=== PATIENT | male | born 1965 | race Caucasian/White ===

== ENCOUNTER → 2018-05-05 10:02 | Outpatient (CLI) | payer BC, SELFPAY ==
--- NOTE | 2018-05-05 10:05 | VDLE_ITS ---
Reason For Study: venous insuff, pain RIGHT LEFT CFV is compressible, spontaneous, phasic, CFV is compressible, spontaneous, phasic, competent and demonstrates normal competent, and demonstrates normal augmentation. augmentation. FV is compressible, spontaneous, phasic, FV is compressible, spontaneous, phasic, competent and demonstrates normal competent and demonstrates normal augmentation. augmentation. POP V is compressible, spontaneous, phasic, POP V is compressible, spontaneous, phasic, competent and demonstrates normal competent and demonstrates normal augmentation. augmentation. T/P Trunk is compressible. T/P Trunk is compressible. PTV is compressible. PTV is compressible. RT PerV is compressible. LT PerV is compressible. S-F Junction is incompetent for greater S-F Junction is incompetent for greater than .5 seconds. than .5 seconds. Short segment of the GSV at the junction is ASV in the thigh is incompetent for greater incompetent for greater than .5 seconds. than .5 seconds. ASV measures .876 x .903 cm. Segment is 3.78 cm in length. GSV ASV below the knee is incompetent for greater measures .989 x 1.04 cm. than .5 seconds. ASV measures .657 x .678 cm. ASV in the thigh is incompetent for greater GSV below the knee is incompetent for greater than .5 seconds. ASV measures .587 x .629 cm. than .5 seconds. GSV measures .468 x .494 cm. GSV below the knee is incompetent for greater SSV is incompetent for greater than .5 than .5 seconds. GSV measures .412 x .468 cm. seconds. SSV measures .34 x .385 cm. Technology Advisor V 14 cm proximal to the medial Accessory SSV is incompetent for greater malleoulus is incompetent for greater than .5 than .5 seconds. Vein measures .429 x .458 seconds. cm. SSV is incompetent for greater than .5 Technology Advisor V 14 cm proximal to the medial seconds. SSV measures .251 x .287 cm. malleolus is incompetent for greater than .5 Accessory SSV is incompetent for greater seconds. than .5 seconds. Vein measures .316 x .349 cm. Procedure Exam performed in department. The exam was diagnostic. Interpretation Summary Deep veins of the lower extremities are bilaterally patent and compressible segmentally. There is no evidence of deep vein thrombosis on either side. Valvular competence appears intact within the proximal deep venous systems bilaterally. Sapheno-femoral junctions are bilaterally incompetent . A short segment of the right great saphenous vein at the sapheno-femoral junction, measuring 3.78 cm in length, is incompetent. The right great saphenous vein below the knee is patent and incompetent. The left great saphenous vein above the knee is absent. The left great saphenous vein below the knee is patent and incompetent. Small saphenous veins are patent and incompetent bilaterally. An accessory saphenous vein in the right thigh is incompetent. On the left, an accessory saphenous vein in the thigh and below the knee are incompetent. An incompetent accessory small saphenous vein is noted bilaterally. An incompetent tunnel form placing supervisor vein is noted in the right calf, located 14 centimeters proximal to the right medial malleolus. An incompetent tunnel form placing supervisor vein is noted in the left calf, located 14 centimeters proximal to the left medial malleolus. Ordering Physician: Marko Toussaint Performed By: Rocky Duran, RVT
--- OUTSIDE RECORDS SUMMARY | 2018-07-10 00:11 | XMS RPT_ITS ---
:1965 Author Organization [facility] Care Team Providers Name Role Phone LIDYA WRIGHT (OSCAR-C) Attending Unavailable COLLEENALEX VANG Referring Unavailable LIDYA WRIGHT (PA-C) Attending Unavailable ALEX MACIAS Referring Unavailable LIDYA WRIGHT (PA-C) Attending Unavailable ALEX MACIAS Referring Unavailable ALEX MACIAS Attending Unavailable BENJIE MATT Referring Unavailable COLLEENALEX Referring Unavailable LIDYA WRIGHT (PA-C) Attending Unavailable LIDYA WRIGHT (PA-C) Referring Unavailable LIDYA WRIGHT (PA-C) Referring Unavailable Marko Toussaint Attending Unavailable Marko Toussaint Referring Unavailable Alex Macias Primary Care Unavailable PROBLEMS PROBLEMS DATE TYPE CONDITION / CODE ATTENDING STATUS SOURCE 11/24/2017 Active Other specified NA Active [facility] soft tissue Other [facility] disorders / Repository M79.89(ICD-10) 10/11/2017 Active Other longterm NA Active [facility] (current) drug [facility] therapy / Repository Z79.899(ICD-10) 07/08/2017 Active Type 2 diabetes NA Active [facility] mellitus without [facility] complications / Repository E11.9(ICD-10) PROCEDURES PROCEDURES No Procedure Records FoundRESULTS RESULTS VENOUS DUPLEX LOWER Observed: 05/06/2018 Status: F Source: [place]EL EXTREMITY 12:40 PM [facility] REPOSITORY [facility] Cardiovascular Services [address] [place] [address] Venous Duplex US - Larry Extrem 05/05/18 1008 MR#: [id number] Acct: [id number] Name: FOREST LUNA Rep #: [id number] : 1965 53 From: Marko Toussaint MD Attending Dr: Marko Toussaint MD Status: REG CLI Ordering Dr: Marko Toussaint MD Date: 05/05/18 Location: [facility] Sex: M C Admitted: Reason For Study: venous insuff, pain RIGHT LEFT CFV is compressible, spontaneous, phasic, CFV is compressible, spontaneous, phasic, competent and demonstrates normal competent, and demonstrates normal augmentation. augmentation. FV is compressible, spontaneous, phasic, FV is compressible, spontaneous, phasic, competent and demonstrates normal competent and demonstrates normal augmentation. augmentation. POP V is compressible, spontaneous, phasic, POP V is compressible, spontaneous, phasic, competent and demonstrates normal competent and demonstrates normal augmentation. augmentation. T/P Trunk is compressible. T/P Trunk is compressible. PTV is compressible. PTV is compressible. RT PerV is compressible. LT PerV is compressible. S-F Junction is incompetent for greater S-F Junction is incompetent for greater than .5 seconds. than .5 seconds. Short segment of the GSV at the junction is ASV in the thigh is incompetent for greater incompetent for greater than .5 seconds. than .5 seconds. ASV measures .876 x .903 cm. Segment is 3.78 cm in length. GSV ASV below the knee is incompetent for greater measures .989 x 1.04 cm. than .5 seconds. ASV measures .657 x .678 cm. ASV in the thigh is incompetent for greater GSV below the knee is incompetent for greater than .5 seconds. ASV measures .587 x .629 cm. than .5 seconds. GSV measures .468 x .494 cm. GSV below the knee is incompetent for greater SSV is incompetent for greater than .5 than .5 seconds. GSV measures .412 x .468 cm. seconds. SSV measures .34 x .385 cm. Miner Assistant V 14 cm proximal to the medial Accessory SSV is incompetent for greater malleoulus is incompetent for greater than .5 than .5 seconds. Vein measures .429 x .458 seconds. cm. SSV is incompetent for greater than .5 Miner Assistant V 14 cm proximal to the medial seconds. SSV measures .251 x .287 cm. malleolus is incompetent for greater than .5 Accessory SSV is incompetent for greater seconds. than .5 seconds. Vein measures .316 x .349 cm. Procedure Exam performed in department. The exam was diagnostic. Interpretation Summary Deep veins of the lower extremities are bilaterally patent and compressible segmentally. There is no evidence of deep vein thrombosis on either side. Valvular competence appears intact within the proximal deep venous systems bilaterally. Sapheno-femoral junctions are bilaterally incompetent . A short segment of the right great saphenous vein at the sapheno- femoral junction, measuring 3.78 cm in length, is incompetent. The right great saphenous vein below the knee is patent and incompetent. The left great saphenous vein above the knee is absent. The left great saphenous vein below the knee is patent and incompetent. Small saphenous veins are patent and incompetent bilaterally. An accessory saphenous vein in the right thigh is incompetent. On the left, an accessory saphenous vein in the thigh and below the knee are incompetent. An incompetent accessory small saphenous vein is noted bilaterally. An incompetent options trader vein is noted in the right calf, located 14 centimeters proximal to the right medial malleolus. An incompetent options trader vein is noted in the left calf, located 14 centimeters proximal to the left medial malleolus. Ordering Physician: Marko Toussaint Performed By: Rocky Duran RVT 05/06/18 1240 Date Marko Toussaint MD CC: Marko Toussaint MD; Alex Macias MD Date Dictated: 05/05/18 1008 Date Transcribed: 05/06/18 1240 Legal Executive Assistant: Signed PROGRESS Observed: 04/26/2018 Status: COMPLETED Source: [place] 9:59 AM [facility] REPOSITORY O ID: [id number] Author: Lidya Dean) [place] Service: (none) Author Type: Physician Trades Helper Type: Progress Notes Filed: 04/26/2018 11:01 AM Note Text: Forest Luna is a 52 year old male here today for routine follow-up. DM: frustrated with his diabetes. Trying as hard as he can with diet, exercising regularly. Has kept his weight down. Morning sugars 127-131. Insurance no longer covering invokana, needs alternative. Frustrated that he is taking multiple pills without improvement in his numbers. Wants to try weekly injectable. HTN: taking medication as prescribed. DVT: Stopped xarelto. Developed skin rash. Stopped medication and rash resolved. Now taking two Baby asirin daily. Seeing vascular tomorrow in [place] (Marko Toussaint). Waiting on his recommendation. GERD: well controlled with omeprazole. REVIEW OF SYSTEMS See HPI, otherwise unremarkable. PAST MEDICAL HISTORY Diagnosis Date - GERD (gastroesophageal reflux disease) - HTN (hypertension) - Obesity (BMI 30-39.9) - Rotator cuff syndrome of shoulder and allied disorders 2004 Rotator cuff syndrome, [place] with PT - Thrombocytopenia (HCC) - Type 2 diabetes mellitus (HCC) - Varicose veins PAST SURGICAL HISTORY Procedure Laterality Date - EGD W/ REM POLYP-SNARE STOMACH 12/15/06 - PAST SURGICAL HISTORY OF Bilateral 1975 surgery of the eyes ambliopea - PAST SURGICAL HISTORY OF Bilateral surgeries on leg veins x 5 surgeries FAMILY HISTORY Problem Relation Age of Onset - None Mother - None Father Social History Marital status: Spouse name: Althea Villarreal Years of education: Number of children: 0 Occupational History Occupation Employer Comment [employer] Social History Main Topics Smoking status: Never Smoker Smokeless tobacco: Never Used Alcohol use: Yes Comment: 2 beers once a month Drug use: No PHYSICAL EXAMINATION: Vitals: BP 133/83 Pulse 86 Temp 36.8 ?C (98.3 ?F) (Oral) Resp 16 Ht 175.3 cm (5' 9) Wt 98 kg (216 lb) SpO2 99% BMI 31.90 kg/m? General Appearance: Well appearing, alert, in no acute distress, well-hydrated, well nourished.. Lungs: lungs clear to auscultation. No wheezing, rhonchi, rales. Heart: RRR without murmur, gallop, or rubs. No ectopy. ASSESSMENT: DIAGNOSIS: (E11.9) Type 2 diabetes mellitus without complication, without long-term current use of insulin (HCC) (primary encounter diagnosis) (I10) Essential hypertension (K21.9) Gastroesophageal reflux disease, esophagitis presence not specified (Z86.718) History of DVT (deep vein thrombosis) PLAN: ASSESSMENT/PLAN: 1. Type 2 diabetes mellitus without complication, without long-term current use of insulin (HCC) - ICD9: 250.00, ICD10: E11.9 (primary diagnosis) poorly controlled POC A1C today is 8.4% - Discussed with Jaqui Canela,pharm D. Will stop invokana and januvia. Continue metformin and add trulicity. Discussed risks vs benefits and potential side effects. Injection instructions provided by Dr. Canela. 2. Essential hypertension - ICD9: 401.9, ICD10: I10 - good control - Recommended regular aerobic exercise. - Recommend home blood pressure monitoring, to bring results in on next visit - Goal of BP <130/80 3. Gastroesophageal reflux disease, esophagitis presence not specified - ICD9: 530.81, ICD10: K21.9 - Continue omeprazole 4. History of DVT (deep vein thrombosis) - ICD9: V12.51, ICD10: Z86.718 Seeing vascular tomorrow. Send list of sugars via [facility] in one month, follow-up in office in 3 months. Pt in agreement with the plan and verbalized understanding. I spent 25 minutes in the visit, with more than 50% of the total sanf-we-mgrd time of the visit in counseling / coordination of care. Lidya Wright PA-C PROGRESS Observed: 04/26/2018 Status: COMPLETED Source: [place] 9:[address] [facility] REPOSITORY O ID: [id number] Author: Janny Vieira MA Service: (none) Author Type: (none) Type: Progress Notes Filed: 04/26/2018 11:00 AM Note Text: BP CONTROLLED (<130/80) due on 1984 DTAP,TDAP,TD(1 - Tdap) due on 1985 COLORECTAL CANCER SCREENING,SEE MODIFIER due on 2016 INFLUENZA(1) due on 12/18/2017 URINE ALBUMIN:CREATININE RATIO due on 01/11/2018 HBA1C due on 01/11/2018 DIABETIC FOOT EXAM due on 01/14/2018 PROGRESS Observed: 04/26/2018 Status: COMPLETED Source: [place] 9:[address] [facility] REPOSITORY HNO ID: [id number] Author: Jaqui Canela (Pharmacist) Service: (none) Author Type: Pharmacist Type: Progress Notes Filed: 04/26/2018 11:00 AM Note Text: Team Care - Medication Education Referred By: Lidya Wright Pa-C Device training: GLP1-agonist: Trulicity Patient demonstrated ability to appropriately administer GLP1 agonist. Provided education related to indication, directions, administration, common side effects, ways to mitigate ADEs, storage, and when to contact clinic/PCP. Jaqui Canela PharmD, [facility] Primary Care Clinical Specialist CNOV Observed: 04/26/2018 Status: COMPLETED Source: [place] 9:[address] [facility] REPOSITORY Office Visit (IMMDNA) FOREST LUNA ([id number]) 1965 M Date Time Provider Department 04/26/18 9:40 AM LIDYA WRIGHT) IMMDNA During your visit today, we recorded the following information about you: Temperature Pulse Respiration Blood pressure 98.3 degrees 86/minute 16/minute 133/83 Weight Height 98 kg 1.753 m JAQUI CANELA PHARMACIST 04/26/2018 11:00 AM Signed Team Care - Medication Education Referred By: Lidya Wright Pa-C Device training: GLP1-agonist: Trulicity Patient demonstrated ability to appropriately administer GLP1 agonist. Provided education related to indication, directions, administration, common side effects, ways to mitigate ADEs, storage, and when to contact clinic/PCP. Jaqui [place], PharmD, BCPS Primary Care Clinical Specialist Janny Vieira MA 04/26/2018 11:00 AM Signed BP CONTROLLED (<130/80) due on 1984 DTAP,TDAP,TD(1 - Tdap) due on 1985 COLORECTAL CANCER SCREENING,SEE MODIFIER due on 2016 INFLUENZA(1) due on 12/18/2017 URINE ALBUMIN:CREATININE RATIO due on 01/11/2018 HBA1C due on 01/11/2018 DIABETIC FOOT EXAM due on 01/14/2018 Lidya Wright PA-C 04/26/2018 11:01 AM Addendum Forest Luna is a 52 year old male here today for routine follow-up. DM: frustrated with his diabetes. Trying as hard as he can with diet, exercising regularly. Has kept his weight down. Morning sugars 127-131. Insurance no longer covering invokana, needs alternative. Frustrated that he is taking multiple pills without improvement in his numbers. Wants to try weekly injectable. HTN: taking medication as prescribed. DVT: Stopped xarelto. Developed skin rash. Stopped medication and rash resolved. Now taking two Baby asirin daily. Seeing vascular tomorrow in [place] (Marko Toussaint). Waiting on his recommendation. GERD: well controlled with omeprazole. REVIEW OF SYSTEMS See HPI, otherwise unremarkable. PAST MEDICAL HISTORY Diagnosis Date - GERD (gastroesophageal reflux disease) - HTN (hypertension) - Obesity (BMI 30-39.9) - Rotator cuff syndrome of shoulder and allied disorders 2004 Rotator cuff syndrome, [place] with PT - Thrombocytopenia (HCC) - Type 2 diabetes mellitus (HCC) - Varicose veins PAST SURGICAL HISTORY Procedure Laterality Date - EGD W/ REM POLYP-SNARE STOMACH 12/15/06 - PAST SURGICAL HISTORY OF Bilateral 1975 surgery of the eyes ambliopea - PAST SURGICAL HISTORY OF Bilateral surgeries on leg veins x 5 surgeries FAMILY HISTORY Problem Relation Age of Onset - None Mother - None Father Social History Marital status: Spouse name: Althea Villarreal Years of education: Number of children: 0 Occupational History Occupation Employer Comment [employer] Social History Main Topics Smoking status: Never Smoker Smokeless tobacco: Never Used Alcohol use: Yes Comment: 2 beers once a month Drug use: No PHYSICAL EXAMINATION: Vitals: BP 133/83 Pulse 86 Temp 36.8 ?C (98.3 ?F) (Oral) Resp 16 Ht 175.3 cm (5' 9) Wt 98 kg (216 lb) SpO2 99% BMI 31.90 kg/m? General Appearance: Well appearing, alert, in no acute distress, well-hydrated, well nourished.. Lungs: lungs clear to auscultation. No wheezing, rhonchi, rales. Heart: RRR without murmur, gallop, or rubs. No ectopy. ASSESSMENT: DIAGNOSIS: (E11.9) Type 2 diabetes mellitus without complication, without long-term current use of insulin (HCC) (primary encounter diagnosis) (I10) Essential hypertension (K21.9) Gastroesophageal reflux disease, esophagitis presence not specified (Z86.718) History of DVT (deep vein thrombosis) PLAN: ASSESSMENT/PLAN: 1. Type 2 diabetes mellitus without complication, without long-term current use of insulin (HCC) - ICD9: 250.00, ICD10: E11.9 (primary diagnosis) poorly controlled POC A1C today is 8.4% - Discussed with Jaqui Canela,pharm D. Will stop invokana and januvia. Continue metformin and add trulicity. Discussed risks vs benefits and potential side effects. Injection instructions provided by Dr. Canela. 2. Essential hypertension - ICD9: 401.9, ICD10: I10 - good control - Recommended regular aerobic exercise. - Recommend home blood pressure monitoring, to bring results in on next visit - Goal of BP <130/80 3. Gastroesophageal reflux disease, esophagitis presence not specified - ICD9: 530.81, ICD10: K21.9 - Continue omeprazole 4. History of DVT (deep vein thrombosis) - ICD9: V12.51, ICD10: Z86.718 Seeing vascular tomorrow. Send list of sugars via [employer] in one month, follow-up in office in 3 months. Pt in agreement with the plan and verbalized understanding. I spent 25 minutes in the visit, with more than 50% of the total uaiu-yv-jkdg time of the visit in counseling / coordination of care. Lidya Wright PA-C Referring Provider: ALEX MACIAS [[id number]] Allergies As of Date: 04/26/2018 Noted Allergy Reaction ERYTHROMYCIN 11/29/2006 PENICILLINS 11/29/2006 Date Reviewed: 04/26/2018 Reviewed by: Janny Vieira MA - Fully Assessed Reason for Visit: Diabetes [34] Primary Visit Diagnosis:Type 2 diabetes mellitus without complication, without long-term current use of insulin (HCC) [E11.9] Other Visit Diagnoses:Essential hypertension [I10] Gastroesophageal reflux disease, esophagitis presence not specified [K21.9] History of DVT (deep vein thrombosis) [Z86.718] Order(s):HEMOGLOBIN A1C (POC) [6240138] Order #: [id number]. #:[id number] dulaglutide (TRULICITY) 0.75 mg / 0.5 ml subcutaneous pen injectorInject 0.75 mg subcutaneously once each week. Inject dose once per week. Discard Pen AfterDisp: 4 PenRfl: 5 Prescriptions as of 04/26/2018 Sig: METFORMIN 500 MG TABLET Take 2 tablets by mouth twice* LISINOPRIL 5 MG TABLET TAKE 1 TABLET ONCE DAILY OMEPRAZOLE 40 MG CAPSULE,GET* TAKE 1 CAPSULE DAILY CLOBETASOL 0.05 % TOPICAL CRE* Apply 1 application to affect* COMPRESSION STOCKING, THIGH H* Use as directed BLOOD-GLUCOSE METER, DRUM-TYP* Use as directed. LANCETS Test blood sugar(s) 4 times d* BLOOD SUGAR DIAGNOSTIC STRIPS Test blood sugar(s) 4 times d* DULAGLUTIDE 0.75 MG/0.5 ML DUENAS* Inject 0.75 mg subcutaneously* Problem List As Of Date 04/26/2018 Noted Resolved ABDOMINAL PAIN EPIGASTRIC [R10.13] INVALID FOR* STOMACH FUNCTION DIS NEC [K31.89, R10.13] INVALID FOR* BENIGN NEOPLASM STOMACH [D13.1] INVALID FOR* DIAPHRAGMATIC HERNIA [K44.9] INVALID FOR* Ingrowing nail [L60.0] INVALID FOR* Type 2 diabetes mellitus without complication (*INVALID FOR* Diabetic peripheral neuropathy (HCC) [E11.42] INVALID FOR* Incomplete tear of left rotator cuff [M75.112] INVALID FOR* Essential hypertension [I10] INVALID FOR* GERD (gastroesophageal reflux disease) [K21.9] INVALID FOR* Constitutional obesity [E66.8] INVALID FOR* Thrombocytopenic (HCC) [D69.6] INVALID FOR* Prescriptions ordered this encounter Disp Refills Start End DULAGLUTIDE 0.75 MG/0.5 ML SUBCUTANE* 4 Pen 5 04/26/2018 Route: SUBCUTANEOUS Sig: Inject 0.75 mg subcutaneously once each week. Inject dose once per week. Discard Pen After Medications Discontinued During This Encounter Flurandrenolide (CORDRAN) 4 mcg/cm2 * 1 Ea* 2 01/14/2017 04/26/2018 Sig: Apply once daily to affected areas as needed Disc: Course of therapy completed fluticasone (FLOVENT) 220 mcg/actuat* 1 In* 0 07/14/2017 04/26/2018 Route: INHALATION Sig: Inhale 1 Puff as instructed twice daily. Disc: Course of therapy completed COMPOUNDED PRESCRIPTION 50 E* 2 10/14/2017 04/26/2018 Sig: Basaglar pen needles. Use one daily Disc: Course of therapy completed insulin glargine (LANTUS SOLOSTAR, B* 2 Pen 0 10/14/2017 04/26/2018 Sig: Inject 5 Units subcutaneously daily Disc: Course of therapy completed rivaroxaban (XARELTO) 20 mg tablet 90 t* 1 11/24/2017 04/26/2018 Route: ORAL Sig: Take 1 tablet by mouth daily with dinner. Disc: Course of therapy completed rivaroxaban (XARELTO) 15 mg tablet 60 t* 0 11/24/2017 04/26/2018 Route: ORAL Sig: Take 1 tablet by mouth twice daily with meals. For three weeks. Disc: Course of therapy completed INVOKANA 300 mg tablet 90 t* 1 03/29/2018 04/26/2018 Sig: TAKE 1 TABLET DAILY BEFORE BREAKFAST Disc: Changing Therapy/Dosage Form sitaGLIPtin (JANUVIA) 100 mg tablet 90 t* 3 12/30/2017 04/26/2018 Route: ORAL Sig: Take 1 tablet by mouth once daily. Disc: Changing Therapy/Dosage Form Encounter Status:Closed by LIDYA WRIGHT PA-C on 04/26/18 OMER Observed: 04/11/2018 Status: COMPLETED Source: [place] 12:[address] [facility] REPOSITORY Patient Outreach (INTMWH) FOREST LUNA ([id number]) 1965 M Date Time Provider Department 04/11/18 ALEX MACIAS [facility] During your visit today, we recorded the following information about you: Allergies As of Date: 04/11/2018 Noted Allergy Reaction ERYTHROMYCIN 11/29/2006 PENICILLINS 11/29/2006 Date Reviewed: 11/24/2017 Reviewed by: Azul Ambriz MA - Fully Assessed Visit Diagnosis:Medication management [Z79.899] Order(s):ALBUMIN/CREAT RATIO RND UR [SQUACR] Order #: [id number] FUTURE HGB A1C [YPWLQ7H] Order #: [id number] FUTURE Prescriptions as of 04/11/2018 Sig: INVOKANA 300 MG TABLET TAKE 1 TABLET DAILY BEFORE BR* METFORMIN 500 MG TABLET Take 2 tablets by mouth twice* SITAGLIPTIN 100 MG TABLET Take 1 tablet by mouth once d* LISINOPRIL 5 MG TABLET TAKE 1 TABLET ONCE DAILY OMEPRAZOLE 40 MG CAPSULE,GET* TAKE 1 CAPSULE DAILY RIVAROXABAN 15 MG TABLET Take 1 tablet by mouth twice * RIVAROXABAN 20 MG TABLET Take 1 tablet by mouth daily * INSULIN GLARGINE (U-100) 100 * Inject 5 Units subcutaneously* COMPOUNDED PRESCRIPTION Basaglar pen needles. Use one* FLUTICASONE 220 MCG/ACTUATION* Inhale 1 Puff as instructed t* FLURANDRENOLIDE 4 MCG/CM2 TAPE Apply once daily to affected * CLOBETASOL 0.05 % TOPICAL CRE* Apply 1 application to affect* COMPRESSION STOCKING, THIGH H* Use as directed BLOOD-GLUCOSE METER, DRUM-TYP* Use as directed. LANCETS Test blood sugar(s) 4 times d* BLOOD SUGAR DIAGNOSTIC STRIPS Test blood sugar(s) 4 times d* Problem List As Of Date 04/11/2018 Noted Resolved ABDOMINAL PAIN EPIGASTRIC [R10.13] INVALID FOR* STOMACH FUNCTION DIS NEC [K31.89, R10.13] INVALID FOR* BENIGN NEOPLASM STOMACH [D13.1] INVALID FOR* DIAPHRAGMATIC HERNIA [K44.9] INVALID FOR* Ingrowing nail [L60.0] INVALID FOR* Type 2 diabetes mellitus without complication (*INVALID FOR* Diabetic peripheral neuropathy (HCC) [E11.42] INVALID FOR* Incomplete tear of left rotator cuff [M75.112] INVALID FOR* Essential hypertension [I10] INVALID FOR* GERD (gastroesophageal reflux disease) [K21.9] INVALID FOR* Constitutional obesity [E66.8] INVALID FOR* Thrombocytopenic (HCC) [D69.6] INVALID FOR* Encounter Status:Closed by JOSE MARIA ADHIKARI on 04/26/18 JACQUELINE Observed: 02/21/2018 Status: COMPLETED Source: [place] 12:[address] [facility] REPOSITORY Telephone (IMMDNA) FOREST LUNA ([id number]) 1965 M Date Time Provider Department 02/21/18 JOSÉ MIGUEL SCHMID (PSR) [facility] During your visit today, we recorded the following information about you: José Miguel Schmid 02/21/2018 10:00 AM Signed 02/21/18 First attempt to reach patient. LM for patient to return call and schedule a physical with Dr. Macias. Tari South 02/23/2018 11:48 AM Signed 02/23/18 Spoke to the patient, he said he would prefer to schedule through [facility] so he has his schedule. He said he would schedule later today. Please assist in scheduling. Allergies As of Date: 02/21/2018 Noted Allergy Reaction ERYTHROMYCIN 11/29/2006 PENICILLINS 11/29/2006 Date Reviewed: 11/24/2017 Reviewed by: Azul Ambriz MA - Fully Assessed Reason for Visit: Appointment [186] Prescriptions as of 02/21/2018 Sig: METFORMIN 500 MG TABLET Take 2 tablets by mouth twice* SITAGLIPTIN 100 MG TABLET Take 1 tablet by mouth once d* LISINOPRIL 5 MG TABLET TAKE 1 TABLET ONCE DAILY OMEPRAZOLE 40 MG CAPSULE,GET* TAKE 1 CAPSULE DAILY RIVAROXABAN 15 MG TABLET Take 1 tablet by mouth twice * RIVAROXABAN 20 MG TABLET Take 1 tablet by mouth daily * INSULIN GLARGINE (U-100) 100 * Inject 5 Units subcutaneously* CANAGLIFLOZIN 300 MG TABLET Take 1 tablet by mouth daily * COMPOUNDED PRESCRIPTION Basaglar pen needles. Use one* FLUTICASONE 220 MCG/ACTUATION* Inhale 1 Puff as instructed t* FLURANDRENOLIDE 4 MCG/CM2 TAPE Apply once daily to affected * CLOBETASOL 0.05 % TOPICAL CRE* Apply 1 application to affect* COMPRESSION STOCKING, THIGH H* Use as directed BLOOD-GLUCOSE METER, DRUM-TYP* Use as directed. LANCETS Test blood sugar(s) 4 times d* BLOOD SUGAR DIAGNOSTIC STRIPS Test blood sugar(s) 4 times d* Problem List As Of Date 02/21/2018 Noted Resolved ABDOMINAL PAIN EPIGASTRIC [R10.13] INVALID FOR* STOMACH FUNCTION DIS NEC [K31.89, R10.13] INVALID FOR* BENIGN NEOPLASM STOMACH [D13.1] INVALID FOR* DIAPHRAGMATIC HERNIA [K44.9] INVALID FOR* Ingrowing nail [L60.0] INVALID FOR* Type 2 diabetes mellitus without complication (*INVALID FOR* Diabetic peripheral neuropathy (HCC) [E11.42] INVALID FOR* Incomplete tear of left rotator cuff [M75.112] INVALID FOR* Essential hypertension [I10] INVALID FOR* GERD (gastroesophageal reflux disease) [K21.9] INVALID FOR* Constitutional obesity [E66.8] INVALID FOR* Thrombocytopenic (HCC) [D69.6] INVALID FOR* Encounter Status:Closed by JOSÉ MIGUEL SCHMID on 02/21/18 CNOV Observed: 11/24/2017 Status: COMPLETED Source: [place] 3:[address] [facility] REPOSITORY Office Visit (IMMDNA) FOREST LUNA ([id number]) 1965 M Date Time Provider Department 11/24/17 3:20 PM LIDYA WRIGHT) [facility] During your visit today, we recorded the following information about you: Temperature Pulse Blood pressure Weight 97.9 degrees 105/minute 132/78 97.8 kg Height 1.753 m Azul Katina ALTMAN 11/24/2017 12:30 PM Signed BLOOD PRESSURE CONTROLLED due on 1984 DTAP,TDAP,TD(1 - Tdap) due on 1985 COLORECTAL CANCER SCREENING,SEE MODIFIER due on 2016 INFLUENZA(1) due on 12/18/2017 Lidya Wright PA-C 11/24/2017 3:06 PM Addendum Forest Luna is a 52 year old male with a complaint of blood clot in left leg. C/o left lower leg swelling, redness, warmth and pain x two days. Has gotten worse. Denies recent travel, surgeries or periods of immobilization. He has had DVTs in the past. States this feels similar. Denies sob or cp. Has been active lately, working out. Never filled his insulin. Motivated to continue weight loss. States blood sugars have come down. REVIEW OF SYSTEMS See HPI, otherwise unremarkable. PAST MEDICAL HISTORY Diagnosis Date - GERD (gastroesophageal reflux disease) - HTN (hypertension) - Obesity (BMI 30-39.9) - Rotator cuff syndrome of shoulder and allied disorders 2004 Rotator cuff syndrome, [place] with PT - Thrombocytopenia (HCC) - Type 2 diabetes mellitus (HCC) - Varicose veins PAST SURGICAL HISTORY Procedure Laterality Date - EGD W/ REM POLYP-SNARE STOMACH 12/15/06 - PAST SURGICAL HISTORY OF Bilateral 1975 surgery of the eyes ambliopea - PAST SURGICAL HISTORY OF Bilateral surgeries on leg veins x 5 surgeries FAMILY HISTORY Problem Relation Age of Onset - None Mother - None Father Social History Marital status: Spouse name: Althea Villarreal Years of education: Number of children: 0 Occupational History Occupation Employer Comment [employer] Social History Main Topics Smoking status: Never Smoker Smokeless tobacco: Never Used Alcohol use: Yes Comment: 2 beers once a month Drug use: No PHYSICAL EXAMINATION: Vitals: BP 132/78 Pulse 105 Temp 36.6 ?C (97.9 ?F) (Oral) Ht 175.3 cm (5' 9) Wt 97.8 kg (215 lb 9.6 oz) SpO2 99% BMI 31.84 kg/m? General Appearance: Well appearing, alert, in no acute distress, well-hydrated, well nourished.. Lungs: Lungs clear to auscultation. No wheezing, rhonchi, rales. Heart: RRR without murmur, gallop, or rubs. No ectopy. Extremities: diffuse swelling left lower leg, palpable lump left lateral lower leg with erythema, warmth and ttp. nv intact. Brisk cap refill, normal sensation to light touch. ASSESSMENT: DIAGNOSIS: (M79.89) Calf swelling (primary encounter diagnosis) PLAN: ASSESSMENT/PLAN: 1. Calf swelling - ICD9: 729.81, ICD10: M79.89 Follow-up dependent on US results. Pt will return to office once US completed. - US DVT LOWER LT Pt in agreement with the plan and verbalized understanding. Lidya Wright PA-C Addendum 2:38 pm US shows DVT popliteal and femoral veins. Discussed with Dr. Macias. Will start xarelto 15 mg BID x 3 weeks, followed by 20 mg once daily. Will check CBC and BMP today. Will follow-up with pt in two weeks. Pt has never had hematology work up although states his mother and grandmother had blood clotting problem. will schedule with hematology. Pt advised to report to ED for sob, cp or any other new sx. Pt in agreement with the plan and verbalized understanding. EL Fontana PA-C 11/24/2017 2:31 PM Signed Addended by: LIDYA WRIGHT PA-C on: 11/24/2017 02:31 PM Modules accepted: Orders Lidya Wrihgt PA-C 11/24/2017 2:33 PM Signed Addended by: LIDYA WRIGHT PA-C on: 11/24/2017 02:33 PM Modules accepted: Orders Azul Ambriz MA 11/24/2017 2:43 PM Signed Venipuncture performed to right antecubital. Number of tubes collected: 1 gold, 1 lavender and 1 mint. 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 For three weeks.Disp: 60 tabletRfl: 0 rivaroxaban (XARELTO) 20 mg tabletTake 1 tablet by mouth daily with dinner.Disp: 90 tabletRfl: 1 CBC + DIFF [SQCBCDIF] Order #: [id number] FUTURE BASIC METABOLIC PNL [SQBMP] Order #: [id number] FUTURE CONSULT TO HEMATOLOGY [9014] Order #: [id number]: 1 CBC + DIFF [SQCBCDIF] Order #: [id number] BASIC METABOLIC PNL [SQBMP] Order #: [id number] Prescriptions as of 11/24/2017 Sig: CANAGLIFLOZIN 300 MG TABLET Take 1 tablet by mouth daily * JANUVIA 100 MG TABLET TAKE 1 TABLET ONCE DAILY LISINOPRIL 5 MG TABLET Take 1 tablet by mouth once d* OMEPRAZOLE 40 MG CAPSULE,GET* TAKE 1 CAPSULE DAILY METFORMIN 500 MG TABLET Take 2 tablets by mouth twice* FLURANDRENOLIDE 4 MCG/CM2 TAPE Apply once daily to affected * CLOBETASOL 0.05 % TOPICAL CRE* Apply 1 application to affect* COMPRESSION STOCKING, THIGH H* Use as directed BLOOD-GLUCOSE METER, DRUM-TYP* Use as directed. LANCETS Test blood sugar(s) 4 times d* BLOOD SUGAR DIAGNOSTIC STRIPS Test blood sugar(s) 4 times d* RIVAROXABAN 15 MG TABLET Take 1 tablet by mouth twice * RIVAROXABAN 20 MG TABLET Take 1 tablet by mouth daily * INSULIN GLARGINE (U-100) 100 * Inject 5 Units subcutaneously* COMPOUNDED PRESCRIPTION Basaglar pen needles. Use one* FLUTICASONE 220 MCG/ACTUATION* Inhale 1 Puff as instructed t* Medication notes this encounter INSULIN GLARGINE (U-100) 100 UNIT/ML (3 ML) SUBCUTANEOUS PEN >> Azul Ambriz MA 11/24/2017 11:21 AM >> AZUL AMBRIZ MA WedNov 24, 2017 11:21 AM Not using FLUTICASONE 220 MCG/ACTUATION HFA AEROSOL INHALER >> Azul Ambriz MA 11/24/2017 11:21 AM >> AZLU AMBRIZ MA WedNov 24, 2017 11:21 AM Not taking Problem List As Of Date 11/24/2017 Noted Resolved ABDOMINAL PAIN EPIGASTRIC [R10.13] INVALID FOR* STOMACH FUNCTION DIS NEC [K31.89, R10.13] INVALID FOR* BENIGN NEOPLASM STOMACH [D13.1] INVALID FOR* DIAPHRAGMATIC HERNIA [K44.9] INVALID FOR* Ingrowing nail [L60.0] INVALID FOR* Type 2 diabetes mellitus without complication (*INVALID FOR* Diabetic peripheral neuropathy (HCC) [E11.42] INVALID FOR* Incomplete tear of left rotator cuff [M75.112] INVALID FOR* Essential hypertension [I10] INVALID FOR* GERD (gastroesophageal reflux disease) [K21.9] INVALID FOR* Constitutional obesity [E66.8] INVALID FOR* Thrombocytopenic (HCC) [D69.6] INVALID FOR* Visit Notes: >> Azul Ambriz MA WedNov 24, 2017 2:43 PM Status: Signed Venipuncture performed to right antecubital. Number of tubes collected: 1 gold, 1 lavender and 1 mint. Prescriptions ordered this encounter Disp Refills Start End RIVAROXABAN 15 MG TABLET 60 t* 0 11/24/2017 Route: ORAL Sig: Take 1 tablet by mouth twice daily with meals. For three weeks. RIVAROXABAN 20 MG TABLET 90 t* 1 11/24/2017 Route: ORAL Sig: Take 1 tablet by mouth daily with dinner. Encounter Status:Closed by LIDYA WRIGHT PA-C on 11/24/17 CBC AND DIFFERENTIAL Collected: 11/24/2017 Status: F Source: [place] 2:40 PM [facility] REPOSITORY TYPE CODE TESTS RESULT OUT OF REFERENCE UNITS RANGE LAB WBC 3.70-11.00 k/uL WBC 8.46 LAB RBC 4.20-6.00 m/uL RBC 5.52 LAB HGB 13.0-17.0 g/dL Hemoglobin 14.4 LAB HCT 39.0-51.0 % Hematocrit 43.9 LAB MCV 80.0-100.0 fL Low MCV 79.5 LAB MCH 26.0-34.0 pG MCH 26.1 LAB MCHC 30.5-36.0 g/dL MCHC 32.8 LAB RDWCV 11.5-15.0 % RDW-CV 14.2 LAB PLTCT 150-400 k/uL Low Platelet Count 147 LAB MPV 9.0-12.7 fL MPV 11.4 LAB ANEUT % Neut% 75.5 LAB AANEUT 1.45-7.50 k/uL Abs Neut 6.39 LAB ALYMP % Lymph% 15.4 LAB AALYMP 1.00-4.00 k/uL Abs Lymph 1.30 LAB AMONO % [place]% 7.4 LAB AAMONO <0.87 k/uL Abs [place] 0.63 LAB AEOS % Eosin% 1.3 LAB AAEOS <0.46 k/uL Abs Eosin 0.11 LAB ABASO % Baso% 0.4 LAB AABASO <0.11 k/uL Abs Baso 0.03 Performed By: #### CBCDIF, [facility] #### [facility] [address] [place] [address] BASIC METABOLIC PANL Collected: 11/24/2017 Status: F Source: [place] 2:40 PM [facility] [place] REPOSITORY TYPE CODE TESTS RESULT OUT OF REFERENCE UNITS RANGE LAB GLU 74-99 mg/dL High Glucose 217 Result Comment: The [place] Diabetes Association (ADA) provides guidance for cutoff values for fasting glucose and random glucose. The ADA defines fasting as no caloric intake for at least 8 hours. Fas ting plasma glucose results between 100 to 125 mg/dL indicate increased risk for diabetes (prediabetes). Fasting plasma glucose results greater than or equal to 126 mg/dL meet the criteria for diagnosis of diabetes. In the absence of unequivocal hyperglycemia, results should be confirmed by repeat testing. In a patient with classic symptoms of hyperglycemia or hyperglycemic crisis, random plasma glucose results greater than or equal to 200 mg/dL meet the criteria for diagnosis of diabetes. Reference: Standards of Medical Care in Diabetes 2016, [place] Diabetes Association. Diabetes Care. 2016.39(Suppl 1). LAB BUN 9-24 mg/dL BUN 16 LAB CRET 0.73-1.22 mg/dL Creatinine 0.82 LAB NA 136-144 mmol/L Sodium Low 134 LAB K 3.7-5.1 mmol/L Potassium 4.4 LAB CL 97-105 mmol/L Chloride 97 LAB CO2 22-30 mmol/L CO2 23 LAB AGAP 9-18 mmol/L Anion Gap 14 LAB CA 8.5-10.2 mg/dL Calcium, Total 9.1 LAB GFRAA eGFR- Amer. >60 LAB GFRNAA . eGFR-All Other Races >60 Result Comment: eGFR (Estimated GFR) Units of measure: mL/min/1.73 meters squared eGFR is derived from the reexpressed MDRD Study equation using the following parameters: serum creatinine, age, gender and race. The creatinine assay has been calibrated to be traceable to IDMS. An eGFR <60 mL/min/1.73m2 for >3 months is consistent with chronic kidney disease. Refer to KDOQI guidelines for clinical interpretation. In patients with unstable renal function, e.g. those with acute kidney injury, the eGFR may not accurately reflect actual GFR. Performed By: #### CBCDIF, BMP #### [facility] [address] [facility] [phone] US DVT LOWER LT Observed: 11/24/2017 Status: F Source: [place] 1:51 PM CLINIC OTHER CAMPUS REPOSITORY * * *Final Report* * * DATE OF EXAM: Nov 24 2017 1:51PM JESSENIA 1006 - US DVT LOWER LT / PROCEDURE REASON: M79.89-Other specified soft tissue disorders * * * * Physician Interpretation * * * * LEFT LOWER EXTREMITY DEEP VENOUS ULTRASOUND WITH DOPPLER IMAGING CLINICAL HISTORY: Soft tissue disorders COMPARISON: 06/12/2016 TECHNIQUE: Mart scale with compression maneuvers, Color Doppler and Spectral Doppler at rest and with augmentation of the left distal external iliac, common femoral, femoral and popliteal veins was performed. Hodges scale with compression maneuvers of the peroneal and posterior tibial veins was performed. The great saphenous vein was imaged in hodges scale with compression maneuvers at their insertion to the deep system. The contralateral external iliac vein and common femoral vein were imaged for comparison. Images were obtained and stored in a permanent archive. RESULT: LEFT LOWER EXTREMITY PROXIMAL DEEP VEINS Distal External Iliac and Common Femoral Veins: Compression: Normal Doppler: Normal, spontaneous respirophasic flow Normal response to augmentation Femoral vein: Compression: Abnormal , partial compression in the distal femoral vein Doppler: Abnormal, decreased spontaneous flow Popliteal vein: Compression: Abnormal Doppler: Abnormal, semiocclusive thrombus is present in the proximal popliteal vein and partially occlusive thrombus is present in the distal popliteal vein CALF DEEP VEINS Peroneal veins: Limited, not well evaluated. Posterior tibial veins: Limited, not well evaluated. SUPERFICIAL VEINS Great saphenous: Patent and compressible at insertion into common femoral vein; not otherwise assessed. RIGHT LOWER EXTREMITY Distal External Iliac and Common Femoral Veins: Compression: Normal Doppler: Normal, spontaneous respirophasic flow Normal response to augmentation IMPRESSION: POSITIVE STUDY FOR ACUTE PROXIMAL DVT IN THE LEFT LOWER EXTREMITY. THROMBUS IS PRESENT IN THE POPLITEAL VEIN AND DISTAL LEFT FEMORAL VEIN. NONDIAGNOSTIC STUDY FOR ACUTE CALF DVT IN THE LEFT LOWER EXTREMITY. COMMUNICATION: Presence of proximal DVT in the left lower extremity Communicated with OSCAR Canales on 11/24/2017 at 1355 hours. Legal Executive Assistant: CR Transcribe Date/Time: Nov 24 2017 1:51P Dictated by : HAN BARGER MD This examination was interpreted and the report reviewed and electronically signed by: HAN BARGER MD on Nov 24 2017 2:02PM EST [id number] Observed: 11/24/2017 Status: COMPLETED Source: [place] 11:[address] [facility] REPOSITORY HNO ID: [id number] Author: Lidya Dean) Jonelle Service: (none) Author Type: Physician Trades Helper Type: Progress Notes Filed: 11/24/2017 3:06 PM Note Text: Forest Luna is a 52 year old male with a complaint of blood clot in left leg. C/o left lower leg swelling, redness, warmth and pain x two days. Has gotten worse. Denies recent travel, surgeries or periods of immobilization. He has had DVTs in the past. States this feels similar. Denies sob or cp. Has been active lately, working out. Never filled his insulin. Motivated to continue weight loss. States blood sugars have come down. REVIEW OF SYSTEMS See HPI, otherwise unremarkable. PAST MEDICAL HISTORY Diagnosis Date - GERD (gastroesophageal reflux disease) - HTN (hypertension) - Obesity (BMI 30-39.9) - Rotator cuff syndrome of shoulder and allied disorders 2004 Rotator cuff syndrome, [place] with PT - Thrombocytopenia (HCC) - Type 2 diabetes mellitus (HCC) - Varicose veins PAST SURGICAL HISTORY Procedure Laterality Date - EGD W/ REM POLYP-SNARE STOMACH 12/15/06 - PAST SURGICAL HISTORY OF Bilateral 1975 surgery of the eyes ambliopea - PAST SURGICAL HISTORY OF Bilateral surgeries on leg veins x 5 surgeries FAMILY HISTORY Problem Relation Age of Onset - None Mother - None Father Social History Marital status: Spouse name: Althea Villarreal Years of education: Number of children: 0 Occupational History Occupation Employer Comment [employer] Social History Main Topics Smoking status: Never Smoker Smokeless tobacco: Never Used Alcohol use: Yes Comment: 2 beers once a month Drug use: No PHYSICAL EXAMINATION: Vitals: BP 132/78 Pulse 105 Temp 36.6 ?C (97.9 ?F) (Oral) Ht 175.3 cm (5' 9) Wt 97.8 kg (215 lb 9.6 oz) SpO2 99% BMI 31.84 kg/m? General Appearance: Well appearing, alert, in no acute distress, well-hydrated, well nourished.. Lungs: Lungs clear to auscultation. No wheezing, rhonchi, rales. Heart: RRR without murmur, gallop, or rubs. No ectopy. Extremities: diffuse swelling left lower leg, palpable lump left lateral lower leg with erythema, warmth and ttp. nv intact. Brisk cap refill, normal sensation to light touch. ASSESSMENT: DIAGNOSIS: (M79.89) Calf swelling (primary encounter diagnosis) PLAN: ASSESSMENT/PLAN: 1. Calf swelling - ICD9: 729.81, ICD10: M79.89 Follow-up dependent on US results. Pt will return to office once US completed. - US DVT LOWER LT Pt in agreement with the plan and verbalized understanding. Lidya Wright PA-C Addendum 2:38 pm US shows DVT popliteal and femoral veins. Discussed with Dr. Macias. Will start xarelto 15 mg BID x 3 weeks, followed by 20 mg once daily. Will check CBC and BMP today. Will follow-up with pt in two weeks. Pt has never had hematology work up although states his mother and grandmother had blood clotting problem. will schedule with hematology. Pt advised to report to ED for sob, cp or any other new sx. Pt in agreement with the plan and verbalized understanding. Lidya Wright PA-C PROGRESS Observed: 11/24/2017 Status: COMPLETED Source: [place] 11:[address] [facility] REPOSITORY HNO ID: [id number] Author: Azul Ambriz MA Service: (none) Author Type: (none) Type: Progress Notes Filed: 11/24/2017 12:30 PM Note Text: BLOOD PRESSURE CONTROLLED due on 1984 DTAP,TDAP,TD(1 - Tdap) due on 1985 COLORECTAL CANCER SCREENING,SEE MODIFIER due on 2016 INFLUENZA(1) due on 12/18/2017 PROGRESS Observed: 10/14/2017 Status: COMPLETED Source: [place] 11:[address] [facility] REPOSITORY HNO ID: [id number] Author: Alex Macias Service: (none) Author Type: Physician Type: Progress Notes Filed: 10/14/2017 10:38 PM Note Text: ESTABLISHED PATIENT Forest Luna is a 52 year old male presenting for Follow Up (Pt here for 3 month follow up). HISTORY OF PRESENT ILLNESS Patient usually sees my Physician Trades Helper Brittany Wright Type 2 Diabetes Follow up: Fasting blood sugars: 180-230 Low blood sugars: no Medication compliance: yes Diet: Doesn't eat much sweets Patient concerned that he continues to require more and more diabetic medication with minimal change in his a1c. Increased urination, hunger, thirst, weight changes: no Hemoglobin A1C 8.7 10/11/2017 Hemoglobin A1C 9.5 07/08/2017 Hemoglobin A1C 7.7 01/11/2017 Last 7 Encounter Wt Readings: Date: Wt: 10/14/2017 98.9 kg (218 lb) 07/14/2017 105.7 kg (233 lb) 01/14/2017 103.8 kg (228 lb 12.8 oz) 08/05/2016 108.9 kg (240 lb) 06/18/2016 108.2 kg (238 lb 9.6 oz) 06/12/2016 106.1 kg (234 lb) 2016 106.1 kg (234 lb) Recent Labs: WBC 5.47 07/31/2016 Hemoglobin 14.2 07/31/2016 Hematocrit 45.2 07/31/2016 Platelet Count 137 07/31/2016 Sodium 139 07/08/2017 Potassium 4.6 07/08/2017 Creatinine 0.81 07/08/2017 BUN 12 07/08/2017 Glucose 252 07/08/2017 Calcium 9.2 07/08/2017 Hemoglobin A1C 8.7 10/11/2017 LDL Chol, [place] 98 07/08/2017 HDL Cholesterol 36 07/08/2017 Cholesterol, Total 146 07/08/2017 Triglyceride 62 07/08/2017 AST 13 07/08/2017 ALT 23 07/08/2017 Alkaline Phosphatase 60 07/08/2017 TSH 0.835 03/25/2015 HISTORIES FAMILY HISTORY Problem Relation Age of Onset - None Mother - None Father PAST MEDICAL HISTORY Diagnosis Date - GERD (gastroesophageal reflux disease) - HTN (hypertension) - Obesity (BMI 30-39.9) - Rotator cuff syndrome of shoulder and allied disorders 2004 Rotator cuff syndrome, [place] with PT - Thrombocytopenia (HCC) - Type 2 diabetes mellitus (HCC) - Varicose veins PAST SURGICAL HISTORY Procedure Laterality Date - EGD W/ REM POLYP-SNARE STOMACH 12/15/06 - PAST SURGICAL HISTORY OF Bilateral 1975 surgery of the eyes ambliopea - PAST SURGICAL HISTORY OF Bilateral surgeries on leg veins x 5 surgeries Social History Marital status: Spouse name: Althea Villarreal Years of education: Number of children: 0 Occupational History Occupation Employer Comment [employer] Social History Main Topics Smoking status: Never Smoker Smokeless tobacco: Never Used Alcohol use: Yes Comment: 2 beers once a month Drug use: No Allergies: ALLERGIES Allergen Reactions - Erythromycin - Penicillins Medications: canagliflozin (INVOKANA) 300 mg tablet Take 1 tablet by mouth daily before breakfast. fluticasone (FLOVENT) 220 mcg/actuation inhaler Inhale 1 Puff as instructed twice daily. JANUVIA 100 mg tablet TAKE 1 TABLET ONCE DAILY lisinopril (ZESTRIL, PRINIVIL) 5 mg tablet Take 1 tablet by mouth once daily. Omeprazole 40 mg capsule TAKE 1 CAPSULE DAILY metFORMIN (GLUCOPHAGE) 500 mg tablet Take 2 tablets by mouth twice daily with meals. Flurandrenolide (CORDRAN) 4 mcg/cm2 tape Apply once daily to affected areas as needed clobetasol (TEMOVATE) 0.05 % cream Apply 1 application to affected area once daily. Comp.Stocking,Thigh,Long,Large misc Use as directed Blood-Glucose Meter, Drum-type (ACCU-CHEK COMPACT PLUS CARE) kit Use as directed. Lancets (ACCU-CHEK MULTICLIX LANCET) lancets Test blood sugar(s) 4 times daily. Dx: 250.02. Insulin: No blood sugar diagnostic (ACCU-CHEK ALIA) test strip Test blood sugar(s) 4 times daily. Dx: Diabetes mellitus. Insulin: No REVIEW OF SYSTEMS GENERAL: No weight loss, malaise or fevers. RESPIRATORY: Negative for cough, hemoptysis, wheezing or shortness of breath. CARDIOVASCULAR: Negative for chest pain, leg swelling or palpitations. All other systems reviewed and negative other than HPI. PHYSICAL EXAM BP 126/83 Pulse 102 Temp 36.6 ?C (97.9 ?F) (Oral) Resp 16 Ht 175.3 cm (5' 9) Wt 98.9 kg (218 lb) SpO2 99% BMI 32.19 kg/m? General: Well developed, well nourished, in no acute distress. Head: Normocephalic, atraumatic. Neck: Supple. Eyes: Normal conjunctiva, no scleral icterus. Lungs: Clear to auscultation bilaterally, no rubs, no wheezing. Cardiac: Regular rate and rhythm. No murmurs, gallops, or rubs. Extremities: No edema. ASSESSMENT/PLAN: 1. Type 2 diabetes mellitus without complication, without long-term current use of insulin ([facility]) - ICD9: 250.00, ICD10: E11.9 Start basaglar 5u. To titrate dose till BG < 130. Will call office if has problems with insulin. Patient to send in report of BG in a couple of weeks. FU with PA in 3 months. Patient would like to hold off on preventatives like c-scope for now. Alex Macias MD PROGRESS Observed: 10/14/2017 Status: COMPLETED Source: [place] 11:23 AM [facility] [place] REPOSITORY O ID: [id number] Author: Lisa Estevez Service: (none) Author Type: (none) Type: Progress Notes Filed: 10/14/2017 10:38 PM Note Text: DTAP,TDAP,TD(1 - Tdap) due on 1985 COLORECTAL CANCER SCREENING,SEE MODIFIER due on 2016 ZOSTER VACCINE (SHINGRIX)(1 of 2) due on 2016 CNOV Observed: 10/14/2017 Status: COMPLETED Source: [place] 11:[address] [facility] REPOSITORY Office Visit (IMMDNA) FOREST LUNA ([id number]) 1965 M Date Time Provider Department 10/14/17 11:20 AM ALEX MACIAS During your visit today, we recorded the following information about you: Temperature Pulse Respiration Blood pressure 97.9 degrees 102/minute 16/minute 126/83 Weight Height 98.9 kg 1.753 m Lisa Estevez MA 10/14/2017 10:38 PM Signed DTAP,TDAP,TD(1 - Tdap) due on 1985 COLORECTAL CANCER SCREENING,SEE MODIFIER due on 2016 ZOSTER VACCINE (SHINGRIX)(1 of 2) due on 2016 Alex Macias MD 10/14/2017 10:38 PM Signed ESTABLISHED PATIENT Forest Luna is a 52 year old male presenting for Follow Up (Pt here for 3 month follow up). HISTORY OF PRESENT ILLNESS Patient usually sees my Physician Trades Helper Brittany Wright Type 2 Diabetes Follow up: Fasting blood sugars: 180-230 Low blood sugars: no Medication compliance: yes Diet: Doesn't eat much sweets Patient concerned that he continues to require more and more diabetic medication with minimal change in his a1c. Increased urination, hunger, thirst, weight changes: no Hemoglobin A1C 8.7 10/11/2017 Hemoglobin A1C 9.5 07/08/2017 Hemoglobin A1C 7.7 01/11/2017 Last 7 Encounter Wt Readings: Date: Wt: 10/14/2017 98.9 kg (218 lb) 07/14/2017 105.7 kg (233 lb) 01/14/2017 103.8 kg (228 lb 12.8 oz) 08/05/2016 108.9 kg (240 lb) 06/18/2016 108.2 kg (238 lb 9.6 oz) 06/12/2016 106.1 kg (234 lb) 2016 106.1 kg (234 lb) Recent Labs: WBC 5.47 07/31/2016 Hemoglobin 14.2 07/31/2016 Hematocrit 45.2 07/31/2016 Platelet Count 137 07/31/2016 Sodium 139 07/08/2017 Potassium 4.6 07/08/2017 Creatinine 0.81 07/08/2017 BUN 12 07/08/2017 Glucose 252 07/08/2017 Calcium 9.2 07/08/2017 Hemoglobin A1C 8.7 10/11/2017 LDL Chol, [place] 98 07/08/2017 HDL Cholesterol 36 07/08/2017 Cholesterol, Total 146 07/08/2017 Triglyceride 62 07/08/2017 AST 13 07/08/2017 ALT 23 07/08/2017 Alkaline Phosphatase 60 07/08/2017 TSH 0.835 03/25/2015 HISTORIES FAMILY HISTORY Problem Relation Age of Onset - None Mother - None Father PAST MEDICAL HISTORY Diagnosis Date - GERD (gastroesophageal reflux disease) - HTN (hypertension) - Obesity (BMI 30-39.9) - Rotator cuff syndrome of shoulder and allied disorders 2004 Rotator cuff syndrome, [place] with PT - Thrombocytopenia (HCC) - Type 2 diabetes mellitus (HCC) - Varicose veins PAST SURGICAL HISTORY Procedure Laterality Date - EGD W/ REM POLYP-SNARE STOMACH 12/15/06 - PAST SURGICAL HISTORY OF Bilateral 1975 surgery of the eyes ambliopea - PAST SURGICAL HISTORY OF Bilateral surgeries on leg veins x 5 surgeries Social History Marital status: Spouse name: Althea Villarreal Years of education: Number of children: 0 Occupational History Occupation Employer Comment [employer] Social History Main Topics Smoking status: Never Smoker Smokeless tobacco: Never Used Alcohol use: Yes Comment: 2 beers once a month Drug use: No Allergies: ALLERGIES Allergen Reactions - Erythromycin - Penicillins Medications: canagliflozin (INVOKANA) 300 mg tablet Take 1 tablet by mouth daily before breakfast. fluticasone (FLOVENT) 220 mcg/actuation inhaler Inhale 1 Puff as instructed twice daily. JANUVIA 100 mg tablet TAKE 1 TABLET ONCE DAILY lisinopril (ZESTRIL, PRINIVIL) 5 mg tablet Take 1 tablet by mouth once daily. Omeprazole 40 mg capsule TAKE 1 CAPSULE DAILY metFORMIN (GLUCOPHAGE) 500 mg tablet Take 2 tablets by mouth twice daily with meals. Flurandrenolide (CORDRAN) 4 mcg/cm2 tape Apply once daily to affected areas as needed clobetasol (TEMOVATE) 0.05 % cream Apply 1 application to affected area once daily. Comp.Stocking,Thigh,Long,Large misc Use as directed Blood-Glucose Meter, Drum-type (ACCU-CHEK COMPACT PLUS CARE) kit Use as directed. Lancets (ACCU-CHEK MULTICLIX LANCET) lancets Test blood sugar(s) 4 times daily. Dx: 250.02. Insulin: No blood sugar diagnostic (ACCU-CHEK ALIA) test strip Test blood sugar(s) 4 times daily. Dx: Diabetes mellitus. Insulin: No REVIEW OF SYSTEMS GENERAL: No weight loss, malaise or fevers. RESPIRATORY: Negative for cough, hemoptysis, wheezing or shortness of breath. CARDIOVASCULAR: Negative for chest pain, leg swelling or palpitations. All other systems reviewed and negative other than HPI. PHYSICAL EXAM BP 126/83 Pulse 102 Temp 36.6 ?C (97.9 ?F) (Oral) Resp 16 Ht 175.3 cm (5' 9) Wt 98.9 kg (218 lb) SpO2 99% BMI 32.19 kg/m? General: Well developed, well nourished, in no acute distress. Head: Normocephalic, atraumatic. Neck: Supple. Eyes: Normal conjunctiva, no scleral icterus. Lungs: Clear to auscultation bilaterally, no rubs, no wheezing. Cardiac: Regular rate and rhythm. No murmurs, gallops, or rubs. Extremities: No edema. ASSESSMENT/PLAN: 1. Type 2 diabetes mellitus without complication, without long-term current use of insulin ([facility]) - ICD9: 250.00, ICD10: E11.9 Start basaglar 5u. To titrate dose till BG < 130. Will call office if has problems with insulin. Patient to send in report of BG in a couple of weeks. FU with PA in 3 months. Patient would like to hold off on preventatives like c-scope for now. Alex Macias MD Referring Provider: BENJIE MATT [[id number]] Allergies As of Date: 10/14/2017 Noted Allergy Reaction ERYTHROMYCIN 11/29/2006 PENICILLINS 11/29/2006 Date Reviewed: 10/14/2017 Reviewed by: Lisa Estevez - Fully Assessed Reason for Visit: Follow Up [171] Cmt: Pt here for 3 month follow up Primary Visit Diagnosis:Type 2 diabetes mellitus without complication, without long-term current use of insulin (HCC) [E11.9] Order(s):insulin glargine (LANTUS SOLOSTAR, BASAGLAR KWIKPEN) 100 unit/mL (3 mL) inpnInject 5 Units subcutaneously dailyDisp: 2 PenRfl: 0 canagliflozin (INVOKANA) 300 mg tabletTake 1 tablet by mouth daily before breakfast.Disp: 90 tabletRfl: 1 COMPOUNDED PRESCRIPTIONBasaglar pen needles. Use one dailyDisp: 50 EachRfl: 2 Prescriptions as of 10/14/2017 Sig: CANAGLIFLOZIN 300 MG TABLET Take 1 tablet by mouth daily * FLUTICASONE 220 MCG/ACTUATION* Inhale 1 Puff as instructed t* JANUVIA 100 MG TABLET TAKE 1 TABLET ONCE DAILY LISINOPRIL 5 MG TABLET Take 1 tablet by mouth once d* OMEPRAZOLE 40 MG CAPSULE,GET* TAKE 1 CAPSULE DAILY METFORMIN 500 MG TABLET Take 2 tablets by mouth twice* FLURANDRENOLIDE 4 MCG/CM2 TAPE Apply once daily to affected * CLOBETASOL 0.05 % TOPICAL CRE* Apply 1 application to affect* COMPRESSION STOCKING, THIGH H* Use as directed BLOOD-GLUCOSE METER, DRUM-TYP* Use as directed. LANCETS Test blood sugar(s) 4 times d* BLOOD SUGAR DIAGNOSTIC STRIPS Test blood sugar(s) 4 times d* INSULIN GLARGINE (U-100) 100 * Inject 5 Units subcutaneously* COMPOUNDED PRESCRIPTION Basaglar pen needles. Use one* Problem List As Of Date 10/14/2017 Noted Resolved ABDOMINAL PAIN EPIGASTRIC [R10.13] INVALID FOR* STOMACH FUNCTION DIS NEC [K31.89, R10.13] INVALID FOR* BENIGN NEOPLASM STOMACH [D13.1] INVALID FOR* DIAPHRAGMATIC HERNIA [K44.9] INVALID FOR* Ingrowing nail [L60.0] INVALID FOR* Type 2 diabetes mellitus without complication (*INVALID FOR* Diabetic peripheral neuropathy (HCC) [E11.42] INVALID FOR* Incomplete tear of left rotator cuff [M75.112] INVALID FOR* Essential hypertension [I10] INVALID FOR* GERD (gastroesophageal reflux disease) [K21.9] INVALID FOR* Constitutional obesity [E66.8] INVALID FOR* Thrombocytopenic (HCC) [D69.6] INVALID FOR* Prescriptions ordered this encounter Disp Refills Start End INSULIN GLARGINE (U-100) 100 UNIT/ML* 2 Pen 0 10/14/2017 Sig: Inject 5 Units subcutaneously daily CANAGLIFLOZIN 300 MG TABLET 90 t* 1 10/14/2017 Route: ORAL Sig: Take 1 tablet by mouth daily before breakfast. COMPOUNDED PRESCRIPTION 50 E* 2 10/14/2017 Sig: Basaglar pen needles. Use one daily Medications Discontinued During This Encounter canagliflozin (INVOKANA) 300 mg tabl* 30 t* 3 07/14/2017 10/14/2017 Route: ORAL Sig: Take 1 tablet by mouth daily before breakfast. Disc: Reason for discontinue is not on file. Disposition: Return in about 6 months (around 04/15/2018), or 3 months with Brittany. Follow-up and Disposition History Recorded Encounter Status:Closed by ALEX MACIAS MD on 10/14/17 HEMOGLOBIN A1C Collected: 10/11/2017 Status: F Source: [place] 9:[address] [facility] REPOSITORY TYPE CODE TESTS RESULT OUT OF REFERENCE UNITS RANGE LAB HGBA1C 4.3-5.6 % High Hemoglobin A1c 8.7 LAB HBA0 mg/dL Est. Average Glucose 203 Result Comment: eAG: (Estimated average glucose) is a calculated value from HgbA1c and is claim service representative of the average blood glucose level in the last 2-3 month period. Performed By: #### HBA1C #### [facility] [address] [place], [place] [address] CNPTOUTREACH Observed: 09/28/2017 Status: COMPLETED Source: [place] 12:[address] [facility] REPOSITORY Patient Outreach (FAMPST) FOREST LUNA ([id number]) 1965 M Date Time Provider Department 09/28/17 ALEX MACIAS During your visit today, we recorded the following information about you: Allergies As of Date: 09/28/2017 Noted Allergy Reaction ERYTHROMYCIN 11/29/2006 PENICILLINS 11/29/2006 Date Reviewed: 07/14/2017 Reviewed by: Agustin Lamas - Fully Assessed Visit Diagnosis:Medication management [Z79.899] Order(s):HGB A1C [EGRPZ2O] Order #: [id number] FUTURE Prescriptions as of 09/28/2017 Sig: FLUTICASONE 220 MCG/ACTUATION* Inhale 1 Puff as instructed t* X CANAGLIFLOZIN 300 MG TABLET Take 1 tablet by mouth daily * X JANUVIA 100 MG TABLET TAKE 1 TABLET ONCE DAILY FLURANDRENOLIDE 4 MCG/CM2 TAPE Apply once daily to affected * CLOBETASOL 0.05 % TOPICAL CRE* Apply 1 application to affect* X LISINOPRIL 5 MG TABLET Take 1 tablet by mouth once d* X OMEPRAZOLE 40 MG CAPSULE,GET* TAKE 1 CAPSULE DAILY X METFORMIN 500 MG TABLET Take 2 tablets by mouth twice* COMPRESSION STOCKING, THIGH H* Use as directed BLOOD-GLUCOSE METER, DRUM-TYP* Use as directed. LANCETS Test blood sugar(s) 4 times d* BLOOD SUGAR DIAGNOSTIC STRIPS Test blood sugar(s) 4 times d* Problem List As Of Date 09/28/2017 Noted Resolved ABDOMINAL PAIN EPIGASTRIC [R10.13] INVALID FOR* STOMACH FUNCTION DIS NEC [K31.89, R10.13] INVALID FOR* BENIGN NEOPLASM STOMACH [D13.1] INVALID FOR* DIAPHRAGMATIC HERNIA [K44.9] INVALID FOR* Ingrowing nail [L60.0] INVALID FOR* Type 2 diabetes mellitus without complication (*INVALID FOR* Diabetic peripheral neuropathy (HCC) [E11.42] INVALID FOR* Incomplete tear of left rotator cuff [M75.112] INVALID FOR* Essential hypertension [I10] INVALID FOR* GERD (gastroesophageal reflux disease) [K21.9] INVALID FOR* Constitutional obesity [E66.8] INVALID FOR* Thrombocytopenic (HCC) [D69.6] INVALID FOR* Encounter Status:Closed by JOSE MARIA ADHIKARI on 01/28/18 PROGRESS Observed: 07/14/2017 Status: COMPLETED Source: [place] 11:11 [facility] REPOSITORY HNO ID: [id number] Author: Lidya Villarreal (El) [place] Service: (none) Author Type: Physician Trades Helper Type: Progress Notes Filed: 07/14/2017 12:34 PM Note Text: Forest Luna is a 52 year old male here today for routine diabetic follow-up. Under increased stress over the past few months. Brother in law had massive heart attack, pt has been helping with his nieces. Caught a cold while visiting him in the hospital in [place]. States cold sx have resolved but cough has persisted. Initially productive of colored sputum, now clear sputum. Worse with temperature changes. C/o humming sound in right ear since his cold. Denies fever, chills, sob, hemoptysis, cp or any other complaints. He is following his usual diabetic diet. Rarely strays. He is walking regularly. No other regular exercise program. Feels that he is doing the best he can with his diabetes at this time. His fasting sugars were 125-130 until 1-2 months ago. Now fastings are 240-260. Has occasional episodes where he feels like he is hypoglycemic (shaky), resolves with eating jelly. He has no other concerns or complaints today. He would like to postpone PSA and colon cancer screening until the fall. He would like to establish care with PCP here at [place]. Neuropathy at his baseline. No recent change. UTD on eye exam. GERD: doing well with omeprazole. No problems. HTN: taking medication as prescribed. Does not monitor BP outside of the office. REVIEW OF SYSTEMS See HPI, otherwise unremarkable. PAST MEDICAL HISTORY Diagnosis Date - GERD (gastroesophageal reflux disease) - HTN (hypertension) - Obesity (BMI 30-39.9) - Rotator cuff syndrome of shoulder and allied disorders 2005 Rotator cuff syndrome, [place] with PT - Thrombocytopenia (HCC) - Type 2 diabetes mellitus (HCC) - Varicose veins PAST SURGICAL HISTORY Procedure Laterality Date - EGD W/ REM POLYP-SNARE STOMACH 12/15/06 - PAST SURGICAL HISTORY OF Bilateral 1975 surgery of the eyes ambliopea - PAST SURGICAL HISTORY OF Bilateral surgeries on leg veins x 5 surgeries FAMILY HISTORY Problem Relation Age of Onset - None Mother - None Father Social History Marital status: Spouse name: Althea Villarreal Years of education: Number of children: 0 Occupational History Occupation Employer Comment [employer] Social History Main Topics Smoking status: Never Smoker Smokeless status: Never Used Alcohol use: Yes Comment: 2 beers once a month Drug use: No PHYSICAL EXAMINATION: Vitals: BP 136/75 Pulse 86 Temp 36.7 ?C (98.1 ?F) (Oral) Ht 175.3 cm (5' 9) Wt 105.7 kg (233 lb) SpO2 99% BMI 34.41 kg/m2 General Appearance: Well appearing, alert, in no acute distress, well-hydrated, well nourished.. Ears: External ears normal, canals clear. Oropharynx: Lips, mucosa, and tongue normal, teeth and gums normal, oropharynx normal. Lungs: bronchospasm with cough Heart: RRR without murmur, gallop, or rubs. No ectopy. Extremities: No deformities, edema, skin discoloration, clubbing or cyanosis. Good capillary refill. . Component Latest Ref Rng AND Units 07/08/2017 Protein, Total 6.3 - 8.0 g/dL 6.7 Albumin 3.9 - 4.9 g/dL 4.3 Calcium 8.5 - 10.2 mg/dL 9.2 Bilirubin, Total 0.2 - 1.3 mg/dL 0.6 Alkaline Phosphatase 36 - 108 U/L 60 AST 14 - 40 U/L 13 (L) Glucose 74 - 99 mg/dL 252 (H) BUN 9 - 24 mg/dL 12 Creatinine 0.73 - 1.22 mg/dL 0.81 Sodium 136 - 144 mmol/L 139 Potassium 3.7 - 5.1 mmol/L 4.6 Chloride 97 - 105 mmol/L 101 CO2 22 - 30 mmol/L 28 Anion Gap 9 - 18 mmol/L 10 ALT 10 - 54 U/L 23 eGFR- >60 eGFR-All Other Races . >60 Cholesterol, Total <200 mg/dL 146 Triglyceride <150 mg/dL 62 HDL Cholesterol >39 mg/dL 36 (L) LDL Cholesterol <100 mg/dL 98 Non HDL Cholesterol <130 mg/dL 110 Fasting Time hrs 9 VLDL Cholesterol <30 mg/dL 12 TC:HDL Ratio <5.10 4.06 LDL:HDL Ratio <2.54 2.72 (H) Hemoglobin A1C 4.3 - 5.6 % 9.5 (H) Estimated Average Glucose mg/dL 226 ASSESSMENT: DIAGNOSIS: (E11.65) Uncontrolled type 2 diabetes mellitus without complication, without long-term current use of insulin (HCC) (primary encounter diagnosis) (R05) Cough (I10) Essential hypertension (K21.9) Gastroesophageal reflux disease, esophagitis presence not specified (E11.42) Diabetic peripheral neuropathy (HCC) PLAN: ASSESSMENT/PLAN: 1. Uncontrolled type 2 diabetes mellitus without complication, without long-term current use of insulin (HCC) - ICD9: 250.02, ICD10: E11.65 (primary diagnosis) worsening control. Reviewed labs with pt. Add invokana. Discussed invokana vs glipizide vs victoza vs insulin. Pt would like to try invokana at this time. Previously wasn't covered by insurance. Will attempt PA if necessary. Follow-up 3 mos or sooner prn. Discussed risks vs benefits and potential side effects of medication. Pt agreed to proceed. 2. Cough - ICD9: 786.2, ICD10: R05 Recommended CXR, pt declined. Doxycycline, flovet, call in 2 weeks if sx persist, worsen or new sx develop. 3. Essential hypertension - ICD9: 401.9, ICD10: I10 - good control - Recommended regular aerobic exercise. 4. Gastroesophageal reflux disease, esophagitis presence not specified - ICD9: 530.81, ICD10: K21.9 - Continue omeprazole. 5. Diabetic peripheral neuropathy (HCC) - ICD9: 250.60, 357.2, ICD10: E11.42 Controlled. Follow-up 3 mos or sooner prn. Pt in agreement with the plan and verbalized understanding. I spent 35 minutes in the visit, with more than 50% of the total [id number] time of the visit in counseling / coordination of care. Lidya Wright PA-C PROGRESS Observed: 07/14/2017 Status: COMPLETED Source: [place] 11:[address] [facility] REPOSITORY HNO ID: [id number] Author: Agustin Lamas Service: (none) Author Type: (none) Type: Progress Notes Filed: 07/14/2017 12:34 PM Note Text: PROSTATE CANCER SCREENING DISCUSSION due on 2016 COLORECTAL CANCER SCREENING,SEE MODIFIER due on 2016 DILATED RETINAL EXAM due on 11/17/2016 INFLUENZA(1) due on 12/18/2016 CNOV Observed: 07/14/2017 Status: COMPLETED Source: [place] 11:[address] [facility] REPOSITORY Office Visit (IMMDNA) FOREST LUNA ([id number]) 1965 M Date Time Provider Department 07/14/17 11:00 AM LIDYA WRIGHT (EL) IMMDNA During your visit today, we recorded the following information about you: Temperature Pulse Blood pressure Weight 98.1 degrees 86/minute 136/75 105.7 kg Height 1.753 m Agustin Adams 07/14/2017 12:34 PM Signed PROSTATE CANCER SCREENING DISCUSSION due on 2016 COLORECTAL CANCER SCREENING,SEE MODIFIER due on 2016 DILATED RETINAL EXAM due on 11/17/2016 INFLUENZA(1) due on 12/18/2016 Lidya Wright PA-C 07/14/2017 12:34 PM Signed Forest Luna is a 52 year old male here today for routine diabetic follow-up. Under increased stress over the past few months. Brother in law had massive heart attack, pt has been helping with his nieces. Caught a cold while visiting him in the hospital in [place]. States cold sx have resolved but cough has persisted. Initially productive of colored sputum, now clear sputum. Worse with temperature changes. C/o humming sound in right ear since his cold. Denies fever, chills, sob, hemoptysis, cp or any other complaints. He is following his usual diabetic diet. Rarely strays. He is walking regularly. No other regular exercise program. Feels that he is doing the best he can with his diabetes at this time. His fasting sugars were 125-130 until 1-2 months ago. Now fastings are 240-260. Has occasional episodes where he feels like he is hypoglycemic (shaky), resolves with eating jelly. He has no other concerns or complaints today. He would like to postpone PSA and colon cancer screening until the fall. He would like to establish care with PCP here at [place]. Neuropathy at his baseline. No recent change. UTD on eye exam. GERD: doing well with omeprazole. No problems. HTN: taking medication as prescribed. Does not monitor BP outside of the office. REVIEW OF SYSTEMS See HPI, otherwise unremarkable. PAST MEDICAL HISTORY Diagnosis Date - GERD (gastroesophageal reflux disease) - HTN (hypertension) - Obesity (BMI 30-39.9) - Rotator cuff syndrome of shoulder and allied disorders 2004 Rotator cuff syndrome, [place] with PT - Thrombocytopenia (HCC) - Type 2 diabetes mellitus (HCC) - Varicose veins PAST SURGICAL HISTORY Procedure Laterality Date - EGD W/ REM POLYP-SNARE STOMACH 12/15/06 - PAST SURGICAL HISTORY OF Bilateral 1975 surgery of the eyes ambliopea - PAST SURGICAL HISTORY OF Bilateral surgeries on leg veins x 5 surgeries FAMILY HISTORY Problem Relation Age of Onset - None Mother - None Father Social History Marital status: Spouse name: Althea Villarreal Years of education: Number of children: 0 Occupational History Occupation Employer Comment [employer] Social History Main Topics Smoking status: Never Smoker Smokeless status: Never Used Alcohol use: Yes Comment: 2 beers once a month Drug use: No PHYSICAL EXAMINATION: Vitals: BP 136/75 Pulse 86 Temp 36.7 ?C (98.1 ?F) (Oral) Ht 175.3 cm (5' 9ANDquot;) Wt 105.7 kg (233 lb) SpO2 99% BMI 34.41 kg/m2 General Appearance: Well appearing, alert, in no acute distress, well-hydrated, well nourished.. Ears: External ears normal, canals clear. Oropharynx: Lips, mucosa, and tongue normal, teeth and gums normal, oropharynx normal. Lungs: bronchospasm with cough Heart: RRR without murmur, gallop, or rubs. No ectopy. Extremities: No deformities, edema, skin discoloration, clubbing or cyanosis. Good capillary refill. . Component Latest Ref Rng ANDamp; Units 07/08/2017 Protein, Total 6.3 - 8.0 g/dL 6.7 Albumin 3.9 - 4.9 g/dL 4.3 Calcium 8.5 - 10.2 mg/dL 9.2 Bilirubin, Total 0.2 - 1.3 mg/dL 0.6 Alkaline Phosphatase 36 - 108 U/L 60 AST 14 - 40 U/L 13 (L) Glucose 74 - 99 mg/dL 252 (H) BUN 9 - 24 mg/dL 12 Creatinine 0.73 - 1.22 mg/dL 0.81 Sodium 136 - 144 mmol/L 139 Potassium 3.7 - 5.1 mmol/L 4.6 Chloride 97 - 105 mmol/L 101 CO2 22 - 30 mmol/L 28 Anion Gap 9 - 18 mmol/L 10 ALT 10 - 54 U/L 23 eGFR- ANDgt;60 eGFR-All Other Races . ANDgt;60 Cholesterol, Total ANDlt;200 mg/dL 146 Triglyceride ANDlt;150 mg/dL 62 HDL Cholesterol ANDgt;39 mg/dL 36 (L) LDL Cholesterol ANDlt;100 mg/dL 98 Non HDL Cholesterol ANDlt;130 mg/dL 110 Fasting Time hrs 9 VLDL Cholesterol ANDlt;30 mg/dL 12 TC:HDL Ratio ANDlt;5.10 4.06 LDL:HDL Ratio ANDlt;2.54 2.72 (H) Hemoglobin A1C 4.3 - 5.6 % 9.5 (H) Estimated Average Glucose mg/dL 226 ASSESSMENT: DIAGNOSIS: (E11.65) Uncontrolled type 2 diabetes mellitus without complication, without long-term current use of insulin (HCC) (primary encounter diagnosis) (R05) Cough (I10) Essential hypertension (K21.9) Gastroesophageal reflux disease, esophagitis presence not specified (E11.42) Diabetic peripheral neuropathy (HCC) PLAN: ASSESSMENT/PLAN: 1. Uncontrolled type 2 diabetes mellitus without complication, without long-term current use of insulin (HCC) - ICD9: 250.02, ICD10: E11.65 (primary diagnosis) worsening control. Reviewed labs with pt. Add invokana. Discussed invokana vs glipizide vs victoza vs insulin. Pt would like to try invokana at this time. Previously wasn't covered by insurance. Will attempt PA if necessary. Follow-up 3 mos or sooner prn. Discussed risks vs benefits and potential side effects of medication. Pt agreed to proceed. 2. Cough - ICD9: 786.2, ICD10: R05 Recommended CXR, pt declined. Doxycycline, flovet, call in 2 weeks if sx persist, worsen or new sx develop. 3. Essential hypertension - ICD9: 401.9, ICD10: I10 - good control - Recommended regular aerobic exercise. 4. Gastroesophageal reflux disease, esophagitis presence not specified - ICD9: 530.81, ICD10: K21.9 - Continue omeprazole. 5. Diabetic peripheral neuropathy (HCC) - ICD9: 250.60, 357.2, ICD10: E11.42 Controlled. Follow-up 3 mos or sooner prn. Pt in agreement with the plan and verbalized understanding. I spent 35 minutes in the visit, with more than 50% of the total [id number] time of the visit in counseling / coordination of care. Lidya Wright PA-C Referring Provider: SELF [[id number]] Allergies As of Date: 07/14/2017 Noted Allergy Reaction ERYTHROMYCIN 11/29/2006 PENICILLINS 11/29/2006 Date Reviewed: 07/14/2017 Reviewed by: Agustin Lamas - Fully Assessed Reason for Visit: Follow Up [171] Cmt: a1c results Primary Visit Diagnosis:Uncontrolled type 2 diabetes mellitus without complication, without long-term current use of insulin (HCC) [E11.65] Other Visit Diagnoses:Cough [R05] Essential hypertension [I10] Gastroesophageal reflux disease, esophagitis presence not specified [K21.9] Diabetic peripheral neuropathy (HCC) [E11.42] Order(s):canagliflozin (INVOKANA) 300 mg tabletTake 1 tablet by mouth daily before breakfast.Disp: 30 tabletRfl: 3 fluticasone (FLOVENT) 220 mcg/actuation inhalerInhale 1 Puff as instructed twice daily.Disp: 1 InhalerRfl: 0 doxycycline monohydrate (MONODOX) 100 mg capsuleTake 1 capsule by mouth twice daily for 10 days.Disp: 20 capsuleRfl: 0 Prescriptions as of 07/14/2017 Sig: JANUVIA 100 MG TABLET TAKE 1 TABLET ONCE DAILY LISINOPRIL 5 MG TABLET Take 1 tablet by mouth once d* OMEPRAZOLE 40 MG CAPSULE,GET* TAKE 1 CAPSULE DAILY METFORMIN 500 MG TABLET Take 2 tablets by mouth twice* FLURANDRENOLIDE 4 MCG/CM2 TAPE Apply once daily to affected * CLOBETASOL 0.05 % TOPICAL CRE* Apply 1 application to affect* COMPRESSION STOCKING, THIGH H* Use as directed BLOOD-GLUCOSE METER, DRUM-TYP* Use as directed. LANCETS Test blood sugar(s) 4 times d* BLOOD SUGAR DIAGNOSTIC STRIPS Test blood sugar(s) 4 times d* CANAGLIFLOZIN 300 MG TABLET Take 1 tablet by mouth daily * FLUTICASONE 220 MCG/ACTUATION* Inhale 1 Puff as instructed t* DOXYCYCLINE MONOHYDRATE 100 M* Take 1 capsule by mouth twice* Problem List As Of Date 07/14/2017 Noted Resolved ABDOMINAL PAIN EPIGASTRIC [R10.13] INVALID FOR* STOMACH FUNCTION DIS NEC [K31.89, R10.13] INVALID FOR* BENIGN NEOPLASM STOMACH [D13.1] INVALID FOR* DIAPHRAGMATIC HERNIA [K44.9] INVALID FOR* Ingrowing nail [L60.0] INVALID FOR* Type 2 diabetes mellitus without complication (*INVALID FOR* Diabetic peripheral neuropathy (HCC) [E11.42] INVALID FOR* Incomplete tear of left rotator cuff [M75.112] INVALID FOR* Essential hypertension [I10] INVALID FOR* GERD (gastroesophageal reflux disease) [K21.9] INVALID FOR* Constitutional obesity [E66.8] INVALID FOR* Thrombocytopenic (HCC) [D69.6] INVALID FOR* Prescriptions ordered this encounter Disp Refills Start End CANAGLIFLOZIN 300 MG TABLET 30 t* 3 07/14/2017 Route: ORAL Sig: Take 1 tablet by mouth daily before breakfast. FLUTICASONE 220 MCG/ACTUATION HFA AE* 1 In* 0 07/14/2017 Route: INHALATION Sig: Inhale 1 Puff as instructed twice daily. DOXYCYCLINE MONOHYDRATE 100 MG CAPSU* 20 c* 0 07/14/2017 07/24/2017 Route: ORAL Sig: Take 1 capsule by mouth twice daily for 10 days. Encounter Status:Closed by LIDYA WRIGHT PA-C on 07/14/17 COMP METABOLIC PANEL Collected: 07/08/2017 Status: F Source: [place] 9:25 AM [facility] REPOSITORY TYPE CODE TESTS RESULT OUT OF REFERENCE UNITS RANGE LAB TP 6.3-8.0 g/dL Protein, Total 6.7 LAB ALB 3.9-4.9 g/dL Albumin 4.3 LAB CA 8.5-10.2 mg/dL Calcium, Total 9.2 LAB TBIL 0.2-1.3 mg/dL Bilirubin, Total 0.6 LAB ALKP 36-108 U/L Alkaline Phosphatase 60 LAB AST 14-40 U/L Low AST 13 LAB GLU 74-99 mg/dL Glucose High 252 Result Comment: The [place] Diabetes Association (ADA) provides guidance for cutoff values for fasting glucose and random glucose. The ADA defines fasting as no caloric intake for at least 8 hours. Fas ting plasma glucose results between 100 to 125 mg/dL indicate increased risk for diabetes (prediabetes). Fasting plasma glucose results greater than or equal to 126 mg/dL meet the criteria for diagnosis of diabetes. In the absence of unequivocal hyperglycemia, results should be confirmed by repeat testing. In a patient with classic symptoms of hyperglycemia or hyperglycemic crisis, random plasma glucose results greater than or equal to 200 mg/dL meet the criteria for diagnosis of diabetes. Reference: Standards of Medical Care in Diabetes 2016, [place] [employer] Association. Diabetes Care. 2016.39(Suppl 1). LAB BUN 9-24 mg/dL BUN 12 LAB CRET 0.73-1.22 mg/dL Creatinine 0.81 LAB NA 136-144 mmol/L Sodium 139 LAB K 3.7-5.1 mmol/L Potassium 4.6 LAB CL 97-105 mmol/L Chloride 101 LAB CO2 22-30 mmol/L CO2 28 LAB AGAP 9-18 mmol/L Anion Gap 10 LAB ALT 10-54 U/L ALT 23 LAB GFRAA eGFR- Amer. >60 LAB GFRNAA . eGFR-All Other Races >60 Result Comment: eGFR (Estimated GFR) Units of measure: mL/min/1.73 meters squared eGFR is derived from the reexpressed MDRD Study equation using the following parameters: serum creatinine, age, gender and race. The creatinine assay has been calibrated to be traceable to IDMS. An eGFR <60 mL/min/1.73m2 for >3 months is consistent with chronic kidney disease. Refer to KDOQI guidelines for clinical interpretation. In patients with unstable renal function, e.g. those with acute kidney injury, the eGFR may not accurately reflect actual GFR. Performed By: #### CMP, LIPB, HBA1C #### [facility] [address] [place] [id number] LIPID PANEL, BASIC Collected: 07/08/2017 Status: F Source: [place] 9:25 AM [facility] REPOSITORY TYPE CODE TESTS RESULT OUT OF REFERENCE UNITS RANGE LAB CHOL <200 mg/dL Cholesterol 146 Result Comment: <200 mg/dL, Desirable 200-239 mg/dL, Borderline high >239 mg/dL, High LAB TRIGLY <150 mg/dL Triglyceride 62 Result Comment: <150 mg/dL, Normal 150-199 mg/dL, Borderline high 200-499 mg/dL, High >499 mg/dL, Very high LAB HDL >39 mg/dL HDL-Cholesterol Low 36 Result Comment: 40-59 mg/dL, Acceptable >59 mg/dL, High: Negative risk factor for coronary heart disease <40 mg/dL, Low: Positive risk factor for coronary heart disease LAB LDL <100 mg/dL LDL-Cholesterol 98 Result Comment: <100 mg/dL, Optimal 100-129 mg/dL, Near optimal/above optimal 130-159 mg/dL, Borderline high 160-189 mg/dL, High >189 mg/dL, Very high Secondary prevention optimal LDL Cholesterol levels are recommended to be < 70 mg/dL LAB NONHDL <130 mg/dL Non HDL Cholesterol 110 Result Comment: <130 mg/dL, Optimal 130-159 mg/dL, Near optimal/above optimal 160-189 mg/dL, Borderline high 190-219 mg/dL, High >219 mg/dL, Very high Secondary prevention optimal non HDL Cholesterol levels are recommended to be < 100 mg/dL LAB FT hrs Fasting Time 9 LAB VLDL <30 mg/dL VLDL Cholesterol 12 LAB TCHDL <5.10 TC:HDL Ratio 4.06 LAB LDLHDL <2.54 High LDL:HDL Ratio 2.72 Result Comment: Reference: 1. National Cholesterol Education Program ATP III Guideline At-A-Glance Quick Desk Reference: National Heart, Lung, and Blood [place]. National Institutes of Health. 2001: NIH Publication No. 01-3305. 2. An International Atherosclerosis Society position paper: global recommendations for the management of dyslipidemia: executive summary, Atherosclerosis. 2014: 232(2):410-413. Performed By: #### CMP, LIPB, HBA1C #### [facility] [address] [place], [place] [address] HEMOGLOBIN A1C Collected: 07/08/2017 Status: F Source: [place] 9:25 AM [facility] REPOSITORY TYPE CODE TESTS RESULT OUT OF REFERENCE UNITS RANGE LAB HGBA1C 4.3-5.6 % High Hemoglobin A1c 9.5 LAB HBA0 mg/dL Est. Average Glucose 226 Result Comment: eAG: (Estimated average glucose) is a calculated value from HgbA1c and is claim service representative of the average blood glucose level in the last 2-3 month period. Performed By: #### CMP, LIPB, HBA1C #### [facility] [address] [place] [address] ALLERGIES ALLERGIES DATE TYPE / NAME / CODE REACTION SEVERITY SOURCE CODE 11/08/2014 Drug Penicillins/[id number] Anaphylaxis Unknown Michael Allergy/41 0476(RXNORM) Community [id number]([facility] OMED CT) Repository 11/08/2014 Drug erythromycin Anaphylaxis Unknown [place] Allergy/41 base/[id number](RX Community [id number]( NORM) Hospital OMED CT) Repository 11/29/2006 DRUG/75026 ERYTHROMYCIN [facility] 1003(SNOME [facility] D CT) Repository 11/29/2006 Drug PENICILLINS [facility] Class/4195 [facility] [address](SN Repository ED CT) ENCOUNTERS ENCOUNTERS ADMIT/DISCHARGE ACCOUNT ADMITTING ENCOUNTER LOCATION SOURCE NUMBER CLASS 05/05/2018 [id number] Ambulatory [facility] ing:[facility] Repository 04/26/2018/04/27/19 [id number] Ambulatory [address] [facility] Repository 11/24/2017/11/26/19 [id number] Ambulatory [address] [facility] Repository 11/24/2017 [id number] Ambulatory [facility] Repository 11/24/2017 [id number] Ambulatory [facility] Repository 10/14/2017/10/16/19 [id number] Ambulatory [address] [facility] Repository 10/11/2017/10/12/19 [id number] Ambulatory [address] [facility] Repository 07/14/2017/07/15/19 [id number] Ambulatory [address] [facility] Repository 07/08/2017/07/09/19 [id number] Ambulatory [address] [facility] Repository PAYERS PAYERS ENCOUNTER GUARANTOR PAYER SUBSCRIBER SOURCE 05/05/2018 FOREST [id number] Primary FOREST JUNIOR: Michael KAMARA MARGARITO Insurance[id number] Number: [facility] [id number]: (239) [id number] Repository [phone] () Date:[id number] [id number], [place] [address]ES: 05/05/2018 Secondary NOT GIVENUNK Michael Insurance:SELF PAY [facility] Number: Effective Repository Date:2018-04-27
== END ==
PROVIDERS: Family Provider Internal Medicine; PCP Internal Medicine; Referring Provider Surgery; Visit Provider Surgery
DX: I87.2 Venous insufficiency (chronic) (peripheral) (principal); I83.10 Varicose veins of unspecified lower extremity with inflammation; M79.609 Pain in unspecified limb; M79.89 Other specified soft tissue disorders
CPT/HCPCS: 93970

== ENCOUNTER 2018-08-30 11:37 | Day surgery (SDC) | payer BC, SELFPAY ==
--- NOTE | 2018-08-19 10:49 | EKG12_ITS ---
Test Reason : PRE OP Blood Pressure : / mmHG Vent. Rate : 093 BPM Atrial Rate : 093 BPM P-R Int : 160 ms QRS Dur : 100 ms QT Int : 370 ms P-R-T Axes : 042 -14 048 degrees QTc Int : 460 ms Normal sinus rhythm Normal ECG Confirmed by MAK HUMPHREYS MD ([id number]), video effects editor GUTIERREZ FUENTES ([id number]) on 08/23/2018 1:40:15 PM Referred By: Marko Toussaint Confirmed By:MAK HUMPHREYS MD
[2018-08-19 11:14] LABS: Hematocrit 43.7 % (40-54); Hemoglobin 14.8 g/dl (13.0-16.5); Mean Corp Hgb Conc 33.9 g/gl (32-36); Mean Corpuscular Hgb 27.6 pg (27.0-32.0); Mean Corpuscular Volume 81.4 fL (80-94); Mean Platelet Vol. 10.2 fl (6.2-12.0); Platelet Count 124 K/mm3 (150-450); RBC Distribution Width CV 13.6 % (11.6-14.6); RBC Distribution Width SD 40.5 fl (35.1-43.9); Red Blood Count 5.37 M/mm3 (4.6-6.2); Scan Indicated on CBC? Y/N NO; White Blood Count 5.9 K/mm3 (4.4-11.0)
[2018-08-19 11:34] LABS: Anion Gap 6 (5-15); BUN 15 mg/dL (7-18); Calcium,Total 9.1 mg/dL (8.5-10.1); Chloride 105 mmol/L (98-107); EST Glomerular Filtration Rate 83 mL/min (>60); Est Glom Filt Rate - Afr Amer 101 mL/min (>60); Glucose 182 mg/dL (74-106); Potassium 4.4 mmol/L (3.5-5.1); Sodium Level 139 mmol/L (136-145)
--- NOTE | 2018-08-21 19:16 | HP.PCM_ITS ---
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 Status: Chronic (3) Chronic venous hypertension w/ulcer and inflammation involv both sides Status: Chronic (4) Leg swelling Status: Chronic (5) Leg pain, bilateral Status: Chronic (6) Post-phlebitic syndrome Status: Chronic (7) History of DVT (deep vein thrombosis) Status: Chronic (8) Hypertension Status: Chronic (9) Diabetes mellitus Status: Chronic Qualifiers: Diabetes mellitus type: type 2 (10) Venous stasis ulcer Status: Chronic Qualifiers: Venous stasis ulcer site: ankle Varicose vein presence: with varicose veins Laterality: unspecified laterality (11) Lipodermatosclerosis of both lower extremities Status: Chronic History of Present Illness Date of Admission: 08/30/18 Chief Complaint: Chronic venous insufficiency, varicose veins with ulceration and inflammation, venous hypertension with ulceration and inflammation, post phlebitic syndrome with ulceration and inflammation, leg pain, leg swelling, history of deep vein thrombosis, venous ulcerations The patient is a 53 year old M with a long-standing history of chronic venous disease. The patient has had varicose veins in his lower extremities for approximately 30 years. This has been associated with pain and discomfort. He has undergone multiple lower extremity venous ligation and stripping procedures. He has undergone more than 25 sessions of injection sclerotherapy in the past. His symptomatology has become increasingly more severe, adversely affecting his daily activities, quality of life, and job functions. The patient has a history of deep vein thrombosis in the left lower extremity. He was treated with Xarelto for nearly 1 month, but developed an adverse reaction, and was converted to the use of 2 baby aspirin tablets per day. He has had multiple episodes of superficial thrombophlebitis in both lower extremities, approximately 10 such episodes in the left lower extremity and 3 such episodes in the right lower extremity. He is active. He sleeps in a recumbent position at night. He experiences pain in his lower extremities, which is worse at the end of the day. A venous duplex examination was performed, revealing severe venous insufficiency in both lower extremities. His most severely affected extremity, the left lower extremity, revealed incompetence of the left great saphenous vein below the knee (above the knee is absent), an accessory saphenous vein in the thigh, an accessory saphenous vein below the knee, the small saphenous vein, an accessory small saphenous vein, and a b2b managed service sales exec vein located 14 cm proximal to the left medial malleolus. The implications of this diagnosis were discussed with the patient in detail. The options of management were fully explained. Conservative treatment measures were implemented, which included leg elevation, avoidance of vital standing and sitting, graduated compression stockings, active lifestyle, weight control measures, [id number] analgesics, etc. Despite these measures, the patient remained symptomatic, with symptoms which adversely affected the patient's daily activities, quality of life, and job functions. Past Medical History Past Medical History (Chronic Problems): Chronic Problems Chronic venous insufficiency (Chronic) Varicose veins of legs with ulcer and inflammation (Chronic) Chronic venous hypertension w/ulcer and inflammation involv both sides (Chronic) Leg swelling (Chronic) Leg pain, bilateral (Chronic) Post-phlebitic syndrome (Chronic) History of DVT (deep vein thrombosis) (Chronic) Hypertension (Chronic) Diabetes mellitus (Chronic) Venous stasis ulcer (Chronic) Lipodermatosclerosis of both lower extremities (Chronic) Allergies erythromycin base Allergy (Verified 11/08/14 15:41) Anaphylaxis Penicillins Allergy (Verified 11/08/14 15:41) Anaphylaxis Home Medications: Ambulatory Orders Medication Instructions Recorded Aspirin [Aspirin, Baby] 81 mg PO DAILY@0800 11/08/14 Ciprofloxacin [Cipro] 500 mg PO BID #20 tablet 11/08/14 Esomeprazole Mag Trihydrate 40 mg PO DAILY 11/08/14 [Nexium] Metformin HCl [Glucophage] 1,000 mg PO BIDCM 11/08/14 Metronidazole [Flagyl] 500 mg PO Q8 #30 tablet 11/08/14 Surgical History: - - The patient has had multiple vein stripping procedures and venous ligations in the lower extremities. Is also had more than 25 sessions of injection sclerotherapy in the past. He has undergone left rotator cuff surgery in the past. His great toenails have been removed. Psychiatric History: No pertinent psych hx Lives: Spouse/ Significant Other Smoking Status: Never smoker Tobacco Use: Non-smoker Alcohol: Occasional Drugs: None - *Family History Paternal History Items: - - The patient's father is 83 years of age and healthy. The patient's mother is 80 years of age and healthy. Review of Systems Constitutional: Denies: Chills, Fever, Weight Change HEENT: Denies: Head Aches, Sinus Congestion, Sinus Drainage Cardiovascular: Denies: Chest Pain, Palpitations Respiratory: Denies: Cough, Shortness of breath at rest, Sputum production Gastrointestinal: Denies: Abdominal Pain, Nausea, Vomiting Genitourinary: Denies: Dysuria Musculoskeletal: Denies: Joint Pain, Joint Tenderness Skin: Denies: Rash, Wounds Neurological: Denies: Numbness, Tingling, Focal weakness Psychiatric: Denies: Anxiety, Depression, Homicidal Ideations, Suicidal Ideations Hematologic/ Lymphatic: Denies: Easy Bruising, Easy Bleeding VTE Information - Inpt Only VTE Present on Admission: No VTE Mechan Device Prophylaxis: SCD's - Right VTE Pharm Prophylaxis ordered?: Yes - Physical Exam General: Alert, Oriented x3, Cooperative, No apparent distress, Well developed, Well nourished HEENT: Atraumatic, PERRLA, EOMI, Normocephalic Neck: Supple, No JVD, Negative Carotid Bruits, Negative Hepatojugular Reflux Lungs: Clear to auscultation, Normal air movement, No rhonchi, No wheeze, No rales Cardiovascular: Regular rate, Regular Rhythm, Normal S1, Normal S2, No murmurs Abdomen: Bowel Sounds Present, Soft, Non Tender Extremities: No clubbing, No cyanosis, No edema, Capillary Refill Less than 3 Seconds, No Calf Tenderness, - - Lower extremities are warm and well-perfused. Pedal pulses are bilaterally palpable. Small venous ulcerations are noted near the medial malleolar lie bilaterally. Lipodermatosclerosis is noted medially in the gaiter areas bilaterally. Multiple large varicosities are noted in the lower extremities bilaterally. Skin: No rashes Musculoskeletal: No Tenderness to Palpation of Joints or Extremities, No Muscle Wasting Neurological: Cranial nerves II-XII grossly intact, Neuro grossly intact Psych/Mental Status: Normal Affect, Appropriate, Alert and oriented to time, place, person, mood and affect Assessment/Plan This is a 53-year-old male with a long-standing history of chronic venous disease. He suffers from chronic venous insufficiency, varicose veins with ulceration and inflammation, chronic venous hypertension with ulceration and inflammation, postphlebitic syndrome with ulceration and inflammation, lower extremity pain, lower extremity swelling, history of deep vein thrombosis and superficial thrombophlebitis, lipodermatosclerosis, and venous ulcerations bilaterally. Despite conservative treatment measures, the patient has remained symptomatic, with manifestations of his chronic venous disease which have adversely impacted his daily activities, quality of life, and job functions. The options of management have been fully explained. The indications and risks of endovenous laser ablation of the left great saphenous vein, left accessory saphenous veins x2, and incompetent left calf b2b managed service sales exec vein located 14 cm proximal to the left medial malleolus have been discussed with the patient in detail. Patient is also known to have incompetence of his left small saphenous vein and an accessory small saphenous vein. However, it is felt that the most clinically relevant superficial venous incompetence involves the left great small saphenous vein, accessory saphenous veins, and incompetent b2b managed service sales exec vein. Therefore, these are the veins which are to be treated by means of endothermal ablation. The indications and risks of the procedure have been discussed with the patient in detail. The anticipated benefits have been thoroughly explained. Expectations have been discussed. The patient wishes to proceed. The appropriate preprocedure consent process has been undertaken.
[2018-08-30 12:33] VITALS: BP 122/87; PULSE 87; RESP 16; TEMP 36.9; O2SAT 98; BMI 31.5
[2018-08-30] MEDS: Enoxaparin 30 MG/0.3 ML Syringe SC (12:52)
[2018-08-30 13:40] LABS: Bedside Glucose 143 mg/dL (70-110)
--- NOTE | 2018-08-30 15:01 | PCM.DCVENO ---
Discharge Diet: No Restrictions Discharge Activity: May Not Drive May shower in (days): 2 Weight Bearing Status: Weight bearing as tolerated Lifting Restrictions: 10 pounds Keep extremity elevated above heart level: Left Leg Call your doctor if you observe: Inability to urinate, Shortness of breath, Dizziness, Fainting spells, Chest pain, Prolonged hiccoughing, Uncontrolled pain Suture Line Care: Avoid Pulling/Pushing Remove Dressing in (days):: 2 - Then rewrap leg with Nasir daily from base of toes to upper thigh. Allergies/Adverse Reactions: Allergies erythromycin base Allergy (Verified 08/23/18 11:01) Anaphylaxis Penicillins Allergy (Verified 08/23/18 11:01) Anaphylaxis Medications to take at Discharge Aspirin [Aspirin, Baby] 81 mg PO DAILY@0800 11/08/14 Metformin HCl [Glucophage] 1,000 mg PO BIDCM 11/08/14 Canagliflozin [Invokana] 300 mg PO DAILY 08/23/18 Dulaglutide [Trulicity] 1.5 mg SQ WE 08/23/18 Lisinopril [Zestril] 5 mg PO QHS 08/23/18 Omeprazole 40 mg PO DAILY 08/23/18 Primary Care Physician: Lidya Sal PA [Primary Care Provider] - Test Results: Test results from this visit will be discussed in further detail at your follow-up appointment, if applicable. Please Follow Up With: Marko Toussaint MD When: 10-14 days
[2018-08-30 15:02] VITALS: BP 111/77; BP 122/87; PULSE 90; RESP 16; TEMP 35.9; O2SAT 100
--- NOTE | 2018-08-30 15:04 | DCINST_ITS ---
Discharge Diet: No Restrictions Discharge Activity: May Not Drive May shower in (days): 2 Weight Bearing Status: Weight bearing as tolerated Lifting Restrictions: 10 pounds Keep extremity elevated above heart level: Left Leg Call your doctor if you observe: Inability to urinate, Shortness of breath, Dizziness, Fainting spells, Chest pain, Prolonged hiccoughing, Uncontrolled pain Suture Line Care: Avoid Pulling/Pushing Remove Dressing in (days):: 2 - Then rewrap leg with Nasir daily from base of toes to upper thigh. Allergies/Adverse Reactions: Allergies erythromycin base Allergy (Verified 08/23/18 11:01) Anaphylaxis Penicillins Allergy (Verified 08/23/18 11:01) Anaphylaxis Medications to take at Discharge Aspirin [Aspirin, Baby] 81 mg PO DAILY@0800 11/08/14 Metformin HCl [Glucophage] 1,000 mg PO BIDCM 11/08/14 Canagliflozin [Invokana] 300 mg PO DAILY 08/23/18 Dulaglutide [Trulicity] 1.5 mg SQ WE 08/23/18 Lisinopril [Zestril] 5 mg PO QHS 08/23/18 Omeprazole 40 mg PO DAILY 08/23/18 Primary Care Physician: Lidya Sal PA [Primary Care Provider] - Test Results: Test results from this visit will be discussed in further detail at your follow- up appointment, if applicable. Please Follow Up With: Marko Toussaint MD When: 10-14 days
[2018-08-30 15:07] VITALS: BP 122/87; TEMP 36.2
[2018-08-30 15:15] VITALS: BP 118/79; BP 122/87; PULSE 85; RESP 16; O2SAT 100
[2018-08-30 15:21] LABS: Bedside Glucose 169 mg/dL (70-110)
[2018-08-30 15:23] VITALS: BP 118/79; BP 122/87; PULSE 85; RESP 16; TEMP 36.2; O2SAT 100
[2018-08-30] MEDS: oxyCODONE 5 MG Tablet PO (15:57)
[2018-08-30 16:39] VITALS: BP 122/87; BP 129/83; PULSE 86; RESP 16; TEMP 36.7; O2SAT 98
--- NOTE | 2018-08-30 19:53 | PCM.OPRPT ---
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 Status: Chronic (3) Chronic venous hypertension w/ulcer and inflammation involv both sides Status: Chronic (4) Leg swelling Status: Chronic (5) Leg pain, bilateral Status: Chronic (6) Post-phlebitic syndrome Status: Chronic (7) History of DVT (deep vein thrombosis) Status: Chronic (8) Venous stasis ulcer Status: Chronic Qualifiers: Venous stasis ulcer site: ankle Varicose vein presence: with varicose veins Laterality: unspecified laterality (9) Lipodermatosclerosis of both lower extremities Status: Chronic Report of Operation Date of Procedure: 08/30/18 Pre-Operative Diagnosis: Chronic venous insufficiency, varicose veins with ulcer and inflammation, chronic venous hypertension with ulcer and inflammation, leg swelling, leg pain, postphlebitic syndrome with ulcer and inflammation, history of deep vein thrombosis, lipodermatosclerosis, venous stasis ulceration?left lower extremity Post-Operative Diagnosis: Chronic venous insufficiency, varicose veins with ulcer and inflammation, chronic venous hypertension with ulcer and inflammation, leg swelling, leg pain, postphlebitic syndrome with ulcer and inflammation, history of deep vein thrombosis, lipodermatosclerosis, venous stasis ulceration?left lower extremity Surgery/Procedure Performed:: 1. Endovenous laser ablation of the left great saphenous vein below the knee. 2. Endovenous laser ablation of the left accessory saphenous vein in the thigh. 3. Endovenous laser ablation of the left accessory saphenous vein in the calf. 4. Endovenous laser ablation of the left calf incompetent board winder vein (14 cm proximal to the left medial malleolus) Description of Surgical Findings:: As above Type of Anesthesia:: General, Tumescent Anesthesiologist: Yimi Velazquez Specimen's removed: None Drains: None Estimated Blood Loss (mL): Minimal Description of Procedure: This is a 53-year-old male who presented with a long-standing history of chronic venous insufficiency, varicose veins with ulcer and inflammation, chronic venous hypertension with ulcer and inflammation, postphlebitic syndrome with ulcer and inflammation, venous stasis ulceration near the left medial malleolus, left lower extremity swelling, and pain in the left lower extremity. A preoperative venous duplex examination had revealed valvular incompetence involving the left great saphenous vein below the knee, with the more proximal portion of the left great saphenous vein having been previously stripped. Incompetence was also noted in accessory saphenous veins both above and below the knee. A large prominent incompetent board winder vein was also noted 14 cm proximal to the left medial malleolus. The patient was also noted to have a left small saphenous vein and an accessory small saphenous vein which were incompetent, though thought to be less clinically significant than the other superficial incompetent veins, as relates to his venous stasis ulceration near the left medial malleolus. The implications of the patient's diagnosis were discussed with the patient in detail. The options of management were fully explained. Conservative treatment measures were implemented, which included leg elevation, avoidance of idle standing and sitting, graduated compression stockings, active lifestyle, [id number] analgesics, weight control measures, etc. Despite these measures, the patient remained symptomatic, with symptoms which adversely affected daily activities, quality of life, and job functions. The indications and risks of endovenous laser ablation of the left great saphenous vein, 2 incompetent accessory saphenous veins, and the incompetent left calf board winder vein were discussed with the patient in detail. The appropriate preprocedure consent process was undertaken. The patient underwent ultrasound marking of the left great saphenous vein below the knee, the 2 incompetent accessory saphenous veins, and the incompetent board winder vein in the left calf. He was then brought to the operating room suite, placed supine upon the operating table, where general anesthesia was administered by the anesthesia staff. The patient's left lower extremity and left groin were prepped and draped in the appropriate sterile manner. The patient was placed in reverse Trendelenburg position. Ultrasonography was used to image the left great saphenous vein in the very distal calf, just above the ankle. The micropuncture technique was used to access the left great saphenous vein percutaneously just proximal to the left medial malleolus. In this manner, a 0.018 inch guidewire was advanced intraluminally into the left great saphenous vein, and was visualized by ultrasonography. A micropuncture sheath was advanced over the guidewire. The 0.018 guidewire was exchanged for a 0.035 inch guidewire, which was then advanced intraluminally to the proximal calf near knee level, where the great saphenous vein was noted to continue proximally as the incompetent accessory saphenous vein in the thigh. The guidewire was advanced proximally within the left thigh accessory saphenous vein, and its tip was positioned within the proximal accessory saphenous vein, near its junction with the deep venous system in the groin. The long 4 [place] sheath was advanced over the guidewire, and its tip was positioned proximally within the left thigh incompetent accessory saphenous vein. Attention was then directed to the incompetent accessory saphenous vein in the left calf. Using ultrasound imaging and the micropuncture technique, the micropuncture sheath was introduced intraluminally, and was left in place, capped, for subsequent access purposes. Attention was then directed to the incompetent board winder vein in the left calf, located approximately 14 cm proximal to the left medial malleolus. Using ultrasound imaging and the micropuncture technique, a 0.018 inch guidewire was introduced intraluminally within the board winder vein. A 5 [place] peel-away sheath was advanced over the guidewire and into position intraluminally within the board winder vein. Perivenous tumescent anesthesia was injected about the sheath. The AngioDynamics laser fiber was introduced into the sheath, and positioned near the level of the fascia, well away from the underlying deep venous system. The 5 [place] sheath was then withdrawn, leaving only the laser fiber in place within the lumen of the incompetent board winder vein. Under direct ultrasound imaging, the laser fiber was activated, and was slowly withdrawn throughout the length of the incompetent board winder vein, thereby ablating the board winder vein segmentally. The energy applied was approximately 60 to 80 J/cm. Following the laser ablation, the laser fiber was removed, and manual pressure was briefly applied to the percutaneous access site to achieve hemostasis. Attention was then directed to the long 4 [place] sheath which had been previously placed intraluminally within the distal portion of the left great saphenous vein and the accessory saphenous vein in the left thigh. Perivenous tumescent anesthesia was injected from the 4 [place] sheath exit site near the ankle, up to the junction with the deep venous system in the groin. This was performed segmentally using ultrasound imaging. The AngioDynamics laser fiber was then introduced into the 4 [place] sheath and coupled appropriately. Ultrasonography was used to confirm the tip of the laser fiber was positioned within the proximal portion of the left accessory saphenous vein in the thigh, 2 to 2-1/2 mm distal to its junction with the deep venous system in the groin. The patient was placed in Trendelenburg position and the laser fiber was activated. The AngioDynamics laser was slowly withdrawn at a constant rate throughout the length of the accessory saphenous vein in the thigh, and the great saphenous vein in the calf, thereby ablating both veins segmentally. The energy applied was approximately 60 to 80 J/cm. Following the laser ablation, the laser fiber and sheath were removed, and manual pressure was briefly applied to the percutaneous access site to achieve hemostasis. Attention was then directed to the incompetent accessory saphenous vein in the left calf. A micropuncture sheath had been previously placed intraluminally. A 0.035 inch guidewire was introduced intraluminally and advanced from the distal calf up to the proximal calf. The long 4 [place] sheath was advanced over the guidewire and into position intraluminally within the incompetent accessory saphenous vein in the calf. Perivenous tumescent anesthesia was then injected from the 4 [place] sheath exit site up to the tip of the sheath. This was performed segmentally using ultrasound imaging. The AngioDynamics laser fiber was then introduced into the 4 [place] sheath and coupled appropriately. Ultrasonography was used to confirm that the tip of the laser fiber was positioned in the desired location, well away from the deep venous system. The patient was placed in Trendelenburg position and the laser fiber was activated. The AngioDynamics laser was slowly withdrawn at a constant rate throughout the length of the left accessory saphenous vein, thereby ablating the left accessory saphenous vein in the calf. The energy applied was approximately 60 to 80 J/cm. Following the laser ablation, the laser fiber and sheath were removed, and manual pressure was briefly applied to the percutaneous access site to achieve hemostasis. After assuring satisfactory hemostasis, the access sites were approximated using Cavilon and Steri-Strips. Dry sterile gauze dressings were applied over each of the access sites, and the leg was wrapped with the base of the toes to the upper thigh with Kerlix, followed by Nasir wrap. The blood loss for the procedure was minimal. The sponge, needle, and instrument counts at the end of the procedure were correct. The patient tolerated the procedure well and was transported from the operating room to the post-anesthesia care unit in stable condition. The amount of tumescent anesthesia utilized, number of joules applied, and treatment times were recorded separately. - Complications None - Admit VTE Documentation VTE Present on Admission: No VTE Mechan Device Prophylaxis: SCD's - Right leg VTE Pharm Prophylaxis ordered?: Yes
--- NOTE | 2018-08-30 19:58 | OP.PCM_ITS ---
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 Status: Chronic (3) Chronic venous hypertension w/ulcer and inflammation involv both sides Status: Chronic (4) Leg swelling Status: Chronic (5) Leg pain, bilateral Status: Chronic (6) Post-phlebitic syndrome Status: Chronic (7) History of DVT (deep vein thrombosis) Status: Chronic (8) Venous stasis ulcer Status: Chronic Qualifiers: Venous stasis ulcer site: ankle Varicose vein presence: with varicose veins Laterality: unspecified laterality (9) Lipodermatosclerosis of both lower extremities Status: Chronic Report of Operation Date of Procedure: 08/30/18 Pre-Operative Diagnosis: Chronic venous insufficiency, varicose veins with ulcer and inflammation, chronic venous hypertension with ulcer and inflammation, leg swelling, leg pain, postphlebitic syndrome with ulcer and inflammation, history of deep vein thrombosis, lipodermatosclerosis, venous stasis ulceration?left lower extremity Post-Operative Diagnosis: Chronic venous insufficiency, varicose veins with ulcer and inflammation, chronic venous hypertension with ulcer and inflammation, leg swelling, leg pain, postphlebitic syndrome with ulcer and inflammation, history of deep vein thrombosis, lipodermatosclerosis, venous stasis ulceration?left lower extremity Surgery/Procedure Performed:: 1. Endovenous laser ablation of the left great saphenous vein below the knee. 2. Endovenous laser ablation of the left accessory saphenous vein in the thigh. 3. Endovenous laser ablation of the left accessory saphenous vein in the calf. 4. Endovenous laser ablation of the left calf incompetent rock loader vein (14 cm proximal to the left medial malleolus) Description of Surgical Findings:: As above Type of Anesthesia:: General, Tumescent Anesthesiologist: Yimi Velazquez Specimen's removed: None Drains: None Estimated Blood Loss (mL): Minimal Description of Procedure: This is a 53-year-old male who presented with a long-standing history of chronic venous insufficiency, varicose veins with ulcer and inflammation, chronic venous hypertension with ulcer and inflammation, postphlebitic syndrome with ulcer and inflammation, venous stasis ulceration near the left medial malleolus, left lower extremity swelling, and pain in the left lower extremity. A preoperative venous duplex examination had revealed valvular incompetence involving the left great saphenous vein below the knee, with the more proximal portion of the left great saphenous vein having been previously stripped. Incompetence was also noted in accessory saphenous veins both above and below the knee. A large prominent incompetent rock loader vein was also noted 14 cm proximal to the left medial malleolus. The patient was also noted to have a left small saphenous vein and an accessory small saphenous vein which were incompetent, though thought to be less clinically significant than the other superficial incompetent veins, as relates to his venous stasis ulceration near the left medial malleolus. The implications of the patient's diagnosis were discussed with the patient in detail. The options of management were fully explained. Conservative treatment measures were implemented, which included leg elevation, avoidance of idle standing and sitting, graduated compression stockings, active lifestyle, [id number] analgesics, weight control measures, etc. Despite these measures, the patient remained symptomatic, with symptoms which adversely affected daily activities, quality of life, and job functions. The indications and risks of endovenous laser ablation of the left great saphenous vein, 2 incompetent accessory saphenous veins, and the incompetent left calf rock loader vein were discussed with the patient in detail. The appropriate preprocedure consent process was undertaken. The patient underwent ultrasound marking of the left great saphenous vein below the knee, the 2 incompetent accessory saphenous veins, and the incompetent perf orator vein in the left calf. He was then brought to the operating room suite, placed supine upon the operating table, where general anesthesia was administered by the anesthesia staff. The patient's left lower extremity and left groin were prepped and draped in the appropriate sterile manner. The patient was placed in reverse Trendelenburg position. Ultrasonography was used to image the left great saphenous vein in the very distal calf, just above the ankle. The micropuncture technique was used to access the left great saphenous vein percutaneously just proximal to the left medial malleolus. In this manner, a 0.018 inch guidewire was advanced intraluminally into the left great saphenous vein, and was visualized by ultrasonography. A micropuncture sheath was advanced over the guidewire. The 0.018 guidewire was exchanged for a 0.035 inch guidewire, which was then advanced intraluminally to the proximal calf near knee level, where the great saphenous vein was noted to continue proximally as the incompetent accessory saphenous vein in the thigh. The guidewire was advanced proximally within the left thigh accessory saphenous vein, and its tip was positioned within the proximal accessory saphenous vein, near its junction with the deep venous system in the groin. The long 4 [place] sheath was advanced over the guidewire, and its tip was positioned proximally within the left thigh incompetent accessory saphenous vein. Attention was then directed to the incompetent accessory saphenous vein in the left calf. Using ultrasound imaging and the micropuncture technique, the mi cropuncture sheath was introduced intraluminally, and was left in place, capped, for subsequent access purposes. Attention was then directed to the incompetent rock loader vein in the left calf, located approximately 14 cm proximal to the left medial malleolus. Using ultrasound imaging and the micropuncture technique, a 0.018 inch guidewire was introduced intraluminally within the rock loader vein. A 5 [place] peel-away sheath was advanced over the guidewire and into position intraluminally within the rock loader vein. Perivenous tumescent anesthesia was injected about the sheath. The AngioDynamics laser fiber was introduced into the sheath, and positioned near the level of the fascia, well away from the underlying deep venous system. The 5 [place] sheath was then withdrawn, leaving only the laser fiber in place within the lumen of the incompetent rock loader vein. Under direct ultrasound imaging, the laser fiber was activated, and was slowly withdrawn throughout the length of the incompetent rock loader vein, thereby ablating the rock loader vein segmentally. The energy applied was approximately 60 to 80 J/cm. Following the laser ablation, the laser fiber was removed, and manual pressure was briefly applied to the percutaneous access site to achieve hemostasis. Attention was then directed to the long 4 [place] sheath which had been previously placed intraluminally within the distal portion of the left great saphenous vein and the accessory saphenous vein in the left thigh. Perivenous tumescent anesthesia was injected from the 4 [place] sheath exit site near the ankle, up to the junction with the deep venous system in the groin. This was performed segmentally using ultrasound imaging. The AngioDynamics laser fiber was then introduced into the 4 [place] sheath and coupled appropriately. Ultrasonography was used to confirm the tip of the laser fiber was positioned within the proximal portion of the left accessory saphenous vein in the thigh, 2 to 2-1/2 mm distal to its junction with the deep venous system in the groin. The patient was placed in Trendelenburg position and the laser fiber was activated. The AngioDynamics laser was slowly withdrawn at a constant rate throughout the length of the accessory saphenous vein in the thigh, and the great saphenous vein in the calf, thereby ablating both veins segmentally. The energy applied was approximately 60 to 80 J/cm. Following the laser ablation, the laser fiber and sheath were removed, and manual pressure was briefly applied to the percutaneous access site to achieve hemostasis. Attention was then directed to the incompetent accessory saphenous vein in the left calf. A micropuncture sheath had been previously placed intraluminally. A 0.035 inch guidewire was introduced intraluminally and advanced from the distal calf up to the proximal calf. The long 4 [place] sheath was advanced over the guidewire and into position intraluminally within the incompetent accessory saphenous vein in the calf. Perivenous tumescent anesthesia was then injected from the 4 [place] sheath exit site up to the tip of the sheath. This was performed segmentally using ultrasound imaging. The AngioDynamics laser fiber was then introduced into the 4 [place] sheath and coupled appropriately. Ultrasonography was used to confirm that the tip of the laser fiber was positioned in the desired location, well away from the deep venous system. The patient was placed in Trendelenburg position and the laser fiber was activated. The AngioDynamics laser was slowly withdrawn at a constant rate throughout the length of the left accessory saphenous vein, thereby ablating the left accessory saphenous vein in the calf. The energy applied was approximately 60 to 80 J/cm. Following the laser ablation, the laser fiber and sheath were removed, and manual pressure was briefly applied to the percutaneous access site to achieve hemostasis. After assuring satisfactory hemostasis, the access sites were approximated using Cavilon and Steri-Strips. Dry sterile gauze dressings were applied over each of the access sites, and the leg was wrapped with the base of the toes to the upper thigh with Kerlix, followed by Nasir wrap. The blood loss for the procedure was minimal. The sponge, needle, and instrument counts at the end of the procedure were correct. The patient tolerated the procedure well and was transported from the operating room to the post-anesthesia care unit in stable condition. The amount of tumescent anesthesia utilized, number of joules applied, and treatment times were recorded separately. - Complications None - Admit VTE Documentation VTE Present on Admission: No VTE Mechan Device Prophylaxis: SCD's - Right leg VTE Pharm Prophylaxis ordered?: Yes
== END 2018-08-30 16:48 | disposition home or self-care (01) ==
LOC: SDC 11:39 → AC 11:40
PROVIDERS: Family Provider Physician Assistant; PCP Physician Assistant; Referring Provider Surgery; Visit Provider Surgery
PROC: (CPT 36478; principal; 2018-08-30 12:45)
DX: I83.223 Varicose veins of left lower extremity with both ulcer of ankle and inflammation (principal); Z86.718 Personal history of other venous thrombosis and embolism; I83.213 Varicose veins of right lower extremity with both ulcer of ankle and inflammation; L97.329 Non-pressure chronic ulcer of left ankle with unspecified severity; E11.9 Type 2 diabetes mellitus without complications; K21.9 Gastro-esophageal reflux disease without esophagitis; Z79.899 Other long term (current) drug therapy; Z79.84 Long term (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 oral hypoglycemic drugs; Z79.82 Long term (current) use of aspirin; I10 Essential (primary) hypertension; L97.319 Non-pressure chronic ulcer of right ankle with unspecified severity
CPT/HCPCS: 36478; 36479; 36415; 80048; 82962; 85027; 93005; 93971; J7040; J7120; C1894; J2405

== ENCOUNTER 2019-03-02 09:04 | Day surgery (SDC) | payer BC, SELFPAY ==
--- NOTE | 2019-02-18 20:53 | HP.PCM_ITS ---
Problem List (1) Varicose veins with inflammation Status: Chronic (2) Chronic venous insufficiency Status: Chronic (3) Diabetes mellitus Status: Chronic (4) History of DVT (deep vein thrombosis) Status: Chronic (5) Hypertension Status: Chronic (6) Leg pain, bilateral Status: Chronic (7) Leg swelling Status: Chronic (8) Lipodermatosclerosis of both lower extremities Status: Chronic (9) Post-phlebitic syndrome Status: Chronic (10) Chronic venous hypertension with inflammation Status: Chronic Qualifiers: Laterality: bilateral Qualified Code(s): I87.323 - Chronic venous hypertension (idiopathic) with inflammation of bilateral lower extremity History of Present Illness Date of Admission: 03/02/19 Chief Complaint: Chronic venous insufficiency, varicose veins with inflammation, venous hypertension with inflammation, postphlebitic syndrome with inflammation, leg pain, leg swelling, history of deep vein thrombosis, history of venous ulcerations The patient is a 53 year old M [with a long-standing history of chronic venous disease. The patient has had varicose veins in his lower extremities for over 30 years. This has been associated with pain and discomfort. He has undergone multiple lower extremity venous ligation and stripping procedures in the past. He has also undergone more than 25 sessions of injection sclerotherapy in the past. His symptomatology has become increasingly more severe, adversely affecting his daily activities, quality of life, and job functions. He has a history of deep vein thrombosis in his left lower extremity. He has had multiple episodes of superficial thrombophlebitis in both lower extremities. He is active. He sleeps in a recumbent position at night. The pain and swelling in his lower extremities is more pronounced at the end of each day. The patient underwent endovenous laser ablation of the left great saphenous vein, left accessory saphenous vein x 2, and incompetent left calf grocery specialist vein on August 30, 2018. A venous duplex examination has revealed incompetence involving the right great saphenous vein the right small saphenous vein, and accessory saphenous vein in the right thigh associated with the right great saphenous vein, and accessory saphenous vein in the right calf associated with the right small saphenous vein, and an incompetent right calf grocery specialist vein located 14 cm proximal to the right medial malleolus. The options of management have been thoroughly explained. Conservative treatment measures have been implemented, which have included leg elevation, avoidance of idle standing and sitting, graduated compression stockings, active lifestyle, weight control measures, [id number] analgesics, etc. Despite these measures, the patient has remained symptomatic, with symptoms which have adversely affect her daily activities, quality of life, and job functions.] Past Medical History Past Medical History (Chronic Problems): Chronic Problems Chronic venous insufficiency (Chronic) Varicose veins of legs with ulcer and inflammation (Chronic) Chronic venous hypertension w/ulcer and inflammation involv both sides (Chronic) Leg swelling (Chronic) Leg pain, bilateral (Chronic) Post-phlebitic syndrome (Chronic) History of DVT (deep vein thrombosis) (Chronic) Hypertension (Chronic) Diabetes mellitus (Chronic) Venous stasis ulcer (Chronic) Lipodermatosclerosis of both lower extremities (Chronic) Varicose veins with inflammation (Chronic) Chronic venous hypertension with inflammation (Chronic) Allergies erythromycin base Allergy (Verified 08/23/18 11:01) Anaphylaxis Penicillins Allergy (Verified 08/23/18 11:01) Anaphylaxis Home Medications: Ambulatory Orders Medication Instructions Recorded Aspirin [Aspirin, Baby] 81 mg PO DAILY@0800 11/08/14 metFORMIN HCl [Glucophage] 1,000 mg PO BIDCM 11/08/14 Canagliflozin [Invokana] 300 mg PO DAILY 08/23/18 Dulaglutide [Trulicity] 1.5 mg SQ WE 08/23/18 Lisinopril [Zestril] 5 mg PO QHS 08/23/18 Omeprazole 40 mg PO DAILY 08/23/18 Surgical History: - - The patient has had multiple vein stripping procedures and venous ligations in the lower extremities. Is also had more than 25 sessions of injection sclerotherapy in the past. He has undergone left rotator cuff surgery in the past. His great toenails have been removed. Psychiatric History: No pertinent psych hx Lives: Spouse/ Significant Other Smoking Status: Never smoker Tobacco Use: Non-smoker Alcohol: Occasional Drugs: None - *Family History Paternal History Items: - - The patient's father is 83 years of age and healthy. The patient's mother is 80 years of age and healthy. Review of Systems Constitutional: Denies: Chills, Fever, Weight Change HEENT: Denies: Head Aches, Sinus Congestion, Sinus Drainage Cardiovascular: Denies: Chest Pain, Palpitations Respiratory: Denies: Cough, Shortness of breath at rest, Sputum production Gastrointestinal: Denies: Abdominal Pain, Nausea, Vomiting Genitourinary: Denies: Dysuria Musculoskeletal: Denies: Joint Pain, Joint Tenderness Skin: Denies: Rash, Wounds Neurological: Denies: Numbness, Tingling, Focal weakness Psychiatric: Denies: Anxiety, Depression, Homicidal Ideations, Suicidal Ideations Hematologic/ Lymphatic: Denies: Easy Bruising, Easy Bleeding VTE Information - Inpt Only VTE Present on Admission: No VTE Mechan Device Prophylaxis: SCD's - Left VTE Pharm Prophylaxis ordered?: Yes - Physical Exam Vitals/I&O's: Body Mass Index (BMI) 31.5 General: Alert, Oriented x3, Cooperative, No apparent distress, Well developed, Well nourished HEENT: Atraumatic, PERRLA, EOMI, Normocephalic Oral: Moist Mucosa Neck: Supple, No JVD, Negative Carotid Bruits, Negative Hepatojugular Reflux, No Nodes, No Nuchal Rigidity, Trachea Midline Lungs: Clear to auscultation, Normal air movement, No rhonchi, No wheeze, No rales Cardiovascular: Regular rate, Regular Rhythm, Normal S1, Normal S2, No murmurs Abdomen: Bowel Sounds Present, Soft, Non Tender Extremities: No clubbing, No cyanosis, No edema, Capillary Refill Less than 3 Seconds, No Calf Tenderness, - - Lower extremities are warm and well-perfused pedal pulses are bilaterally palpable. Lipodermatosclerosis is noted medially in the gaiter areas bilaterally. Multiple large varicosities are noted bilaterally. Skin: No rashes, No breakdown Musculoskeletal: No Muscle Wasting Neurological: Cranial nerves II-XII grossly intact, Neuro grossly intact Psych/Mental Status: Normal Affect, Appropriate, Alert and oriented to time, place, person, mood and affect Assessment/Plan Assessment: This is a 53-year-old male with a long-standing history of chronic venous disease. He suffers from chronic venous insufficiency, varicose veins with inflammation, chronic venous hypertension, postphlebitic syndrome with inflammation, lower extremity pain, swelling, a history of deep vein thrombosis and superficial thrombophlebitis, and lipodermatosclerosis. Despite conservative treatment measures, the patient has remained symptomatic, with symptoms which have adversely affected his daily activities, quality of life, and job functions. The options of management have been fully explained. The indications and risks of endovenous laser ablation of the right great saphenous vein, small saphenous vein, accessory saphenous veins x2, and incompetent right calf grocery specialist vein have been discussed with the patient in detail. Plan: The patient is to be admitted for the purpose of elective endovenous laser ablation of the right great saphenous vein, the right small saphenous vein, 2 incompetent accessory saphenous veins in the right lower extremity, and likely an incompetent right calf grocery specialist vein located 14 cm proximal to the right medial malleolus. The indications and risks of the procedure have been discussed with the patient in detail. The appropriate preprocedure consent process has been undertaken.
--- NOTE | 2019-02-23 10:57 | EKG12_ITS ---
Test Reason : PREOP Blood Pressure : / mmHG Vent. Rate : 087 BPM Atrial Rate : 087 BPM P-R Int : 164 ms QRS Dur : 100 ms QT Int : 386 ms P-R-T Axes : 016 -26 018 degrees QTc Int : 464 ms Normal sinus rhythm Normal ECG Confirmed by PETR ADAME, MAK ([id number]), school photograph editor FELIBERTO LITTLEJOHN ([id number]) on 02/28/2019 2:51:56 PM Referred By: Marko Toussaint Confirmed By:MAK HUMPHREYS MD
[2019-02-23 11:38] LABS: Hematocrit 46.2 % (40-54); Hemoglobin 14.6 g/dL (13.0-16.5); Mean Corp Hgb Conc 31.6 g/dL (32-36); Mean Corpuscular Hgb 26.7 pg (27.0-32.0); Mean Corpuscular Volume 84.5 fL (80-94); Mean Platelet Vol. 10.6 fl (6.2-12.0); Platelet Count 142 K/mm3 (150-450); RBC Distribution Width CV 13.2 % (11.6-14.6); RBC Distribution Width SD 40.9 fl (35.1-43.9); Red Blood Count 5.47 M/mm3 (4.6-6.2); White Blood Count 5.1 K/mm3 (4.4-11.0)
[2019-02-23 11:59] LABS: Anion Gap 8 (5-15); BUN 16 mg/dL (7-18); BUN/Creat Ratio 18.3 RATIO (10-20); Calcium,Total 9.1 mg/dL (8.5-10.1); Chloride 104 mmol/L (98-107); Creatinine, Serum 0.87 mg/dL (0.70-1.30); EST Glomerular Filtration Rate 97 mL/min (>60); Est Glom Filt Rate - Afr Amer 118 mL/min (>60); Glucose 133 mg/dL (74-106); Potassium 4.1 mmol/L (3.5-5.1); Sodium Level 140 mmol/L (136-145)
[2019-03-02 09:33] VITALS: BP 125/75; PULSE 89; RESP 16; TEMP 36.4; O2SAT 98
[2019-03-02] MEDS: Lactated Ringers 1,000 ML 100 ML IV (09:45)
[2019-03-02] MEDS: Enoxaparin 30 MG/0.3 ML Syringe SC (09:46)
[2019-03-02 10:15] LABS: Bedside Glucose 153 mg/dL (70-110)
--- NOTE | 2019-03-02 13:29 | DCINST_ITS ---
Discharge Diet: No Restrictions Discharge Activity: May not drive while taking narcotic pain medications. May shower in (days): 2 Weight Bearing Status: Weight bearing as tolerated Keep extremity elevated above heart level: Right Leg Call your doctor if you observe: Inability to urinate, Shortness of breath, Dizziness, Fainting spells, Chest pain, Prolonged hiccoughing, Increased palpitations (irregular heartbeat), Uncontrolled pain Suture Line Care: Avoid Pulling/Pushing Remove Dressing in (days):: 2 - Then use compression on entire leg daily. Allergies/Adverse Reactions: Allergies erythromycin base Allergy (Verified 03/02/19 09:31) Anaphylaxis Penicillins Allergy (Verified 03/02/19 09:31) Anaphylaxis Medications to take at Discharge metFORMIN HCl [Glucophage] 1,000 mg PO BIDCM 11/08/14 Canagliflozin [Invokana] 300 mg PO DAILY 08/23/18 Dulaglutide [Trulicity] 1.5 mg SQ WE 08/23/18 Lisinopril [Zestril] 5 mg PO QHS 08/23/18 Omeprazole 40 mg PO DAILY 08/23/18 Aspirin [Aspir 81] 81 mg PO DAILY 02/20/19 Orders to be completed after discharge: 12 Lead EKG [[facility]] Time Frame: 02/20/19, Facility: [facility], Location: Cardiovascular Services Basic Metabolic Profile (BMP) Time Frame: 02/20/19, Facility: [facility], Location: Laboratory CBC-Complete Blood Cnt No Diff Time Frame: 02/20/19, Facility: [facility], Location: Laboratory Primary Care Physician: Lidya Sal PA [Primary Care Provider] - Test Results: Test results from this visit will be discussed in further detail at your follow- up appointment, if applicable. Please Follow Up With: Marko Toussaint MD - Call [phone] to schedule a followup appointment. When: 10-14 days
[2019-03-02 13:38] VITALS: BP 125/75; BP 92/64; PULSE 67; RESP 16; TEMP 36.1; O2SAT 93
[2019-03-02 13:45] VITALS: BP 125/75; BP 98/69; PULSE 69; RESP 16; O2SAT 94
[2019-03-02 14:00] VITALS: BP 105/76; BP 125/75; PULSE 76; RESP 16; O2SAT 94
[2019-03-02 14:01] LABS: Bedside Glucose 166 mg/dL (70-110)
[2019-03-02 14:03] VITALS: BP 110/75; BP 125/75; PULSE 74; RESP 16; TEMP 36.2; O2SAT 95
[2019-03-02 15:07] VITALS: BP 105/68; BP 125/75; PULSE 80; RESP 16; TEMP 36.1; O2SAT 96
--- NOTE | 2019-03-12 14:23 | PCM.OPRPT ---
Problem List (1) Varicose veins with inflammation Status: Chronic (2) Chronic venous insufficiency Status: Chronic (3) Diabetes mellitus Status: Chronic (4) History of DVT (deep vein thrombosis) Status: Chronic (5) Hypertension Status: Chronic (6) Leg pain, bilateral Status: Chronic (7) Leg swelling Status: Chronic (8) Lipodermatosclerosis of both lower extremities Status: Chronic (9) Post-phlebitic syndrome Status: Chronic (10) Chronic venous hypertension with inflammation Status: Chronic Qualifiers: Laterality: bilateral Qualified Code(s): I87.323 - Chronic venous hypertension (idiopathic) with inflammation of bilateral lower extremity Report of Operation Date of Procedure: 03/02/19 Pre-Operative Diagnosis: Chronic venous insufficiency, Varicose veins with inflammation, Leg pain, Leg swelling, History of deep vein thrombosis, Post-phlebitic syndrome with inflammation, Chronic venous hypertension with inflamation, Lipodermatosclerosis - Right lower extremity Post-Operative Diagnosis: Chronic venous insufficiency, Varicose veins with inflammation, Leg pain, Leg swelling, History of deep vein thrombosis, Post-phlebitic syndrome with inflammation, Chronic venous hypertension with inflamation, Lipodermatosclerosis - Right lower extremity Surgery/Procedure Performed:: 1. Endovenous laser ablation of the right great saphenous vein. 2. Endovenous laser ablation of the right small saphenous vein. 3. Endovenous laser ablation of the right anterior accessory saphenous vein. 4. Endovenous laser ablation of the right accessory small saphenous vein. 5. Endovenous laser ablation of the incompetent right calf mainspring fabrication supervisor vein (14 centimeters proximal to the right medial malleolus) Description of Surgical Findings:: As above Type of Anesthesia:: General, Tumescent Specimen's removed: None Drains: None Estimated Blood Loss (mL): Minimal Description of Procedure: This is a 53-year-old male with a long-standing history of chronic venous disease. The patient has had varicose veins in his right lower extremity for over 30 years, associated with severe symptoms, including pain, aching, and discomfort. He has previously undergone multiple lower extremity venous ligation and stripping procedures. He is also undergone more than 25 sessions of injection sclerotherapy related to his vein disease. His symptomatology has become increasingly more severe, adversely affecting his daily activities, quality of life, and job functions. Patient also has a history of deep vein thrombosis, and has had multiple episodes of superficial thrombophlebitis in both lower extremities. A venous duplex examination revealed incompetence of a short segment of the right great saphenous vein in the upper thigh, as well as incompetence of the right great saphenous vein below the knee. The mid portion of the right great saphenous vein was absent. The patient was also noted to have incompetence of the right great saphenous vein, the right accessory small saphenous vein, the right anterior accessory saphenous vein, and a mainspring fabrication supervisor vein located 14 cm proximal to the right medial malleolus. The implications of this diagnosis were discussed with the patient in detail. The options of management were fully explained. Conservative treatment measures were implemented, which included leg elevation, avoidance of idle standing and sitting, graduated compression stockings, weight control measures, active lifestyle, [id number] analgesics, etc. Despite these measures, the patient remained symptomatic, with symptoms which continued to adversely affect his daily activities, quality of life, and job functions. The indications and risks of endovenous laser ablation of the right great saphenous vein, the right small saphenous vein, the right accessory small saphenous vein, the anterior accessory saphenous vein, and the incompetent right calf mainspring fabrication supervisor vein were discussed with the patient in detail. The appropriate preprocedure consent process was undertaken. The patient underwent ultrasound marking of the residual right great saphenous vein, small saphenous vein, anterior accessory saphenous vein, accessory small saphenous vein, and incompetent right calf mainspring fabrication supervisor vein preoperatively. He was then brought to the operating room suite, placed supine upon the operating table, where general anesthesia was administered by the anesthesia staff. The patient's right lower extremity and right groin were prepped and draped in the appropriate sterile manner. Patient was placed in reverse Trendelenburg position. Ultrasonography was used to image the right great saphenous vein segment in the upper thigh. However, it was extremely small, and several attempts at accessing the vein percutaneously were not successful. More distally, the right great saphenous vein below the knee was accessed using the micropuncture technique. Using ultrasound imaging and the micropuncture technique, a micropuncture sheath was introduced intraluminally in retrograde fashion, and was left in place, capped, for subsequent access purposes. Access was achieved just below the knee, and access was achieved in retrograde fashion due to the extremely thickened and course skin changes in the right medial supramalleolar area, which would have been made percutaneous access in antegrade fashion somewhat difficult. In similar fashion, percutaneous access was achieved to the right small saphenous vein. Percutaneous access was achieved using the micropuncture technique and ultrasound imaging. A micropuncture technique was introduced into the right small saphenous vein near the inferior border of the right gastrocnemius muscle, and was left in place, capped, for subsequent access purposes. Similarly, ultrasound imaging and the micropuncture technique was used to access the right accessory small saphenous vein percutaneously. In this manner, a micropuncture sheath was left in place, capped, for subsequent access purposes. Using the micropuncture technique and ultrasound imaging, pertains access was achieved to the right anterior accessory saphenous vein, into which a micropuncture sheath was introduced, and left in place, capped, for subsequent access purposes. The incompetent anterior accessory saphenous vein was noted to be tortuous, and it became evident that only a portion of the incompetent anterior accessory saphenous vein would be amenable to ablation, due to the tortuosity and inability to advance a guidewire into the most proximal portion of the incompetent anterior accessory saphenous vein. Attention was then directed to the incompetent right mainspring fabrication supervisor vein located 14 cm proximal to the right medial malleolus. Using ultrasound imaging uppercase access was achieved. 0.018 inch guidewire was introduced into the lumen of the incompetent right calf mainspring fabrication supervisor vein. A peel-away 5 [place]an sheath was introduced intraluminally. Perivenous tumescent anesthesia was injected about the incompetent mainspring fabrication supervisor vein. The [employer] laser fiber was then introduced directly into the 5 [place] sheath, and positioned within the lumen of the incompetent mainspring fabrication supervisor vein. The 5 [place] sheath was then withdrawn, leaving the laser fiber in place. Ultrasound imaging was then used to position the laser fiber just superficial to the fascial layer. Under direct ultrasound imaging, the laser fiber was activated, and was slowly withdrawn through the incompetent mainspring fabrication supervisor vein. In this manner, the mainspring fabrication supervisor vein was ablated. The laser fiber was then removed, and manual pressure was applied to achieve hemostasis. Attention was then directed to the micropuncture sheath which had been previously placed intraluminally within the right small saphenous vein. A 0.035 inch guidewire was introduced intraluminally and advanced into the proximal portion of the right small saphenous vein. The long 4 [place]an sheath was then advanced over the guidewire into position intraluminally within the right small saphenous vein. Perivenous tumescent anesthesia was then injected from the 4 [place] sheath exit site up to the tip of the sheath. This was performed segmentally using ultrasound imaging. The [employer] laser fiber was then introduced into the 4 [place]an sheath and coupled appropriately. Ultrasonography was used to confirm that the tip of the laser fiber was positioned within the proximal right small saphenous vein, several centimeters distal to its junction with the deep venous system, and remaining within the superficial portion of the right small saphenous vein. The patient was placed in Trendelenburg position and the laser fiber was activated. The [employer] laser was slowly withdrawn at a constant rate throughout the length of the right small saphenous vein, thereby ablating the right small saphenous vein segmentally. The energy applied was approximately 60 to 80 J/cm. Following the laser ablation, the laser fiber and sheath were removed, and manual pressure was briefly applied to the percutaneous access site to achieve hemostasis. Attention was then directed to the micropuncture sheath which had been previously placed intraluminally within the right accessory small saphenous vein. The 0.035 inch guidewire was introduced intraluminally and advanced into the proximal portion of the incompetent accessory small saphenous vein. The long 4 [place]an sheath was then advanced over the guidewire and positioned intraluminally with its tip within the proximal portion of the incompetent accessory small saphenous vein. Perivenous tumescent anesthesia was injected from the 4 [place]an sheath exit site up to the tip of the sheath. This was performed segmentally using ultrasound imaging. The [employer] laser fiber was then introduced into the 4 [place]an sheath and coupled appropriately. Ultrasonography was used to confirm that the tip of the laser fiber was positioned within the proximal portion of the incompetent accessory small saphenous vein, abutting the previously ablated small saphenous vein. The patient was placed in Trendelenburg position and the laser fiber was activated. The [employer] laser was slowly withdrawn at a constant rate throughout the length of the incompetent accessory small saphenous vein, thereby ablating the accessory small saphenous vein segmentally. The energy applied was approximately 60 to 80 J/cm. Following the laser ablation, the laser fiber and sheath were removed, manual pressure was briefly applied to the percutaneous access site to achieve hemostasis. Attention was then directed to the micropuncture sheath which had been previously placed intraluminally into the below?knee right great saphenous vein in retrograde fashion. A 0.035 inch guidewire was introduced intraluminally and was advanced so as to position the tip of the guidewire in the right medial supramalleolar area. A long 4 [place]an sheath was then advanced over the guidewire and into position intraluminally within the distal right great saphenous vein. Perivenous tumescent anesthesia was injected from the 4 [place]an sheath exit site up to the tip of the sheath. This was performed segmentally using ultrasound imaging. The [employer] laser fiber was then introduced into the 4 [place]an sheath and coupled appropriately. Ultrasonography was used to confirm that the typical laser fiber was positioned within the right great saphenous vein with its tip several centimeters proximal to the medial malleolus. For this portion of the endothermal ablation, generous amounts of tumescent anesthesia had been used. The patient was placed in Trendelenburg position and the laser fiber was activated. The [employer] laser was slowly withdrawn at a constant rate throughout the length of the distal right great saphenous vein, thereby ablating the distal right great saphenous vein segmentally. The energy applied was approximately 60 to 80 J/cm. Following the laser ablation, laser fiber and sheath were removed, and manual pressure was briefly applied to the percutaneous access site to achieve hemostasis. Attention was then directed to the micropuncture sheath which had been previously placed intraluminally within the right anterior accessory saphenous vein. The 0.035 inch guidewire was introduced intraluminally, and is advanced as far proximally as possible. However, due to extreme tortuosity, the guidewire could not be positioned up to the coalescence of the anterior accessory saphenous vein with the deep venous system, near the groin. The long 4 [place]an sheath was advanced over the guidewire and positioned intraluminally within the right anterior accessory saphenous vein. Perivenous tumescent anesthesia was injected segmentally using ultrasound imaging. The [employer] laser fiber was then introduced into the 4 [place]an sheath and coupled appropriately. Ultrasonography was used to confirm that the tip of the laser was position as far proximally within the right anterior accessory saphenous vein as possible, which was several centimeters distal to its junction with the deep venous system. As mentioned, it was desired that the laser fiber could be advanced more proximally, but tortuosity within the anterior accessory saphenous vein precluded further advancement. The patient was placed in Trendelenburg position and the laser fiber was activated. The [employer] laser was slowly withdrawn and constant rate throughout the length of the anterior accessory saphenous vein, thereby ablating the vein segmentally. The energy applied was approximately 60 to 80 J/cm. Following the laser ablation, the laser fiber and sheath were removed, and manual pressure was briefly applied to the pertains access site to achieve hemostasis. After assuring satisfactory hemostasis, the access sites were approximated using Cavilon and Steri-Strips. Dry sterile gauze dressings were applied over each of the access sites, and the leg was wrapped from the base of the toes to the upper thigh with Kerlix, followed by Nasir wrap. The blood loss for the procedure was minimal. The sponge, needle, and instrument counts at the end of the procedure were correct. The patient tolerated the procedure well and was transported from the operating room to the postanesthesia care unit in stable condition. The amount of tumescent anesthesia utilized, number of joules applied, and treatment times were recorded separately. - Complications None - Admit VTE Documentation VTE Present on Admission: No VTE Mechan Device Prophylaxis: SCD's - Left VTE Pharm Prophylaxis ordered?: Yes
== END 2019-03-02 15:17 | disposition home or self-care (01) ==
LOC: SDC 09:04 → AC 09:05
PROVIDERS: Family Provider Physician Assistant; PCP Physician Assistant; Referring Provider Surgery; Visit Provider Surgery
PROC: (CPT 36478; principal; 2019-03-02 10:15)
DX: I87.323 Chronic venous hypertension (idiopathic) with inflammation of bilateral lower extremity (principal); E11.9 Type 2 diabetes mellitus without complications; I10 Essential (primary) hypertension; K21.9 Gastro-esophageal reflux disease without esophagitis; Z86.718 Personal history of other venous thrombosis and embolism; Z79.84 Long term (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 oral hypoglycemic drugs; Z79.82 Long term (current) use of aspirin; Z79.899 Other long term (current) drug therapy
CPT/HCPCS: 36478; 36479; 36415; 80048; 82962; 85027; 93005; 93971; J7040; J7120; C1769; C1894; J2405

== ENCOUNTER → 2019-06-06 09:02 | Outpatient (CLI) | payer BC, SELFPAY ==
--- NOTE | 2019-06-06 09:08 | VDLE_ITS ---
Reason For Study: chronic venous insufficiency, S/P EVLA RIGHT LEFT CFV is compressible, spontaneous, phasic, CFV is compressible, spontaneous, phasic, competent and demonstrates normal competent, and demonstrates normal augmentation. augmentation. FV is compressible, spontaneous, phasic, FV is compressible, spontaneous, phasic, competent and demonstrates normal competent and demonstrates normal augmentation. augmentation. POP V is compressible, spontaneous, phasic, POP V is compressible, spontaneous, phasic, competent and demonstrates normal competent and demonstrates normal augmentation. augmentation. T/P Trunk is compressible. T/P Trunk is compressible. PTV is compressible. PTV is compressible. RT PerV is compressible. LT PerV is compressible. SFJ is INCOMPETENT and measures 1.03 x 1.23 SFJ is competent and measures .91 x .86 cm. cm. GSV, ASV in the calf, and [employer] Consultant V are GSV, SSV, accessory SSV, ASV, and [employer] Consultant occluded S/P EVLA. V are occluded S/P EVLA. Short ASV in the thigh off of the Junction is Procedure incompetent for greater than .5 seconds. ASV Exam performed in department. measures .26 x .3 cm. The exam was diagnostic. Distal SSV is incompetent for greater than .5 seconds. SSV measures .4 x .44 cm. Interpretation Summary Deep veins of the lower extremities are bilaterally patent and compressible segmentally. There is no evidence of deep vein thrombosis on either side. Valvular competence appears intact within the proximal deep venous systems bilaterally. The right sapheno-femoral junction is incompetent . The left sapheno-femoral junction is competent . The right great saphenous vein, small saphenous vein, accessory saphenous vein, accessory small saphenous vein, and lens inspector vein are occluded, consistent with a prior endothermal ablation procedure. The left great saphenous vein, accessory saphenous vein (calf), and lens inspector vein are occluded, consistent with a prior endothermal ablation procedure. The left accessory saphenous vein in the upper thigh and the distal left small saphenous vein are incompetent. Ordering Physician: Marko Toussaint Performed By: Rocky Duran RVT
== END ==
PROVIDERS: Family Provider Physician Assistant; PCP Physician Assistant; Referring Provider Surgery; Visit Provider Surgery
DX: M79.89 Other specified soft tissue disorders (principal); M79.609 Pain in unspecified limb
CPT/HCPCS: 93970

== ENCOUNTER → 2024-09-07 | Outpatient (CLI) | payer OTHER, SELFPAY ==
--- NOTE | 2024-09-07 07:22 | MRI_ITS ---
PROCEDURE: UPPER EXT JOINT ONLY(ROUTINE) 09/07/2024 REASON FOR EXAM: PAIN ONGOING DESPITE INJECTION TECHNIQUE: MRI of the right shoulder. T1, T2, PD, multiplanar and multisequence images were obtained without IV contrast administration. COMPARISON: COMPARISON : None FINDINGS: Rotator cuff: There is no significant muscular atrophy. There is a near full- thickness full width tear of the distal supraspinatus with 1.2 cm retraction of the bulk of the distal tendon with a thin bursal surface component remaining. There is moderate distal infraspinatus tendinopathy without full-thickness tear or retraction. The subscapularis and teres minor appear intact. AC joint: There is moderate AC joint hypertrophy with a trace effusion. There is a type 2 acromion. Bone Marrow: There is no occult fracture or suspicious marrow lesion. Subcortical cyst formation is noted deep to the infraspinatus insertion. Effusion: There is no significant joint effusion. There is a trace amount of fluid in the subacromial subdeltoid bursa. Biceps tendon: The biceps tendon is present within the biceps tendon groove with intact anchors. Labrum: There is no visible labral tear. There is an enlarged right axillary lymph node measuring 1.7 x 1.5 cm, axial image 24/26. MRI/Upper Ext Joint Only(Routine) IMPRESSION: There is a near full-thickness full width tear of the distal supraspinatus with 1.2 cm retraction of the bulk of the distal tendon with a thin bursal surface component remaining. There is moderate distal infraspinatus tendinopathy without full-thickness tear or retraction. There is a trace amount of fluid in the subacromial subdeltoid bursa, with burs itis. There is an enlarged right axillary lymph node measuring 1.7 x 1.5 cm, axial im age 24/26. Reading Location: [facility]
== END | disposition home or self-care (01) ==
PROVIDERS: PCP Physician Assistant; Referring Provider Orthopaedic Surgery Sports Medicine; Visit Provider Orthopaedic Surgery Sports Medicine
DX: M25.811 Other specified joint disorders, right shoulder (principal); M25.511 Pain in right shoulder
CPT/HCPCS: 73221

== ENCOUNTER → 2024-10-05 | Outpatient (CLI) | payer OTHER, SELFPAY ==
--- NOTE | 2024-10-05 07:58 | US_ITS ---
EXAM: Right axillary ultrasound. CLINICAL HISTORY: Right axillary lymph nodes. COMPARISON: Prior MRI of the right upper extremity dated September 07, 2024. TECHNIQUE: Multiple images were obtained. FINDINGS: There is a 4 cm x 1.8 cm x 1.4 cm hypoechoic nodular density with the a 0.6 cm cortex. This represents an abnormal lymph node. Biopsy recommended. There is also evidence of a 2.1 cm x 1.1 cm x 0.9 cm benign-appearing lymph node. US/Axilla - Right IMPRESSION: Abnormal appearing lymph node in the right axilla measuring 4 cm x 1.8 cm 1.4 c m. Biopsy recommended. Reading Location: [place] [id number]
--- OUTSIDE RECORDS SUMMARY | 2024-10-05 08:06 | XMS RPT_ITS | CCD ---
Author Organization [facility] Care Team Providers Care Administrative Support Specialist Name Role Phone LIDYA SAL (OSCAR-C) Unavailable Unava ilable Alex Macias MD Primary Care Provider Alex Macias MD Primary Care Provider Alex Macias MD Primary Care Provider Candida Soria DO Primary Care Provider Unavailable Primary Care Provider UnavailLIDYA Bailey Referring Unavailable ALEX MACIAS Primary Care Unavailable Evangelist RESIDENT ENGINEER-THREADER, Nell Primary Care Provider EVANGELIST, NELL Referring Unavailable EVANGELIST, NELL Primary Care Unavailable HARTH, KAREM C Attending Unavailable EVANGELIST, NELL Primary Care Unavailable HARTH, KAREM C Attending Unavailable EVANGELIST, NELL Primary Care Unavailable RONYAK, BRITTANY A Attending Unavailable RONYAK, BRITTANY A Primary Care Unavailable EAVNGELIST, NELL Attending Unavailable EVANGELIST, NELL Attending Unavailable EVANGELIST, NELL Primary Care Unavailable EVANGELIST, NELL Referring Unavailable EVANGELIST, NELL Primary Care Unavailable HARTH, KAREM C Attending Unavailable EVANGELIST, NELL Primary Care Unavailable HARTH, KAREM C Admitting Unavailable HARTH, KAREM C Attending Unavailable EVANGELIST, NELL Primary Care Unavailable HARTH, KAREM C Referring Unavailable EVANGELIST, NELL Primary Care Unavailable HARTH, KAREM C Referring Unavailable RONYAK, BRITTANY A Primary Care Unavailable RONYAK, BRITTANY A Primary Care Unavailable LUIS MIGUEL [place] Attending Unavailable RONYAK, BRITTANY A Referring Unavailable RONYAK, BRITTANY A Primary Care Unavailable Candida Soria DO Primary Care Provider Evangelist RESIDENT ENGINEER-THREADER, Nell Unavailable Brittany Crandall DO Primary Care Provider Lidya Figueroa Primary Care Provider Lidya Figueroa Referring Provider Jc Rosales MD Attending Provider [phone] Jc Rosales MD Referring Provider SHEETS, CANDIDA C Primary Care Unavailable SHEETS, CANDIDA C Referring Unavailable SHEETS, CANDIDA C Attending Unavailable SHEETS, CANDIDA C Primary Care Unavailable SHEETS, CANDIDA C Referring Unavailable SHEETS, CANDIDA C Referring Unavailable SHEETS, CANDIDA C Primary Care Unavailable SHEETS, CANDIDA C Referring Unavailable SHEETS, CANDIDA C Attending Unavailable SHEETS, CANDIDA C Primary Care Unavailable Jc Rosales Referring Unavailable Lidya Figueroa Primary Care Unavailab Jc Belcher Attending Unavailable JonelleLidya Tabor Primary Care Unavailab [place] Lidya MOORE Referring Unavailab Jc Belcher Attending Unavailable [place]idya T[place] Primary Care Unavailab Jc Belcher Attending Unavailable [place] Lidya MOORE Referring Unavailab Jc Belcher Attending Unavailable [place] Lidya MOORE Referring Unavailab le Jonelle Lidya MOORE Primary Care Unavailab le [place] Lidya MOORE Primary Care Unavailab le [place] Lidya MOORE Referring Unavailab Jc Belcher Attending Unavailable Lew Saxena Attending Unavailable Jonelle Lidya MOORE Primary Care Unavailab le Jonelle Lidya MOORE Primary Care Unavailab Jc Belcher Attending Unavailable Jc Rosales Referring Unavailable Jc Rosales Attending Unavailable [place] Lidya MOORE Primary Care Unavailab le Jonelle Lidya MOOER Primary Care Unavailab Jc Belcher Attending Unavailable Jc Rosales Referring Unavailable Jc Rosales Attending Unavailable Lidya Figueroa Primary Care Unavailab Jc Belcher Referring Unavailable Allergies Allergy Classification Reported Allergen(s) Allergy Type Date of Onset Reaction(s) Facility (20 sources) erythromycin; Translations: [ERYTHROMYCIN] Drug Allergy 7 Anaphylaxis [facility] Repository (20 sources) Penicillins; Translations: [PENICILLINS] Propensity to adverse reactions to drug (disorder) 7 Anaphylaxis [facility] (2 sources) Erythromycin Drug Allergy 4 Anaphylaxis [facility] (1 source) Erythromycin Drug Allergy 5 [facility] Repository Medications Current Medications Medication Drug Class(es) Dates Sig (Normalized) Sig (Original) ALPRAZolam 0.5 mg oral tablet (5 sources) Benzodiazepine Start: 11-29-2023 ALPRAZolam (Xanax) 0.5 mg tablet Indications: Pre-operative anxiety Take 1 tablet (0.5 mg) by mouth 1 time if needed for anxiety (PLEASE BRING TO PROCEDURE TO TAKE ON SITE) for up to 1 dose. 2 tablet 11/29/2023 Active apixaban 5 mg oral tablet (7 sources) Factor Xa Inhibitor Start: 07-19-2023 End: 07-18-2024 take 1 tablet by mouth twice daily apixaban (Eliquis) 5 mg tablet Indications: Leg edema, left Take 1 tablet (5 mg) by mouth 2 times a day. 60 tablet 01/13/2024 02/12/2024 Active aspirin 81 mg delayed release oral tablet (20 sources) Platelet Aggregation Inhibitor, Nonsteroidal Anti-inflammatory Drug Start: 02-20-2019 take 1 tablet by mouth once daily Aspirin 81 MG tablet,delayed release (DR/EC) Active 81 mg PO DAILY February 20, 2019 1:00am take 1 capsule by mo [facility] twice daily aspirin 81 mg cap Take 1 capsule by mouth twice daily. Active End: 09-02-2023 take 1 tablet by mouth twice daily aspirin 81 mg EC tablet Take 1 tablet (81 mg) by mouth 2 times a day. 09/02/2023 Discontinued (Med List Cleanup) Comment on above: Take 1 capsule by mo [facility] twice daily. atorvastatin 10 mg oral tablet (20 sources) HMG-CoA Reductase Inhibitor Start: 4 End: take 1 tablet by mouth once daily Atorvastatin 10 mg tablet Active 10 mg PO daily December 30, 2023 12:00am Start: 01-14-2022 End: 07-16-2022 take 1 tablet by mouth once daily at bedtime atorvastatin (LIPITOR) 10 mg tablet Take 1 tablet by mouth once daily. BEFORE BEDTIME 90 tablet 3 07/17/2022 Active Comment on above: Take 1 tablet by brenna th once daily. BEFORE BEDTIME Blood-Glucose Meter, Drum-type (ACCU-CHEK COMPACT PLUS CARE) kit (20 sources) Start: 014 Blood-Glucose Meter, Drum-type (ACCU-CHEK COMPACT PLUS CARE) kit Use as directed. 1 Kit 0 05/11/2013 Active Comment on above: Use as directed. clobetasol propionate 0.5 mg/ml topical cream (20 sources) Corticosteroid Start: 020 clobetasol (TEMOVATE) 0.05 % cream APPLY 1 APPLICATION TO AFFECTED AREA ONCE DAILY 60 g 3 09/06/2019 Active Comment on above: APPLY 1 APPLICATION TO AFFECTED AREA ONCE DAILY Comp.Stocking,Thigh,L dmitri,Large misc (20 sources) Start: 015 Comp.Stocking,Thigh, Long,Large misc Use as directed 1 Package 0 09/17/2014 Active Comment on above: Use as directed empagliflozin 10 mg oral tablet (20 sources) Sodium-Glucose Cotransporter 2 Inhibitor Start: 025 End: 025 take 1 tablet by mouth once daily at breakfast empagliflozin (JARDIANCE) 10 mg tablet Indications: Type 2 diabetes mellitus without complication, without long-term current use of insulin (HCC) Take 1 tablet by mouth daily with breakfast. 90 tablet 1 09/01/2024 Active Start: 05-16-2021 End: 01-11-2023 take 1 tablet by mouth once daily at breakfast empagliflozin (JARDIANCE) 25 mg tablet Take 1 tablet by mouth daily with breakfast. 90 tablet 0 05/04/2022 01/11/2023 Discontinued (Other) Comment on above: Take 1 tablet by brenna th daily with breakfast. glimepiride 4 mg oral tablet (20 sources) Sulfonylurea Start: 3 End: take 1 tablet by mouth twice daily Glimepiride 4 mg tablet Active 4 mg PO TWICE A DAY December 30, 2023 12:00am Start: 08-07-2022 take 1 tablet by brenna th once daily at breakfast glimepiride (AMARYL) 4 mg tablet Take 1 tablet by mouth daily with breakfast. 90 tablet 3 08/07/2022 Active Comment on above: Take 1 tablet by brenna th daily with breakfast. Take 1 tablet by brenna th twice daily with meals. TAKE 1 TABLET TWICE A DAY WITH MEALS glipiZIDE er 5 mg 24 hr extended release oral tablet (1 source) Sulfonylurea Start: 01-17-20 take 1 tablet by mouth once daily in the morning, then take 2 tablets by mouth once daily glipiZIDE XL (Glucotrol XL) 5 mg 24 hr tablet Indications: Type 2 diabetes mellitus with hyperglycemia, without long-term current use of insulin Take 1 tablet by mouth every morning, if morning blood sugar is >130 mg/dL after 7 days, increase to 2 tablets daily. Do not crush, chew, or split. 90 tablet 1 01/17/2024 Active lisinopril 5 mg oral tablet (20 sources) Angiotensin Converting Enzyme Inhibitor Start: 08-24-19 End: 06-21-19 lisinopril (ZESTRIL) 5 mg tablet TAKE 1 TABLET DAILY 90 tablet 3 06/20/2024 Active Comment on above: Take 1 tablet by brenna once daily. TAKE 1 TABLET ONCE D AILY metFORMIN hydrochloride 500 mg oral tablet (20 sources) Biguanide Start: 11-09-19 End: 06-21-19 metFORMIN (GLUCOPHAGE) 500 mg tablet TAKE 2 TABLETS TWICE A DAY 360 tablet 3 06/20/2024 Active Comment on above: TAKE 2 TABLETS 2 MACK ES DAILY WITH MEALS TAKE 2 TABLETS 2 MACK ES DAILY omeprazole 40 mg delayed release oral capsule (20 sources) Proton Pump Inhibitor Start: 08-24-19 End: 06-21-19 omeprazole (PRILOSEC) 40 mg capsule TAKE 1 CAPSULE DAILY 90 capsule 3 06/20/2024 Active Comment on above: Take 1 capsule by mo [facility] once daily. TAKE 1 CAPSULE ONCE DAILY TAKE 1 CAPSULE DAILY semaglutide 14 mg oral tablet (20 sources) Start: 09-02-19 take 1 tablet by mouth once daily before breakfast, then take 4 tablets by mouth once semaglutide (RYBELSUS) 14 mg tablet Indications: Type 2 diabetes mellitus without complication, without long-term current use of insulin (HCC) Take 1 tablet by mouth daily before breakfast. Take 30 minutes before the first food, beverage, or other oral medications of the day with no more than 4 ounces of plain water 90 tablet 1 09/01/2024 Active Start: 05-11-2024 End: 07-20-2024 take 1 tablet by mouth once daily before breakfast, then take 4 tablets by mouth once semaglutide (RYBELSUS) 7 mg tablet Indications: Type 2 diabetes mellitus without complication, without long-term current use of insulin (HCC) Take 1 tablet by mouth daily before breakfast. Start on 06/10/24. Take 30 minutes before the first food, beverage, or other oral medications of the day with no more than 4 ounces of plain water 30 tablet 1 07/20/2024 Active Start: 05-11-2024 End: 09-01-2024 take 1 tablet by mouth once daily before breakfast, then take 4 tablets by mouth once semaglutide (RYBELSUS) 3 mg tablet Indications: Type 2 diabetes mellitus without complication, without long-term current use of insulin (HCC) Take 1 tablet by mouth daily before breakfast. Take 30 minutes before the first food, beverage, or other oral medications of the day with no more than 4 ounces of plain water 30 tablet 05/11/2024 09/01/2024 Discontinued (Other) Start: 05-16-2021 End: 05-04-2022 take 1 tablet by mouth once daily before breakfast semaglutide (RYBELSUS) 14 mg tablet Take 1 tablet (14 mg) by mouth daily before breakfast. 90 tablet 0 05/04/2022 Active Comment on above: Take 1 tablet (14 mg ) by mouth daily before breakfast. sucralfate 1000 mg oral tablet (20 sources) Aluminum Complex Start: 01-14-2022 End: 07-16-2022 take 1 tablet by mouth four times daily sucralfate (CARAFATE) 1 gram tablet Take 1 tablet by mouth four times daily. 360 tablet 3 07/17/2022 Active Comment on above: Take 1 tablet by brenna th four times daily. Completed/Discontinued Medications Medication Drug Class(es) Dates Sig (Normalized) Sig (Original) canagliflozin 300 mg oral tablet (2 sources) Sodium-Glucose Cotransporter 2 Inhibitor Start: 08-23-2018 End: 12-30-2023 take 1 tablet by mouth once daily Canagliflozin (Invokana) 300 MG tablet Discontinued 300 mg PO DAILY August 23, 2018 12:00am December 30, 2023 3:15pm dapagliflozin 5 mg oral tablet (5 sources) Sodium-Glucose Cotransporter 2 Inhibitor Start: 02-16-2023 End: 05-11-2024 take 1 tablet by mouth once daily at breakfast dapagliflozin propanediol (FARXIGA) 5 mg tablet Indications: Type 2 diabetes mellitus without complication, without long-term current use of insulin (HCC) Take 1 tablet by mouth daily with breakfast. 30 tablet 2 02/16/2023 05/11/2024 Discontinued (Other) Comment on above: Take 1 tablet by brenna th daily with breakfast. 0.5 ml dulaglutide 3 mg/ml auto-injector (2 sources) GLP-1 Receptor Agonist Start: 08-23-2018 End: 12-30-2023 Dulaglutide (Trulicity) 1.5 MG/0.5 ML pen injector Discontinued 1.5 mg SQ WE August 23, 2018 12:00am December 30, 2023 3:15pm iohexol (OMNIPaque) 350 mg iodine/mL solution 75 mL (1 source) Start: 08-25-2023 End: 08-25-2023 75 mL, intravenous, Once in imaging, Starting on Wed08/25/23 at 0936, For 1 dose meclizine hydrochloride 25 mg oral tablet (7 sources) Antiemetic Start: 01-11-2023 End: 05-11-2024 take 1 tablet by mouth every six hours as needed for dizziness meclizine (ANTIVERT) 25 mg tab Indications: BPPV (benign paroxysmal positional vertigo), unspecified laterality Take 1 tablet by mouth every 6 hours as needed (for dizziness). 30 tablet 01/11/2023 05/11/2024 Discontinued (Other) Comment on above: Take 1 tablet by brenna th every 6 hours as needed (for dizziness). Problems Active Problems Problem Classification Problem Date Documented Da te Episodic/Chronic Cardiac dysrhythmias (11 sources) Supraventricular tachycardia; Translations: [SVT (supraventricular tachycardia)] Onset: 0 08-23-2023 Chronic Coagulation and hemorrhagic disorders (20 sources) Platelet count below reference range; Translations: [Thrombocytopenia, unspecified] Onset: 7 2016 Chronic Conditions associated with dizziness or vertigo (1 source) Benign paroxysmal positional vertigo; Translations: [Benign paroxysmal vertigo, unspecified ear] 01-11-2023 Episodic Diabetes mellitus with complications (20 sources) Diabetic peripheral neuropathy; Translations: [Type 2 diabetes mellitus with diabetic polyneuropathy] Onset: 6 06-24-2015 Chronic Diabetes mellitus without complication (20 sources) Type 2 diabetes mellitus without complication; Translations: [Type 2 diabetes mellitus without complications] Onset: 4 Resolved: 4 03-25-2015 Chronic Disorders of lipid metabolism (5 sources) Mixed hyperlipidemia; Translations: [Mixed hyperlipidemia] Onset: 4 Chronic Esophageal disorders (20 sources) Gastroesophageal reflux disease; Translations: [Gastro-esophageal reflux disease without esophagitis] Onset: 7 2016 Chronic Essential hypertension (20 sources) Essential hypertension; Translations: [Essential (primary) hypertension] Onset: 7 2016 Chronic Lymphadenitis (1 source) Localized enlarged lymph nodes; Translations: [Localized enlarged lymph nodes] Onset: 5 Episodic Osteoarthritis (2 sources) Arthropathy; Translations: [Primary osteoarthritis, right shoulder] 09-20-2024 Chronic Other connective tissue disease (3 sources) Other specified soft tissue disorders; Translations: [Other specified soft tissue disorders] Onset: 8 Episodic Other connective tissue disease (14 sources) Pain in lower limb; Translations: [Pain in leg, unspecified] Onset: 4 08-25-2023 Episodic Other connective tissue disease (14 sources) Swelling of lower limb; Translations: [Other specified soft tissue disorders] Onset: 4 08-25-2023 Episodic Other connective tissue disease (17 sources) Lipodermatosclerosis; Translations: [Panniculitis, unspecified] Onset: 4 08-23-2023 Episodic Other connective tissue disease (2 sources) Pain in leg, unspecified; Translations: [Pain in leg, unspecified] Onset: 4 Episodic Other connective tissue disease (4 sources) Panniculitis, unspecified; Translations: [Panniculitis, unspecified] Onset: 4 Episodic Other connective tissue disease (2 sources) Tear of right rotator cuff; Translations: [Unspecified rotator cuff tear or rupture of right shoulder, not specified as traumatic] 09-20-2024 Episodic Other diseases of veins and lymphatics (16 sources) Postthrombotic syndrome; Translations: [Postthrombotic syndrome without complications of unspecified extremity] Onset: 4 08-25-2023 Chronic Other diseases of veins and lymphatics (16 sources) Chronic peripheral venous hypertension; Translations: [Chronic venous hypertension (idiopathic) without complications of unspecified lower extremity] Onset: 4 08-23-2023 Chronic Other diseases of veins and lymphatics (6 sources) Postthrombotic syndrome without complications of unspecified extremity; Translations: [Postthrombotic syndrome without complications of unspecified extremity] Onset: 4 Chronic Other diseases of veins and lymphatics (2 sources) Chronic venous hypertension (idiopathic) without complications of unspecified lower extremity; Translations: [Chronic venous hypertension (idiopathic) without complications of unspecified lower extremity] Onset: 4 Chronic Other diseases of veins and lymphatics (20 sources) Peripheral venous insufficiency; Translations: [Venous insufficiency (chronic) (peripheral)] Onset: 4 08-25-2023 Episodic Other diseases of veins and lymphatics (6 sources) Venous insufficiency (chronic) (peripheral); Translations: [Venous insufficiency (chronic) (peripheral)] Onset: 4 Episodic Other non-traumatic joint disorders (5 sources) Disorder of shoulder; Translations: [Other specified joint disorders, right shoulder] 12-30-2023 Episodic Other non-traumatic joint disorders (2 sources) Other specified joint disorders, right shoulder; Translations: [Other specified joint disorders, right shoulder] Onset: 5 Episodic Other nutritional; endocrine; and metabolic disorders (20 sources) Constitutional obesity; Translations: [Other obesity] Onset: 7 2016 Chronic Phlebitis; thrombophlebitis and thromboembolism (15 sources) Phlebitis; Translations: [Phlebitis and thrombophlebitis of unspecified site] Onset: 4 07-19-2023 Episodic Residual codes; unclassified (2 sources) Encounter for procedure for purposes other than remedying health state, unspecified; Translations: [Encounter for procedure for purposes other than remedying health state, unspecified] Onset: 4 Episodic Residual codes; unclassified (2 sources) Localized edema; Translations: [Localized edema] Onset: 4 Episodic Varicose veins of lower extremity (7 sources) Varicose veins of lower extremity with ulcer AND inflammation; Translations: [Varicose veins of left lower extremity with both ulcer of unspecified site and inflammation] 07-19-2023 Episodic Past or Other Problems Problem Classification Problem Date Documented Date Episodic/Chronic Abdominal hernia (20 sources) Diaphragmatic hernia; Translations: [Diaphragmatic hernia without obstruction or gangrene] Onset: 12-15-2006 12-15-2006 Episodic Abdominal pain (20 sources) Epigastric pain; Translations: [Epigastric pain] Onset: 11-29-2006 11-29-2006 Episodic Cardiac dysrhythmias (11 sources) Palpitations; Translations: [Palpitations] Onset: 03-24-2010 08-23-2023 Episodic Immunizations and screening for infectious disease (6 sources) Patient encounter status; Translations: [Encounter for immunization] Onset: 05-11-2024 02-16-2023 Episodic Other aftercare (4 sources) Encounter for therapeutic drug level monitoring; Translations: [Encounter for therapeutic drug level monitoring] Onset: 07-19-2023 Episodic Other aftercare (2 sources) 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; Translations: [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] Onset: 07-19-2023 Episodic Other and unspecified benign neoplasm (20 sources) Benign neoplasm of stomach; Translations: [Benign neoplasm of stomach] Onset: 12-15-2006 12-15-2006 Episodic Other connective tissue disease (20 sources) Partial thickness rotator cuff tear; Translations: [Incomplete rotator cuff tear or rupture of left shoulder, not specified as traumatic] Onset: 01-21-2016 01-21-2016 Episodic Other diseases of veins and lymphatics (7 sources) Venous stasis edema of right lower limb; Translations: [Venous insufficiency (chronic) (peripheral)] Onset: 11-30-2023 11-30-2023 Episodic Other disorders of stomach and duodenum (20 sources) Disorder of function of stomach; Translations: [Other diseases of stomach and duodenum] Onset: 11-29-2006 11-29-2006 Episodic Other non-traumatic joint disorders (6 sources) Pain in right shoulder; Translations: [Right shoulder pain] Onset: 04-03-2024 12-30-2023 Episodic Other nutritional; endocrine; and metabolic disorders (15 sources) Obese class I; Translations: [Obesity, unspecified] Onset: 11-10-2022 Resolved: 05-18-2024 11-10-2022 Chronic Other screening for suspected conditions (not mental disorders or infectious disease) (1 source) Encounter for screening for malignant neoplasm of prostate; Translations: [Screening for prostate cancer] Onset: 05-08-2024 Episodic Other skin disorders (20 sources) Ingrowing nail; Translations: [Ingrowing nail] Onset: 08-04-2011 08-04-2011 Episodic Unclassified (12 sources) Onset: 07-19-2023 Resolved: 01-12-2024 07-19-2023 Results Test Name Value Interpretation Reference Range Facility Orthopedic Visit Reporton Orthopedic Visit Report [facility] [address] [place] [address] OFFICE VISIT Date of Service: 09/20/24 MR#: [id number] Acct: [id number] Name: FOREST LUNA Rep #: [id number] : 1965 Provider: Dr. Jc starks MD Age/Sex: 59/M Location: [facility] [place] Status: Signed Intake Vital Signs 07/18/24 08:32 09/20/24 08:43 Height 5 ft 9 in 5 ft 9 in Weight: 203 lb 195 lb BMI 29.9 28.8 Intake Visit Reasons: RIGHT SHOULDER Chief Complaint: Right shoulder MRI review Accompanied by: Self Is patient in pain?: Yes Pain scale (1-10): 4 Allergies erythromycin base Allergy (Verified 09/20/24 08:45) Anaphylaxis Penicillins Allergy (Verified 09/20/24 08:45) Anaphylaxis Medications ???Medication ???Instructions ???Recorded ???Confirmed ???Type metformin 500 mg tablet 1,000 mg PO BIDCM 11/08/14 5 History lisinopril 5 mg tablet (Zestril) 5 mg PO QHS htn 08/23/18 09/20/24 History omeprazole 40 mg capsule,delayed 40 mg PO DAILY gerd 08/23/1809/20 History release aspirin 81 mg tablet,delayed 81 mg PO DAILY 02/20/19 09/20/24 H istory release atorvastatin 10 mg tablet 10 mg PO QDAY 12/30/23 09/20/24 Hi story glimepiride 4 mg tablet 4 mg PO BID 12/30/23 09/20/24 Hist ory Have you fallen in the past year?: No PFSH Medical History Arthrosis of right acromioclavicular joint Right rotator cuff tear Impingement of right shoulder Type 2 diabetes mellitus Right shoulder pain Surgical History History of vein stripping History of repair of left rotator cuff Social History Smoking Status: Never smoker alcohol intake: current alcohol intake frequency: a few times a week Alcohol type: beer HPI RIGHT SHOULDER Details: This documentation accurately reflects the service provided and the decisions made by me, Dr. Jc Rosales MD 09/20/24 [id number]. Part of today???s visit was documented by [ ], acting as scribe. FOREST LUNA is a 59 year old M here today for follow-up right shoulder MRI. Had a cortisone injection a couple months ago. Has done at home based PT for over 6 weeks. per prior notes 6 months. no injury. feels the same as cuff surgery on the other side. anterior and lateral going down the arm. 5/10. worse with motion and doing lifting. aching 3-7 range. positive night time symptoms. 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 Supplemental Info [facility] Imaging Services [address] [place] [address] Upper Ext Joint Only(Routine) MR#: [id number] Acct: [id number] Name: FOREST LUNA Rep #: [id number] : 1965 M 59 From: Rigoberto Venegas MD PCP: [facility]SC[facility] Fontana Status: REG CLI Study: Upper Ext Joint Only(Routine) Date of Exam: 09/07/24 Exam# [id number] Ordering Dr: Jc Rosales MD PROCEDURE: UPPER EXT JOINT ONLY(ROUTINE) 09/07/2024 REASON FOR EXAM: PAIN ONGOING DESPITE INJECTION TECHNIQUE: MRI of the right shoulder. T1, T2, PD, multiplanar and multisequence images were obtained without IV contrast administration. COMPARISON: COMPARISON : None FINDINGS: Rotator cuff: There is no significant muscular atrophy. There is a near full-thickness full width tear of the distal supraspinatus with 1.2 cm retraction of the bulk of the distal tendon with a thin bursal surface component remaining. There is moderate distal infraspinatus tendinopathy without full-thickness tear or retraction. The subscapularis and teres minor appear intact. AC joint: There is moderate AC joint hypertrophy with a trace effusion. There is a type 2 acromion. Bone Marrow: There is no occult fracture or suspicious marrow lesion. Subcortical cyst formation is noted deep to the infraspinatus insertion. Effusion: There is no significant joint effusion. There is a trace amount of fluid in the subacromial subdeltoid bursa. Biceps tendon: The biceps tendon is present within the biceps tendon groove with intact anchors. Labrum: There is no visible labral tear. There is an enlarged right axillary lymph node measuring 1.7 x 1.5 cm, axial image . MRI/Upper Ext Joint Only(Routine) IMPRESSION: There is a near full-thickness full width tear of the distal supraspinatus with 1.2 cm retraction of the bulk of the distal tendon with a thin bursal surface component remaining. There is moderate distal infraspinatus tendinopathy without full-thickness tear or retraction. There is a trace amount of fluid in the suba (more content not included)... Normal [facility] Magnetic resonance imaging r eportOrdered By: Rigoberto Venegas on 09-07-2024 Study report [facility] Imaging Services [address] [place] [address] Upper Ext Joint Only(Routine) MR#: [id number] Acct: [id number] Name: FOREST LUNA Rep #: [id number] : 1965 M 59 From: Kristyn Venegas MD PCP: OSCAR Fontana Status: REG CLI Study:Upper Ext Joint Only(Routine) Date of Exam: 09/07/24 Exam# [id number] Ordering Dr: Jc Rosales MD PROCEDURE: UPPER EXT JOINT ONLY(ROUTINE) 09/07/2024 REASON FOR EXAM: PAIN ONGOING DESPITE INJECTION TECHNIQUE: MRI of the right shoulder. T1, T2, PD, multiplanar and multisequence images were obtained without IV contrast administration. COMPARISON: COMPARISON : None FINDINGS: Rotator cuff: There is no significant muscular atrophy. There is a near full-thickness full width tear of the distal supraspinatus with 1.2 cm retraction of the bulk of the distal tendon with a thin bursal surface component remaining. There is moderate distal infraspinatus tendinopathy without full-thickness tear or retraction. The subscapularis and teres minor appear intact. AC joint: There is moderate AC joint hypertrophy with a trace effusion. There is a type 2 acromion. Bone Marrow: There is no occult fracture or suspicious marrow lesion. Subcortical cyst formation is noted deep to the infraspinatus insertion. Effusion: There is no significant joint effusion. There is a trace amount of fluid in the subacromial subdeltoid bursa. Biceps tendon: The biceps tendon is present within the biceps tendon groove withintact anchors. Labrum: There is no visible labral tear. There is an enlarged right axillary lymph node measuring 1.7 x 1.5 cm, axial image 24/26. MRI/Upper Ext Joint Only(Routine) IMPRESSION: There is a near full-thickness full width tear of the distal supraspinatus with 1.2 cm retraction of the bulk of the distal tendon with a thin bursal surface component remaining. There is moderate distal infraspinatus tendinopathy without full-thickness tear or retraction. There is a trace amount of fluid in the subacromial subdeltoid bursa, with bursitis. There is an enlarged right axillary lymph node measuring 1.7 x 1.5 cm, axial image 24/26. Reading Location: [facility] CC: Dr. Jc Rosales MD; OSCAR Fontana ~ Loading Unit Operator Crimping: Signed [facility] Upper Ext Joint Only(Routine )on 09-07-2024 Upper Ext Joint Only(Routine) [facility] Imaging Services [address] [place] [address] [id number] Upper Ext Joint Only(Routine) MR#: [id number] Acct: [id number] Name: FOREST LUNA Rep #: [id number] : 1965 Meenakshi 59 From: Rigoberto Venegas MD PCP: OSCAR Fontana Status: REG CLI Study: Upper Ext Joint Only(Routine) Date of Exam: 0 09/07/24 Exam# [id number] Ordering Dr: Jc Rosales MD PROCEDURE: UPPER EXT JOINT ONLY(ROUTINE) 09/07/2024 REASON FOR EXAM: PAIN ONGOING DESPITE INJECTION TECHNIQUE: MRI of the right shoulder. T1, T2, PD, multiplanar and multisequence images were obtained without IV contrast administration. COMPARISON: COMPARISON : None FINDINGS: Rotator cuff: There is no significant muscular atrophy. There is a near full-thickness full width tear of the distal supraspinatus with 1.2 cm retraction of the bulk of the distal tendon with a thin bursal surface component remaining. There is moderate distal infraspinatus tendinopathy without full-thickness tear or retraction. The subscapularis and teres minor appear intact. AC joint: There is moderate AC joint hypertrophy with a trace effusion. There is a type 2 acromion. Bone Marrow: There is no occult fracture or suspicious marrow lesion. Subcortical cyst formation is noted deep to the infraspinatus insertion. Effusion: There is no significant joint effusion. There is a trace amount of fluid in the subacromial subdeltoid bursa. Biceps tendon: The biceps tendon is present within the biceps tendon groove with intact anchors. Labrum: There is no visible labral tear. There is an enlarged right axillary lymph node measuring 1.7 x 1.5 cm, axial image 24. MRI/Upper Ext Joint Only(Routine) IMPRESSION: There is a near full-thickness full width tear of the distal supraspinatus with 1.2 cm retraction of the bulk of the distal tendon with a thin bursal surface component remaining. There is moderate distal infraspinatus tendinopathy without full-thickness tear or retraction. There is a trace amount of fluid in the subacromial subdeltoid bursa, with bursitis. There is an enlarged right axillary lymph node measuring 1.7 x 1.5 cm, axial image 24/. Reading Location: [facility] CC: Dr. Jc Rosales MD; OSCAR Fontana Loading Unit Operator Crimping: Signed Normal [facility] CNOVon 09-01-2024 [facility] Office Visit (AGFAMP LE) FOREST LUNA ([id number]) 1965 M Date Time Provider Department 09/01/24 8:00 AM CANDIDA SORIA During your visit today, we recorded the following information about you: Temperature Pulse Blood pressure Weight 98.2 degrees 85/minute 122/70 88 kg Height 1.721 m Candida Soria DO 09/24/2024 7:39 AM Signed Subjective HPI Forest is a 59-year-old male with a history of type 2 diabetes mellitus, presenting for follow-up and requesting an increase in Rybelsus dosage. Type 2 Diabetes Mellitus: - Current medications: Rybelsus 7 mg daily, Jardiance 10 mg daily, Amaryl 4 mg BID, Metformin 500 mg BID. - Initiated Rybelsus and Jardiance concurrently in April; titrated Rybelsus from 3 mg to 7 mg. - No adverse effects from Rybelsus. - Recent A1c: 10.6% (previously 12.3% in April). - Monitors blood glucose at home; reports gradual improvement. - Increased physical activity with fast-paced walking x3.5 weeks. - Weight: 194 lbs (previously 262 lbs at diabetes diagnosis). Hyperlipidemia: - Current medication: Lipitor. Hypertension: - Current medication: Lisinopril 5 mg daily. GERD: - Current medications: Prilosec 40 mg daily, Carafate PRN (2-3 times/year). ALLERGIES Allergen Reactions Erythromycin Penicillins Current Outpatient Medications Medication Sig Dispense Refill glimepiride (AMARYL) 4 mg tablet TAKE 1 TABLET TWICE A DAY WITH MEALS 180 tablet 1 empagliflozin (JARDIANCE) 10 mg tablet Take 1 tablet by mouth daily with breakfast. 30 tablet 2 semaglutide (RYBELSUS) 7 mg tablet Take 1 tablet by mouth daily before breakfast. Start on 06/10/24. Take 30 minutes before the first food, beverage, or other oral medications of the day with no more than 4 ounces of plain water 30 tablet 1 omeprazole (PRILOSEC) 40 mg capsule TAKE 1 CAPSULE DAILY 90 capsule 3 atorvastatin (LIPITOR) 10 mg tablet TAKE 1 TABLET DAILY BEFORE BEDTIME 90 tablet 3 lisinopril (ZESTRIL) 5 mg tablet TAKE 1 TABLET DAILY 90 tablet 3 metFORMIN (GLUCOPHAGE) 500 mg tablet TAKE 2 TABLETS TWICE A DAY 360 tablet 3 aspirin 81 mg cap Take 1 capsule by mouth twice daily. sucralfate (CARAFATE) 1 gram tablet Take 1 tablet by mouth four times daily. 360 tablet 3 clobetasol (TEMOVATE) 0.05 % cream APPLY 1 APPLICATION TO AFFECTED AREA ONCE DAILY 60 g 3 Comp.Stocking,Thigh,Long,La rge misc Use as directed 1 Package 0 Blood-Glucose Meter, Drum-type (ACCU-CHEK COMPACT PLUS CARE) kit Use as directed. 1 Kit 0 Lancets (ACCU-CHEK MULTICLIX LANCET) lancets Test blood sugar(s) 4 times daily. Dx: 250.02. Insulin: No 1 Each 11 blood sugar diagnostic (ACCU-CHEK ALIA) test strip Test blood sugar(s) 4 times daily. Dx: Diabetes mellitus. Insulin: No 100 Strip 11 semaglutide (RYBELSUS) 3 mg tablet Take 1 tablet by mouth daily before breakfast. Take 30 minutes before the first food, beverage, or other oral medications of the day with no more than 4 ounces of plain water (Patient not taking: Reported on 09/01/2024) 30 tablet 0 No current facility-administered medications for this visit. 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 Type 2 Diabetes Mellitus Without Complication (Hcc) Diabetic Peripheral Neuropathy (Hcc) Incomplete Tear of Left Rotator Cuff Essential Hypertension Gerd (Gastroesophageal Reflux Disease) Thrombocytopenic Social History Tobacco Use Smoking status: Never Smokeless tobacco: Never Vaping Use Vaping status: Never Used Substance Use Topics Alcohol use: Yes Comment: 4 beers once a month Drug use: No Family History Problem Relation Age of Onset Lung Cancer Mother Stroke Father Lung Cancer Sister Lung Cancer Sister Emphysema Maternal Grandmother Reviewed past medical history, family history and surgeries. All medications and supplements were reviewed with the patient. Review of Systems Constitutional: Negative for chills, diaphoresis, fever and malaise/fatigue. HENT: Negative for ear pain and hearing loss. Eyes: Negative for double vision. Respiratory: Negative for cough and shortness of breath. Cardiovascular: Negative for palpitations and leg swelling. Gastrointestinal: Negative for constipation, diarrhea and heartburn. Genitourinary: Negative for dysuria and frequency. Musculoskeletal: Negative for back pain, falls, joint pain and myalgias. Skin: Negative for itching and rash. Endo/Heme/Allergies: Does not bruise/bleed easily. Psychiatric/Behavioral: Negative for depression and substance abuse. The patient does not have insomnia. Objective BP 122/70 Pulse 85 Temp 36.8 ?C (98.2 ?F) Ht 172.1 cm (5' 7.75) Wt 88 kg (194 lb) SpO2 98% BMI 29.72 kg/m? Phy (more content not included)... Normal [facility] CBC panel Auto (Bld)on 08-30 Erythrocyte distribution width (RBC) [Ratio] 13.6 % Normal 11.5-15.0 [facility] Comment on above: Order Comment: Aiyana parham Type: BLOOD SPECIMEN Ordering Facility: [facility] Address: [address] [place] [address] Performed By: #### 5 8410-2 #### [facility] CLIA [id number] [address] [place] [address] [place] Hematocrit (Bld) [Volume fraction] 44.7 % Normal 39.0-51.0 [facility] Comment on above: Order Comment: Aiyana parham Type: BLOOD SPECIMEN Ordering Facility: [facility] Address: [address] [place] [address] Performed By: #### 5 8410-2 #### [facility] CLIA [id number] [address] [place] [address] [facility] Hemoglobin (Bld) [Mass/Vol] 14.5 g/dL Normal 13.0-17.0 [facility] Comment on above: Order Comment: Speci men Type: BLOOD SPECIMEN Ordering Facility: [facility] Address: [address] [place] [address] Performed By: #### 5 8410-2 #### [facility] [place] [facility] CLIA [id number] [address] STATES OF [facility] MCH (RBC) [Entitic mass] 27.4 pg Normal 26.0-34.0 [facility] Comment on above: Order Comment: Speci men Type: BLOOD SPECIMEN Ordering Facility: [facility] Address: [address] [place] [address] Performed By: #### 5 8410-2 #### [facility] [place] [facility] CLIA [id number] [address] [place] MCHC (RBC) [Mass/Vol] 32.4 g/dL Normal 30.5-36.0 [facility] Comment on above: Order Comment: Speci men Type: BLOOD SPECIMEN Ordering Facility: [facility] Address: [address] [place] [address] Performed By: #### 5 8410-2 #### [facility] [place] [facility] CLIA [id number] [address] [place] MCV (RBC) [Entitic vol] 84.3 fL Normal 80.0-100.0 [facility] Comment on above: Order Comment: Speci men Type: BLOOD SPECIMEN Ordering Facility: [facility] Address: [address] [place] [address] Performed By: #### 5 8410-2 #### [facility] [place] [facility] CLIA [id number] [address] Platelet mean volume (Bld) [Entitic vol] 10.6 fL Normal 9.0-12.7 [facility] Comment on above: Order Comment: Speci men Type: BLOOD SPECIMEN Ordering Facility: [facility] Address: [address] [place] [address] Performed By: #### 5 8410-2 #### [facility] [place] [facility] CLIA [id number] [address] [place] [address] [facility] Platelets (Bld) [#/Vol] 171 10*3/uL Normal 150-400 [facility] Comment on above: Order Comment: Speci men Type: BLOOD SPECIMEN Ordering Facility: [facility] Address: [address] [place] [address] Performed By: #### 5 8410-2 #### [facility] [place] [facility] CLIA [id number] [address] [place] [address] [facility] RBC (Bld) [#/Vol] 5.30 10*6/uL Normal 4.20-6.00 [facility] Comment on above: Order Comment: Speci men Type: BLOOD SPECIMEN Ordering Facility: [facility] Address: [address] [place] [address] Performed By: #### 5 8410-2 #### [facility] [place] [facility] CLIA [id number] [address] [place] [address] [facility] WBC (Bld) [#/Vol] 6.49 10*3/uL Normal 3.70-11.00 [facility] Comment on above: Order Comment: Speci men Type: BLOOD SPECIMEN Ordering Facility: [facility] Address: [address] [place] [address] Performed By: #### 5 8410-2 #### [facility] [place] [facility] CLIA [id number] [address] [place] [address] [facility] Comprehensive metabolic 2000 panelon 08-30-2024 Albumin [Mass/Vol] 4.3 g/dL Normal 3.9-4.9 [facility] Comment on above: Order Comment: Speci men Type: BLOOD SPECIMENOrdering Facility: [facility] Address: [address] [place] [address] Performed By: #### 2 4323-8, 79933-4 ####[facility] [place] LABCLIA [id number] [place] [address] [place] ALP [Catalytic activity/Vol] 64 U/L Normal 38-113 [facility] Comment on above: Order Comment: Speci men Type: BLOOD SPECIMENOrdering Facility: [facility] Address: [address] [place] [address] Performed By: #### 2 4323-8, 00616-5 ####[facility] [place] LABCLIA [id number] [place] [address] [place] ALT With P-5'-P [Catalytic activity/Vol] 11 U/L Normal 10-54 [facility] Comment on above: Order Comment: Speci men Type: BLOOD SPECIMENOrdering Facility: [facility] Address: [address] [place] [address] Performed By: #### 2 4323-8, 62567-2 ####[facility] [place] LABCLIA [id number] [place] [address] [place] [facility] Anion gap [Moles/Vol] 12 mmol/L Normal 8-15 [facility] Comment on above: Order Comment: Speci men Type: BLOOD SPECIMENOrdering Facility: [facility] Address: [address] [place] [address] Performed By: #### 2 4323-8, 20658-1 ####[facility] [place] LABCLIA [id number] [place] [address] [place] AST With P-5'-P [Catalytic activity/Vol] 10 U/L Low 14-40 [facility] Comment on above: Order Comment: Speci men Type: BLOOD SPECIMENOrdering Facility: [facility] Address: [address] [place] [address] Performed By: #### 2 4323-8, 19428-1 ####[facility] [place] LABCLIA [id number] [place] [address] [place] Bilirubin [Mass/Vol] 0.5 mg/dL Normal 0.2-1.3 [facility] Comment on above: Order Comment: Speci men Type: BLOOD SPECIMENOrdering Facility: [facility] Address: [address] [place] [id number] Performed By: #### 2 4323-8, 19970-5 ####[facility] [place] LABCLIA [id number] [facility] [address] [place] Calcium [Mass/Vol] 9.6 mg/dL Normal 8.5-10.2 [facility] Comment on above: Order Comment: Speci men Type: BLOOD SPECIMENOrdering Facility: [facility] Address: [address] [place], [place] [address] Performed By: #### 2 4323-8, 08643-2 ####[facility] [place] [facility]CLIA [id number] [facility] [place] [address] [place] Chloride [Moles/Vol] 101 mmol/L Normal 98-107 [facility] Comment on above: Order Comment: Speci men Type: BLOOD SPECIMENOrdering Facility: [facility] Address: [address] [place] [address] Performed By: #### 2 4323-8, 89807-1 ####[facility] [place] [facility]CLIA [id number] [facility] [place] [address] [place] CO2 [Moles/Vol] 26 mmol/L Normal 22-30 [facility] Comment on above: Order Comment: Speci men Type: BLOOD SPECIMENOrdering Facility: [facility] Address: [address] [place] [id number] Performed By: #### 2 4323-8, 88090-5 ####[facility] [place] [facility]CLIA [id number] [facility] [place] [address] [place] Creatinine [Mass/Vol] 0.89 mg/dL Normal 0.73-1.22 [facility] Comment on above: Order Comment: Speci men Type: BLOOD SPECIMENOrdering Facility: [facility] Address: [address] [place], [place] [address] Performed By: #### 2 4323-8, 25655-8 ####[facility] [place] LABCLIA [id number] [place] [address] [place] Creatinine and Glomerular filtration rate.predicted panel (S/P/Bld) 99 mL/min/1.73m??? Normal >=60 [facility] Comment on above: Order Comment: Saumyagio parham Type: BLOOD SPECIMENOrdering Facility: [facility] Address: [address] [place] [address] Result Comment: Bonnie mated Glomerular Filtration Rate (eGFR) is calculated using the 2020 CKD-EPI creatinine equation. This equation utilizes serum creatinine, sex, and age as parameters. The creatinine assay has traceable calibration to isotope dilution-mass spectrometry. Refer to KDIGO guidelines for clinical interpretation. In patients with unstable renal function, e.g. those with acute kidney injury, the eGFR may not accurately reflect actual GFR. Performed By: #### 2 4323-8, 91089-3 ####[facility] [employer] LABCLIA [id number] [place] [id number] [place] Glucose [Mass/Vol] 205 mg/dL High 74-99 [facility] Comment on above: Order Comment: Aiyana parham Type: BLOOD SPECIMENOrdering Facility: [facility] Address: [address] [place] [address] Result Comment: The [place] Diabetes Association (ADA) provides guidance for cutoff values for fasting glucose and random glucose. The ADA defines fasting as no caloric intake for at least 8 hours. Fasting plasma glucose results between 100 to 125 [...] Standards of Medical Care in Diabetes 2016, [place] Diabetes Association. Diabetes Care. 2016.39(Suppl 1). Performed By: #### 2 4323-8, 23009-1 ####[facility] [employer] LABCLIA [id number] [place] [address] [place] Potassium [Moles/Vol] 4.6 mmol/L Normal 3.7-5.1 [facility] Comment on above: Order Comment: Speci men Type: BLOOD SPECIMENOrdering Facility: [facility] Address: [address] [place] [address] Performed By: #### 2 4323-8, 92936-9 ####[facility] [place] LABCLIA [id number] [place] [address] [place] Protein [Mass/Vol] 6.9 g/dL Normal 6.3-8.0 [facility] Comment on above: Order Comment: Speci men Type: BLOOD SPECIMENOrdering Facility: [facility] Address: [address] [place] [address] Performed By: #### 2 4323-8, 80294-4 ####[facility] [place] LABCLIA [id number] [place] [address] [place] Sodium [Moles/Vol] 139 mmol/L Normal 136-144 [facility] Comment on above: Order Comment: Speci men Type: BLOOD SPECIMENOrdering Facility: [facility] Address: [address] [place] [address] Performed By: #### 2 4323-8, 47128-1 ####[facility] [place] LABCLIA [id number] [facility] [address] [place] Urea nitrogen [Mass/Vol] 16 mg/dL Normal 9-24 [facility] Comment on above: Order Comment: Speci men Type: BLOOD SPECIMENOrdering Facility: [facility] Address: [address] [place] [address] Performed By: #### 2 4323-8, 07115-0 ####[facility] [place] LABCLIA [id number] [place] [address] [place] HbA1c (Bld)on 08-30-2024 Average glucose Estimated from glycated hemoglobin (Bld) [Mass/Vol] 258 mg/dL Normal [facility] Comment on above: Order Comment: Speci men Type: BLOOD SPECIMEN Ordering Facility: [facility] Address: [address] [place] [address] Result Comment: eAG: (Estimated average glucose) is a calculated value from HgbA1c and is client relations representative of the average blood glucose level in the last 2-3 month period. Performed By: #### 5 5454-3 #### [facility] CLIA [id number] [address] [place] [address] [place] HbA1c (Bld) [Mass fraction] 10.6 % High 4.3-5.6 [facility] Comment on above: Order Comment: Speci men Type: BLOOD SPECIMEN Ordering Facility: [facility] Address: [address] [place] [address] Result Comment: [place] Diabetes Association guidelines indicate that patients with HgbA1c in the range 5.7-6.4% are at increased risk for development of diabetes, and intervention by lifestyle modification may be beneficial. HgbA1c greater or equal to 6.5% is considered diagnostic of diabetes. Performed By: #### 5 5454-3 #### [facility] CLIA [id number] [address] [place] [address] [place] Lipid 1996 panelon 5 Cholesterol [Mass/Vol] 135 mg/dL Normal <200 [facility] Comment on above: Order Comment: Aiyana parham Type: BLOOD SPECIMENOrdering Facility: [facility] Address: [address] [place] [address] Result Comment: <200 mg/dL, Desirable 200-239 mg/dL, Borderline high >239 mg/dL, High Performed By: #### 2 4323-8, 40948-1 ####[facility] [place] LABCLIA [id number] [place] [address] [place] Cholesterol in HDL [Mass/Vol] 44 mg/dL Normal >39 [facility] Comment on above: Order Comment: Aiyana men Type: BLOOD SPECIMENOrdering Facility: [facility] Address: [address] [place] [address] Result Comment: 40-5 9 mg/dL, Acceptable >59 mg/dL, High: Negative risk factor for coronary heart disease <40 mg/dL, Low: Positive risk factor for coronary heart disease Performed By: #### 2 4323-8, 70031-7 ####[facility] [employer] [facility] [id number] [place] [address] [place] [facility] Cholesterol in LDL [Mass/Vol] 79 mg/dL Normal <100 [facility] Comment on above: Order Comment: Aiyana parham Type: BLOOD SPECIMENOrdering Facility: [facility] Address: [address] [place] [address] Result Comment: <100 mg/dL, Optimal 100-129 mg/dL, Near optimal/above optimal 130-159 mg/dL, Borderline high 160-189 mg/dL, High >189 mg/dL, Very high Secondary prevention optimal LDL Cholesterol levels are recommended to be <70 mg/dL LDL cholesterol is calculated using the Lux-NIH equation. Performed By: #### 2 4323-8, 40849-8 ####[facility] [id number] [place] [address] [facility] Cholesterol in LDL/Cholesterol in HDL [Mass ratio] 1.80 {ratio} Normal <2.54 [facility] Comment on above: Order Comment: Aiyana parham Type: BLOOD SPECIMENOrdering Facility: [facility] Address: [address] [place] [address] Result Comment: Refe rence: 1. National Cholesterol Education Program ATP III Guideline At-A-Glance Quick Desk Reference: National Heart, Lung, and Blood Rentz. National Institutes of Health. 2001: NIH Publication No. 01-3305. 2. An International Atherosclerosis Society position paper: global recommendations for the management of dyslipidemia: executive summary, Atherosclerosis. 2014: 232(2):410-413. Performed By: #### 2 4323-8, 79510-6 ####[facility] [id number] [place] [address] [facility] Cholesterol in VLDL [Mass/Vol] 9 mg/dL Normal <30 [facility] Comment on above: Order Comment: Aiyana prasad Type: BLOOD SPECIMENOrdering Facility: [facility] Address: [address] [place] [address] Performed By: #### 2 4323-8, 72711-1 ####[facility] [place] [facility] [id number] [place] [address] [facility] [place] Cholesterol non HDL [Mass/Vol] 91 mg/dL Normal <130 [facility] Comment on above: Order Comment: Speci men Type: BLOOD SPECIMENOrdering Facility: [facility] Address: [address] [place] [address] Result Comment: <130 mg/dL, Optimal 130-159 mg/dL, Near optimal/above optimal 160-189 mg/dL, Borderline high 190-219 mg/dL, High >219 mg/dL, Very high Secondary prevention optimal non HDL Cholesterol levels are recommended to be <100 mg/dL Performed By: #### 2 4323-8, 96361-8 ####[facility] [place] [facility] [id number] [place] [address] [place] Cholesterol.total /Cholesterol in HDL [Mass ratio] 3.07 {ratio} Normal <5.10 [facility] Comment on above: Order Comment: Speci men Type: BLOOD SPECIMENOrdering Facility: [facility] Address: [address] [place] [address] Performed By: #### 2 4323-8, 50242-9 ####[facility] [place] [facility] [id number] [place] [address] [place] FASTING TIME 12 hrs Normal [facility] Comment on above: Order Comment: Speci men Type: BLOOD SPECIMENOrdering Facility: [facility] Address: [address] [place] [address] Performed By: #### 2 4323-8, 24716-6 ####[facility] [place] [facility] [id number] [place] [address] [place] Triglyceride [Mass/Vol] 58 mg/dL Normal <150 [facility] Comment on above: Order Comment: Speci men Type: BLOOD SPECIMENOrdering Facility: [facility] Address: [address] [place] [address] Result Comment: <150 mg/dL, Normal 150-199 mg/dL, Borderline high 200-499 mg/dL, High >499 mg/dL, Very high Performed By: #### 2 4323-8, 86812-3 ####[facility] [id number] [place] [address] [place] Orthopedic Visit Reporton Orthopedic Visit Report [facility] [address] [place] [address] [address] [id number] OFFICE VISIT Date of Service: 07/18/24 MR#: [id number] Acct: [id number] Name: FOREST LUNA Rep #: [id number] : 1965 Provider: Dr. Jc starks MD Age/Sex: 59/M Location: [facility].DOROTHY Status: Signed with Addenda ADDENDUM by AGAPITO Lanier on 07/18/24 at 0847 Office Procedure Documentation entered by Devorah Lanier MA 07/18/24 08:47: Ortho Injections Injections Yes Subacromial Injection Right Is this a patient provided medication?: No Details: Obtained consent for injection. Under sterile conditions, injected the patients right shoulder with 2cc Kenalog, 4cc Bupivacaine . The patient tolerated the injection well without any noted complication. Patient should call our office if redness develops, pain worsens or if they have any concerns. Office Meds Kenalog 40 mg/mL suspension for injection Performing Provider: Jc Rosales MD Performing Location: [facility] Administered by: Jc Rosales MD on 07/18/24 08:44 Dose Route Admin Location Dispensed Lot Number Expiration Date NDC Man ufacturer 40 mg intra-articular Right shoulder 1 mL [id number] 08/17/25 2712-6307-12 [facility] Date cc: * Signed Intake Vital Signs 12/30/23 15:13 07/18/24 08:32 Height 5 ft 9 in 5 ft 9 in Weight: 210 lb 4 oz 203 lb BMI 31.0 29.9 Intake Visit Reasons: RIGHT SHOULDER Chief Complaint: Right shoulder injection Accompanied by: Self Is patient in pain?: Yes Pain scale (1-10): 4 Allergies erythromycin base Allergy (Verified 04/03/24 15:44) Anaphylaxis Penicillins Allergy (Verified 04/03/24 15:44) Anaphylaxis Medications ???Medication ???Instructions ???Recorded ???Confirmed ???Type metformin 500 mg tablet 1,000 mg PO BIDCM 11/08/14 5 History lisinopril 5 mg tablet (Zestril) 5 mg PO QHS htn 08/23/18 07/18/24 History omeprazole 40 mg capsule,delayed 40 mg PO DAILY gerd 08/23/1807/18 History release aspirin 81 mg tablet,delayed 81 mg PO DAILY 02/20/19 07/18/24 H istory release atorvastatin 10 mg tablet 10 mg PO QDAY 12/30/23 07/18/24 Hi story glimepiride 4 mg tablet 4 mg PO BID 12/30/23 07/18/24 Hist ory Have you fallen in the past year?: No PFSH Medical History (Updated 12/30/23 @ 15:46 by Jc Rosales MD) Impingement of right shoulder Type 2 diabetes mellitus Right shoulder pain Surgical History (Updated 12/30/23 @ 15:16 by Funmi Harmon) History of vein stripping History of repair of left rotator cuff Social History (Updated 12/30/23 @ 15:17 by Funmi Harmon) Smoking Status: Never smoker alcohol intake: current alcohol intake frequency: a few times a week Alcohol type: beer HPI RIGHT SHOULDER Details: This documentation accurately reflects the service provided and the decisions made by me, Dr. Jc Rosales MD 07/18/24 5322. Part of today???s visit was documented by [ ], acting as scribe. FOREST LUNA is a 59 year old M here today for FU R shoulder pain, wants repeat injection. They are working well. 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 Coding Level of Care Code Attention Laura Diagnoses Impingement of right shoulder M25.811 Right shoulder pain M25.511 Comment 12500 and cpt inject major joint Assessment and Plan Assessment and Plan (1) Impingement of right shoulder: Status: Acute Plan: 59 year old M here today for 4 months follow-up right shoulder pain and cortisone injection. The patient is desiring a repeat injection, which we did today. No MRI done, but was ordered. Wants to still try to get that. Pros and cons risks and benefits of a right shoulder subacromial steroid injection were discussed. Patient wished to proceed. Risks include but not limited to infection, pain, stiffness, damage to other structures, neurovascular injury, wear further tear of the tendon and other structures such as the skin, bleeding, allergic reaction, acute flare reaction and other risks. Obtained informed consent for injection. Posterior lateral aspect of the shoulder was prepped with chlorhexidine solution allowed to thoroughly dry over 3 minutes. Used Gebauer spray per bottle instructions. Using sterile technique, injected the right subacromial joint with a 4cc 0.25% bupivacaine and 2cc 40 mg/mL kenalog. Bandage placed. The patient tolerated the injection well without any noted complication. Red flag symptoms were discussed such as redness, swelling, discharge, drainage, pain worsens or if they have any concerns to present to the ED or to call the clinic immediately. Patient counselled on n (more content not included)... Normal [facility] CNOVon 05-11-2024 [facility] Office Visit (JESSICA SEGAL) FOREST LUNA ([id number]) 1965 M Date Time Provider Department 05/11/24 8:20 AM CANDIDA SORIA During your visit today, we recorded the following information about you: Temperature Pulse Respiration Blood pressure 97.7 degrees 88/minute 16/minute 114/60 Weight Height 87.1 kg 1.721 m Candida Soria DO 05/18/2024 8:28 PM Signed Subjective The history is provided by the patient. Diabetes He presents for his follow-up diabetic visit. He has type 2 diabetes mellitus. His disease course has been worsening. Pertinent negatives for hypoglycemia include no dizziness or headaches. Pertinent negatives for diabetes include no blurred vision, no chest pain, no weakness and no weight loss. He checks his blood sugar 2 - 3 times per week His sugars are running high He would like to get back on his old meds of Jardiance and Rybelsus He is currently taking metformin 1000 mg bid and and glimepiride 4 mg bid He has not been watching his diet as well as he should He had varicose vein surgery at in [place], and his leg pain has resolved He had to establish with a PCP with , and had been seeing Dr. Crandall He had a recent eye exam and it showed no abnormalities ALLERGIES Allergen Reactions Erythromycin Penicillins Current Outpatient Medications Medication Sig Dispense Refill glimepiride (AMARYL) 4 mg tablet TAKE 1 TABLET TWICE A DAY WITH MEALS 180 tablet 0 metFORMIN (GLUCOPHAGE) 500 mg tablet TAKE 2 TABLETS 2 TIMES DAILY 360 tablet 3 lisinopril (ZESTRIL) 5 mg tablet Take 1 tablet by mouth once daily. 90 tablet 3 atorvastatin (LIPITOR) 10 mg tablet Take 1 tablet by mouth once daily. BEFORE BEDTIME 90 tablet 3 omeprazole (PRILOSEC) 40 mg capsule Take 1 capsule by mouth once daily. 90 capsule 3 aspirin 81 mg cap Take 1 capsule by mouth twice daily. sucralfate (CARAFATE) 1 gram tablet Take 1 tablet by mouth four times daily. 360 tablet 3 clobetasol (TEMOVATE) 0.05 % cream APPLY 1 APPLICATION TO AFFECTED AREA ONCE DAILY 60 g 3 Comp.Stocking,Thigh,Long,La rge misc Use as directed 1 Package 0 Blood-Glucose Meter, Drum-type (ACCU-CHEK COMPACT PLUS CARE) kit Use as directed. 1 Kit 0 Lancets (ACCU-CHEK MULTICLIX LANCET) lancets Test blood sugar(s) 4 times daily. Dx: 250.02. Insulin: No 1 Each 11 blood sugar diagnostic (ACCU-CHEK ALIA) test strip Test blood sugar(s) 4 times daily. Dx: Diabetes mellitus. Insulin: No 100 Strip 11 dapagliflozin propanediol (FARXIGA) 5 mg tablet Take 1 tablet by mouth daily with breakfast. (Patient not taking: Reported on 05/11/2024) 30 tablet 2 meclizine (ANTIVERT) 25 mg tab Take 1 tablet by mouth every 6 hours as needed (for dizziness). (Patient not taking: Reported on 05/11/2024) 30 tablet 0 No current facility-administered medications for this visit. 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 Type 2 Diabetes Mellitus Without Complication (Hcc) Diabetic Peripheral Neuropathy (Hcc) Incomplete Tear of Left Rotator Cuff Essential Hypertension Gerd (Gastroesophageal Reflux Disease) Thrombocytopenic (Hcc) Obesity, Class I, Bmi 30-34.9 Social History Tobacco Use Smoking status: Never Smokeless tobacco: Never Vaping Use Vaping status: Never Used Substance Use Topics Alcohol use: Yes Comment: 4 beers once a month Drug use: No Family History Problem Relation Age of Onset Lung Cancer Mother Stroke Father Lung Cancer Sister Lung Cancer Sister Emphysema Maternal Grandmother Reviewed past medical history, family history and surgeries. All medications and supplements were reviewed with the patient. Review of Systems Constitutional: Negative for chills, diaphoresis, fever, malaise/fatigue and weight loss. HENT: Negative for ear pain and hearing loss. Eyes: Negative for blurred vision and double vision. Respiratory: Negative for cough and shortness of breath. Cardiovascular: Negative for chest pain, palpitations and leg swelling. Gastrointestinal: Negative for constipation, diarrhea and heartburn. Genitourinary: Negative for dysuria and frequency. Musculoskeletal: Negative for back pain, falls, joint pain and myalgias. Skin: Negative for itching and rash. Neurological: Negative for dizziness, weakness and headaches. Endo/Heme/Allergies: Does not bruise/bleed easily. Psychiatric/Behavioral: Negative for depression and substance abuse. The patient does not have insomnia. Objective BP 114/60 Pulse 88 Temp 36.5 ?C (97.7 ?F) Resp 16 Ht 172.1 cm (5' 7.75) Wt 87.1 kg (192 lb) SpO2 99% BMI 29.41 kg/m? Physical Exam Constitutional: Appearance: Normal appearance. HENT: Head: Normocephalic and atraumatic. (more content not included)... Normal [facility] ALBUMIN/CREATININE RATIO, UR INEon 05-08-2024 Albumin Unsp time DL <= 20 mg/L (U) [Mass/Time] 15.4 mg/L Normal [facility] Comment on above: Order Comment: Speci men Type: URINE SPECIMEN [facility] Address: [address] [place] [address] Performed By: #### U ACR #### [facility] CLIA [id number] [address] Albumin/Creatinin e (U) [Mass ratio] 23 mg/g Normal <30 [facility] Comment on above: Order Comment: Speci men Type: URINE SPECIMEN [facility] Address: [address] [place] [address] Result Comment: Adul t Male and Female Nephrotic Criteria: <30 mg/g is considered normal to mildly increased 30-300 mg/g is considered moderately increased >300 mg/g is considered severely increased KDIGO. (2013). KDIGO 2012 Clinical Practice Guideline for the Evaluation and Management of Chronic Kidney Disease. Official Journal of the International Society of Nephrology, 3(1), 1-150. Performed By: #### U ACR #### [facility] CLIA [id number] [address] [place] [address] Creatinine (U) [Mass/Vol] 65.9 mg/dL Normal 46.8-314.5 [facility] Comment on above: Order Comment: Speci men Type: URINE SPECIMEN [facility] Address: [address] [place] [address] Performed By: #### U ACR #### [facility] CLIA [id number] [address] [place] [address] STATES OF [facility] CBC panel Auto (Bld)on 05-08 Erythrocyte distribution width (RBC) [Ratio] 13.4 % Normal 11.5-15.0 [facility] Comment on above: Order Comment: Speci men Type: BLOOD SPECIMEN [facility] Address: [address] [place] [address] Performed By: #### 5 8410-2 #### [facility] [place] [facility] CLIA [id number] [address] [place] [address] [place] Hematocrit (Bld) [Volume fraction] 46.0 % Normal 39.0-51.0 [facility] Comment on above: Order Comment: Speci men Type: BLOOD SPECIMEN [facility] Address: [address] [place] [address] Performed By: #### 5 8410-2 #### [facility] [place] [facility] CLIA [id number] [address] [place] [address] [place] Hemoglobin (Bld) [Mass/Vol] 14.9 g/dL Normal 13.0-17.0 [facility] Comment on above: Order Comment: Speci men Type: BLOOD SPECIMEN [facility] Address: [address] [place] [address] Performed By: #### 5 8410-2 #### [facility] [place] [facility] CLIA [id number] [address] [place] [address] [place] MCH (RBC) [Entitic mass] 27.0 pg Normal 26.0-34.0 [facility] Comment on above: Order Comment: Speci men Type: BLOOD SPECIMEN [facility] Address: [address] [place] [address] Performed By: #### 5 8410-2 #### [facility] [place] [facility] CLIA [id number] [address] [place] [address] [place] MCHC (RBC) [Mass/Vol] 32.4 g/dL Normal 30.5-36.0 [facility] Comment on above: Order Comment: Speci men Type: BLOOD SPECIMEN [facility] Address: [address] [place] [address] Performed By: #### 5 8410-2 #### [facility] [place] [facility] CLIA [id number] [address] [id number] [place] MCV (RBC) [Entitic vol] 83.3 fL Normal 80.0-100.0 [facility] Comment on above: Order Comment: Speci men Type: BLOOD SPECIMEN [facility] Address: [address] [place] [address] Performed By: #### 5 8410-2 #### [facility] [place] [facility] CLIA [id number] [address] [place] [address] [place] Platelet mean volume (Bld) [Entitic vol] 10.4 fL Normal 9.0-12.7 [facility] Comment on above: Order Comment: Speci men Type: BLOOD SPECIMEN [facility] Address: [address] [place] [address] Performed By: #### 5 8410-2 #### [facility] [place] [facility] CLIA [id number] [address] [place] [address] [place] Platelets (Bld) [#/Vol] 137 10*3/uL Low 150-400 [facility] Comment on above: Order Comment: Speci men Type: BLOOD SPECIMEN [facility] Address: [address] [place] [address] Performed By: #### 5 8410-2 #### [facility] [place] [facility] CLIA [id number] [address] [place] [address] [place] RBC (Bld) [#/Vol] 5.52 10*6/uL Normal 4.20-6.00 [facility] Comment on above: Order Comment: Speci men Type: BLOOD SPECIMEN [facility] Address: [address] [place] [address] Performed By: #### 5 8410-2 #### [facility] [place] [facility] CLIA [id number] [address] [place] [address] [place] WBC (Bld) [#/Vol] 4.88 10*3/uL Normal 3.70-11.00 [facility] Comment on above: Order Comment: Speci men Type: BLOOD SPECIMEN [facility] Address: [address] [place] [address] Performed By: #### 5 8410-2 #### [facility] [place] [facility] CLIA [id number] [address] [place] [address] [facility] [place] Comprehensive metabolic 2000 panelon 05-08-2024 Albumin [Mass/Vol] 4.6 g/dL Normal 3.9-4.9 [facility] Comment on above: Order Comment: Speci men Type: BLOOD SPECIMENOrdering Facility: [facility] Address: [address] [place] [address] Performed By: #### 2 4323-8, 42448-5 ####[facility] [place] [facility] [id number] [address] [facility] [place] [address] [place] [facility] ALP [Catalytic activity/Vol] 68 U/L Normal 38-113 [facility] Comment on above: Order Comment: Speci men Type: BLOOD SPECIMENOrdering Facility: [facility] Address: [address] [place] [address] Performed By: #### 2 4323-8, 54914-8 ####[facility] [place] [facility]CLIA [id number] [facility] [place] [address] [place] [facility] ALT With P-5'-P [Catalytic activity/Vol] 11 U/L Normal 10-54 [facility] Comment on above: Order Comment: Speci men Type: BLOOD SPECIMENOrdering Facility: [facility] Address: [address] [place] [address] Performed By: #### 2 4323-8, 11427-1 ####[facility] [place] [facility] [id number] [address] [facility] [place] [address] [place] [facility] Anion gap [Moles/Vol] 11 mmol/L Normal 8-15 [facility] Comment on above: Order Comment: Speci men Type: BLOOD SPECIMENOrdering Facility: [facility] Address: [address] [place] [address] Performed By: #### 2 4323-8, 03293-9 ####[facility] [place] [facility] [id number] [address] [facility] [place] [address] [place] AST With P-5'-P [Catalytic activity/Vol] 10 U/L Low 14-40 [facility] Comment on above: Order Comment: Speci men Type: BLOOD SPECIMENOrdering Facility: [facility] Address: [address] [place] [address] Performed By: #### 2 4323-8, 54430-4 ####[facility] [place] [facility] [id number] [place] [address] [place] Bilirubin [Mass/Vol] 0.5 mg/dL Normal 0.2-1.3 [facility] Comment on above: Order Comment: Speci men Type: BLOOD SPECIMENOrdering Facility: [facility] Address: [address] [place] [address] Performed By: #### 2 4323-8, 14349-1 ####[facility] [place] [facility] [id number] [place] [address] [place] Calcium [Mass/Vol] 10.1 mg/dL Normal 8.5-10.2 [facility] Comment on above: Order Comment: Speci men Type: BLOOD SPECIMENOrdering Facility: [facility] Address: [address] [place] [address] Performed By: #### 2 4323-8, 52513-3 ####[facility] [place] [facility] [id number] [place] [address] [place] Chloride [Moles/Vol] 101 mmol/L Normal 98-107 [facility] Comment on above: Order Comment: Speci men Type: BLOOD SPECIMENOrdering Facility: [facility] Address: [address] [place] [address] Performed By: #### 2 4323-8, 75579-6 ####[facility] [place] [facility] [id number] [place] [address] [place] CO2 [Moles/Vol] 26 mmol/L Normal 22-30 [facility] Comment on above: Order Comment: Speci men Type: BLOOD SPECIMENOrdering Facility: [facility] Address: [address] [place] [address] Performed By: #### 2 4323-8, 47148-0 ####[facility] [place] [facility] [id number] [place] [address] [place] Creatinine [Mass/Vol] 0.77 mg/dL Normal 0.73-1.22 [facility] Comment on above: Order Comment: Aiyana parham Type: BLOOD SPECIMENOrdering Facility: [facility] Address: [address] [place] [address] Performed By: #### 2 4323-8, 97282-8 ####[facility]IA [id number] [place] [address] [place] Creatinine and Glomerular filtration rate.predicted panel (S/P/Bld) 104 mL/min/1.73m??? Normal >=60 [facility] Comment on above: Order Comment: Aiyana parham Type: BLOOD SPECIMENOrdering Facility: [facility] Address: [address] [place] [address] Result Comment: Bonnie mated Glomerular Filtration Rate (eGFR) is calculated using the 2020 CKD-EPI creatinine equation. This equation utilizes serum creatinine, sex, and age as parameters. The creatinine assay has traceable calibration to isotope dilution-mass spectrometry. Refer to KDIGO guidelines for clinical interpretation. In patients with unstable renal function, e.g. those with acute kidney injury, the eGFR may not accurately reflect actual GFR. Performed By: #### 2 4323-8, 55557-8 ####[facility] [id number] [place] [address] [place] Glucose [Mass/Vol] 384 mg/dL High 74-99 [facility] Comment on above: Order Comment: Aiyana parham Type: BLOOD SPECIMENOrdering Facility: [facility] Address: [address] [place] [address] Result Comment: The [place] [employer] (ADA) provides guidance for cutoff values for fasting glucose and random glucose. The ADA defines fasting as no caloric intake for at least 8 hours. Fasting plasma glucose results between 100 to 125 [...] Standards of Medical Care in Diabetes 2016, [place] [employer]. Diabetes Care. 2016.39(Suppl 1). Performed By: #### 2 4323-8, 35665-8 ####[facility] [place] [facility] [id number] [facility] [address] [place] Potassium [Moles/Vol] 5.0 mmol/L Normal 3.7-5.1 [facility] Comment on above: Order Comment: Speci men Type: BLOOD SPECIMENOrdering Facility: [facility] Address: [address] [place] [address] Performed By: #### 2 4323-8, 92260-7 ####[facility] [employer] LABCLIA [id number] [place] [address] [place] Protein [Mass/Vol] 7.3 g/dL Normal 6.3-8.0 [facility] Comment on above: Order Comment: Speci men Type: BLOOD SPECIMENOrdering Facility: [facility] Address: [address] [place] [address] Performed By: #### 2 4323-8, 46971-9 ####BEHZAD CHIU [employer] LABCLIA [id number] [place] [address] [place] Sodium [Moles/Vol] 138 mmol/L Normal 136-144 [facility] Comment on above: Order Comment: Speci men Type: BLOOD SPECIMENOrdering Facility: [facility] Address: [address] [place] [address] Performed By: #### 2 4323-8, 21273-9 ####[facility] LABCLIA [id number] [facility] [address] [place] Urea nitrogen [Mass/Vol] 12 mg/dL Normal 9-24 [facility] Comment on above: Order Comment: Speci men Type: BLOOD SPECIMENOrdering Facility: [facility] Address: [facility] [place] [id number] Performed By: #### 2 4323-8, 65569-2 ####BEHZAD [facility] LABCLIA [id number] [place] [address] [place] HbA1c (Bld)on 05-08-2024 Average glucose Estimated from glycated hemoglobin (Bld) [Mass/Vol] 306 mg/dL Normal [facility] Comment on above: Order Comment: Aiyana parham Type: BLOOD SPECIMEN Ordering Facility: [facility] Address: [address] [place] [address] Result Comment: eAG: (Estimated average glucose) is a calculated value from HgbA1c and is client relations representative of the average blood glucose level in the last 2-3 month period. Performed By: #### 5 5454-3 #### [facility] CLIA [id number] [address] [place] [address] [place] HbA1c (Bld) [Mass fraction] 12.3 % High 4.3-5.6 [facility] Comment on above: Order Comment: Aiyana parham Type: BLOOD SPECIMEN Ordering Facility: [facility] Address: [address] [place] [address] Result Comment: Amer ican Diabetes Association guidelines indicate that patients with HgbA1c in the range 5.7-6.4% are at increased risk for development of diabetes, and intervention by lifestyle modification may be beneficial. HgbA1c greater or equal to 6.5% is considered diagnostic of diabetes. Performed By: #### 5 5454-3 #### [facility] CLIA [id number] [address] [place] [address] [place] Lipid 1996 panelon Cholesterol [Mass/Vol] 126 mg/dL Normal <200 [facility] Comment on above: Order Comment: Aiyana parham Type: BLOOD SPECIMENOrdering Facility: [facility] Address: [address] [place] [address] Result Comment: <200 mg/dL, Desirable 200-239 mg/dL, Borderline high >239 mg/dL, High Performed By: #### 2 4323-8, 68983-3 ####[facility] LABCLIA [id number] [place] [address] [place] Cholesterol in HDL [Mass/Vol] 41 mg/dL Normal >39 [facility] Comment on above: Order Comment: Speci prasad Type: BLOOD SPECIMENOrdering Facility: [facility] Address: [address] [place] [address] Result Comment: 40-5 9 mg/dL, Acceptable >59 mg/dL, High: Negative risk factor for coronary heart disease <40 mg/dL, Low: Positive risk factor for coronary heart disease Performed By: #### 2 4323-8, 86363-0 ####[facility] [employer] LABCLIA [id number] [place] [id number] [facility] Cholesterol in LDL [Mass/Vol] 68 mg/dL Normal <100 [facility] Comment on above: Order Comment: Aiyana prasad Type: BLOOD SPECIMENOrdering Facility: [facility] Address: [address] [place] [address] Result Comment: <100 mg/dL, Optimal 100-129 mg/dL, Near optimal/above optimal 130-159 mg/dL, Borderline high 160-189 mg/dL, High >189 mg/dL, Very high Secondary prevention optimal LDL Cholesterol levels are recommended to be < 70 mg/dL Performed By: #### 2 4323-8, 30250-7 ####[facility] [employer] LABCLIA [id number] [place] [id number] [facility] Cholesterol in LDL/Cholesterol in HDL [Mass ratio] 1.66 {ratio} Normal <2.54 [facility] Comment on above: Order Comment: Aiyana parham Type: BLOOD SPECIMENOrdering Facility: [facility] Address: [address] [place] [address] Result Comment: Refe rence: 1. National Cholesterol Education Program ATP III Guideline At-A-Glance Quick Desk Reference: National Heart, Lung, and Blood Rentz. National Institutes of Health. 2001: NIH Publication No. 01-3305. 2. An International Atherosclerosis Society position paper: global recommendations for the management of dyslipidemia: executive summary, Atherosclerosis. 2014: 232(2):410-413. Performed By: #### 2 4323-8, 20045-8 ####[facility] LABCLIA [id number] [facility] [address] [facility] [place] Cholesterol in VLDL [Mass/Vol] 17 mg/dL Normal <30 [facility] Comment on above: Order Comment: Speci men Type: BLOOD SPECIMENOrdering Facility: [facility] Address: [address] [place] [address] Performed By: #### 2 4323-8, 33470-8 ####[facility] LABCLIA [id number] [place] [address] [facility] [place] Cholesterol non HDL [Mass/Vol] 85 mg/dL Normal <130 [facility] Comment on above: Order Comment: Speci men Type: BLOOD SPECIMENOrdering Facility: [facility] Address: [address] [place] [address] Result Comment: <130 mg/dL, Optimal 130-159 mg/dL, Near optimal/above optimal 160-189 mg/dL, Borderline high 190-219 mg/dL, High >219 mg/dL, Very high Secondary prevention optimal non HDL Cholesterol levels are recommended to be <100 mg/dL Performed By: #### 2 4323-8, 12288-2 ####[facility] LABCLIA [id number] [place] [address] [facility] Cholesterol.total /Cholesterol in HDL [Mass ratio] 3.07 {ratio} Normal <5.10 [facility] Comment on above: Order Comment: Speci men Type: BLOOD SPECIMENOrdering Facility: [facility] Address: [address] [place] [address] Performed By: #### 2 4323-8, 62803-4 ####[facility] LABCLIA [id number] [facility] [address] [facility] [place] FASTING TIME 12 hrs Normal [facility] Comment on above: Order Comment: Speci men Type: BLOOD SPECIMENOrdering Facility: [facility] Address: [address] [place] [address] Performed By: #### 2 4323-8, 46935-6 ####[facility] LABCLIA [id number] [place] [address] [place] Triglyceride [Mass/Vol] 87 mg/dL Normal <150 [facility] Comment on above: Order Comment: Speci men Type: BLOOD SPECIMENOrdering Facility: [facility] Address: [address] [place] [address] Result Comment: <150 mg/dL, Normal 150-199 mg/dL, Borderline high 200-499 mg/dL, High >499 mg/dL, Very high Performed By: #### 2 4323-8, 00695-0 ####[facility] LABCLIA [id number] [place] [address] [place] PSA/PROSTATE SPECIFIC ANTIGE N SCREENINGon 05-08-2024 Prostate specific Ag [Mass/Vol] 0.38 ng/mL Normal <2.60 [facility] Comment on above: Order Comment: Speci men Type: BLOOD SPECIMEN [facility] Address: [address] [place] [address] Result Comment: Tota l PSA test methodology used is the Electrochemiluminescence Immunoassay by [employer]. Total PSA values by differing methodologies cannot be interchanged. Performed By: #### P SAS1 #### [facility] CLIA [id number] [address] [place] Orthopedic Visit Reporton Orthopedic Visit Report [facility] [address] [place] [address] OFFICE VISIT Date of Service: 04/03/24 MR#: [id number] Acct: [id number] Name: FOREST LUNA Rep #: [id number] : 1965 Provider: Dr. Jc starks MD Age/Sex: 58/M Location: [facility] Status: Signed with Addenda ADDENDUM by Funmi Haromn on 04/03/24 at 1623 Office Procedure Documentation entered by Funmi Harmon 04/03/24 16:23: Ortho Injections Injections Yes Subacromial Injection Right Is this a patient provided medication?: No Details: Obtained consent for injection. Under sterile conditions, injected the patients right shoulder subacromial with 2cc Kenalog 4cc Bupivacaine. The patient tolerated the injection well without any noted complication. Patient should call our office if redness develops, pain worsens or if they have any concerns. Office Meds Kenalog 40 mg/mL suspension for injection Performing Provider: Jc Rosales MD Performing Location: [facility] Administered by: Jc Rosales MD on 04/03/24 16:21 Dose Route Admin Location Dispensed Lot Number Expiration Date MATTY Matute u[employer]urer 80 mg intra-articular right subacromial 2 mL [id number] 08/17/25 7279-5825-41 [facility] Date cc: * Signed Intake Vital Signs 12/30/23 15:13 Height 5 ft 9 in Weight: 210 lb 4 oz BMI 31.0 Intake Visit Reasons: RIGHT SHOULDER Accompanied by: Self Is patient in pain?: Yes Pain scale (1-10): 5 Allergies erythromycin base Allergy (Verified 04/03/24 15:44) Anaphylaxis Penicillins Allergy (Verified 04/03/24 15:44) Anaphylaxis Medications ???Medication ???Instructions ???Recorded ???Confirmed ???Type metformin 500 mg tablet 1,000 mg PO BIDCM 11/08/14 04/03/24 History lisinopril 5 mg tablet (Zestril) 5 mg PO QHS htn 08/23/18 04/03/24 History omeprazole 40 mg capsule,delayed 40 mg PO DAILY gerd 08/23/18 04/03/24 History release aspirin 81 mg tablet,delayed 81 mg PO DAILY 02/20/19 04/03/24 History release atorvastatin 10 mg tablet 10 mg PO QDAY 12/30/23 04/03/24 History glimepiride 4 mg tablet 4 mg PO BID 12/30/23 04/03/24 History PFSH Medical History (Updated 12/30/23 @ 15:46 by Jc Rosales MD) Impingement of right shoulder Type 2 diabetes mellitus Right shoulder pain Surgical History (Updated 12/30/23 @ 15:16 by Funmi Harmon) History of vein stripping History of repair of left rotator cuff Social History (Updated 12/30/23 @ 15:17 by Funmi Harmon) Smoking Status: Never smoker alcohol intake: current alcohol intake frequency: a few times a week Alcohol type: beer HPI RIGHT SHOULDER Details: This documentation accurately reflects the service provided and the decisions made by me, Dr. Jc Rosales MD 04/03/24 1133. Part of today???s visit was documented by [ ], acting as scribe. FOREST LUNA is a 58 year old M here today for 3 months follow-up right shoulder pain and cortisone injection. The patient is desiring a repeat injection. Has been doing PT now over 6 weeks, ongoing. The injection did help for about 2 months. 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 The patient is desiring a repeat injection, which we did today. Also will order an MRI to assess for a tear. He had a prior left shoulder cuff repair with subsequent stiffness. Is trying to get the Hb a1c down is about a 9 now. Will FU after the right shoulder MRI to assess further possibilities including surgery. Pros and cons risks and benefits of a right shoulder subacromial steroid injection were discussed. Patient wished to proceed. Risks include but not limited to infection, pain, stiffness, damage to other structures, neurovascular injury, wear further tear of the tendon and other structures such as the skin, bleeding, allergic reaction, acute flare reaction and other risks. Obtained informed consent for injection. Posterior lateral aspect of the shoulder was prepped with chlorhexidine solution allowed to thoroughly dry over 3 minutes. Used Gebauer spray per bottle instructions. Using sterile technique, injected the right subacromial joint with a 4cc 0.25% bupivacaine and 2cc 40 mg/mL kenalog. Bandage placed. The patient tolerated the injection well without any noted complication. Red flag symptoms were discussed such as redness, swelling, discharge, drainage, pain worsens or if they have any martin (more content not included)... Normal [facility] Orthopedic Visit Reporton Orthopedic Visit Report [facility] [address] [place] [address] [address] [place] [address] OFFICE VISIT Date of Service: 12/30/23 MR#: [id number] Acct: [id number] Name: FOREST LUNA Rep #: [id number] : 1965 Provider: Dr. Jc starks MD Age/Sex: 58/M Location: [facility] [place] Status: Signed with Addenda ADDENDUM by Funmi Harmon on 12/30/23 at 1608 Office Procedure Documentation entered by Funmi Harmon 12/30/23 16:08: Ortho Injections Injections Yes Subacromial Injection Right Is this a patient provided medication?: No Details: Obtained consent for injection. Under sterile conditions, injected the patients right shoulder with 2cc Kenalog 4cc Bupivacaine. The patient tolerated the injection well without any noted complication. Patient should call our office if redness develops, pain worsens or if they have any concerns. Office Meds Kenalog 40 mg/mL suspension for injection Performing Provider: Jc Rosales MD Performing Location: [facility] Administered by: Jc Rosales MD on 12/30/23 16:04 Dose Route Admin Location Dispensed Lot Number Expiration Date NDC Man ufacturer 80 mg intra-articular right shoulder 2 mL [id number] 07/18/25 9026-6761-40 [facility] Date cc: * Signed Intake Vital Signs 12/30/23 15:13 Height 5 ft 9 in Weight: 210 lb 4 oz BMI 31.0 Intake Visit Reasons: Right Shoulder Accompanied by: Self Is patient in pain?: Yes Pain scale (1-10): 5 Allergies erythromycin base Allergy (Verified 12/30/23 15:13) Anaphylaxis Penicillins Allergy (Verified 12/30/23 15:13) Anaphylaxis Medications ???Medication ???Instructions ???Recorded ???Confirmed ???Type metformin 500 mg tablet 1,000 mg PO BIDCM 11/08/14 12/30/23 History lisinopril 5 mg tablet (Zestril) 5 mg PO QHS htn 08/23/18 12/30/23 History omeprazole 40 mg capsule,delayed 40 mg PO DAILY gerd 08/23/18 12/30/23 History release aspirin 81 mg tablet,delayed 81 mg PO DAILY 02/20/19 12/30/23 History release atorvastatin 10 mg tablet 10 mg PO QDAY 12/30/23 12/30/23 History glimepiride 4 mg tablet 4 mg PO BID 12/30/23 12/30/23 History PFSH Medical History (Updated 12/30/23 @ 15:46 by Jc Rosales MD) Impingement of right shoulder Type 2 diabetes mellitus Right shoulder pain Surgical History (Updated 12/30/23 @ 15:16 by Funmi Harmon) History of vein stripping History of repair of left rotator cuff Social History (Updated 12/30/23 @ 15:17 by Funmi Harmon) Smoking Status: Never smoker alcohol intake: current alcohol intake frequency: a few times a week Alcohol type: beer HPI Right Shoulder Details: This documentation accurately reflects the service provided and the decisions made by me, Dr. Jc Rosales MD 12/30/23 09. Part of today???s visit was documented by [ ], acting as scribe. FOREST LUNA is a 58 year old M here today for right shoulder pain. 6 months. no injury. feels the same as cuff surgery on the other side. anterior and lateral going down the arm. 5/10. worse with motion and doing lifting. aching 3-7 range. positive night time symptoms. 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 [place] - no PT or injections. no MRI or other images. no surgery on the right. LHD. Supplemental Info X-rays 4 views of the right shoulder obtained today no acute abnormalities. Glenohumeral joint space mild narrowing. Coding Level of Care Code Attention Laura Diagnoses Right shoulder pain M25.511 Impingement of right shoulder M25.811 Comment 58689 and CPT inject major joint Assessment and Plan Assessment and Plan (1) Right shoulder pain: Status: Acute Plan: 58 M with R shoulder pain... 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 Could also have rotator cuff tear bursitis biceps tendinitis or other problems about the shoulder he did have a past history of a prior rotator cuff repair on the other side. Patient counseled on the diagnosis prognosis different treatment options available to him including but not limited to rest ice anti-inflammatories active modifications cortisone injections physical therapy I put in a referral for foot physical therapy at [facility]. Asked the patient to follow-up in 6 weeks time if this is no better or worse the next step is a MRI advanced imaging of the shoulder to rule out rotator cuff tear the patient understands no further questions or concerns. Pros and cons risks and benefits of a right shoulder subacromial steroid injection were discussed. Patient wished to proceed. Risks include but not limited to infection, pain, stiffness, damage to other structures, neurovascular injury, wear further tear of the tendon an (more content not included)... Normal [facility] Shoulder min 2 Viewson 12-29 Shoulder min 2 Views [facility] [address] [place] [address] Shoulder min 2 Views MR#: [id number] Acct: [id number] Name: FOREST LUNA Rep #: [id number] : 1965 M 58 From: Ricardo Woodward MD PCP: [facility]SC[facility] Fontana Status: DEP AMB Study: Shoulder min 2 Views Date of Exam: 12/30/23 Exam# [id number] Ordering Dr: Jc Rosales MD [id number] STUDY: X-RAY - RIGHT SHOULDER REASON FOR EXAM: Male, 58 years old. Pain. TECHNIQUE: 4 views of the right shoulder. COMPARISON: None. FINDINGS: Normal glenohumeral articulation. There is hypertrophic acromioclavicular arthrosis. Normal acromion. Normal humeral head and visualized proximal humerus. The soft tissue structures are unremarkable. There is no demonstrated fracture. Normal visualized pulmonary apex. RAD/Shoulder min 2 Views IMPRESSION: Hypertrophic acromioclavicular arthrosis. No demonstrated fracture. Electronically Signed: Ricardo Woodward MD at 12:04 EDT , CC: Dr. Jc Rosales MD; [facility]ana Loading Unit Operator Crimping: Signed Normal [facility] Basic metabolic 2000 panelon 12-27-2023 Anion gap [Moles/Vol] 13 mmol/L Normal 10-20 [facility] Comment on above: Performed By: #### 2 4321-2 #### DAYAMI HAGERTZER L ([id number]) [facility] ([facility]) [address] [place] [address] 61525 Calcium [Mass/Vol] 9.4 mg/dL Normal 8.6-10.6 [facility] Comment on above: Performed By: #### 2 4321-2 #### DAYAMI SCHMOTZER L ([id number]) [facility] ([facility]) [address] [place] [address] 67021 Chloride [Moles/Vol] 100 mmol/L Normal 98-107 [facility] Comment on above: Performed By: #### 2 4321-2 #### DAYAMI SCHMOTZER L ([id number]) [facility] ([facility]) [address] [place] [address] 57507 CO2 [Moles/Vol] 29 mmol/L Normal 21-32 [facility] Comment on above: Performed By: #### 2 4321-2 #### DAYAMI SCHMOTZER L ([id number]) [facility] ([facility]) [address] [place] [address] 56386 Creatinine [Mass/Vol] 0.91 mg/dL Normal 0.50-1.30 [facility] Comment on above: Performed By: #### 2 4321-2 #### DAYAMI LUISMOTZER L ([id number]) [facility] ([facility]) [address] [place] [address] 69204 GFR/1.73 sq M.predicted MDRD (S/P/Bld) [Vol rate/Area] mL/min/{1.73_m2} Normal >60 [facility] Comment on above: Result Comment: Calc ulations of estimated GFR are performed using the 2020 CKD-EPI Study Refit equation without the race variable for the IDMS-Traceable creatinine methods. https://jasn.asnjournals.org/content//ASN.1809045649 Performed By: #### 2 4321-2 #### DAYAMI Friedman ([id number]) [facility] ([facility]) [id number] [place] [address] 98560 Glucose [Mass/Vol] 285 mg/dL High 74-99 [facility] Comment on above: Performed By: #### 2 4321-2 #### DAYAMI Friedman ([id number]) [facility] ([facility]) [address] [place] [address] 15754 Potassium [Moles/Vol] 5.0 mmol/L Normal 3.5-5.3 [facility] Comment on above: Performed By: #### 2 4321-2 #### DAYAMI ZULETA L ([id number]) [facility] ([facility]) [address] [place] [address] 65107 Sodium [Moles/Vol] 137 mmol/L Normal 136-145 [facility] Comment on above: Performed By: #### 2 4321-2 #### DAYAMI LUISMOMURPHY L ([id number]) [facility] ([facility]) [address] [place] [address] 19945 Urea nitrogen [Mass/Vol] 13 mg/dL Normal 6-23 [facility] Comment on above: Performed By: #### 2 4321-2 #### DAYAMI ZULETA L ([id number]) [facility] ([facility]) [address] [place] [address] 45939 CBC W Auto Differential pane l (Bld)on 12-27-2023 Basophils (Bld) [#/Vol] 0.03 x10*3/uL Normal 0.00-0.10 [facility] Comment on above: Performed By: #### 5 7021-8 #### DAYAMI Friedman ([id number]) [facility] ([facility]) [address] [place] [address] 52465 Basophils/100 WBC (Bld) 0.5 % Normal 0.0-2.0 [facility] Comment on above: Performed By: #### 5 7021-8 #### DAYAMI ZULETA L ([id number]) [facility] ([facility]) [address] [place] [address] 92252 Eosinophils (Bld) [#/Vol] 0.10 x10*3/uL Normal 0.00-0.70 [facility] Comment on above: Performed By: #### 5 7021-8 #### DAYAMI Friedman ([id number]) [facility] ([facility]) [address] [place] [address] 81894 Eosinophils/100 WBC (Bld) 1.5 % Normal 0.0-6.0 [facility] Comment on above: Performed By: #### 5 7021-8 #### DAYAMI ZULETA L ([id number]) [facility] ([facility]) [address] [place] [address] 15367 Erythrocyte distribution width (RBC) [Ratio] 13.2 % Normal 11.5-14.5 [facility] Comment on above: Performed By: #### 5 7021-8 #### DAYAMI Friedman ([id number]) [facility] ([facility]) [address] [place] [address] 98752 Hematocrit (Bld) [Volume fraction] 40.9 % Low 41.0-52.0 [facility] Comment on above: Performed By: #### 5 7021-8 #### DAYAMI ZULETA L ([id number]) [facility] ([facility]) [address] [place] [address] 36056 Hemoglobin (Bld) [Mass/Vol] 13.2 g/dL Low 13.5-17.5 [facility] Comment on above: Performed By: #### 5 7021-8 #### DAYAMI ZULETA L ([id number]) [facility] ([facility]) [address] [place] [address] Immature granulocytes (Bld) [#/Vol] 0.06 x10*3/uL Normal 0.00-0.70 [facility] Comment on above: Performed By: #### 5 7021-8 #### DAYAMI Friedman ([id number]) [facility] ([facility]) [address] [place] [address] 43002 Immature granulocytes/100 WBC (Bld) 0.9 % Normal 0.0-0.9 [facility] Comment on above: Result Comment: Milla ture Granulocyte Count (IG) includes promyelocytes, myelocytes and metamyelocytes but does not include bands. Percent differential counts (%) should be interpreted in the context of the absolute cell counts (cells/UL). Performed By: #### 5 7021-8 #### DAYAMI Friedman ([id number]) [facility] ([facility]) [address] [place] [address] 52471 Lymphocytes (Bld) [#/Vol] 1.76 x10*3/uL Normal 1.20-4.80 [facility] Comment on above: Performed By: #### 5 7021-8 #### DAYAMI Friedman ([id number]) [facility] ([facility]) [address] [place] [address] 46691 Lymphocytes/100 WBC (Bld) 27.1 % Normal 13.0-44.0 [facility] Comment on above: Performed By: #### 5 7021-8 #### DAYAMI Friedman ([id number]) [facility] ([facility]) [address] [place] [address] 88244 MCH (RBC) [Entitic mass] 26.0 pg Normal 26.0-34.0 [facility] Comment on above: Performed By: #### 5 7021-8 #### DAYAMI Friedmna ([id number]) [facility] ([facility]) [id number] [place] [address] 37633 MCHC (RBC) [Mass/Vol] 32.3 g/dL Normal 32.0-36.0 [facility] Comment on above: Performed By: #### 5 7021-8 #### DAYAMI Friedman ([id number]) [facility] ([facility]) [address] [place] [address] MCV (RBC) [Entitic vol] 81 fL Normal 80-100 [facility] Comment on above: Performed By: #### 5 7021-8 #### DAYAMI Friedman ([id number]) [facility] ([facility]) [id number] [place] [address] 44608 Monocytes (Bld) [#/Vol] 0.60 x10*3/uL Normal 0.10-1.00 [facility] Comment on above: Performed By: #### 5 7021-8 #### DAYAMI Friedman ([id number]) [facility] ([facility]) [address] [place] [address] 63317 Monocytes/100 WBC (Bld) 9.2 % Normal 2.0-10.0 [facility] Comment on above: Performed By: #### 5 7021-8 #### DAYAMI Friedman ([id number]) [facility] ([facility]) [address] [place] [address] 38482 Neutrophils (Bld) [#/Vol] 3.94 x10*3/uL Normal 1.20-7.70 [facility] Comment on above: Result Comment: Perc ent differential counts (%) should be interpreted in the context of the absolute cell counts (cells/uL). Performed By: #### 5 7021-8 #### DAYAMI Friedman ([id number]) [facility] ([facility]) [id number] [place] [address] 90601 Neutrophils/100 WBC (Bld) 60.8 % Normal 40.0-80.0 [facility] Comment on above: Performed By: #### 5 7021-8 #### DAYAMI Friedman ([id number]) [facility] ([facility]) [address] [place] [address] 97062 Nucleated RBC/100 WBC (Bld) [Ratio] 0.0 /100 WBCs Normal 0.0-0.0 [facility] Comment on above: Performed By: #### 5 7021-8 #### DAYAMI Friedman ([id number]) [facility] ([facility]) [address] [place] [address] 56173 Platelets (Bld) [#/Vol] 149 x10*3/uL Low 150-450 [facility] Comment on above: Performed By: #### 5 7021-8 #### DAYAMI Friedman ([id number]) [facility] ([facility]) [address] [place] [address] 04251 RBC (Bld) [#/Vol] 5.07 x10*6/uL Normal 4.50-5.90 [facility] Comment on above: Performed By: #### 5 7021-8 #### DAYAMI Friedman ([id number]) [facility] ([facility]) [address] [place] [address] 91992 WBC (Bld) [#/Vol] 6.5 x10*3/uL Normal 4.4-11.3 [facility] Comment on above: Performed By: #### 5 7021-8 #### DAYAMI Friedman ([id number]) [facility] ([facility]) [address] [place] [address] 37457 HbA1c (Bld) [Mass fraction]o n 12-27-2023 Average glucose Estimated from glycated hemoglobin (Bld) [Mass/Vol] 249 mg/dL Normal Not Established [facility] Comment on above: Order Comment: Diagn osis of Diabetes-Adults Non-Diabetic: < or = 5.6% Increased risk for developing diabetes: 5.7-6.4% Diagnostic of diabetes: > or = 6.5% Performed By: #### 4 548-4 #### DAYAMI Friedman ([id number]) [facility] ([facility]) [address] [place] [address] 68148 Hemoglobin A1c/Hemoglobin.to guerrero 12-27-2023 HbA1c (Bld) [Mass fraction] 10.3 % High see below [facility] Comment on above: Order Comment: Diagn osis of Diabetes-Adults Non-Diabetic: < or = 5.6% Increased risk for developing diabetes: 5.7-6.4% Diagnostic of diabetes: > or = 6.5% Performed By: #### 4 548-4 #### DAYAMI Friedman ([id number]) [facility] ([facility]) [id number] [place], [place] [id number] VASC US LOWER EXTREMITY VENO US DUPLEX LEFTon 12-27-2023 VASC US LOWER EXTREMITY VENOUS DUPLEX LEFT [facility] [address] [facility], [address], [place] [address] and Vascular Lab Report VAS US LOWER EXTREMITY VENOUS DUPLEX LEFT Patient Name: FOREST LUNA Reading [id number] Leeroy He Physician: Study Date: 12/27/2023 Ordering [id number] LEI FUENTES Physician: MRN/PID: [id number] Technologist: Enma Manrqiue [facility] Technologist 2: Date of 1965 /Age: years Gender: M Admission Status: Outpatient Location [facility] Performed: Diagnosis/ICD: Venous insufficiency (chronic) (peripheral)-I87.2 Indication: Varicose veins with inflammation CPT Codes: 18416 Peripheral venous duplex scan for DVT Limited CONCLUSIONS: Left Lower Venous: No evidence of acute deep vein thrombus visualized in the left lower extremity. The left posterior tibial veins and peroneal veins were visualized in segments. GSV calf tributaries appear thrombosed s/p procedure. Chronic changes are noted at a distal calf fiscal officer vein. Imaging & Doppler Findings: Left Compress Thrombus Flow Distal External Iliac Spontaneous/Phasic CFV Yes None Spontaneous/Phasic PFV Yes None FV Proximal Yes None Spontaneous/Phasic FV Mid Yes None FV Distal Yes None Popliteal Yes None Reflux Peroneal Yes None PTV Yes None [id number] Leeroy He MD Final [facility] VASC US LOWER EXTREMITY VENO US DUPLEX LEFTon 12-08-2023 VASC US LOWER EXTREMITY VENOUS DUPLEX LEFT [facility] [address] [facility], [place] [address] and Vascular Lab Report VASC US LOWER EXTREMITY VENOUS DUPLEX LEFT Patient Name: FOREST LUNA Reading Physician: [id number] Short MD Study Date: 12/08/2023 Ordering Physician: [id number] LEI FUENTES MRN/PID: [id number] Technologist: Enma CANTUT Technologist 2: Date of /Age: 1 1965 years Gender: M Admission Status: Outpatient Location Performed: [facility] Diagnosis/ICD: Venous insufficiency (chronic) (peripheral)-I87.2 Indication: Limb edema CPT Codes: 40633 Peripheral venous duplex scan for DVT Limited Patient History AGSV RFA 11/30/23. CONCLUSIONS: Left Lower Venous Insufficiency: There is reflux noted in the popliteal vein. Left Lower Venous: No evidence of acute deep vein thrombus visualized in the left lower extremity. The anterior GSV appears thrombosed approx. 3cm from the SFJ s/p RFA. Imaging & Doppler Findings: Left Compress Thrombus Flow Distal External Iliac Spontaneous/Phasic CFV Yes None Spontaneous/Phasic PFV Yes None FV Proximal Yes None Spontaneous/Phasic FV Mid Yes None FV Distal Yes None Popliteal Yes None Reflux Peroneal Yes None PTV Yes None [id number] Aren Short MD Final Normal [facility] Vascular US Lower Extremity Venous Duplex Lefton 12-08-[address], [address] [address] and Vascular Lab Report VASC US LOWER EXTREMITY VENOUS DUPLEX LEFT Patient Name: FOREST LUNA Reading Physician: [id number] Short MD Study Date: 12/08/2023 Ordering Physician: [id number] LEI FUENTES MRN/PID: [id number] Technologist: Enma Manrique RVT Technologist 2: Date of /Age: 1 1965 years Gender: M Admission Status: Outpatient Location Performed: [facility] Diagnosis/ICD: Venous insufficiency (chronic) (peripheral)-I87.2 Indication: Limb edema CPT Codes: 79440 Peripheral venous duplex scan for DVT Limited Patient History AGSV RFA 11/30/23. CONCLUSIONS: Left Lower Venous Insufficiency: There is reflux noted in the popliteal vein. Left Lower Venous: No evidence of acute deep vein thrombus visualized in the left lower extremity. The anterior GSV appears thrombosed approx. 3cm from the SFJ s/p RFA. Imaging & Doppler Findings: Left Compress Thrombus Flow Distal External Iliac Spontaneous/Phasic CFV Yes None Spontaneous/Phasic PFV Yes None FV Proximal Yes None Spontaneous/Phasic FV Mid Yes None FV Distal Yes None Popliteal Yes None Reflux Peroneal Yes None PTV Yes None [id number] Aren Short MD Final Aren Dee MD Ph D - 12/08/[address], [address] [address] and Vascular Lab Report VASC US LOWER EXTREMITY VENOUS DUPLEX LEFT Patient Name: FOREST Johnson Physician: [id number] Aren Short MD Study Date: 12/08/2023 Ordering Physician: [id number] LEI FUENTES MRN/PID: [id number] Technologist: Enma Manrique [facility] Technologist 2: Date of /Age: 1 1965 / 58 years Gender: M Admission Status: Outpatient Location Performed: [facility] Diagnosis/ICD: Venous insufficiency (chronic) (peripheral)-I87.2 Indication: Limb edema CPT Codes: 52106 Peripheral venous duplex scan for DVT Limited Patient History AGSV RFA 11/30/23. CONCLUSIONS: Left Lower Venous Insufficiency: There is reflux noted in the popliteal vein. Left Lower Venous: No evidence of acute deep vein thrombus visualized in the left lower extremity. The anterior GSV appears thrombosed approx. 3cm from the SFJ s/p RFA. Imaging & Doppler Findings: Left Compress Thrombus Flow Distal External Iliac Spontaneous/Phasic CFV Yes None Spontaneous/Phasic PFV Yes None FV Proximal Yes None Spontaneous/Phasic FV Mid Yes None FV Distal Yes None Popliteal Yes None Reflux Peroneal Yes None PTV Yes None [id number] Aren Short MD Final [facility] Work Phone: Radiology Study observation (narrative) [facility] Work Phone: Vascular US Lower Extremity Venous Duplex LeftOrdered By: Aren Short on 12-08-2023 [facility] Work Phone: VASC US LOWER EXTREMITY VENO US INSUFFICIENCY BILATERALon 09-27-2023 VAS US LOWER EXTREMITY VENOUS INSUFFICIENCY BILATERAL [facility] [address] [facility], [address], [place] [address] and Vascular Lab Report [facility] US LOWER EXTREMITY VENOUS INSUFFICIENCY BILATERAL Patient Name: FOREST LUNA Reading 24[address] Leeroy He Physician: Study Date: 09/27/2023 Ordering [id number] NELL BLANCA Physician: MRN/PID: [id number] Technologist: Enma Manrique T Technologist 2: Date of 1965 /Age: years Gender: M Admission Status: Outpatient Location [facility] Performed: Diagnosis/ICD: Phlebitis and thrombophlebitis of superficial vessels of left lower extremity-I80.02 Indication: Varicose veins edema, pain CPT Codes: 56753 Venous reflux study VV complete Patient Position: Study performed in a reverse Trendelenburg position. CONCLUSIONS: Right Lower Venous Insufficiency: Reflux is noted in the saphenofemoral junction vein. There is reflux noted in the common femoral, mid femoral and popliteal veins. Varicose vein cluster noted at proximal thigh GSV. GSV was not visualized proximal thigh to distal calf, h/o previous vein procedures. Multiple partially compressible varicosities are noted throughout the calf. Mid to distal SSV was not visualized. Left Lower Venous Insufficiency: Reflux is noted in the mid small saphenous and distal small saphenous veins. Painter Ordnance reflux is documented in the left distal calf and mid calf. There is reflux noted in the mid femoral, common femoral and popliteal veins. The proximal and mid thigh AAV appears patent with reflux. AAV reflux/diameter are: AAV proximal-2.2sec/5.8cm and AAV mid-1.2sec/4.9cm. The GSV was not visualized, h/o multiple of venous procedures, however a refluxing branch is noted from the saphenofemoral junction to distal calf outside of the fascia. The branch measurements and reflux times are listed as the GSV in the chart below. The GSV branch demonstrates reflux at proximal and mid thigh, knee level and mid calf. Partially thrombosed varicosities are noted at distal calf. Right Lower Venous: No evidence of acute deep vein thrombus visualized in the right lower extremity. Left Lower Venous: No evidence of acute deep vein thrombus visualized in the left lower extremity. Imaging & Doppler Findings: Right Compress Thrombus Diam Depth Time SFJ 9.8 mm 21.0 mm 5.00 sec SSV Prox Yes None Common FV 5.00 sec Mid Femoral Vein 5.00 sec Popliteal Vein 2.70 sec Left Compress Thrombus Diam Depth Time SFJ Yes None 10.0 mm 23.0 mm 5.00 sec Prox Thigh GSV Yes None 3.2 mm 14.0 mm 1.30 sec Mid Thigh GSV Yes None 4.0 mm 3.3 mm 2.10 sec Knee GSV Yes None 5.0 mm 2.5 mm 2.10 sec Prox Calf GSV Yes None 2.2 mm 4.6 mm Mid Calf GSV Yes None 3.2 mm 3.2 mm 1.30 sec Dist Calf GSV Yes None SPJ Yes None SSV Prox Yes None 3.0 mm 8.0 mm SSV Mid Yes None 2.9 mm 13.0 mm 1.70 sec SSV Distal Yes None 5.1 mm 12.0 mm 1.30 sec Common FV 2.20 sec Mid Femoral Vein 2.50 sec Popliteal Vein 3.40 sec Right Compressible Thrombus Flow CFV Yes None Reflux PFV Yes None FV Proximal Yes None FV Mid Yes None Reflux FV Distal Yes None Popliteal Yes None Reflux Peroneal Yes None PTV Yes None Left Compress Thrombus Flow CFV Yes None Reflux PFV Yes None FV Proximal Yes None FV Mid Yes None Reflux FV Distal Yes None Popliteal Yes None Reflux Peroneal Yes None PTV Yes None [id number] Leeroy He MD Final 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 COMPARISON: None. ACCESSION NUMBER(S): [id number] ORDERING CLINICIAN: NELL BLANCA PROCEDURE: CT ANGIOGRAM OF THE ABDOMEN, PELVIS, AND BILATERAL LOWER EXTREMITIES TECHNIQUE: High-resolution contrast-enhanced helical CT of the abdomen, pelvis and both lower extremities was performed, timed to the arterial phase. 3-D processing was performed by the physician on an independent work station, with MIP and volume-rendering techniques. Total of 75 ml of Omnipaque 350 was injected intravenously during the examination. The study was performed without oral contrast. The patient tolerated the injection without complications. FINDINGS: VASCULAR: Images of the abdominal aorta demonstrate no focal stenosis or aneurysm. Celiac artery demonstrates no significant focal stenosis. Superior mesenteric artery demonstrates no significant focal stenosis. Inferior mesenteric artery demonstrates no significant focal stenosis. There is a single right renal artery. Right renal artery demonstrates no significant focal stenosis. There is a single renal vein which is patent. There is a single left renal artery. Left renal artery demonstrates no significant focal stenosis. There is a single renal vein which is patent. Right common iliac artery is widely patent with no significant stenosis. Right external iliac artery is widely patent with no significant stenosis. Right internal iliac artery is widely patent with no significant stenosis. Left common iliac artery is widely patent with no significant stenosis. Left external iliac artery is widely patent with no significant stenosis. Left internal iliac artery is widely patent with no significant stenosis. RIGHT LEG: Right common femoral artery is widely patent with no significant stenosis. Right profunda femoris artery is widely patent with no significant stenosis. Right superficial femoral artery is widely patent with no significant stenosis. Right popliteal artery is widely patent with no significant stenosis. Right anterior tibial artery is widely patent with no significant stenosis. Dorsalis pedis is seen and normal in appearance. Right tibioperoneal trunk is widely patent with no significant stenosis. Right posterior tibial artery is widely patent with no significant stenosis. Posterior tibial artery is normal in caliber and seen to the foot. Right peroneal artery is widely patent with no significant stenosis. LEFT LEG: Left common femoral artery is widely patent with no significant stenosis. Left profunda femoris artery is widely patent with no significant stenosis. Left superficial femoral artery is widely patent with no significant stenosis. Left popliteal artery is widely patent with no significant stenosis. Left anterior tibial artery is widely patent with no significant stenosis. Dorsalis pedis is seen and normal in appearance. Left tibioperoneal trunk is widely patent with no significant stenosis. Left posterior tibial artery is widely patent with no significant stenosis. Posterior tibial artery is normal in caliber and seen to the foot. Left peroneal artery is widely patent with no significant stenosis. VEINS: This is an arterial directed study with limited evaluation of the venous structures. Within the pelvis, there is no significant compression of the left iliac vein near the confluence related to the right common iliac artery. The lumen is not well evaluated given the lack of contrast. Note is made prominent varicose veins. This includes a very dilated and tortuous right greater saphenous vein with varicosities extending down the entirety of the right leg. There is significant skin thickening and subcutaneous stranding including subcutaneous calcifications which is more predominant over the medial malleolus. Similar, but slightly less prominent findings are present in the left leg. NONVASCULAR FINDINGS: CHEST: LOWER CHEST: The visualized lung base is unremarkable. The heart is normal in size without pericardial effusion. No pleural effusion is present. Visualized distal esophagus appears normal. ABDOMEN: LIVER: The liver is normal in size without evidence of solid focal liver lesions. There are a few subcentimeter low-attenuation lesion in the left and right hepatic lobe which are too small to further characterize but statistically most likely simple cysts. BILE DUCTS: The intrahepatic and extrahepatic ducts are not dilated. GALLBLADDER: No calcified stones. No wall thickening. PANCREAS: The pancreas demonstrates diffuse fatty infiltration without evidence of ductal dilatation or masses. SPLEEN: Unremarkable A (more content not included)... [facility] Comment on above: Order Comment: KATHRYN Villarreal DO VENOUS PHASE CTA Thoracic and Abdominal A devin and Bilateral Runoff Vessels WO and W contrast [place] 08-25-2023 1. The CTA demonstra norma minimal atherosclerotic change with widely patent bilateral aorto iliac inflow and femoropopliteal outflow. A three-vessel runoff is identified bilaterally. 2. This is an arterial directed study with limited evaluation of the venous structures. Prominent varicose veins including dilated greater saphenous veins and tributaries extending down the extent of the legs with skin thickening and soft tissue swelling and calcification involving the medial greater than lateral lower leg. These findings are slightly more prominent on the right than left. For further evaluation of the venous structures of the legs, ultrasound is the study of choice. 3. No acute process in the abdomen or pelvis. 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 COMPARISON: None. ACCESSION NUMBER(S): [id number] ORDERING CLINICIAN: NELL BLANCA PROCEDURE: CT ANGIOGRAM OF THE ABDOMEN, PELVIS, AND BILATERAL LOWER EXTREMITIES TECHNIQUE: High-resolution contrast-enhanced helical CT of the abdomen, pelvis and both lower extremities was performed, timed to the arterial phase. 3-D processing was performed by the physician on an independent work station, with MIP and volume-rendering techniques. Total of 75 ml of Omnipaque 350 was injected intravenously during the examination. The study was performed without oral contrast. The patient tolerated the injection without complications. FINDINGS: VASCULAR: Images of the abdominal aorta demonstrate no focal stenosis or aneurysm. Celiac artery demonstrates no significant focal stenosis. Superior mesenteric artery demonstrates no significant focal stenosis. Inferior mesenteric artery demonstrates no significant focal stenosis. There is a single right renal artery. Right renal artery demonstrates no significant focal stenosis. There is a single renal vein which is patent. There is a single left renal artery. Left renal artery demonstrates no significant focal stenosis. There is a single renal vein which is patent. Right common iliac artery is widely patent with no significant stenosis. Right external iliac artery is widely patent with no significant stenosis. Right internal iliac artery is widely patent with no significant stenosis. Left common iliac artery is widely patent with no significant stenosis. Left external iliac artery is widely patent with no significant stenosis. Left internal iliac artery is widely patent with no significant stenosis. RIGHT LEG: Right common femoral artery is widely patent with no significant stenosis. Right profunda femoris artery is widely patent with no significant stenosis. Right superficial femoral artery is widely patent with no significant stenosis. Right popliteal artery is widely patent with no significant stenosis. Right anterior tibial artery is widely patent with no significant stenosis. Dorsalis pedis is seen and normal in appearance. Right tibioperoneal trunk is widely patent with no significant stenosis. Right posterior tibial artery is widely patent with no significant stenosis. Posterior tibial artery is normal in caliber and seen to the foot. Right peroneal artery is widely patent with no significant stenosis. LEFT LEG: Left common femoral artery is widely patent with no significant stenosis. Left profunda femoris artery is widely patent with no significant stenosis. Left superficial femoral artery is widely patent with no significant stenosis. Left popliteal artery is widely patent with no significant stenosis. Left anterior tibial artery is widely patent with no significant stenosis. Dorsalis pedis is seen and normal in appearance. Left tibioperoneal trunk is widely patent with no significant stenosis. Left posterior tibial artery is widely patent with no significant stenosis. Posterior tibial artery is normal in caliber and seen to the foot. Left peroneal artery is widely patent with no significant stenosis. VEINS: This is an arterial directed study with limited evaluation of the venous structures. Within the pelvis, there is no significant compression of the left iliac vein near the confluence related to the right common iliac artery. The lumen is not well evaluated given the lack of contrast. Note is made prominent varicose veins. This includes a very dilated and tortuous right greater saphenous vein with varicosities extending down the entirety of the right leg. There is significant skin thickening and subcutaneous stranding including subcutaneous calcifications which is more predominant over the medial malleolus. Similar, but slightly less prominent findings are present in the left leg. NONVASCULAR FINDINGS: CHEST: LOWER CHEST: The visualized lung base is unremarkable. The heart is normal in size without pericardial effusion. No pleural effusion is present. Visualized distal esophagus appears normal. ABDOMEN: LIVER: The liver is normal in size without evidence of solid focal liver lesions. There are a few subcentimeter low-attenuation lesion in the left and right hepatic lobe which are too small to further characterize but statistically most likely simple cysts. BILE DUCTS: The intrahepatic and extrahepatic ducts are not dilated. GALLBLADDER: No calcified stones. No wall thickening. PANCREAS: The pancreas demonstrates diffuse fatty inf (more content not included)... 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 COMPARISON: None. ACCESSION NUMBER(S): [id number] ORDERING CLINICIAN: NELL BLANCA PROCEDURE: CT ANGIOGRAM OF THE ABDOMEN, PELVIS, AND BILATERAL LOWER EXTREMITIES TECHNIQUE: High-resolution contrast-enhanced helical CT of the abdomen, pelvis and both lower extremities was performed, timed to the arterial phase. 3-D processing was performed by the physician on an independent work station, with MIP and volume-rendering techniques. Total of 75 ml of Omnipaque 350 was injected intravenously during the examination. The study was performed without oral contrast. The patient tolerated the injection without complications. FINDINGS: VASCULAR: Images of the abdominal aorta demonstrate no focal stenosis or aneurysm. Celiac artery demonstrates no significant focal stenosis. Superior mesenteric artery demonstrates no significant focal stenosis. Inferior mesenteric artery demonstrates no significant focal stenosis. There is a single right renal artery. Right renal artery demonstrates no significant focal stenosis. There is a single renal vein which is patent. There is a single left renal artery. Left renal artery demonstrates no significant focal stenosis. There is a single renal vein which is patent. Right common iliac artery is widely patent with no significant stenosis. Right external iliac artery is widely patent with no significant stenosis. Right internal iliac artery is widely patent with no significant stenosis. Left common iliac artery is widely patent with no significant stenosis. Left external iliac artery is widely patent with no significant stenosis. Left internal iliac artery is widely patent with no significant stenosis. RIGHT LEG: Right common femoral artery is widely patent with no significant stenosis. Right profunda femoris artery is widely patent with no significant stenosis. Right superficial femoral artery is widely patent with no significant stenosis. Right popliteal artery is widely patent with no significant stenosis. Right anterior tibial artery is widely patent with no significant stenosis. Dorsalis pedis is seen and normal in appearance. Right tibioperoneal trunk is widely patent with no significant stenosis. Right posterior tibial artery is widely patent with no significant stenosis. Posterior tibial artery is normal in caliber and seen to the foot. Right peroneal artery is widely patent with no significant stenosis. LEFT LEG: Left common femoral artery is widely patent with no significant stenosis. Left profunda femoris artery is widely patent with no significant stenosis. Left superficial femoral artery is widely patent with no significant stenosis. Left popliteal artery is widely patent with no significant stenosis. Left anterior tibial artery is widely patent with no significant stenosis. Dorsalis pedis is seen and normal in appearance. Left tibioperoneal trunk is widely patent with no significant stenosis. Left posterior tibial artery is widely patent with no significant stenosis. Posterior tibial artery is normal in caliber and seen to the foot. Left peroneal artery is widely patent with no significant stenosis. VEINS: This is an arterial directed study with limited evaluation of the venous structures. Within the pelvis, there is no significant compression of the left iliac vein near the confluence related to the right common iliac artery. The lumen is not well evaluated given the lack of contrast. Note is made prominent varicose veins. This includes a very dilated and tortuous right greater saphenous vein with varicosities extending down the entirety of the right leg. There is significant skin thickening and subcutaneous stranding including subcutaneous calcifications which is more predominant over the medial malleolus. Similar, but slightly less prominent findings are present in the left leg. NONVASCULAR FINDINGS: CHEST: LOWER CHEST: The visualized lung base is unremarkable. The heart is normal in size without pericardial effusion. No pleural effusion is present. Visualized distal esophagus appears normal. ABDOMEN: LIVER: The liver is normal in size without evidence of solid focal liver lesions. There are a few subcentimeter low-attenuation lesion in the left and right hepatic lobe which are too small to further characterize but statistically most likely simple cysts. BILE DUCTS: The intrahepatic and extrahepatic ducts are not dilated. GALLBLADDER: No calcified stones. No wall thickening. PANCREAS: The pancreas demonstrates diffuse f (more content not included)... [facility] Work Phone: Radiology Study observation (narrative) [facility] Work Phone: CTA Thoracic and Abdominal A devin and Bilateral Runoff Vessels WO and W contrast IVOrdered By: Aren Glover on 08-25-2023 [facility] Work Phone: [phone] Creatinineon 08-19-2023 Creatinine [Mass/Vol] 0.91 mg/dL Normal 0.50-1.30 [facility] Comment on above: Performed By: #### 2 160-0 #### DAYAMI Friedman ([id number]) [facility] ([facility]) [address] [place] [address] Creatinine [Mass/Vol]on GFR/1.73 sq M.predicted MDRD (S/P/Bld) [Vol rate/Area] mL/min/{1.73_m2} Normal >60 [facility] Comment on above: Result Comment: Calc ulations of estimated GFR are performed using the 2020 CKD-EPI Study Refit equation without the race variable for the IDMS-Traceable creatinine methods. https://jasn.asnjournals.org/content/early/ASN.6329199500 Performed By: #### 2 160-0 #### DAYAMI Friedman ([id number]) [facility] ([facility]) [address] [place] [address] F5 gene [id number] Molgen Q l (Bld/Tiss)on 07-19-2023 ELECTRONICALLY SIGNED BY Jennifer Bradford MD PhD [facility] Comment on above: Performed By: #### 2 1668-9 #### MARLENE OLEARY ([id number]) [facility] ([facility]) [facility] [place] [address] FACTOR V LEIDEN INTERPRETATION INTERPRETATION Normal [facility] Comment on above: Performed By: #### 2 1668-9 #### MARLENE OLEARY ([id number]) [facility] ([facility]) [address] [place] [address] FACTOR V LEIDEN RESULT Normal Normal Normal [facility] Comment on above: Performed By: #### 2 1668-9 #### MARLENE OLEARY ([id number]) [facility] ([facility]) [facility] [place] [address] PT and aPTT panel Coag (PPP) on 07-19-2023 aPTT Coag (PPP) [Time] 30 s Normal 27-38 [facility] Comment on above: Order Comment: The A PTT is no longer used for monitoring Unfractionated Heparin Therapy. For monitoring Heparin Therapy, use the Heparin Assay. Performed By: #### 3 4529-8 #### DAYAMI Friedman ([id number]) [facility] ([facility]) [address] [place] [address] INR Coag (PPP) [Relative time] 1.0 Normal 0.9-1.1 [facility] Comment on above: Order Comment: The A PTT is no longer used for monitoring Unfractionated Heparin Therapy. For monitoring Heparin Therapy, use the Heparin Assay. Performed By: #### 3 4529-8 #### DAYAMI Friedman ([id number]) [facility] ([facility]) [id number] [place] [address] PT Coag (PPP) [Time] 11.5 s Normal 9.8-12.8 [facility] Comment on above: Order Comment: The A PTT is no longer used for monitoring Unfractionated Heparin Therapy. For monitoring Heparin Therapy, use the Heparin Assay. Performed By: #### 3 4529-8 #### DAYAMI Friedman ([id number]) [facility] ([facility]) [address] [place], [place] [id number] Sandra 07-05-2023 [facility] ([facility]) [place] ([id number]) 1965 M Date Time Provider Department 07/05/23 ANA LAURA SIMON During your visit today, we recorded the following information about you: Ruth Jacobs 07/05/2023 11:34 AM Signed Check on referral for Nayeli Maradiaga 07/12/2023 1:24 PM Signed Referral still pending, last update was today (07/12/23) at 12:13 PM. Ruth Jacobs 07/20/2023 9:53 AM Signed Per referral note, patient is not financially cleared, insurance is OON Referral note: Patient Contact (unable to contact patient left voicemail at [phone] regarding OON insurance and required deposit). Allergies As of Date: 07/05/2023 Noted Allergy Reaction ERYTHROMYCIN 11/29/2006 PENICILLINS 11/29/2006 Date Reviewed: 02/16/2023 Reviewed by: Candida Soria DO - Fully Assessed Reason for Visit: Appointment [186] Prescriptions as of 07/20/2023 - metFORMIN (GLUCOPHAGE) 500 mg tablet TAKE 2 TABLETS 2 TIMES DAILY - lisinopril (ZESTRIL) 5 mg tablet Take 1 tablet by mouth once daily. - atorvastatin (LIPITOR) 10 mg tablet Take 1 tablet by mouth once daily. BEFORE BEDTIME - omeprazole (PRILOSEC) 40 mg capsule Take 1 capsule by mouth once daily. - glimepiride (AMARYL) 4 mg tablet TAKE 1 TABLET TWICE A DAY WITH MEALS - dapagliflozin propanediol (FARXIGA) 5 mg tablet Take 1 tablet by mouth daily with breakfast. - aspirin 81 mg cap Take 1 capsule by mouth twice daily. - meclizine (ANTIVERT) 25 mg tab Take 1 tablet by mouth every 6 hours as needed (for dizziness). - sucralfate (CARAFATE) 1 gram tablet Take 1 tablet by mouth four times daily. - clobetasol (TEMOVATE) 0.05 % cream APPLY 1 APPLICATION TO AFFECTED AREA ONCE DAILY - Comp.Stocking,Thigh,Long,La rge misc Use as directed - Blood-Glucose Meter, Drum-type (ACCU-CHEK COMPACT PLUS CARE) kit Use as directed. - Lancets (ACCU-CHEK MULTICLIX LANCET) lancets Test blood sugar(s) 4 times daily. Dx: 250.02. Insulin: No - blood sugar diagnostic (ACCU-CHEK ALIA) test strip Test blood sugar(s) 4 times daily. Dx: Diabetes mellitus. Insulin: No Problem List As Of Date 07/05/2023 Noted Resolved ABDOMINAL PAIN EPIGASTRIC [R10.13] 11/29/2006 STOMACH FUNCTION DIS NEC [K31.89, R10.13] 11/29/2006 BENIGN NEOPLASM STOMACH [D13.1] 12/15/2006 DIAPHRAGMATIC HERNIA [K44.9] 12/15/2006 Ingrowing nail [L60.0] 08/04/2011 Type 2 diabetes mellitus without complication (*09/13/2013 Diabetic peripheral neuropathy (HCC) [E11.42] 06/24/2015 Incomplete tear of left rotator cuff [M75.112] 01/21/2016 Essential hypertension [I10] 2016 GERD (gastroesophageal reflux disease) [K21.9] 2016 Thrombocytopenic (HCC) [D69.6] 2016 Obesity, Class I, BMI 30-34.9 [E66.9] 11/10/2022 Encounter Status:Closed by RUTH JACOBS on 07/05/23 Normal [facility] ALBUMIN/CREAT RATIO RND URon 02-16-2023 Albumin Unsp time DL <= 20 mg/L (U) [Mass/Time] [facility] Albumin/Creatinin e (U) [Mass ratio] <30 mg/g [facility] Creatinine (U) [Mass/Vol] 93.7 mg/dL 46.8 - 314.5 mg/dL [facility] CBC panel Auto (Bld)on 11-04 Erythrocyte distribution width (RBC) [Ratio] 13.2 % Normal 11.5-15.0 [facility] Comment on above: Order Comment: Speci men Type: BLOOD SPECIMEN Ordering Facility: [facility] Address: [address] [place] [address] Performed By: #### 5 8410-2 #### [facility] CLIA [id number] [address] [place] [address] [place] Hematocrit (Bld) [Volume fraction] 44.2 % Normal 39.0-51.0 [facility] Comment on above: Order Comment: Speci men Type: BLOOD SPECIMEN Ordering Facility: [facility] Address: [address] [address] Performed By: #### 5 8410-2 #### [facility] CLIA [id number] [address] [place] [address] [place] Hemoglobin (Bld) [Mass/Vol] 14.4 g/dL Normal 13.0-17.0 [facility] Comment on above: Order Comment: Speci men Type: BLOOD SPECIMEN Ordering Facility: [facility] Address: [address] Performed By: #### 5 8410-2 #### [facility] CLIA [id number] [address] [place] [address] MCH (RBC) [Entitic mass] 27.3 pg Normal 26.0-34.0 [facility] Comment on above: Order Comment: Speci men Type: BLOOD SPECIMEN Ordering Facility: [facility] Address: [address] Performed By: #### 5 8410-2 #### [facility] CLIA [id number] [address] [place] [address] [place] MCHC (RBC) [Mass/Vol] 32.6 g/dL Normal 30.5-36.0 [facility] Comment on above: Order Comment: Speci men Type: BLOOD SPECIMEN Ordering Facility: [facility] Address: [address] Performed By: #### 5 8410-2 #### [facility] CLIA [id number] [address] [place] [address] [place] MCV (RBC) [Entitic vol] 83.9 fL Normal 80.0-100.0 [facility] Comment on above: Order Comment: Speci men Type: BLOOD SPECIMEN Ordering Facility: [facility] Address: [address] [place] [address] Performed By: #### 5 8410-2 #### [facility] CLIA [id number] [address] [place] [address] [place] Nucleated RBC (Bld) [#/Vol] 10*3/uL Normal <0.01 [facility] Comment on above: Order Comment: Speci men Type: BLOOD SPECIMEN Ordering Facility: [facility] Address: [address] [place], [place] [address] Performed By: #### 5 8410-2 #### [facility] CLIA [id number] [address] [place] [address] [place] Platelet mean volume (Bld) [Entitic vol] 11.1 fL Normal 9.0-12.7 [facility] Comment on above: Order Comment: Speci men Type: BLOOD SPECIMEN Ordering Facility: [facility] Address: [address] [place] [address] Performed By: #### 5 8410-2 #### [facility] CLIA [id number] [address] [place] [address] [place] Platelets (Bld) [#/Vol] 155 10*3/uL Normal 150-400 [facility] Comment on above: Order Comment: Speci men Type: BLOOD SPECIMEN Ordering Facility: [facility] Address: [address] [place], [place] [address] Performed By: #### 5 8410-2 #### [facility] CLIA [id number] [address] [place] [address] [place] RBC (Bld) [#/Vol] 5.27 10*6/uL Normal 4.20-6.00 [facility] Comment on above: Order Comment: Speci men Type: BLOOD SPECIMEN Ordering Facility: [facility] Address: [address] [place], [place] [address] Performed By: #### 5 8410-2 #### [facility] CLIA [id number] [address] [place] [address] [place] WBC (Bld) [#/Vol] 5.50 10*3/uL Normal 3.70-11.00 [facility] Comment on above: Order Comment: Speci men Type: BLOOD SPECIMEN Ordering Facility: [facility] Address: [address] [place], [place] [address] Performed By: #### 5 8410-2 #### [facility] CLIA [id number] [address] [place] [address] [place] Comprehensive metabolic 2000 panelon 11-04-2022 Albumin [Mass/Vol] 4.2 g/dL Normal 3.9-4.9 [facility] Comment on above: Order Comment: Speci men Type: BLOOD SPECIMEN Ordering Facility: [facility] Address: [address] Performed By: #### 2 4323-8 #### [facility] CLIA [id number] [address] [place] [address] [place] ALP [Catalytic activity/Vol] 57 U/L Normal 38-113 [facility] Comment on above: Order Comment: Speci men Type: BLOOD SPECIMEN Ordering Facility: [facility] Address: [address] [place], [place] [address] Performed By: #### 2 4323-8 #### [facility] CLIA [id number] [address] [place] [address] [place] ALT [Catalytic activity/Vol] 15 U/L Normal 10-54 [facility] Comment on above: Order Comment: Speci men Type: BLOOD SPECIMEN Ordering Facility: [facility] Address: [address] [place], [place] [address] Performed By: #### 2 4323-8 #### [facility] CLIA [id number] [address] [place] [address] [place] Anion gap [Moles/Vol] 12 mmol/L Normal 9-18 [facility] Comment on above: Order Comment: Speci men Type: BLOOD SPECIMEN Ordering Facility: [facility] Address: [address] Performed By: #### 2 4323-8 #### [facility] CLIA [id number] [address] [place] [address] [place] AST [Catalytic activity/Vol] 14 U/L Normal 14-40 [facility] Comment on above: Order Comment: Speci men Type: BLOOD SPECIMEN Ordering Facility: [facility] Address: [address] Performed By: #### 2 4323-8 #### [facility] CLIA [id number] [address] [place] [address] [place] Bilirubin [Mass/Vol] 0.5 mg/dL Normal 0.2-1.3 [facility] Comment on above: Order Comment: Speci men Type: BLOOD SPECIMEN Ordering Facility: [facility] Address: [address] [place], [place] [address] Performed By: #### 2 4323-8 #### [facility] CLIA [id number] [address] [place] [address] [place] Calcium [Mass/Vol] 9.5 mg/dL Normal 8.5-10.2 [facility] Comment on above: Order Comment: Speci men Type: BLOOD SPECIMEN Ordering Facility: [facility] Address: [address] [place], [place] [address] Performed By: #### 2 4323-8 #### [facility] CLIA [id number] [address] [place] [address] [place] Chloride [Moles/Vol] 101 mmol/L Normal 97-105 [facility] Comment on above: Order Comment: Speci men Type: BLOOD SPECIMEN Ordering Facility: [facility] Address: [address] [place], [place] [address] Performed By: #### 2 4323-8 #### [facility] CLIA [id number] [address] [place] [address] [place] CO2 [Moles/Vol] 23 mmol/L Normal 22-30 [facility] Comment on above: Order Comment: Speci men Type: BLOOD SPECIMEN Ordering Facility: [facility] Address: [address] [place] [address] Performed By: #### 2 4323-8 #### [facility] CLIA [id number] [address] [place] [address] [place] Creatinine [Mass/Vol] 0.83 mg/dL Normal 0.73-1.22 [facility] Comment on above: Order Comment: Aiyana parham Type: BLOOD SPECIMEN Ordering Facility: [facility] Address: [address] [address] Performed By: #### 2 4323-8 #### [facility] CLIA [id number] [address] [place] [address] [place] ESTIMATED GLOMERULAR FILTRATION RATE 103 mL/min/1.73m??? Normal >=60 [facility] Comment on above: Order Comment: Aiyana parham Type: BLOOD SPECIMEN Ordering Facility: [facility] Address: [address] [address] Result Comment: Bonnie mated Glomerular Filtration Rate (eGFR) is calculated using the 2020 CKD-EPI creatinine equation. This equation utilizes serum creatinine, sex, and age as parameters. The creatinine assay has traceable calibration to isotope dilution-mass spectrometry. Refer to KDIGO guidelines for clinical interpretation. In patients with unstable renal function, e.g. those with acute kidney injury, the eGFR may not accurately reflect actual GFR. Performed By: #### 2 4323-8 #### [facility] CLIA [id number] [address] [place] [address] [place] Glucose [Mass/Vol] 228 mg/dL High 74-99 [facility] Comment on above: Order Comment: Aiyana parham Type: BLOOD SPECIMEN Ordering Facility: [facility] Address: [address] [place] [address] Result Comment: The [place] Diabetes Association (ADA) provides guidance for cutoff values for fasting glucose and random glucose. The ADA defines fasting as no caloric intake for at least 8 hours. Fasting plasma glucose results between 100 to 125 [...] Standards of Medical Care in Diabetes 2016, [place] [employer]. Diabetes Care. 2016.39(Suppl 1). Performed By: #### 2 4323-8 #### [facility] CLIA [id number] [address] [place] [address] [place] Potassium [Moles/Vol] 4.6 mmol/L Normal 3.7-5.1 [facility] Comment on above: Order Comment: Speci men Type: BLOOD SPECIMEN Ordering Facility: [facility] Address: [address] Performed By: #### 2 4323-8 #### [facility] CLIA [id number] [address] [place] [address] [place] Protein [Mass/Vol] 6.6 g/dL Normal 6.3-8.0 [facility] Comment on above: Order Comment: Speci men Type: BLOOD SPECIMEN Ordering Facility: [facility] Address: [address] Performed By: #### 2 4323-8 #### [facility] CLIA [id number] [address] [place] [address] [place] Sodium [Moles/Vol] 136 mmol/L Normal 136-144 [facility] Comment on above: Order Comment: Speci men Type: BLOOD SPECIMEN Ordering Facility: [facility] Address: [address] Performed By: #### 2 4323-8 #### [facility] CLIA [id number] [address] [place] [address] [place] Urea nitrogen [Mass/Vol] 17 mg/dL Normal 9-24 [facility] Comment on above: Order Comment: Speci men Type: BLOOD SPECIMEN Ordering Facility: [facility] Address: [address] Performed By: #### 2 4323-8 #### [facility] CLIA [id number] [address] HbA1c (Bld)on 11-04-2022 Average glucose Estimated from glycated hemoglobin (Bld) [Mass/Vol] 186 mg/dL Normal [facility] Comment on above: Order Comment: Aiyana parham Type: BLOOD SPECIMEN Ordering Facility: [facility] Address: [address] [address] Result Comment: eAG: (Estimated average glucose) is a calculated value from HgbA1c and is client relations representative of the average blood glucose level in the last 2-3 month period. Performed By: #### 5 5454-3 #### [facility] CLIA [id number] [address] [place] [address] HbA1c (Bld) [Mass fraction] 8.1 % High 4.3-5.6 [facility] Comment on above: Order Comment: Aiyana parham Type: BLOOD SPECIMEN Ordering Facility: [facility] Address: [address] [place] [address] Result Comment: [place] Diabetes Association guidelines indicate that patients with HgbA1c in the range 5.7-6.4% are at increased risk for development of diabetes, and intervention by lifestyle modification may be beneficial. HgbA1c greater or equal to 6.5% is considered diagnostic of diabetes. Performed By: #### 5 5454-3 #### [facility] CLIA [id number] [address] [place] [address] [place] US DVT LOWER LTon 11-24-2017 US DVT LOWER LT * * *Final Report* * *DATE OF EXAM: Nov 24 2017 1:51PM JESSENIA 1006 - US DVT LOWER LT / REASON: M79.89-Other specified soft tissue disorders * * * * Physician Interpretation * * * * LEFT LOWER EXTREMITY DEEP VENOUS ULTRASOUND WITH DOPPLER IMAGINGCLINICAL HISTORY: Soft tissue disordersCOMPARISON: 06/12/2016TECHNIQUE: Mart scale with compression maneuvers, Color Doppler [...] were obtained and stored in a permanent archive.RESULT:LEFT LOWER EXTREMITYPROXIMAL DEEP VEINSDistal External Iliac and Common Femoral Veins: Compression: Normal Doppler: Normal, spontaneous respirophasic flow Normal response to augmentationFemoral vein: Compression: Abnormal , partial compression in the distal femoral vein Doppler: Abnormal, decreased spontaneous flowPopliteal vein: Compression: Abnormal Doppler: Abnormal, semiocclusive thrombus is present in the proximal popliteal vein and partially occlusive thrombus is present in the distal popliteal veinCALF DEEP VEINSPeroneal veins: Limited, not well evaluated.Posterior tibial veins: Limited, not well evaluated.SUPERFICIAL VEINSGreat saphenous: Patent and compressible at insertion into common femoral vein; not otherwise assessed.RIGHT LOWER EXTREMITYDistal External Iliac and Common Femoral Veins: Compression: Normal Doppler: Normal, spontaneous respirophasic flow Normal response to augmentationIMPRESSION:POSI TIVE STUDY FOR ACUTE PROXIMAL DVT IN THE LEFT LOWER EXTREMITY. THROMBUS IS PRESENT IN THE POPLITEAL VEIN AND DISTAL LEFT FEMORAL VEIN.NONDIAGNOSTIC STUDY FOR ACUTE CALF DVT IN THE LEFT LOWER EXTREMITY.COMMUNICATION: Presence of proximal DVT in the left lower extremity Communicated with OSCAR Canales on 11/24/2017 at 1355 hours.Loading Unit Operator Crimping: CR Transcribe Date/Time: Nov 24 2017 1:51PDictated by : HAN BARGER MDThis examination was interpreted and the report reviewed and electronically signed by: HAN BARGER MD on Nov 24 2017 2:02PM [id number] [facility] Vital Signs Date Time Vital Sign Value Performing Clinician Facility 09-20-2024 08:43-0400 Body height 175.26 cm Lidya MOORE Work Phone: [facility] 09-20-2024 08:43-0400 Body mass index (BMI) [Ratio] 28.8 kg/m2 Lidya MOORE Work Phone: [facility] 09-20-2024 08:43-0400 Body weight 88.45 kg Lidya MOORE Work Phone: [facility] 09-01-2024 08:02-0400 Body height 172.1 cm Candida Sheets DO Work Phone: [facility] 09-01-2024 08:02-0400 Body mass index (BMI) [Ratio] 29.72 kg/m2 Candida Sheets DO Work Phone: [facility] 09-01-2024 08:02-0400 Body temperature 98.2 [degF] Candida Sheets DO Work Phone: [facility] 09-01-2024 08:02-0400 Body weight 88 kg Candida Sheets DO Work Phone: [facility] 09-01-2024 08:02-0400 Diastolic blood pressure 70 mm[Hg] Candida Sheets DO Work Phone: [facility] 09-01-2024 08:02-0400 Heart rate 85 /min Candida Sheets DO Work Phone: [facility] 09-01-2024 08:02-0400 SaO2% (BldA) [Mass fraction] 98 % Candida Sheets DO Work Phone: [facility] 09-01-2024 08:02-0400 Systolic blood pressure 122 mm[Hg] Candida Sheets DO Work Phone: [facility] 07-18-2024 08:32-0400 Body height 175.26 cm Lidya MOORE Work Phone: [facility] 07-18-2024 08:32-0400 Body mass index (BMI) [Ratio] 29.9 kg/m2 Lidya Sal PA Work Phone: [facility] 07-18-2024 08:32-0400 Body weight 92.07 kg Lidya Sal PA Work Phone: [facility] 05-11-2024 08:23-0500 Body height 172.1 cm Candida Sheets DO Work Phone: [facility] 05-11-2024 08:23-0500 Body mass index (BMI) [Ratio] 29.41 kg/m2 Candida Sheets DO Work Phone: [facility] 05-11-2024 08:23-0500 Body temperature 97.7 [degF] Candida Sheets DO Work Phone: [facility] 05-11-2024 08:23-0500 Body weight 87.09 kg Candida Sheets DO Work Phone: [facility] 05-11-2024 08:23-0500 Diastolic blood pressure 60 mm[Hg] Candida Sheets DO Work Phone: [facility] 05-11-2024 08:23-0500 Heart rate 88 /min Candida Sheets DO Work Phone: [facility] 05-11-2024 08:23-0500 Respiratory rate 16 /min Candida Sheets DO Work Phone: [facility] 05-11-2024 08:23-0500 SaO2% (BldA) [Mass fraction] 99 % Candida Sheets DO Work Phone: [facility] 05-11-2024 08:23-0500 Systolic blood pressure 114 mm[Hg] Candida Sheets DO Work Phone: [facility] 01-12-2024 15:01-0400 Diastolic blood pressure 84 mm[Hg] Lei Fuentes MD Work Phone: [facility] Comment on above: left arm 01-12-2024 15:01-0400 Systolic blood pressure 134 mm[Hg] Lei Fuentes MD Work Phone: [facility] Comment on above: left arm 01-12-2024 15:00-0400 Body height 175.3 cm Lei Fuentes MD Work Phone: [facility] 01-12-2024 15:00-0400 Body mass index (BMI) [Ratio] 29.31 kg/m2 Lei Fuentes MD Work Phone: [facility] 01-12-2024 15:00-0400 Body weight 90.04 kg Lei Fuentes MD Work Phone: [facility] 01-12-2024 15:00-0400 Heart rate 105 /min Lei Fuentes MD Work Phone: [facility] 01-12-2024 15:00-0400 Respiratory rate 16 /min Lei Fuentes MD Work Phone: [facility] 12-28-2023 15:45-0400 Diastolic blood pressure 82 mm[Hg] Brittany Ronyak DO Work Phone: [facility] 12-28-2023 15:45-0400 Systolic blood pressure 140 mm[Hg] Brittany Ronyak DO Work Phone: [facility] 12-28-2023 14:57-0400 Body height 175.3 cm Brittany Ronyak DO Work Phone: [facility] 12-28-2023 14:57-0400 Body mass index (BMI) [Ratio] 31.16 kg/m2 Brittany Ronyak DO Work Phone: [facility] 12-28-2023 14:57-0400 Body weight 95.71 kg Brittany Ronyak DO Work Phone: [facility] 12-28-2023 14:57-0400 Heart rate 92 /min Brittany Ronyak DO Work Phone: [facility] 12-28-2023 14:57-0400 Respiratory rate 16 /min Brittany Ronyak DO Work Phone: [facility] 12-15-2023 14:56-0400 Diastolic blood pressure 78 mm[Hg] Lei Fuentes MD Work Phone: [facility] 12-15-2023 14:56-0400 Systolic blood pressure 124 mm[Hg] Lei Fuentes MD Work Phone: [facility] 12-15-2023 14:55-0400 Body height 175.3 cm Lei Fuentes MD Work Phone: [facility] 12-15-2023 14:55-0400 Body mass index (BMI) [Ratio] 30.75 kg/m2 Lei Fuentes MD Work Phone: [facility] 12-15-2023 14:55-0400 Body weight 94.44 kg Lei Fuentes MD Work Phone: [facility] 12-15-2023 14:55-0400 Heart rate 90 /min Lei Fuentes MD Work Phone: [facility] 11-30-2023 09:41-0400 Diastolic blood pressure 92 mm[Hg] Lei Fuentes MD Work Phone: [facility] 11-30-2023 09:41-0400 Heart rate 92 /min Lei Fuentes MD Work Phone: [facility] 11-30-2023 09:41-0400 Respiratory rate 16 /min Lei Fuentes MD Work Phone: [facility] 11-30-2023 09:41-0400 SaO2% (BldA) [Mass fraction] 96 % Lei Fuentes MD Work Phone: [facility] 11-30-2023 09:41-0400 Systolic blood pressure 155 mm[Hg] Lei Fuentes MD Work Phone: [facility] 09-29-2023 09:10-0400 Diastolic blood pressure 78 mm[Hg] Lei Fuentes MD Work Phone: [facility] 09-29-2023 09:10-0400 Systolic blood pressure 127 mm[Hg] Lei Fuentes MD Work Phone: [facility] 09-29-2023 09:09-0400 Body height 175.3 cm Lei Fuentes MD Work Phone: [facility] 09-29-2023 09:09-0400 Body mass index (BMI) [Ratio] 31.34 kg/m2 Lei Fuentes MD Work Phone: [facility] 09-29-2023 09:09-0400 Body weight 96.25 kg Lei Fuentes MD Work Phone: [facility] 09-29-2023 09:09-0400 Heart rate 96 /min Lei Fuentes MD Work Phone: [facility] 09-29-2023 09:09-0400 SaO2% (BldA) [Mass fraction] 97 % Lei Fuentes MD Work Phone: [facility] 09-02-2023 09:09-0400 Body height 175.3 cm Nell Evangelist RESIDENT ENGINEER-THREADER Work Phone: [facility] 09-02-2023 09:09-0400 Body mass index (BMI) [Ratio] 31.6 kg/m2 Nell Evangelist RESIDENT ENGINEER-THREADER Work Phone: [facility] 09-02-2023 09:09-0400 Body weight 97.07 kg Nell Evangelist RESIDENT ENGINEER-THREADER Work Phone: [facility] 09-02-2023 09:09-0400 Diastolic blood pressure 94 mm[Hg] Nell Evangelist RESIDENT ENGINEER-THREADER Work Phone: [facility] 09-02-2023 09:09-0400 Heart rate 93 /min Nell Evangelist RESIDENT ENGINEER-THREADER Work Phone: [facility] 09-02-2023 09:09-0400 SaO2% (BldA) [Mass fraction] 97 % Nell Evangelist RESIDENT ENGINEER-THREADER Work Phone: [facility] 09-02-2023 09:09-0400 Systolic blood pressure 149 mm[Hg] Nell Evangelist RESIDENT ENGINEER-THREADER Work Phone: [facility] 07-19-2023 09:35-0400 Body height 177.8 cm Nell Evangelist RESIDENT ENGINEER-THREADER Work Phone: [facility] 07-19-2023 09:35-0400 Body mass index (BMI) [Ratio] 31.71 kg/m2 Nell Evangelist RESIDENT ENGINEER-THREADER Work Phone: [facility] 07-19-2023 09:35-0400 Body weight 100.25 kg Nell Evangelist RESIDENT ENGINEER-THREADER Work Phone: [facility] 07-19-2023 09:35-0400 Diastolic blood pressure 84 mm[Hg] Nell Evangelist RESIDENT ENGINEER-THREADER Work Phone: [facility] 07-19-2023 09:35-0400 Heart rate 98 /min Nell Evangelist RESIDENT ENGINEER-THREADER Work Phone: [facility] 07-19-2023 09:35-0400 SaO2% (BldA) [Mass fraction] 98 % Nell Evangelist RESIDENT ENGINEER-THREADER Work Phone: [facility] 07-19-2023 09:35-0400 Systolic blood pressure 146 mm[Hg] Nell Evangelist RESIDENT ENGINEER-THREADER Work Phone: [facility] 02-16-2023 08:12-0400 Body height 172.1 cm Candida Sheets DO Work Phone: [facility] 02-16-2023 08:12-0400 Body temperature 97.7 [degF] Candida Sheets DO Work Phone: [facility] 02-16-2023 08:12-0400 Body weight 101.15 kg Candida Sheets DO Work Phone: [facility] 02-16-2023 08:12-0400 Diastolic blood pressure 78 mm[Hg] Candida Sheets DO Work Phone: [facility] 02-16-2023 08:12-0400 Heart rate 80 /min Candida Sheets DO Work Phone: [facility] 02-16-2023 08:12-0400 SaO2% (BldA) [Mass fraction] 98 % Candida Sheets DO Work Phone: [facility] 02-16-2023 08:12-0400 Systolic blood pressure 126 mm[Hg] Candida Sheets DO Work Phone: [facility] 01-11-2023 09:40-0400 Body height 172.1 cm Candida Sheets DO Work Phone: [facility] 01-11-2023 09:40-0400 Body temperature 98.01 [degF] Candida Sheets DO Work Phone: [facility] 01-11-2023 09:40-0400 Body weight 101.52 kg Candida Sheets DO Work Phone: [facility] 01-11-2023 09:40-0400 Diastolic blood pressure 80 mm[Hg] Candida Sheets DO Work Phone: [facility] 01-11-2023 09:40-0400 Heart rate 88 /min Candida Sheets DO Work Phone: [facility] 01-11-2023 09:40-0400 Respiratory rate 16 /min Candida Sheets DO Work Phone: [facility] 01-11-2023 09:40-0400 SaO2% (BldA) [Mass fraction] 99 % Candida Sheets DO Work Phone: [facility] 01-11-2023 09:40-0400 Systolic blood pressure 150 mm[Hg] Candida Sheets DO Work Phone: [facility] 01-14-2022 15:21-0400 Body height 175.3 cm Lidya Sal PA-C Work Phone: [facility] 01-14-2022 15:21-0400 Body temperature 98.01 [degF] Lidya Riverside PA-C Work Phone: [facility] 01-14-2022 15:21-0400 Body weight 93.71 kg Lidya Riverside PA-C Work Phone: [facility] 01-14-2022 15:21-0400 Diastolic blood pressure 77 mm[Hg] Lidya Riverside PA-C Work Phone: [facility] 01-14-2022 15:21-0400 Heart rate 111 /min Lidya Riverside PA-C Work Phone: [facility] 01-14-2022 15:21-0400 SaO2% (BldA) [Mass fraction] 98 % Lidya Jonelle PA-C Work Phone: [facility] 01-14-2022 15:21-0400 Systolic blood pressure 116 mm[Hg] Lidya Riverside PA-C Work Phone: [facility] Encounters Encounter Date Encounter Type Care Provider Facility Start: 02-14-2025 ambulatory Jc Rosales Facility :[facility] Start: 10-05-2024 ambulatory Jc Rosales Facility :[facility] Start: 09-20-2024 End: 09-20-[address] Jc Rosales MD -[facility] Work Phone: Start: 09-20-2024 End: 09-20-2024 ambulatory Lidya E Jonelle PA Work Phone: [facility] Work Phone: Start: 09-07-2024 End: 09-07-2024 ambulatory Lidya E Jonelle PA Work Phone: [facility] Work Phone: Start: 09-07-2024 End: 09-07-[address] Jc [facility] Work Phone: Start: 09-07-2024 End: 09-07-2024 ambulatory Lidya E Jonelle PA Facility:[facility] Start: 09-01-2024 End: 09-01-2024 Patient encounter procedure Candida C Sheets DO Work Phone: [facility] Comment on above: Type 2 diabetes chelly itus without complication, without long- term current use of insulin (HCC) (Primary Dx); Essential hypertension Start: 09-01-2024 End: 09-01-2024 ambulatory CANDIDA C SHEETS Facility:[facility] Start: 08-30-2024 End: 08-30-2024 ambulatory CANDIDA C SHEETS Facility:[facility] Start: 07-28-2024 End: 07-28-2024 Refill Candida C Sheets DO Work Phone: [facility] Comment on above: Refill Request Start: 07-24-2024 End: 07-24-2024 Refill Candida C Sheets DO Work Phone: [facility] Comment on above: Refill Request Start: 07-20-2024 End: 07-20-2024 Refill Candida C Sheets DO Work Phone: [facility] Comment on above: Refill Request Start: 07-18-2024 End: 07-18-[address] Jc Rosales MD -[facility] Work Phone: Start: 07-18-2024 End: 07-18-2024 ambulatory Lidya Sal PA Facility:[facility] Start: 06-20-2024 End: 06-20-2024 Refill Candida C Sheets DO Work Phone: [facility] Comment on above: Refill Request Start: 05-31-2024 ambulatory Lidya serrano PA Facility:[facility] Start: 05-11-2024 End: 05-11-2024 Patient encounter procedure Candida C Sheets DO Work Phone: [facility] Comment on above: Type 2 diabetes chelly itus without complication, without long- term current use of insulin (HCC) (Primary Dx); Essential hypertension; Encounter for immunization Start: 05-11-2024 End: 05-11-2024 ambulatory CANDIDA C SHEETS Facility:[facility] Start: 05-08-2024 End: 05-08-2024 ambulatory CANDIDA C SHEETS Facility:[facility] Start: 04-03-2024 End: 04-03-2024 ambulatory Lidya MOORE Facility:[facility] Start: 02-04-2024 End: 02-08-2024 Refill Candida Soria DO Work Phone: [facility] Comment on above: Refill Request Start: 01-17-2024 End: 01-17-2024 ambulatory LUIS MIGUEL WAKEFIELD [facility] Start: 01-17-2024 End: 01-17-2024 Telemedicine consultation with patient Luis Miguel Wake[place] PharmD Work Phone: [facility] Comment on above: Type 2 diabetes chelly itus with hyperglycemia, without long-term current use of insulin (Multi) Start: 01-12-2024 End: 01-12-2024 Patient encounter procedure Lei Fuentes MD Work Phone: [facility] Comment on above: Lipodermatosclerosis of left lower extremity (Primary Dx) Start: 01-10-2024 ambulatory Jc Rosales Facility :[facility] Start: 12-30-2023 End: 12-30-2023 ambulatory Lidya MOORE Facility:[facility] Start: 12-28-2023 End: 12-28-2023 Office outpatient new 45 minutes Brittany Crandall DO Work Phone: [facility] Comment on above: Type 2 diabetes chelly itus with hyperglycemia, without long-term current use of insulin (Multi) (Primary Dx); Medication monitoring encounter; Essential hypertension; Gastroesophageal reflux disease, unspecified whether esophagitis present; Peripheral venous insufficiency; Mixed hyperlipidemia Start: 12-28-2023 End: 12-28-[facility] Start: 12-27-2023 End: 12-27-2023 Subsequent hospital visit by physician David Justice [facility] Comment on above: Peripheral venous in sufficiency Start: 12-27-2023 End: 12-27-2023 ambulatory BRITTANY [facility] Start: 12-15-2023 End: 12-15-2023 Patient encounter procedure Lei Fuentes MD Work Phone: [facility] Comment on above: Lipodermatosclerosis of left lower extremity (Primary Dx) Start: 12-15-2023 End: 12-15-2023 ambulatory [facility] Start: 12-08-2023 End: 12-08-2023 ambulatory [facility] Start: 12-08-2023 End: 12-08-2023 Subsequent hospital visit by physician David Justice [facility] Comment on above: Peripheral venous in sufficiency Start: 11-30-2023 End: 11-30-2023 Patient encounter procedure Lei Fuentes MD Work Phone: [facility] Comment on above: Edema of right lower leg due to peripheral venous insufficiency (Primary Dx); Lipodermatosclerosis of both lower extremities; Peripheral venous insufficiency; Postphlebitic syndrome Start: 11-30-2023 End: 11-30-2023 ambulatory [facility] Start: 09-29-2023 End: 09-29-2023 ambulatory [facility] Start: 09-29-2023 End: 09-29-2023 Office outpatient new 60 minutes Lei Fuentes MD Work Phone: [facility] Comment on above: Lipodermatosclerosis of both lower extremities (Primary Dx); Peripheral venous insufficiency; Phlebitis; Postphlebitic syndrome Start: 09-27-2023 End: 09-27-2023 ambulatory [facility] Start: 09-27-2023 End: 09-27-2023 Subsequent hospital visit by physician David Justice [facility] Comment on above: Anticoagulation keaton gemryan encounter; Phlebitis and thrombophlebitis of superficial vessels of left lower extremity Start: 09-02-2023 End: 09-02-2023 ambulatory [facility] Start: 09-02-2023 End: 09-02-2023 Office outpatient visit 15 minutes Nell Lawrenceco RESIDENT ENGINEER-THREADER Work Phone: [facility] Comment on above: Chronic peripheral v enous hypertension (Primary Dx); Peripheral venous insufficiency; Phlebitis Start: 08-25-2023 End: 08-26-2023 ambulatory [facility] Start: 08-25-2023 End: 08-25-2023 Subsequent hospital visit by physician [facility] Comment on above: Occlusion of iliac v ein (Multi); Peripheral venous insufficiency; Postphlebitic syndrome; Pain of lower extremity, unspecified laterality; Swelling of lower extremity Start: 08-19-2023 End: 08-19-2023 ambulatory [facility] Start: 07-19-2023 End: 07-19-2023 [facility] Start: 07-19-2023 End: 07-19-2023 ambulatory [facility] Start: 07-19-2023 End: 07-19-2023 Office outpatient new 30 minutes Nell Evangelist RESIDENT ENGINEER-THREADER Work Phone: [facility] Comment on above: Anticoagulation keaton gement encounter (Primary Dx); Varicose veins of lower extremities with ulcer and inflammation (CMS/HCC); Phlebitis Start: 07-05-2023 Telephone encounter Ana Laura Simon DO Work Phone: [facility] Comment on above: Appointment Start: 02-16-2023 End: 02-16-2023 Patient encounter procedure Candida Soria DO Work Phone: [facility] Comment on above: Type 2 diabetes chelly itus without complication, without long- term current use of insulin (HCC) (Primary Dx); Essential hypertension; Encounter for immunization; Obesity, Class I, BMI 30-34.9 Start: 02-15-2023 Refill Candida still DO Work Phone: [facility] Comment on above: Refill Request Start: 02-10-2023 Telephone encounter Candida Soria DO Work Phone: [facility] Start: 01-11-2023 End: 01-11-2023 Patient encounter procedure Candida Soria DO Work Phone: [facility] Comment on above: BPPV (benign paroxys mal positional vertigo), unspecified laterality (Primary Dx); Obesity, Class I, BMI 30-34.9 Start: 11-26-2022 Telephone encounter Candida Soria DO Work Phone: [facility] Comment on above: Results (cologuard) Start: 11-04-2022 End: 11-05-2022 ambulatory LIDYA HERNANDEZ Facility:[facility] Start: 11-03-2022 Get Medical Advice Lidya Sal PA-C Work Phone: [facility] Comment on above: Orders for blood wor k Start: 08-05-2022 ambulatory Lidya Choudhury land PA-C Work Phone: [facility] Comment on above: Other meds covered b y my insurance Start: 07-16-2022 Telephone encounter Lidya Sal PA-C Work Phone: [facility] Comment on above: Refill Request Start: 07-15-2022 ambulatory Lidya Cherelle [place] PA-C Work Phone: [facility] Comment on above: This messgae is for Rashmi Sal only Start: 05-11-2022 ambulatory Lidya Cherelle [place] PA-C Work Phone: [facility] Comment on above: 4 days without my di abetic medication Start: 05-08-2022 ambulatory Lidya Villarreal [place] PA-C Work Phone: [facility] Comment on above: Medication was NOT r enewed Start: 05-08-2022 Telephone encounter Lidya Sal PA-C Work Phone: [facility] Comment on above: Insurance Authorizat ion Start: 05-04-2022 E-mail encounter fro meenakshi caregiver Jaqui Canela [facility] Work Phone: [facility] Start: 05-04-2022 Patient encounter procedure Yuli Canela [facility] Work Phone: [facility] Comment on above: Diabetes appointment with pharmacist Refill Request (NEW PHARMACY) Start: 03-18-2022 Telephone encounter Lidya Sal PA-C Work Phone: [facility] Comment on above: Appointment Start: 02-27-2022 Telephone encounter Jaqui matamoros [facility] Work Phone: [facility] Comment on above: PHMA/Care Gap Outrea ch Start: 01-27-2022 ambulatory Lidya Choudhury land PA-C Work Phone: [facility] Comment on above: THIS MESSAGE IS FOR RASHMI SAL. Start: 01-22-2022 Refill Anay Ruiz APRN.CNP Work Phone: [facility] Comment on above: Refill Request Start: 01-19-2022 E-mail encounter fro meenakshi caregiver Jaqui Canela [facility] Work Phone: [facility] Start: 01-19-2022 Patient encounter procedure Yuli Canela [facility] Work Phone: [facility] Comment on above: Diabetes appointment with PharmD Start: 01-19-2022 Telephone encounter Jaqui matamoros [facility] Work Phone: [facility] Comment on above: Appointment Start: 01-15-2022 ambulatory Lidya Choudhury land PA-C Work Phone: [facility] Comment on above: results Start: 01-15-2022 E-mail encounter fro m caregiver Lidya Sal PA-C Work Phone: [facility] Start: 01-15-2022 Telephone encounter Tamia Teresita Salazar [facility] Comment on above: NEW PRIMARY CARE PHA RMACY APPT Start: 01-14-2022 End: 09-28-2022 Patient encounter procedure Lidya Sal PA-C Work Phone: [facility] Comment on above: Type 2 diabetes chelly itus without complication, without long- term current use of insulin (HCC) (Primary Dx); Essential hypertension; Diabetic peripheral neuropathy (HCC); Hyperlipidemia, mixed Start: 08-07-2021 Refill Alex schmid MD Work Phone: [facility] Comment on above: Refill Request Start: 11-24-2017 Patient encounter LIDYA Villarreal (Shirley Perez-Ivette) [facility] Procedures Date Procedure Procedure Detail Performing Clinician Start: 09-07-2024 MRI of joint of lowe r extremity Lidya MOORE Work Phone: Start: 12-27-2023 Dup-scan xtr veins unilateral/limited study Lei Fuentes MD Work Phone: Start: 12-08-2023 Dup-scan xtr veins unilateral/limited study Lei Fuentes MD Work Phone: Start: 09-27-2023 Dup-scan xtr veins complete bilateral study Nell Evangelist RESIDENT ENGINEER-THREADER Work Phone: Start: 08-25-2023 CT ANGIO AORTA AND BILATERAL ILIOFEMORAL RUNOFF W AND OR WO IV CONTRAST NELL EVANGELIST Start: 08-25-2023 Cta abdl aorta&bi il iofem w/contrast&postp Nell Evangelist RESIDENT ENGINEER-THREADER Work Phone: Start: 08-19-2023 Creatinine [Mass/vol ume] in Serum or Plasma NELL EVANGELIST Start: 07-19-2023 COAGULATION SCREEN DEBR A EVANGELIST Start: 07-19-2023 FACTOR V LEIDEN NELL D EFRANCO Start: 02-16-2023 INFLUENZA VACCINE, A GE 6 MO - 64 YR, QUADRIVALENT (AFLURIA, FLULAVAL, FLUZONE) Candida C Sheets DO Work Phone: Start: 02-16-2023 Urine albumin quantitative Candida C Sheets DO Work Phone: Start: 05-16-2021 Adult depression scr eening assessment Alex Macias MD Work Phone: Plan of Treatment Date Care Activity Detail Author Start: 12-19-2029 DTaP/Tdap/Td Vaccines (3 - Td or Tdap) DTaP/Tdap/Td Vaccines (3 - Td or Tdap) [facility] Start: 12-19-2029 Urine microalbumin profile [facility] Start: 05-08-2029 Prostate specific antigen measurement Prostate Cancer Screening Discussion [facility] Start: 05-16-2026 PROSTATE CANCER SCREENING DISCUSSION PROSTATE CANCER SCREENING DISCUSSION [facility] Start: 05-16-2026 Prostate specific antigen measurement Prostate Cancer Screening Discussion [facility] Start: 11-17-2025 COLOGUARD (FIT-DNA) COLOGUARD (FIT-DNA) [facility] Start: 11-17-2025 COLORECTAL CANCER SCREENING COLORECTAL CANCER SCREENING [facility] Start: 11-17-2025 Screening for malignant neoplasm of colon [facility] Start: 09-01-2025 Annual PCP Team Chronic Disease Visit Annual PCP Team Chronic Disease Visit [facility] Start: 09-01-2025 BP Controlled (<130/80) BP Controlled (<130/80) [facility] Start: 08-30-2025 Hepatitis B surface antibody level LDL Cholesterol [facility] Start: 05-11-2025 Annual PCP Team Chronic Disease Visit Annual PCP Team Chronic Disease Visit [facility] Start: 05-11-2025 BP Controlled (<130/80) BP Controlled (<130/80) [facility] Start: 05-11-2025 Diabetic foot examination Diabetic Foot Exam [facility] Start: 05-11-2025 Hepatitis B Vaccine (1 of 3 - 19+ 3-dose series) Hepatitis B Vaccine (1 of 3 - 19+ 3-dose series) [facility] Comment on above: Postponed from 1985 (Declined at t his time) Start: 05-11-2025 Pneumococcal Vaccine: 50+ (2 of 2 - PCV) Pneumococcal Vaccine: 50+ (2 of 2 - PCV) [facility] Comment on above: Postponed from 03/25/2016 (Declined at t his time) Start: 05-11-2025 Shingrix Vaccine (1 of 2) Shingrix Vaccine (1 of 2) [facility] Comment on above: Postponed from 2016 (Declined at t his time) Start: 05-09-2025 Glaucoma screening Dilated Retinal Exam [facility] Start: 05-08-2025 Hepatitis B screening Urine Albumin:Creatinine Ratio [facility] Start: 05-08-2025 Hepatitis B surface antibody level LDL Cholesterol [facility] Start: 12-18-2024 Influenza vaccination Influenza Vaccine (Season Ended) [facility] Start: 12-05-2024 End: 12-05-2024 Patient encounter procedure 12/05/2024 8:00 AM EDT Office Visit [facility] [address] [place] [address] Candida Soria DO [address] [place] [place], [place] [phone] [address] [facility] Comment on above: 3 mon follow up Start: 11-30-2024 Hemoglobin A1c measurement HbA1C [facility] Start: 09-20-2024 Patient referral [facility] Work Phone: Start: 09-01-2024 End: 09-01-2024 Patient encounter procedure 09/01/2024 8:00 AM EDT Office Visit [facility] [address] [place] [address] Candida Soria DO [address] [place], [place] [id number] medication follow up [facility] Comment on above: medication follow up Start: 08-06-2024 Hemoglobin A1c measurement HbA1C [facility] Start: 07-20-2024 End: 10-19-2024 CBC panel - Blood by Automated count COMPLETE BLOOD COUNT Lab Routine Type 2 diabetes mellitus without complication, without long-term current use of insulin (HCC) Expected: 07/20/2024, Expires: 10/19/2024 [facility] Comment on above: Expected: 07/20/2024, Expires: Start: 07-20-2024 End: 10-19-2024 Comprehensive metabolic 2000 panel - Serum or Plasma COMPREHENSIVE METABOLIC PANEL Lab Routine Type 2 diabetes mellitus without complication, without long-term current use of insulin (HCC) Expected: 07/20/2024, Expires: 10/19/2024 [facility] Work Phone: Comment on above: Expected: 07/20/2024, Expires: Start: 07-20-2024 End: 10-19-2024 Hemoglobin A1c in Blood HEMOGLOBIN A1C Lab Routine Type 2 diabetes mellitus without complication, without long-term current use of insulin (HCC) Expected: 07/20/2024, Expires: 10/19/2024 [facility] Comment on above: Expected: 07/20/2024, Expires: Start: 07-20-2024 End: 10-19-2024 Lipid 1996 panel - Serum or Plasma LIPID PANEL, FASTING Lab Routine Type 2 diabetes mellitus without complication, without long-term current use of insulin (HCC) Expected: 07/20/2024, Expires: 10/19/2024 [facility] Comment on above: Expected: 07/20/2024, Expires: Start: 03-27-2024 Hemoglobin A1c measurement Diabetes: Hemoglobin A1C [facility] Start: 02-17-2024 Annual PCP Team Chronic Disease Visit Annual PCP Team Chronic Disease Visit [facility] Start: 02-17-2024 BP Controlled (<130/80) BP Controlled (<130/80) [facility] Start: 02-17-2024 Hepatitis B screening Urine Albumin:Creatinine Ratio [facility] Start: 02-17-2024 Urine screening for protein Diabetes: Urine Protein Screening [facility] Start: 02-11-2024 Diabetes mellitus screening Diabetes Screening [facility] Start: 02-03-2024 End: 02-03-2024 Telemedicine consultation with patient 02/03/2024 9:00 AM EDT Telemedicine [facility] [address] [place] [address] [facility] Start: 01-17-2024 End: 01-17-2024 Telemedicine consultation with patient 01/17/2024 9:00 AM EDT Telemedicine [facility] [address] [place] [address] [facility] Start: 01-12-2024 End: 01-12-2024 Patient encounter procedure 01/12/2024 3:00 PM EDT Procedure Visit [facility] [address] [place] [address] [place] [address] [address] [place] [address] [facility] Start: 01-12-2024 Annual PCP Team Chronic Disease Visit Annual PCP Team Chronic Disease Visit [facility] Start: 01-05-2024 End: 01-05-2024 Admission to same day surgery center 01/05/2024 10:45 AM EDT - 01/05/2024 2:00 PM EDT Surgery [facility] [address] [place] [address] [place] [address] [address] [place] [address] SUPINE, RIGHT division and ligation GSV, 10-20 stab phlebectomy [24650 (CPT )] [facility] OR Comment on above: SUPINE, RIGHT division and ligation GSV, 10-20 stab phlebectomy [02528 (CPT )] Start: 01-05-2024 End: 01-05-2024 Lig&div long saph vein saphfem junct/interrupj Ligation Saphenous Vein Postphlebitic syndrome Edema of right lower leg due to peripheral venous insufficiency 01/05/2024 10:45 AM EDT [facility] Start: 01-05-2024 End: 01-05-2024 Stab phlebt varicose veins 1 xtr 10-20 stab incs Phlebectomy Lower Extremity Postphlebitic syndrome Edema of right lower leg due to peripheral venous insufficiency 01/05/2024 10:45 AM EDT [facility] Start: 01-05-2024 End: 01-05-2024 Admission to same day surgery center 01/05/2024 7:30 AM EDT - 01/05/2024 10:05 AM EDT Surgery [facility] OR [address] [place] [address] [place] [address] [facility] Department of Surgery-Vascular [place] [phone] SUPINE, RIGHT division and ligation GSV, 10-20 stab phlebectomy [52465 (CPT )] [facility] OR Comment on above: SUPINE, RIGHT division and ligation GSV, 10-20 stab phlebectomy [00534 (CPT )] Start: 01-05-2024 End: 01-05-2024 Lig&div long saph vein saphfem junct/interrupj Ligation Saphenous Vein Postphlebitic syndrome Edema of right lower leg due to peripheral venous insufficiency 01/05/2024 7:30 AM EDT [facility] Start: 01-05-2024 End: 01-05-2024 Stab phlebt varicose veins 1 xtr 10-20 stab incs Phlebectomy Lower Extremity Postphlebitic syndrome Edema of right lower leg due to peripheral venous insufficiency 01/05/2024 7:30 AM EDT [facility] Start: 01-05-2024 Subsequent hospital visit by physician [facility] OR Comment on above: Surgery, elective (Primary Dx); Type 2 diabetes mellitus without complication, without long-term current use of insulin (Multi); Peripheral venous insufficiency; Essential hypertension Start: 12-28-2023 End: 12-28-2023 Patient encounter procedure 12/28/2023 3:00 PM EDT Office Visit [facility] [address] [facility] [address] [place] [phone] Brittany Crandall DO [address] [facility] [address] [place] [address] [facility] Start: 12-28-2023 End: 12-27-2024 CBC panel - Blood by Automated count CBC Lab Routine Medication monitoring encounter Expected: 12/28/2023 (Approximate), Expires: 12/27/2024 [facility] Work Phone: Comment on above: Expected: 12/28/2023 (Approximate), Expi res: 12/27/2024 Start: 12-28-2023 End: 12-27-2024 Comprehensive metabolic 2000 panel - Serum or Plasma Comprehensive Metabolic Panel Lab Routine Type 2 diabetes mellitus with hyperglycemia, without long-term current use of insulin (Multi) Expected: 12/28/2023 (Approximate), Expires: 12/27/2024 [facility] Work Phone: Comment on above: Expected: 12/28/2023 (Approximate), Expi res: 12/27/2024 Start: 12-28-2023 End: 12-27-2024 Creatinine [Mass/volume] in Urine Creatinine, Urine Random Lab Routine Type 2 diabetes mellitus with hyperglycemia, without long-term current use of insulin (Multi) Expected: 12/28/2023 (Approximate), Expires: 12/27/2024 [facility] Service Area Work Phone: Comment on above: Expected: 12/28/2023 (Approximate), Expi res: 12/27/2024 Start: 12-28-2023 End: 12-27-2024 Lipid 1996 panel - Serum or Plasma Lipid Panel Lab Routine Type 2 diabetes mellitus with hyperglycemia, without long-term current use of insulin (Multi) Expected: 12/28/2023 (Approximate), Expires: 12/27/2024 [facility] Work Phone: Comment on above: Expected: 12/28/2023 (Approximate), Expi res: 12/27/2024 Start: 12-28-2023 End: 12-27-2024 Microalbumin/Creatinine [Mass Ratio] in Urine Albumin-Creatinine Ratio, Urine Random Lab Routine Type 2 diabetes mellitus with hyperglycemia, without long-term current use of insulin (Multi) Expected: 12/28/2023 (Approximate), Expires: 12/27/2024 [facility] Work Phone: Comment on above: Expected: 12/28/2023 (Approximate), Expi res: 12/27/2024 Start: 12-28-2023 End: 12-27-2024 TSH with reflex to Free T4 if abnormal TSH with reflex to Free T4 if abnormal Lab Routine Type 2 diabetes mellitus with hyperglycemia, without long-term current use of insulin (Multi) Expected: 12/28/2023 (Approximate), Expires: 12/27/2024 [facility] Work Phone: Comment on above: Expected: 12/28/2023 (Approximate), Expi res: 12/27/2024 Start: 12-27-2023 End: 12-27-2023 Patient encounter procedure 12/27/2023 8:00 AM EDT Appointment [facility] [address] [place] [phone] [facility] Start: 12-19-2023 COVID-19 Vaccine ( season) COVID-19 Vaccine () [facility] Start: 12-19-2023 Influenza vaccination Influenza Vaccine (#1) [facility] Start: 12-15-2023 End: 12-15-2023 Patient encounter procedure 12/15/2023 3:00 PM EDT Procedure Visit [facility] [address] [place] [address] [place] [address] [address] Motta Department of Surgery-Vascular [place] [phone] [facility] Start: 12-08-2023 End: 12-08-2023 Patient encounter procedure 12/08/2023 9:00 AM EDT Appointment [facility] [address] [place] [phone] [facility] Start: 11-30-2023 End: 11-29-2024 Request for Pre-Admission Testing Visit Request for Pre-Admission Testing Visit Procedures Routine Lipodermatosclerosis of both lower extremities Edema of right lower leg due to peripheral venous insufficiency Expected: 11/30/2023 (Approximate), Expires: 11/29/2024 [facility] Service Area Work Phone: Comment on above: Expected: 11/30/2023 (Approximate), Expi res: 11/29/2024 Start: 11-30-2023 End: 11-30-2023 Patient encounter procedure 11/30/2023 8:00 AM EDT Procedure Visit [facility] [address] [place] [address] [place] [address] [address] Department [place] [address] Dariana Villaseñor, RESIDENT ENGINEER-THREADER, DNP [address] [place] [address] [facility] Start: 11-11-2023 3 comp foot exam completed DIABETIC FOOT EXAM [facility] Start: 11-11-2023 ANNUAL PCP TEAM CHRONIC DISEASE VISIT ANNUAL PCP TEAM CHRONIC DISEASE VISIT [facility] Start: 11-11-2023 BP CONTROLLED (<130/80) BP CONTROLLED (<130/80) [facility] in Start: 11-11-2023 Diabetic foot examination Diabetic Foot Exam [facility] Start: 11-11-2023 PNEUMOCOCCAL (2 - PCV) PNEUMOCOCCAL (2 - PCV) [facility] ic Comment on above: Postponed from 03/25/2016 (Declined at t his time) Start: 11-11-2023 Pneumococcal vaccination [facility] Comment on above: Postponed from 03/25/2016 (Declined at t his time) Start: 11-11-2023 SHINGRIX VACCINE (1 of 2) SHINGRIX VACCINE (1 of 2) [facility] Comment on above: Postponed from 2016 (Declined at t his time) Start: 09-29-2023 End: 09-29-2023 Patient encounter procedure 09/29/2023 9:00 AM EDT Office Visit [facility] [address] [place] [address] [place] [address] [address] Department [place] [address] [facility] Start: 09-27-2023 End: 09-27-2023 Patient encounter procedure 09/27/2023 8:00 AM EDT Appointment [facility] [address] [place] [address] [facility] Start: 09-02-2023 End: 09-02-2023 Patient encounter procedure 09/02/2023 9:00 AM EDT Office Visit [facility] [address] [place] [address] Nell Blanca, RESIDENT ENGINEER-THREADER [address] [facility] [address] [place] [address] [facility] Start: 08-18-2023 End: 08-18-2023 Patient encounter procedure 08/18/2023 8:00 AM EDT Appointment [facility] [address] [place] [address] [facility] Start: 07-19-2023 End: 07-18-2024 F5 gene [id number] [Presence] in Blood or Tissue by Molecular genetics method [facility] Service Area Work Phone: Comment on above: Expected: 07/19/2023 (Approximate), Expi res: 07/18/2024 Start: 07-19-2023 End: 07-18-2024 PT and aPTT panel - Platelet poor plasma by Coagulation assay [facility] Work Phone: Comment on above: Expected: 07/19/2023 (Approximate), Expi res: 07/18/2024 Start: 07-19-2023 End: 07-18-2025 Vascular US lower extremity venous insufficiency bilateral Vascular US lower extremity venous insufficiency bilateral Vascular Ultrasound Routine Anticoagulation management encounter Expected: 07/19/2023 (Approximate), Expires: 07/18/2025 [facility] Work Phone: Comment on above: Expected: 07/19/2023 (Approximate), Expi res: 07/18/2025 Start: 07-19-2023 End: 07-19-2023 Anticoagulant drug monitoring 07/19/2023 11:20 AM EDT Lab [facility] [address] [place] [address] [place] [phone] Anticoagulation management encounter [facility] Comment on above: Anticoagulation management encounter Start: 05-13-2023 Hemoglobin A1c measurement [facility] Start: 05-13-2023 Hemoglobin A1c/Hemoglobin.total in Blood HbA1C [facility] Start: 04-14-2023 Hepatitis B surface antibody level LDL CHOLESTEROL [facility] Start: 02-04-2023 Hemoglobin A1c/Hemoglobin.total in Blood HBA1C [facility] Start: 01-14-2023 ANNUAL PCP TEAM CHRONIC DISEASE VISIT ANNUAL PCP TEAM CHRONIC DISEASE VISIT [facility] Start: 01-14-2023 BP CONTROLLED (<130/80) BP CONTROLLED (<130/80) [facility] Start: 01-14-2023 Hepatitis B screening URINE ALBUMIN:CREATININE RATIO [facility] Start: 01-08-2023 Hepatitis B surface antibody level LDL CHOLESTEROL [facility] Start: 12-18-2022 COVID-19 Vaccine ( season) COVID-19 Vaccine ( season) [facility] Start: 12-18-2022 Influenza vaccination [facility] Start: 11-03-2022 End: 01-03-2023 CBC panel - Blood by Automated count CBC Lab Routine Thrombocytopenic (HCC) Expected: 11/03/2022, Expires: 01/03/2023 [facility] Work Phone: Comment on above: Expected: 11/03/2022, Expires: Start: 11-03-2022 End: 01-03-2023 Comprehensive metabolic 2000 panel - Serum or Plasma COMP METABOLIC PANEL Lab Routine Type 2 diabetes mellitus without complication, without long-term current use of insulin (HCC) Expected: 11/03/2022, Expires: 01/03/2023 [facility] Work Phone: Comment on above: Expected: 11/03/2022, Expires: 3 Start: 11-03-2022 End: 01-03-2023 Hemoglobin A1c in Blood HGB A1C Lab Routine Type 2 diabetes mellitus without complication, without long-term current use of insulin (HCC) Expected: 11/03/2022, Expires: 01/03/2023 [facility] Work Phone: Comment on above: Expected: 11/03/2022, Expires: 3 Start: 07-13-2022 Hemoglobin A1c/Hemoglobin.total in Blood HBA1C [facility] Start: 05-28-2022 COLORECTAL CANCER SCREENING COLORECTAL CANCER SCREENING [facility] Start: 05-28-2022 FECAL OCCULT BLOOD FECAL OCCULT BLOOD [facility] Start: 05-28-2022 Screening for malignant neoplasm of colon [facility] Start: 05-27-2022 Glaucoma screening Dilated Retinal Exam [facility] Start: 05-27-2022 Hepatitis C antibody, confirmatory test DILATED RETINAL EXAM [facility] Start: 05-16-2022 3 comp foot exam completed DIABETIC FOOT EXAM [facility] Start: 05-16-2022 Adult depression screening assessment DEPRESSION SCREENING [facility] Start: 05-16-2022 ANNUAL PCP TEAM CHRONIC DISEASE VISIT ANNUAL PCP TEAM CHRONIC DISEASE VISIT [facility] Start: 04-15-2022 End: 06-15-2022 Comprehensive metabolic 2000 panel - Serum or Plasma COMP METABOLIC PANEL Lab Routine Type 2 diabetes mellitus without complication, without long-term current use of insulin (HCC) Essential hypertension Hyperlipidemia, mixed Expected: 04/15/2022, Expires: 06/15/2022 [facility] Work Phone: Comment on above: Expected: 04/15/2022, Expires: 3 Start: 04-15-2022 End: 06-15-2022 Hemoglobin A1c in Blood HGB A1C Lab Routine Type 2 diabetes mellitus without complication, without long-term current use of insulin (HCC) Expected: 04/15/2022, Expires: 06/15/2022 [facility] Work Phone: Comment on above: Expected: 04/15/2022, Expires: 3 Start: 04-15-2022 End: 06-15-2022 Lipid 1996 panel - Serum or Plasma LIPID PANEL BASIC Lab Routine Hyperlipidemia, mixed Expected: 04/15/2022, Expires: 06/15/2022 [facility] Work Phone: Comment on above: Expected: 04/15/2022, Expires: 3 Start: 04-09-2022 Hemoglobin A1c/Hemoglobin.total in Blood HBA1C [facility] Start: 01-14-2022 End: 03-16-2022 ALBUMIN/CREAT RATIO RND UR [facility] Work Phone: Comment on above: Expected: 01/14/2022, Expires: 2 Start: 09-04-2021 BP CONTROLLED (<130/80) BP CONTROLLED (<130/80) [facility] in Start: 09-04-2021 Hepatitis B screening URINE ALBUMIN:CREATININE RATIO [facility] Start: 09-04-2021 Hepatitis B surface antibody level LDL CHOLESTEROL [facility] Start: 01-01-2021 COVID-19 VACCINE (3 - Booster for Moderna series) COVID-19 VACCINE (3 - Booster for Moderna series) [facility] Start: 12-05-2020 Hemoglobin A1c/Hemoglobin.total in Blood HBA1C [facility] Start: 09-26-2020 COVID-19 VACCINE (3 - Booster for Moderna series) COVID-19 VACCINE (3 - Booster for Moderna series) [facility] Start: 09-26-2020 COVID-19 VACCINE (3 - Moderna series) COVID-19 VACCINE (3 - Moderna series) [facility] Start: 2016 SHINGRIX VACCINE (1 of 2) SHINGRIX VACCINE (1 of 2) [facility] Start: 2016 Zoster Vaccines (1 of 2) Zoster Vaccines (1 of 2) [facility] Start: 03-25-2016 PNEUMOCOCCAL (2 - PCV) PNEUMOCOCCAL (2 - PCV) [facility] Start: 03-25-2016 Pneumococcal vaccination Pneumococcal Vaccine (2 of 2 - PCV) [facility] Start: 03-25-2016 Pneumococcal Vaccine: Pediatrics (0 to 5 Years) and At-Risk Patients (6 to 64 Years) (2 of 2 - PCV) Pneumococcal Vaccine: Pediatrics (0 to 5 Years) and At-Risk Patients (6 to 64 Years) (2 of 2 - PCV) [facility] Start: 2011 COLOGUARD (FIT-DNA) COLOGUARD (FIT-DNA) [facility] Start: 2011 Colonoscopy COLONOSCOPY [facility] Start: [address] COLONOGRAPHY [facility] Start: 2011 Screening for malignant neoplasm of colon [facility] Start: 2011 SIGMOIDOSCOPY SIGMOIDOSCOPY [facility] Start: 1985 Hepatitis B Vaccine (1 of 3 - 19+ 3-dose series) Hepatitis B Vaccine (1 of 3 - 19+ 3-dose series) [facility] Start: 1985 Hepatitis B Vaccines (1 of 3 - 19+ 3-dose series) Hepatitis B Vaccines (1 of 3 - 19+ 3-dose series) [facility] Start: 1985 Urine screening for protein Diabetes: Urine Protein Screening [facility] Start: 1984 Anxiety Screening Anxiety Screening [facility] Start: 1984 Depression Screening Depression Screening [facility] Start: 1984 Hepatitis C screening Hepatitis C Screening [facility] Start: 1976 Diabetic foot examination Diabetes: Foot Exam [facility] Start: 1976 Glaucoma screening Diabetes: Retinopathy Screening [facility] Start: 1967 MMR Vaccines (1 of 1 - Standard series) MMR Vaccines (1 of 1 - Standard series) [facility] Start: 1966 HEPATITIS B (1 of 3 - 3-dose series) HEPATITIS B (1 of 3 - 3-dose series) [facility] Start: 1966 Hepatitis B Vaccine (1 of 3 - 3-dose series) Hepatitis B Vaccine (1 of 3 - 3-dose series) [facility] Start: 1966 Hepatitis B Vaccines (1 of 3 - 3-dose series) Hepatitis B Vaccines (1 of 3 - 3-dose series) [facility] Start: 1966 HIV screening HIV Screening [facility] Start: 1966 Lipid panel Lipid Panel [facility] Start: 1966 Screening for malignant neoplasm of colon [facility] Start: 1966 Yearly Adult Physical Yearly Adult Physical [facility] Lig&div long saph ve in saphfem junct/interrupj Ligation Saphenous Vein Postphlebitic syndrome Edema of right lower leg due to peripheral venous insufficiency Virtual [facility] SUB[facility] OR Patient referral [facility] [place] Work Phone: Stab phlebt varicose veins 1 xtr 10-20 stab incs Phlebectomy Lower Extremity Postphlebitic syndrome Edema of right lower leg due to peripheral venous insufficiency Virtual [facility] SUBASC OR Vascular US Lower Extremity Venous Duplex Left Vascular US Lower Extremity Venous Duplex Left Vascular Ultrasound Routine Peripheral venous insufficiency 12/27/2023 8:43 AM EDT [facility] Service Area Work Phone: Vascular US lower extremity venous insufficiency bilateral Vascular US lower extremity venous insufficiency bilateral Vascular Ultrasound Routine Anticoagulation management encounter Phlebitis and thrombophlebitis of superficial vessels of left lower extremity 09/27/2023 9:31 AM EDT [facility] Service Area Work Phone: [facility] Immunizations Immunization Date Immunization Notes Care Provider Fa [facility] 02-16-2023 influenza, injectabl e, quadrivalent, contains preservative Candida Sheets DO Work Phone: [facility] 02-16-2023 influenza virus vacc ine, unspecified formulation Lei Fuentes MD Work Phone: [facility] Work Phone: 12-27-2021 influenza, seasonal, injectable Lidya Sal PA-C Work Phone: [facility] Work Phone: 12-27-2021 influenza virus vacc ine, unspecified formulation Candida Sheets DO Work Phone: [facility] 01-17-2021 influenza, seasonal, injectable Alex Macias MD Work Phone: [facility] Work Phone: 12-20-2019 tetanus toxoid, redu rimma diphtheria toxoid, and acellular pertussis vaccine, adsorbed Alex Dominic MD Work Phone: [facility] 02-27-2019 tetanus toxoid, redu rimma diphtheria toxoid, and acellular pertussis vaccine, adsorbed Alex Macias MD Work Phone: [facility] 01-26-2018 influenza virus vacc ine, unspecified formulation Candida Soria DO Work Phone: [facility] 01-17-2018 influenza, injectabl e, quadrivalent, preservative free Alex Macias MD Work Phone: [facility] 03-25-2015 pneumococcal polysaccharide vaccine, 23 valent Alex Macias MD Work Phone: [facility] 02-25-2013 influenza virus vacc ine, unspecified formulation Alex Macias MD Work Phone: [facility] 01-23-2012 influenza virus vacc ine, unspecified formulation Alex Macias MD Work Phone: [facility] 03-11-2011 influenza virus vacc ine, unspecified formulation Alex Macias MD Work Phone: [facility] Payers Date Payer Category Payer Unknown [id number] 2023 Self-pay 2023 Private Health Insurance [facility] [id number] 2023 Unknown [id number] 2022 Unknown [id number] 2016 Unknown [employer] BL[employer] C[employer] PPO OOS [id number] 2016-Present [phone] [facility] [id number] [place] [address] PPO [id number] 2016 Unknown [id number] [id number]. [id number] 1966 Unknown [id number] 2.16.840.1.883886.3.579.2. 1241 1966 Unknown [id number] 2.16.840.1.261557.3.579.2. 1243 1966 Unknown [id number] 2.16.840.1.154938.3.579.2. 1243 1966 Unknown [id number] 2.16.840.1.412365.3.579.2. 1243 1966 Unknown [id number] 2.16.840.1.699923.3.579.2. 1244 1966 Unknown [id number] 2.16.840.1.306977.3.579.2. 1244 1966 Unknown [id number] 2.16.840.1.705272.3.579.2. 1244 1966 Unknown [id number] 2.16.840.1.387955.3.579.2. 1244 1966 Unknown [id number] 2.16.840.1.330096.3.579.2. 1244 1966 Unknown [id number] 2.16.840.1.822012.3.579.2. 1244 1966 Unknown [id number] 2.16.840.1.604749.3.579.2. 1244 1966 Unknown [id number] 2.16.840.1.008736.3.579.2. 1244 1966 Unknown [id number] 2.16.840.1.810667.3.579.2. 1245 1966 Unknown [id number] 2.16.840.1.819211.3.579.2. 1245 1966 Unknown [id number] 2.16.840.1.126160.3.579.2. 1245 Unknown DWAIN [id number] Unknown [id number] 2.16.840.1.699706.3.579.2. 462 Unknown [id number] 2.16.840.1.802809.3.579.2. 462 Unknown [id number] 2.16.840.1.771967.3.579.2. 462 Unknown [id number] 2.16.840.1.148579.3.579.2. 462 Unknown [id number] 2.16.840.1.187622.3.579.2. 462 Unknown [id number] 2.16.840.1.792089.3.579.2. 462 Unknown [id number] 2.16.840.1.377828.3.579.2. 462 Unknown [id number] 2.16.840.1.250693.3.579.2. 462 Unknown [id number] 2.16.840.1.468649.3.579.2. 462 Unknown [id number] 2.16.840.1.003284.3.579.2. 462 Social History Date Type Detail Facility Start: 01-21-2016 End: 12-30-2023 Tobacco smoking status NHIS Never smoked tobacco [facility] Start: 09-04-2020 End: 09-01-2024 Alcohol intake Current drinker of alcohol (finding) [facility] Start: 12-19-2019 History SDOH Alcohol Frequency 2 [facility] Start: 12-19-2019 History SDOH Alcohol Std Drinks 1 [facility] Start: 01-21-2016 History SDOH Alcohol Comment 2 beers once a month [facility] Start: 12-19-2019 History SDOH Social Connections Phone 5 [facility] Start: 12-19-2019 History SDOH Social Connections Hoahaoism 98 [facility] Start: 12-19-2019 End: 05-10-2021 History SDOH Social Connections Meetings 3 [facility] Start: 12-19-2019 History SDOH Physica l Activity DPW 4 [facility] Start: 12-19-2019 Education 16 [facility] Start: 1965 Sex Assigned At Not on file [facility] Start: 01-21-2016 End: 07-19-2023 Tobacco use and exposure Smokeless tobacco non-user [facility] Work Phone: Start: 01-04-2022 End: 01-12-2024 Exposure to SARS-CoV-2 (event) Not sure [facility] Start: 12-19-2019 End: 11-10-2022 History of Social function [facility] Start: 12-19-2019 End: 11-10-2022 Social connection and isolation panel [facility] How often do you att end taoist or methodist services? Patient refused [facility] Do you belong to any clubs or organizations such as taoist groups, unions, fraternal or athletic groups, or school groups? Yes [facility] How often to you hav e a drink containing alcohol? Monthly or less [facility] How many standard dr inks containing alcohol do you have on a typical day? 1 or 2 [facility] How often do you hav e 6 or more drinks on 1 occasion? Never [facility] How hard is it for y ou to pay for the very basics like food, housing, medical care, and heating Not very hard [facility] (I/We) worried sarah er (my/our) food would run out before (I/we) got money to buy more. Never true [facility] Start: 11-10-2022 Alcohol Comment 4 beers once a month [facility] Start: 08-23-2023 End: 09-02-2023 Exposure to SARS-CoV-2 (event) Unable to assess [facility] Work Phone: Start: 12-23-2023 End: 01-12-2024 Alcoholic beverage intake Ex-drinker (finding) [facility] Work Phone: Start: 12-23-2023 Alcohol Comment rare use [facility] Work Phone: How often to you hav e a drink containing alcohol? 2-3 time sa week [facility] Work Phone: Start: 02-18-2019 Alcohol Alcohol [facility] Start: 02-18-2019 Drugs Drugs [facility] Start: 02-18-2019 Lives Lives [facility] Start: 02-20-2019 Tobacco Use Tobacco Use [facility] Start: 1965 Sex Assigned At Male W [facility] Medical Equipment Procedure Code Equipment Code Equipment Origin al Text Equipment Identifier Dates [employer]wire Tigerwire 5.5mm 2 Full Thread Biocomposite 14.7 - [id number] Start: 05-05-2016 [id number], [id number] Start: 01-06-2013 Comment on above: Test blood sugar(s) 4 times daily. Dx: Diabetes mellitus. Insulin: No Test blood sugar(s) 4 times daily. Dx: 250.02. Insulin: No Functional Status Date Assessment Result Facility 09-17-2014 Are you deaf, or do you have serious difficulty hearing No 09/17/2014 8:08 AM EDT Renee Lopez Cma No [facility] 09-17-2014 Are you blind, or do you have serious difficulty seeing, even when wearing glasses No 09/17/2014 8:08 AM EDT Renee Lopez Cma No [facility] 09-17-2014 Do you have serious difficulty walking or climbing stairs No 09/17/2014 8:08 AM EDT Renee Lopez Cma No [facility] 09-17-2014 Do you have difficul ty dressing or bathing No 09/17/2014 8:08 AM EDRenee Savage Cma No [facility] 09-17-2014 Because of a physica l, mental, or emotional condition, do you have difficulty doing errands alone such as visiting a physician's office or shopping No 09/17/2014 8:08 AM EDT Renee Lopez Cma No [facility] Mental Status Date Assessment Result Facility 09-17-2014 Because of a physica l, mental, or emotional condition, do you have serious difficulty concentrating, remembering, or making decisions No 09/17/2014 8:08 AM EDT Renee Lopez Cma [facility] Clinical Notes 08-07-2021 to 09-01-2024 Candida Soria DO - 09/01/2024 8:16 AM EDTTelephone Encounter - Elizabeth Connell MA - 07/28/2024 8:27 AM EDTTelephone Encounter - Elizabeth Connell AGAPITO - 07/28/2024 8:27 AM EDT Note Date & Type Note Facility 09-01-2024 Note HNO ID: [id number] Author: CANDIDA SORIA DO Service: ? Author Type: Physician Type: Progress Notes Filed: 09/24/2024 07:39 Note Text: Chan Garg is a 59-year-old male with a history of type 2 diabetes mellitus, presenting for follow-up and requesting an increase in Rybelsus dosage. Type 2 Diabetes Mellitus: - Current medications: Rybelsus 7 mg daily, Jardiance 10 mg daily, Amaryl 4 mg BID, Metformin 500 mg BID. - Initiated Rybelsus and Jardiance concurrently in April; titrated Rybelsus from 3 mg to 7 mg. - No adverse effects from Rybelsus. - Recent A1c: 10.6% (previously 12.3% in April). - Monitors blood glucose at home; reports gradual improvement. - Increased physical activity with fast-paced walking x3.5 weeks. - Weight: 194 lbs (previously 262 lbs at diabetes diagnosis). Hyperlipidemia: - Current medication: Lipitor. Hypertension: - Current medication: Lisinopril 5 mg daily. GERD: - Current medications: Prilosec 40 mg daily, Carafate PRN (2-3 times/year). ALLERGIES Allergen Reactions Erythromycin Penicillins Current Outpatient Medications Medication Sig Dispense Refill glimepiride (AMARYL) 4 mg tablet TAKE 1 TABLET TWICE A DAY WITH MEALS 180 tablet 1 empagliflozin (JARDIANCE) 10 mg tablet Take 1 tablet by mouth daily with breakfast. 30 tablet 2 semaglutide (RYBELSUS) 7 mg tablet Take 1 tablet by mouth daily before breakfast. Start on 06/10/24. Take 30 minutes before the first food, beverage, or other oral medications of the day with no more than 4 ounces of plain water 30 tablet 1 omeprazole (PRILOSEC) 40 mg capsule TAKE 1 CAPSULE DAILY 90 capsule 3 atorvastatin (LIPITOR) 10 mg tablet TAKE 1 TABLET DAILY BEFORE BEDTIME 90 tablet 3 lisinopril (ZESTRIL) 5 mg tablet TAKE 1 TABLET DAILY 90 tablet 3 metFORMIN (GLUCOPHAGE) 500 mg tablet TAKE 2 TABLETS TWICE A DAY 360 tablet 3 aspirin 81 mg cap Take 1 capsule by mouth twice daily. sucralfate (CARAFATE) 1 gram tablet Take 1 tablet by mouth four times daily. 360 tablet 3 clobetasol (TEMOVATE) 0.05 % cream APPLY 1 APPLICATION TO AFFECTED AREA ONCE DAILY 60 g 3 Comp.Stocking,Thigh,Long,Large misc Use as directed 1 Package 0 Blood-Glucose Meter, Drum-type (ACCU-CHEK COMPACT PLUS CARE) kit Use as directed. 1 Kit 0 Lancets (ACCU-CHEK MULTICLIX LANCET) lancets Test blood sugar(s) 4 times daily. Dx: 250.02. Insulin: No 1 Each 11 blood sugar diagnostic (ACCU-CHEK ALIA) test strip Test blood sugar(s) 4 times daily. Dx: Diabetes mellitus. Insulin: No 100 Strip 11 semaglutide (RYBELSUS) 3 mg tablet Take 1 tablet by mouth daily before breakfast. Take 30 minutes before the first food, beverage, or other oral medications of the day with no more than 4 ounces of plain water (Patient not taking: Reported on 09/01/2024) 30 tablet 0 No current facility-administered medications for this visit. 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 Type 2 Diabetes Mellitus Without Complication (Hcc) Diabetic Peripheral Neuropathy (Hcc) Incomplete Tear of Left Rotator Cuff Essential Hypertension Gerd (Gastroesophageal Reflux Disease) Thrombocytopenic Social History Tobacco Use Smoking status: Never Smokeless tobacco: Never Vaping Use Vaping status: Never Used Substance Use Topics Alcohol use: Yes Comment: 4 beers once a month Drug use: No Family History Problem Relation Age of Onset Lung Cancer Mother Stroke Father Lung Cancer Sister Lung Cancer Sister Emphysema Maternal Grandmother Reviewed past medical history, family history and surgeries. All medications and supplements were reviewed with the patient. Review of Systems Constitutional: Negative for chills, diaphoresis, fever and malaise/fatigue. HENT: Negative for ear pain and hearing loss. Eyes: Negative for double vision. Respiratory: Negative for cough and shortness of breath. Cardiovascular: Negative for palpitations and leg swelling. Gastrointestinal: Negative for constipation, diarrhea and heartburn. Genitourinary: Negative for dysuria and frequency. Musculoskeletal: Negative for back pain, falls, joint pain and myalgias. Skin: Negative for itching and rash. Endo/Heme/Allergies: Does not bruise/bleed easily. Psychiatric/Behavioral: Negative for depression and substance abuse. The patient does not have insomnia. Objective BP 122/70 Pulse 85 Temp 36.8 ?C (98.2 ?F) Ht 172.1 cm (5' 7.75) Wt 88 kg (194 lb) SpO2 98% BMI 29.72 kg/m? Physical Exam Constitutional: Appearance: Normal appearance. HENT: Head: Normocephalic and atraumatic. Nose: Nose normal. Mouth/Throat: Mouth: Mucous membranes are moist. Dentition: Normal dentition. Eyes: General: Lids are normal. Extraocular Movements: Extraocular movements in (more content not included)... [facility] 09-01-2024 History of Presen t illness Narrative Subjective HPI Forest is a 59-year-old male with a history of type 2 diabetes mellitus, presenting for follow-up and requesting an increase in Rybelsus dosage. Type 2 Diabetes Mellitus: - Current medications: Rybelsus 7 mg daily, Jardiance 10 mg daily, Amaryl 4 mg BID, Metformin 500 mg BID. - Initiated Rybelsus and Jardiance concurrently in April; titrated Rybelsus from 3 mg to 7 mg. - No adverse effects from Rybelsus. - Recent A1c: 10.6% (previously 12.3% in April). - Monitors blood glucose at home; reports gradual improvement. - Increased physical activity with fast-paced walking x3.5 weeks. - Weight: 194 lbs (previously 262 lbs at diabetes diagnosis). Hyperlipidemia: - Current medication: Lipitor. Hypertension: - Current medication: Lisinopril 5 mg daily. GERD: - Current medications: Prilosec 40 mg daily, Carafate PRN (2-3 times/year). ALLERGIES Allergen Reactions Erythromycin Penicillins Current Outpatient Medications Medication Sig Dispense Refill glimepiride (AMARYL) 4 mg tablet TAKE 1 TABLET TWICE A DAY WITH MEALS 180 tablet 1 empagliflozin (JARDIANCE) 10 mg tablet Take 1 tablet by mouth daily with breakfast. 30 tablet 2 semaglutide (RYBELSUS) 7 mg tablet Take 1 tablet by mouth daily before breakfast. Start on 06/10/24. Take 30 minutes before the first food, beverage, or other oral medications of the day with no more than 4 ounces of plain water 30 tablet 1 omeprazole (PRILOSEC) 40 mg capsule TAKE 1 CAPSULE DAILY 90 capsule 3 atorvastatin (LIPITOR) 10 mg tablet TAKE 1 TABLET DAILY BEFORE BEDTIME 90 tablet 3 lisinopril (ZESTRIL) 5 mg tablet TAKE 1 TABLET DAILY 90 tablet 3 metFORMIN (GLUCOPHAGE) 500 mg tablet TAKE 2 TABLETS TWICE A DAY 360 tablet 3 aspirin 81 mg cap Take 1 capsule by mouth twice daily. sucralfate (CARAFATE) 1 gram tablet Take 1 tablet by mouth four times daily. 360 tablet 3 clobetasol (TEMOVATE) 0.05 % cream APPLY 1 APPLICATION TO AFFECTED AREA ONCE DAILY 60 g 3 Comp.Stocking,Thigh,Long,Large misc Use as directed 1 Package 0 Blood-Glucose Meter, Drum-type (ACCU-CHEK COMPACT PLUS CARE) kit Use as directed. 1 Kit 0 Lancets (ACCU-CHEK MULTICLIX LANCET) lancets Test blood sugar(s) 4 times daily. Dx: 250.02. Insulin: No 1 Each 11 blood sugar diagnostic (ACCU-CHEK ALIA) test strip Test blood sugar(s) 4 times daily. Dx: Diabetes mellitus. Insulin: No 100 Strip 11 semaglutide (RYBELSUS) 3 mg tablet Take 1 tablet by mouth daily before breakfast. Take 30 minutes before the first food, beverage, or other oral medications of the day with no more than 4 ounces of plain water (Patient not taking: Reported on 09/01/2024) 30 tablet 0 No current facility-administered medications for this visit. 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 Type 2 Diabetes Mellitus Without Complication (Hcc) Diabetic Peripheral Neuropathy (Hcc) Incomplete Tear of Left Rotator Cuff Essential Hypertension Gerd (Gastroesophageal Reflux Disease) Thrombocytopenic Social History Tobacco Use Smoking status: Never Smokeless tobacco: Never Vaping Use Vaping status: Never Used Substance Use Topics Alcohol use: Yes Comment: 4 beers once a month Drug use: No Family History Problem Relation Age of Onset Lung Cancer Mother Stroke Father Lung Cancer Sister Lung Cancer Sister Emphysema Maternal Grandmother Reviewed past medical history, family history and surgeries. All medications and supplements were reviewed with the patient. Review of Systems Constitutional: Negative for chills, diaphoresis, fever and malaise/fatigue. HENT: Negative for ear pain and hearing loss. Eyes: Negative for double vision. Respiratory: Negative for cough and shortness of breath. Cardiovascular: Negative for palpitations and leg swelling. Gastrointestinal: Negative for constipation, diarrhea and heartburn. Genitourinary: Negative for dysuria and frequency. Musculoskeletal: Negative for back pain, falls, joint pain and myalgias. Skin: Negative for itching and rash. Endo/Heme/Allergies: Does not bruise/bleed easily. Psychiatric/Behavioral: Negative for depression and substance abuse. The patient does not have insomnia. Objective BP 122/70 Pulse 85 Temp 36.8 C (98.2 F) Ht 172.1 cm (5' 7.75) Wt 88 kg (194 lb) SpO2 98% BMI 29.72 kg/m Physical Exam Constitutional: Appearance: Normal appearance. HENT: Head: Normocephalic and atraumatic. Nose: Nose normal. Mouth/Throat: Mouth: Mucous membranes are moist. Dentition: Normal dentition. Eyes: General: Lids are normal. Extraocular Movements: Extraocular movements intact. Conjunctiva/sclera: Conjunctivae normal. Pupils: Pupils are equal, round, and reactive to light. Neck: Thyroid: No thyroid mass or thyromegaly. Vascular: No carotid bruit. Trachea: Phonation normal. Cardiovascular: Rate and Rhythm: Normal rate and regular rhythm. Heart sounds: Normal heart sounds. No murmur heard. No friction rub. No gallop. Pulmonary: Effort: Pulmonary effort is normal. Breath sounds: Normal breath sounds. No wheezing or rales. Abdominal: General: Bowel sounds are normal. There is no distension. Palpations: Abdomen is soft. There is no mass. Tenderness: There is no abdominal tenderness. Musculoskeletal: General: No swelling or tenderness. Normal range of motion. Cervical back: Normal range of motion and neck supple. No edema. Lymphadenopathy: Cervical: No cervical adenopathy. Skin: General: Skin is warm and dry. Findings: No erythema or rash. Nails: There is no clubbing. Neurological: Mental Status: He is alert and oriented to person, place, and time. Cranial Nerves: No cranial nerve deficit. Motor: Motor function is intact. Coordination: Coordination normal. Gait: Gait is intact. Psychiatric: Attention and Perception: Attention normal. Mood and Affect: Mood and affect normal. Speech: Speech normal. Behavior: Behavior normal. Behavior is cooperative. Thought Content: Thought content normal. Cognition and Memory: Cognition and memory normal. Judgment: Judgment normal. Lab Results Component Value Date HBA1C 10.6 08/30/2024 HBA1C 12.3 05/08/2024 HBA1C 9.1 02/10/2023 HBA1C 10.5 09/04/2020 HBA1C 8.9 12/20/2019 HBA1C 7.4 02/23/2019 1. Type 2 diabetes mellitus without complication, without long-term current use of insulin (HCC) (E11.9) - Hemoglobin A1c has improved from 12.3% to 10.6% since last visit in April. - Currently on Rybelsus 7 mg daily; no adverse effects reported. - Increased Rybelsus to 14 mg daily; prescription sent to [facility]. - Continue Jardiance 10 mg daily; prescription sent to [facility]. - Continue Amaryl 4 mg BID and Metformin 500 mg two tablets BID. - Patient is monitoring blood glucose levels at home, noting improvement with current regimen and increased physical activity. - Follow-up in 3 months to reassess glycemic control and medication efficacy. 2. Essential hypertension (I10) - Blood pressure management stable on Lisinopril 5 mg daily. - Continue current medication regimen. Candida Soria DO The patient consented to the use of [employer] software for draft documentation of the visit consistent with [facility] s Notice of Privacy Practices. documented in this encounter [facility] 07-28-2024 Telephone encount er Note Was sent in already [facility] 07-28-2024 Miscellaneous Notes Formattin g of this note might be different from the original. Was sent in already documented in this encounter [facility] 07-24-2024 Telephone encount er Note pharm requesting refills: Last office visit 05/11/2024. Last refill 05/11/2024 nov 09/01/2024 Requested Prescriptions Pending Prescriptions Disp Refills glimepiride (AMARYL) 4 mg tablet [Pharmacy Med Name: GLIMEPIRIDE TABS 4MG] 180 tablet 3 Sig: TAKE 1 TABLET TWICE A DAY WITH MEALS Please review and advise. Elizabeth Connell MA [facility] 07-24-2024 Miscellaneous Notes Formattin g of this note is different from the original. pharm requesting refills: Last office visit 05/11/2024. Last refill 05/11/2024 09/01/2024 Requested Prescriptions Pending Prescriptions Disp Refills glimepiride (AMARYL) 4 mg tablet [Pharmacy Med Name: GLIMEPIRIDE TABS 4MG] 180 tablet 3 Sig: TAKE 1 TABLET TWICE A DAY WITH MEALS Please review and advise. Elizabeth Connell MA documented in this encounter [facility] 07-20-2024 Note Addended by: CANDIDA SORIA on: 07/20/2024 03:53 PM Modules accepted: Orders [facility] 07-20-2024 Miscellaneous Notes Addended by: CANDIDA SORIA on: 07/20/2024 03:53 PM Modules accepted: Orders Order attached Candida Soria DO patient phones requesting refills as follows: Last seen 05/11/24 . Last refill both 05/11/24. Next office visit 09/01/24. Patient is requesting to complete blood work prior to his next visit on 09/01/24. Last labs were 05/08/24 CBC, CMP, Lipid, A1C, PSA, urine albumin. Please advise on lab orders Requested Prescriptions Pending Prescriptions Disp Refills empagliflozin (JARDIANCE) 10 mg tablet 30 tablet 2 Sig: Take 1 tablet by mouth daily with breakfast. semaglutide (RYBELSUS) 7 mg tablet 30 tablet 1 Sig: Take 1 tablet by mouth daily before breakfast. Start on 06/10/24. Take 30 minutes before the first food, beverage, or other oral medications of the day with no more than 4 ounces of plain water Please review and advise. Marissa Galdamez MA documented in this encounter [facility] 07-20-2024 Telephone encount er Note Order attached Candida Soria DO [facility] 07-20-2024 Telephone encount er Note patient phones requesting refills as follows: Last seen 05/11/24 . Last refill both 05/11/24. Next office visit 09/01/24. Patient is requesting to complete blood work prior to his next visit on 09/01/24. Last labs were 05/08/24 CBC, CMP, Lipid, A1C, PSA, urine albumin. Please advise on lab orders Requested Prescriptions Pending Prescriptions Disp Refills empagliflozin (JARDIANCE) 10 mg tablet 30 tablet 2 Sig: Take 1 tablet by mouth daily with breakfast. semaglutide (RYBELSUS) 7 mg tablet 30 tablet 1 Sig: Take 1 tablet by mouth daily before breakfast. Start on 06/10/24. Take 30 minutes before the first food, beverage, or other oral medications of the day with no more than 4 ounces of plain water Please review and advise. Marissa Galdamez MA [facility] 07-18-2024 Evaluation note Diagnosis Onset Date Resolution Impingement of right shoulder acute July 18, 2024 8:30am Right shoulder pain acute July 18, 2024 8:30am [facility] Work Phone: 1(823) 174-542204-01-2025 Evaluation note* Diagnosis Onset Date Resolution Status Admit Date Impingement of right shoulder acute July 18, 2024 8:30am Right shoulder pain acute July 18, 2024 8:30am Arthrosis of right acromioclavicular joint acute September 8:43am Impingement of right shoulder acute September 20, 2024 8:43am Right rotator cuff tear acute J 2024 8:43am Right shoulder pain acute September 20, 2024 8:43am [facility] [place] Work Phone: [phone] Telephone encounter Note* Telephone Encounter - Marissa Galdamez MA - 06/20/2024 7:50 AM EST pharmacy electronically requesting refills as follows: Last seen 05/11/24 . Last refill all 04/23/23 . Requested Prescriptions Pending Prescriptions Disp Refills omeprazole (PRILOSEC) 40 mg capsule [Pharmacy Med Name: OMEPRAZOLE DR CAPS 40MG] 90 capsule 3 Sig: TAKE 1 CAPSULE DAILY atorvastatin (LIPITOR) 10 mg tablet [Pharmacy Med Name: ATORVASTATIN TABS 10MG] 90 tablet 3 Sig: TAKE 1 TABLET DAILY BEFORE BEDTIME lisinopril (ZESTRIL) 5 mg tablet [Pharmacy Med Name: LISINOPRIL TABS 5MG] 90 tablet 3 Sig: TAKE 1 TABLET DAILY metFORMIN (GLUCOPHAGE) 500 mg tablet [Pharmacy Med Name: METFORMIN HCL TABS 500MG] 360 tablet 3 Sig: TAKE 2 TABLETS TWICE A DAY Please review and advise. Marissa Galdamez MA [facility]03-04-2025 Miscellaneous Notes* Telephone Encounter - Marissa Galdamez MA - 06/20/2024 7:50 AM EST pharmacy electronically requesting refills as follows: Last seen 05/11/24 . Last refill all 04/23/23 . Requested Prescriptions Pending Prescriptions Disp Refills omeprazole (PRILOSEC) 40 mg capsule [Pharmacy Med Name: OMEPRAZOLE DR CAPS 40MG] 90 capsule 3 Sig: TAKE 1 CAPSULE DAILY atorvastatin (LIPITOR) 10 mg tablet [Pharmacy Med Name: ATORVASTATIN TABS 10MG] 90 tablet 3 Sig: TAKE 1 TABLET DAILY BEFORE BEDTIME lisinopril (ZESTRIL) 5 mg tablet [Pharmacy Med Name: LISINOPRIL TABS 5MG] 90 tablet 3 Sig: TAKE 1 TABLET DAILY metFORMIN (GLUCOPHAGE) 500 mg tablet [Pharmacy Med Name: METFORMIN HCL TABS 500MG] 360 tablet 3 Sig: TAKE 2 TABLETS TWICE A DAY Please review and advise. Marissa Galdamez MA [facility] NoteHNO ID: [id number] Author: CANDIDA SORIA, DO Service: ? Author Type: Physician Type: Progress Notes Filed: 05/18/2024 20:28 Note Text: Subjective The history is provided by the patient. Diabetes He presents for his follow-up diabetic visit. He has type 2 diabetes mellitus. His disease course has been worsening. Pertinent negatives for hypoglycemia include no dizziness or headaches. Pertinent negatives for diabetes include no blurred vision, no chest pain, no weakness and no weight loss. He checks his blood sugar 2 - 3 times per week His sugars are running high He would like to get back on his old meds of Jardiance and Rybelsus He is currently taking metformin 1000 mg bid and and glimepiride 4 mg bid He has not been watching his diet as well as he should He had varicose vein surgery at in [place], and his leg pain has resolved He had to establish with a PCP with , and had been seeing Dr. Crandall He had a recent eye exam and it showed no abnormalities ALLERGIES Allergen Reactions Erythromycin Penicillins Current Outpatient Medications Medication Sig Dispense Refill glimepiride (AMARYL) 4 mg tablet TAKE 1 TABLET TWICE A DAY WITH MEALS 180 tablet 0 metFORMIN (GLUCOPHAGE) 500 mg tablet TAKE 2 TABLETS 2 TIMES DAILY 360 tablet 3 lisinopril (ZESTRIL) 5 mg tablet Take 1 tablet by mouth once daily. 90 tablet 3 atorvastatin (LIPITOR) 10 mg tablet Take 1 tablet by mouth once daily. BEFORE BEDTIME 90 tablet 3 omeprazole (PRILOSEC) 40 mg capsule Take 1 capsule by mouth once daily. 90 capsule 3 aspirin 81 mg cap Take 1 capsule by mouth twice daily. sucralfate (CARAFATE) 1 gram tablet Take 1 tablet by mouth four times daily. 360 tablet 3 clobetasol (TEMOVATE) 0.05 % cream APPLY 1 APPLICATION TO AFFECTED AREA ONCE DAILY 60 g 3 Comp.Stocking,Thigh,Long,Large misc Use as directed 1 Package 0 Blood-Glucose Meter, Drum-type (ACCU-CHEK COMPACT PLUS CARE) kit Use as directed. 1 Kit 0 Lancets (ACCU-CHEK MULTICLIX LANCET) lancets Test blood sugar(s) 4 times daily. Dx: 250.02. Insulin: No 1 Each 11 blood sugar diagnostic (ACCU-CHEK ALIA) test strip Test blood sugar(s) 4 times daily. Dx: Diabetes mellitus. Insulin: No 100 Strip 11 dapagliflozin propanediol (FARXIGA) 5 mg tablet Take 1 tablet by mouth daily with breakfast. (Patient not taking: Reported on 05/11/2024) 30 tablet 2 meclizine (ANTIVERT) 25 mg tab Take 1 tablet by mouth every 6 hours as needed (for dizziness). (Patient not taking: Reported on 05/11/2024) 30 tablet 0 No current facility-administered medications for this visit. 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 Type 2 Diabetes Mellitus Without Complication (Hcc) Diabetic Peripheral Neuropathy (Hcc) Incomplete Tear of Left Rotator Cuff Essential Hypertension Gerd (Gastroesophageal Reflux Disease) Thrombocytopenic (Hcc) Obesity, Class I, Bmi 30-34.9 Social History Tobacco Use Smoking status: Never Smokeless tobacco: Never Vaping Use Vaping status: Never Used Substance Use Topics Alcohol use: Yes Comment: 4 beers once a month Drug use: No Family History Problem Relation Age of Onset Lung Cancer Mother Stroke Father Lung Cancer Sister Lung Cancer Sister Emphysema Maternal Grandmother Reviewed past medical history, family history and surgeries. All medications and supplements were reviewed with the patient. Review of Systems Constitutional: Negative for chills, diaphoresis, fever, malaise/fatigue and weight loss. HENT: Negative for ear pain and hearing loss. Eyes: Negative for blurred vision and double vision. Respiratory: Negative for cough and shortness of breath. Cardiovascular: Negative for chest pain, palpitations and leg swelling. Gastrointestinal: Negative for constipation, diarrhea and heartburn. Genitourinary: Negative for dysuria and frequency. Musculoskeletal: Negative for back pain, falls, joint pain and myalgias. Skin: Negative for itching and rash. Neurological: Negative for dizziness, weakness and headaches. Endo/Heme/Allergies: Does not bruise/bleed easily. Psychiatric/Behavioral: Negative for depression and substance abuse. The patient does not have insomnia. Objective BP 114/60 Pulse 88 Temp 36.5 ?C (97.7 ?F) Resp 16 Ht 172.1 cm (5' 7.75) Wt 87.1 kg (192 lb) SpO2 99% BMI 29.41 kg/m? Physical Exam Constitutional: Appearance: Normal appearance. HENT: Head: Normocephalic and atraumatic. Nose: Nose normal. Mouth/Throat: Mouth: Mucous membranes are moist. Dentition: Normal dentition. Eyes: General: Lids are normal. Extraocular Movements: Extraocular movements intact. Conjunctiva/sclera: Conjunctivae normal. Pupils: Pupils are equal, round, and reactive to light. Neck: Thyroid: No thyroi (more content not included)...[facility] 05-11-2024 History of Present illness Narrative* Candida Soria DO - 05/11/2024 8:31 AM EST Subjective The history is provided by the patient. Diabetes He presents for his follow-up diabetic visit. He has type 2 diabetes mellitus. His disease course has been worsening. Pertinent negatives for hypoglycemia include no dizziness or headaches. Pertinentnegatives for diabetes include no blurred vision, no chest pain, no weakness and no weight loss. He checks his blood sugar 2 - 3 times per week His sugars are running high He would like to get back on his old meds of Jardiance and Estuardosus He is currently taking metformin 1000 mg bid and and glimepiride 4 mg bid He has not been watching his diet as well as he should He had varicose vein surgery at in [place], and his leg pain has resolved He had to establish with a PCP with , and had been seeing Dr. Crandall He had a recent eye exam and it showed no abnormalities ALLERGIES Allergen Reactions Erythromycin Penicillins Current Outpatient Medications Medication Sig Dispense Refill glimepiride (AMARYL) 4 mg tablet TAKE 1 TABLET TWICE A DAY WITH MEALS 180 tablet 0 metFORMIN (GLUCOPHAGE) 500 mg tablet TAKE 2 TABLETS 2 TIMES DAILY 360 tablet 3 lisinopril (ZESTRIL) 5 mg tablet Take 1 tablet by mouth once daily. 90 tablet 3 atorvastatin (LIPITOR) 10 mg tablet Take 1 tablet by mouth once daily. BEFORE BEDTIME 90 tablet 3 omeprazole (PRILOSEC) 40 mg capsule Take 1 capsule by mouth once daily. 90 capsule 3 aspirin 81 mg cap Take 1 capsule by mouth twice daily. sucralfate (CARAFATE) 1 gram tablet Take 1 tablet by mouth four times daily. 360 tablet 3 clobetasol (TEMOVATE) 0.05 % cream APPLY 1 APPLICATION TO AFFECTED AREA ONCE DAILY 60 g 3 Comp.Stocking,Thigh,Long,Large misc Use as directed 1 Package 0 Blood-Glucose Meter, Drum-type (ACCU-CHEK COMPACT PLUS CARE) kit Use as directed. 1 Kit 0 Lancets (ACCU-CHEK MULTICLIX LANCET) lancets Test blood sugar(s) 4 times daily. Dx: 250.02. Insulin: No 1 Each 11 blood sugar diagnostic (ACCU-CHEK ALIA) test strip Test blood sugar(s) 4 times daily. Dx: Diabetesmellitus. Insulin: No 100 Strip 11 dapagliflozin propanediol (FARXIGA) 5 mg tablet Take 1 tablet by mouth daily with breakfast. (Patient not taking: Reported on 05/11/2024) 30 tablet 2 meclizine (ANTIVERT) 25 mg tab Take 1 tablet by mouth every 6 hours as needed (for dizziness). (Patient not taking: Reported on 05/11/2024) 30 tablet 0 No current facility-administered medications for this visit. 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 Type 2 Diabetes Mellitus Without Complication (Hcc) Diabetic Peripheral Neuropathy (Hcc) Incomplete Tear of Left Rotator Cuff Essential Hypertension Gerd (Gastroesophageal Reflux Disease) Thrombocytopenic (Hcc) Obesity, Class I, Bmi 30-34.9 Social History Tobacco Use Smoking status: Never Smokeless tobacco: Never Vaping Use Vaping status: Never Used Substance Use Topics Alcohol use: Yes Comment: 4 beers once a month Drug use: No Family History Problem Relation Age of Onset Lung Cancer Mother Stroke Father Lung Cancer Sister Lung Cancer Sister Emphysema Maternal Grandmother Reviewed past medical history, family history and surgeries. All medications and supplements were reviewed with the patient. Review of Systems Constitutional: Negative for chills, diaphoresis, fever, malaise/fatigue and weight loss. HENT: Negative for ear pain and hearing loss. Eyes: Negative for blurred vision and double vision. Respiratory: Negative for cough and shortness of breath. Cardiovascular: Negative for chest pain, palpitations and leg swelling. Gastrointestinal: Negative for constipation, diarrhea and heartburn. Genitourinary: Negative for dysuria and frequency. Musculoskeletal: Negative for back pain, falls, joint pain and myalgias. Skin: Negative for itching and rash. Neurological: Negative for dizziness, weakness and headaches. Endo/Heme/Allergies: Does not bruise/bleed easily. Psychiatric/Behavioral: Negative for depression and substance abuse. The patient does not have insomnia. Objective BP 114/60 Pulse 88 Temp 36.5 C (97.7 F) Resp 16 Ht 172.1 cm (5' 7.75) Wt 87.1 kg (192 lb) SpO2 99% BMI 29.41 kg/m Physical Exam Constitutional: Appearance: Normal appearance. HENT: Head: Normocephalic and atraumatic. Nose: Nose normal. Mouth/Throat: Mouth: Mucous membranes are moist. Dentition: Normal dentition. Eyes: General: Lids are normal. Extraocular Movements: Extraocular movements intact. Conjunctiva/sclera: Conjunctivae normal. Pupils: Pupils are equal, round, and reactive to light. Neck: Thyroid: No thyroid mass or thyromegaly. Vascular: No carotid bruit. Trachea: Phonation normal. Cardiovascular: Rate and Rhythm: Normal rate and regular rhythm. Heart sounds: Normal heart sounds. No murmur heard. No friction rub. No gallop. Pulmonary: Effort: Pulmonary effort is normal. Breath sounds: Normal breath sounds. No wheezing or rales. Abdominal: General: Bowel sounds are normal. There is no distension. Palpations: Abdomen is soft. There is no mass. Tenderness: There is no abdominal tenderness. Musculoskeletal: General: No swelling or tenderness. Normal range of motion. Cervical back: Normal range of motion and neck supple. No edema. Lymphadenopathy: Cervical: No cervical adenopathy. Skin: General: Skin is warm and dry. Findings: No erythema or rash. Nails: There is no clubbing. Neurological: Mental Status: He is alert and oriented to person, place, and time. Cranial Nerves: No cranial nerve deficit. Motor: Motor function is intact. Coordination: Coordination normal. Gait: Gait is intact. Psychiatric: Attention and Perception: Attention normal. Mood and Affect: Mood and affect normal. Speech: Speech normal. Behavior: Behavior normal. Behavior is cooperative. Thought Content: Thought content normal. Cognition and Memory: Cognition and memory normal. Judgment: Judgment normal. Feet:Shoes and socks removed, No deformities, ulcers, calluses, normal distal pulses, sensitive to 10 gm monofilament in dorsal feet b/l, plantar surface of left great toe, otherwise not sensitive tomonofilament, and vibratory perception normal Lab Results Component Value Date HBA1C 12.3 05/08/2024 HBA1C 9.1 02/10/2023 HBA1C 8.1 11/04/2022 HBA1C 10.5 09/04/2020 HBA1C 8.9 12/20/2019 HBA1C 7.4 02/23/2019 ASSESSMENT/PLAN: 1. Type 2 diabetes mellitus without complication, without long-term current use of insulin (HCC) - ICD9: 250.00, ICD10: E11.9 (primary diagnosis) Continue metformin and glimepiride, add jardiance and rybelsus - EMPAGLIFLOZIN 10 MG TABLET - RYBELSUS 3 MG TABLET - RYBELSUS 7 MG TABLET - GLIMEPIRIDE 4 MG TABLET 2. Essential hypertension - ICD9: 401.9, ICD10: I10 Continue lisinopril 3. Encounter for immunization - ICD9: V03.89, ICD10: Z23 - INFLUENZA VACCINE, AGE 6MO-64YR, TRIVALENT (AFLURIA, FLULAVAL, FLUVIRIN, FLUZONE) - IMADM PRQ ID SUBQ/IM NJXS 1 VACC Candida Soria DO [facility] Tele[facility] encounter Note * Telephone Encounter - Brittany Story MA - 02/08/2024 4:38 PM EDT Left message informing patient, phone number to reach the office was left for any questions or concerns. Brittany Story MA [facility]10-22-2024 Miscellaneous Notes* Telephone Encounter - Brittany Story MA - 02/08/2024 4:38 PM EDT Left message informing patient, phone number to reach the office was left for any questions or concerns. Brittany Story MA * Telephone Encounter - Candida Soria DO - 02/07/2024 2:10 PM EDT Please notify pt they are due for appt Candida Soria DO * Telephone Encounter - Marissa Galdamez MA - 02/07/2024 8:11 AM EDT pharmacy electronically requesting refills as follows: Last seen 02/16/23 . Last refill 02/16/23 . Requested Prescriptions Pending Prescriptions Disp Refills glimepiride (AMARYL) 4 mg tablet [Pharmacy Med Name: GLIMEPIRIDE TABS 4MG] 180 tablet 3 Sig: TAKE 1 TABLET TWICE A DAY WITH MEALS Please review and advise. Marissa Galdamez MA [facility] Telephone encounter Note * Telephone Encounter - Candida Soria DO - 02/07/2024 2:10 PM EDT Please notify pt they are due for appt Candida Soria DO [facility]10[facility]2024 Telephone encounter Note* Telephone Encounter - Marissa Galdamez MA - 02/07/2024 8:11 AM EDT pharmacy electronically requesting refills as follows: Last seen 02/16/23 . Last refill 02/16/23 . Requested Prescriptions Pending Prescriptions Disp Refills glimepiride (AMARYL) 4 mg tablet [Pharmacy Med Name: GLIMEPIRIDE TABS 4MG] 180 tablet 3 Sig: TAKE 1 TABLET TWICE A DAY WITH MEALS Please review and advise. Marissa Galdamez MA [facility]09-30-2024 History of Present illness Narrative* Luis Miguel Wakefield, PharmD - 01/17/2024 9:00 AM EDT Patient is sent at the request of Brittany Crandall DO for my opinion regarding Type 2 diabetes. My final recommendations will be communicated back to the requesting provider by way of shared medical record. Subjective Diabetes He has type 2 diabetes mellitus. Diabetic complications include peripheral neuropathy. Risk factorsfor coronary artery disease include diabetes mellitus, dyslipidemia, hypertension and male sex. Patient reports he had to stop GLP-1 d/t cost. In February, he is planning to switch to a lower deductible plan. May be able to consider GLP-1 after beginning of the year when new insurance takes effect. Patient reports anxiety with injections. Weight generally 205-211. Generally 80% adherent to diet and exercise goals/habits. 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 Past Medical History: He has no past medical history on file. Past Surgical History: He has a past surgical history that includes Vein Surgery (2015); Upper gastrointestinal endoscopy;and Shoulder surgery (Right, 2017). Social History: He reports that he has never smoked. He has never used smokeless tobacco. He reports that he does not currently use alcohol. He reports that he does not use drugs. Family History: Family History Problem Relation Name Age of Onset Other (covid 19) Mother No Known Problems Father Lung cancer Sister Other (smoker) Sister Lung cancer Sister Other (smoker) Sister No Known Problems Sister No Known Problems Brother Allergies: Erythromycin and Penicillins Current diet: 3-5 meals per day, if 5 he eats small portions Cut out soda pop, rice, and bread. Drinks lot so water Current exercise: active with work and [employer]. Long walks twice per week. Some power lifting during the week. The patient does not have a known family history of diabetes. Patient is using: glucometer The patient is currently checking the blood glucose 0-1 times per day. Hypoglycemia frequency: rare Hypoglycemia awareness: Yes Reported BG in the past week: 238 (1 hour post prandial); 219 mid day around 1 am (unclear how foodeffected this reported BG) Adverse Effects: denies Objective Last Recorded Vitals: BP Readings from Last 6 Encounters: 01/12/24 134/84 12/28/23 140/82 12/15/23 124/78 11/30/23 (!) 155/92 09/29/23 127/78 09/02/23 (!) 149/94 Wt Readings from Last 6 Encounters: 01/12/24 90 kg (198 lb 8 oz) 12/28/23 95.7 kg (211 lb) 12/15/23 94.4 kg (208 lb 3.2 oz) 09/29/23 96.3 kg (212 lb 3.2 oz) 09/02/23 97.1 kg (214 lb) 07/19/23 100 kg (221 lb) Diabetes Pharmacotherapy: Metformin 500 mg 2 tablets twice daily Glimepiride 4 mg twice daily Primary/Secondary Prevention - Statin? Yes - REGULO-I/ARB? Yes - Aspirin? Yes Pertinent PMH Review: - PMH of Pancreatitis: No - PMH of Retinopathy: No - PMH of Urinary Tract Infections: No - PMH of MTC: No Lab Review Lab Results Component Value Date CALCIUM 9.4 12/27/2023 CO2 29 12/27/2023 CL 100 12/27/2023 CREATININE 0.91 12/27/2023 GLUCOSE 285 (H) 12/27/2023 K 5.0 12/27/2023 NA 137 12/27/2023 BUN 13 12/27/2023 ANIONGAP 13 12/27/2023 No results found for: TRIG, CHOL, LDLCALC, HDL Lab Results Component Value Date HGBA1C 10.3 (H) 12/27/2023 HGBA1C 9.1 (H) 02/10/2023 HGBA1C 8.1 (H) 11/04/2022 No components found for: UACR The ASCVD Risk score (Marisa FENTON, et al., 2019) failed to calculate for the following reasons: Cannot find a previous HDL lab Cannot find a previous total cholesterol lab Health Maintenance: Foot Exam: reviewed yearly, sometimes twice yearly by PCP Eye Exam: 11/2023, goes yearly Urine Albumin: lab unavailable Influenza Immunization: 02/16/23 Pneumonia Immunization: 03/25/2015 Drug Interactions: No significant drug interactions identified at this time Cost of alternative therapy: Nebula $911.76/30 day supply Patient currently has a deductible >$5000 to pay off Patient reported yearly income for him and his spouse, which may allow him to qualify for patient assistance with a insulation 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 Currently, brand named medications are cost prohibitive for the patient d/t a high deductible. Will avoid use of TZD as the patient has a history of lower extremity edema from a vascular issues. Patient maximized on current therapy. Unable to use insulin at this time as patient does not tolerate self injections well. Therefore, will try to transition patient to a different DUENAS that is extended release to see if this provides any additional benefit. Additionally, will investigate if the patient may qualify for any insulation worker furnace installer patient assistance programs and discuss at follow-up. Initiate: glipizide XL 5 mg once daily for 7 days, if BG remains >130 mg/dL in AM, increase to 2tablets every morning Continue: metformin 500 mg 2 tablets twice daily Discontinue: glimepiride 4 mg twice daily Education Provided to Patient: MOA and side effects for glipizide, additionally educated on appropriate times for BG checking as the patient was checking within 2 hours post prandial. Follow-up: 02/03/24 at 9 am PCP Follow-Up: not scheduled at this time, most recent visit 12/28/23 Continue all meds under the continuation of care with the referring provider and clinical pharmacy team. documented in this [facility] Work Phone: 1(981) 577-896909-25-2024 History of Present illness Narrative* Lei Fuentes MD - 01/12/2024 3:00 PM EDT Images from the original note were not included. Patient presented for SCLEROTHERAPY legs treated: left prep agent: ETOH locations treated: distal ankle veins treated: reticular and distal calf gsf sclerosant used: POLIDOCANOL1% volume sclerosant 4cc foam; 2cc liquid Echosclerotherapy: yes TREATED VEIN DIAMETER: distal ankle/calf GSV and associated tributaries Physical Exam Musculoskeletal: Legs: at completion of procedure, treated areas were padded with gauze/tape and then compressive regulo wraps were applied up to b/l thigh. i was present for entire procedure, no untoward events noted. provided patient with instruction for postop care and 1-2 week follow up to evaluate for the need for microthrombectomy. NOTABLE FINDINGS (CLINICAL OR ULTRASOUND): I looked once again in the right groin. He does have some room for possible foam sclerotherapy/Varithena. And then we can do phlebectomy. Unfortunately he is not covered at all for any kind of medical sclerotherapy. I think I would defer right leg treatment until he could get some insurance coverage. We had good coverage on the left leg which was treated today and this will be his last session on the that side. Lei Fuentes MD, MHS, RPVI Agricultural Equipment Design Engineer, [employer] Director, Center for Comprehensive Venous Care, [facility] Co-Director, Vascular Laboratories, [facility] & [facility] Division of Vascular Surgery and Endovascular Therapy [facility] documented in this [facility] Work Phone: [phone] 593-578209-10-2024 History of Present illness Narrative* Brittany Crandall, - 12/28/2023 3:00 PM EDT Subjective Patient ID: Forest Luna is a 58 y.o. male who presents for Establish Care. HPI He had been seeing Vonda Ladd, and has surgery by Dr Fuentes He had partial vein stripping and also sclerotherapy in his left leg by Dr fuentes He is pleased with his results Has had lifelong varicose vein and has had 17 surgieries on his legs Type 2 dm dx in 2011 He was going to [facility] He took rybelsus and he was down to 195 lbs He took Trulicity prior to that and he had developed severe anxiety about the needle at the second month He had A1c Feb 08 was 9.1 and recent from 12/23/23 was 10.3 Aic was 8 on rybelsus from 2021 He checks his sugars once a week He sees eye doctor once yearly No history of retinopathy In 2009 he had SVT and had a trial of an EPS that was not successful He has never had problem since then He takes 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 No children Review of Systems HENT: Negative for hearing loss and tinnitus. Respiratory: Negative for cough. Cardiovascular: Positive for leg swelling. Negative for chest pain and palpitations. Gastrointestinal: Negative for constipation and diarrhea. Genitourinary: Denies ED. Current Outpatient Medications: ALPRAZolam (Xanax) 0.5 mg tablet, Take 1 tablet (0.5 mg) by mouth 1 time if needed for anxiety (PLEASE BRING TO PROCEDURE TO TAKE ON SITE) for up to 1 dose., Disp: 2 tablet, Rfl: 0 atorvastatin (Lipitor) 10 mg tablet, Take 1 tablet (10 mg) by mouth once daily., Disp: , Rfl: glimepiride (Amaryl) 4 mg tablet, Take 1 tablet (4 mg) by mouth 2 times a day., Disp: , Rfl: lisinopril 5 mg tablet, Take 1 tablet (5 mg) by mouth once daily., Disp: , Rfl: metFORMIN (Glucophage) 500 mg tablet, Take 2 tablets (1,000 mg) by mouth 2 times daily (morning andlate afternoon)., Disp: , Rfl: omeprazole (PriLOSEC) [address] capsule, Take 1 capsule (40 mg) by mouth once daily in the morning. Take before meals., Disp: , Rfl: Objective BP 144/78 Pulse 92 Resp 16 Ht 1.753 m (5' 9) Wt 95.7 kg (211 lb) BMI 31.16 kg/m Physical Exam Constitutional: Appearance: Normal appearance. HENT: Right Ear: Tympanic membrane and ear canal normal. Left Ear: Tympanic membrane and external ear normal. Mouth/Throat: Mouth: Mucous membranes are moist. Pharynx: Oropharynx is clear. Eyes: Conjunctiva/sclera: Conjunctivae normal. Pupils: Pupils are equal, round, and reactive to light. Cardiovascular: Rate and Rhythm: Normal rate and regular rhythm. Heart sounds: Normal heart sounds. Pulmonary: Effort: Pulmonary effort is normal. Breath sounds: Normal breath sounds. Abdominal: General: Bowel sounds are normal. There is no distension. Palpations: Abdomen is soft. There is no mass. Tenderness: There is no abdominal tenderness. Lymphadenopathy: Cervical: No cervical adenopathy. Skin: General: Skin is warm and dry. Neurological: General: No focal deficit present. Assessment/Plan Problem List Items Addressed This Visit Essential hypertension remain on lisinopril 5 mg GERD (gastroesophageal reflux disease) remain on omepraxole 40 daily Peripheral venous insufficiency he has had several surgeries Type 2 diabetes mellitus (Multi) - remain on glimepiride 4 mg twice a day , and metformin 1000 mg twice a day. Relevant Orders Follow Up In [facility] - Pharmacy Creatinine, Urine Random Albumin-Creatinine Ratio, Urine Random Comprehensive Metabolic Panel Lipid Panel TSH with reflex to Free T4 if abnormal Mixed hyperlipidemia remain on atorvastaitn 10 and also aspirin 81 Other Visit Diagnoses Medication monitoring encounter Relevant Orders CBC documented in this [facility] Work Phone: [phone]) 278-252809-10-2024 Instructions* Patient Instructions* Brittany Crandall DO - 12/28/2023 3:00 PM EDT It was nice to meet you today. We will see what our pharmacist suggests as far as other meds or changes to your regimen, so we canget you better control. See me again in mid March for 30 min visit. Get blood and urine test after fasting within a week of your next visit. documented in this [facility] Work Phone: [phone]) 315-999008-28-2024 History of Present illness Narrative* Lei Fuentes MD - 12/15/2023 3:00 PM EDT Images from the original note were not included. Patient presented for SCLEROTHERAPY legs treated: left prep agent: ETOH locations treated: below knee veins treated: gsv calf tributaries sclerosant used: POLIDOCANOL1% volume sclerosant 10cc foam (1:4 tessari) Echosclerotherapy: yes TREATED VEIN DIAMETER: >3mm Physical Exam Musculoskeletal: Legs: at completion of procedure, treated areas were padded with gauze/tape and then compressive regulo wraps were applied up to b/l thigh. i was present for entire procedure, no untoward events noted. provided patient with instruction for postop care and 1-2 week follow up to evaluate for the need for microthrombectomy. NOTABLE FINDINGS (CLINICAL OR ULTRASOUND): PERFORATORS MARKED WITH US - LOOKED GOOD AT THE END; WILL NEED ONE MORE SESSION TO COMPLETE THERAPY ON LEFT CALF/LEG. RIGHT LEG SCHEDULED FOR 01/04 AT [facility]. Lei Fuentes MD, MHS, RPVI Agricultural Equipment Design Engineer, [employer] [facility] [facility] [employer] Director, Center for Comprehensive Venous Care, [facility] Co-Director, Vascular Laboratories, [facility] Division of Vascular Surgery and Endovascular Therapy [facility] documented in this encounterUniversity [facility] Work Phone: [phone] History of Present illness Narrative* Lei Fuentes MD - 11/30/2023 10:00 AM EDT Images from the original note were not included. Forest Luna was brought into the vascular lab procedural room. After timeout and verification of name, , mrn and allergies, the procedure was initiated. Verification was additionally obtained by reviewing pre-procedural venous insufficiency studies. The left leg was prepped and draped in standard fashion with chlorhexadine. He RECEIVED 5MG PILL OFXANAX PRIOR TO STARTING THE CASE AND REQUIRED A 2ND DOSE IN MIDDLE OF THE CASE WITH A SIP OF WATER WHICH WAS WELL TOLERATED. On table Duplex ultrasound was used to map out the insufficient saphenous vein, rule out any new changes at the groin level and access was determined. The Anterior GSV appeared to join the deep system in the SFJ. Ultrasound guidance was again used to localize the access site. This was at the mid thigh level. TUMESCENT ANESTHESIA was injected as a local anesthetic in the subcutaneous tissues at the target location. Using ultrasound guidance, access was gained at with the 19 gauge thin walled access needle and followed by introduction of a short guidewire, location confirmed with ultrasound. a micropuncture was used first to facilitate access. A small, 2 mm incision wasmade at the access site to allow for introduction and placement of the 7 Fr x7cm introducer/dilator. The dilator and guidewire were removed. The 3/60 cm RFA probe device was then inserted up along the Anterior GSV to the SFJ level under US. CATHETER WAS PLACED ~2.5CM FROM THE SFJ. We then proceededwith tumescent anesthesia for a total of 250 cc of volume under US guidance. TIP OF CATHETER WAS RECHECKED AND CONFIRMED TO NOT HAVE MOVED. RFA was performed twice cephalad and 8 cycles were performed for a total of 2:40 MINUTES. TREATMENT LENGTH: 26cm PHLEBECTOMY After the ablation, we proceeded to do serial stab phlebectomy making small <1cm incision with an 11 blade and removing the veins with hemostats and hook combination. Veins were removed in segments and any residual branches were otherwise tied off with 3-0 silk ties. After all segments were removed, the wounds were closed with mastisol and steri strips were applied. A total of 10-20 stab phlebectomies were performed. Following this, the sheath was removed and hemostasis was achieved with manual compression. Ultrasound confirmed complete coaptation and closure of the treated segments of the GSV, and the absence ofany DVT as well. Dressings with regulo wrap were applied at the end. TOTAL OF 475CC OF TUMESCENT WAS USED FOR BOTH PROCEDURES. The drapes were removed and the patient cleaned and prepared for discharge. Post op ultrasound check is scheduled for ~7 days and the patient was given written post-op instructions. NOTABLE FINDINGS: I checked the right leg with US - his SFJ is very close and short with many neovascular changes and a long segment of VV that can be addressed together with open division and ligation of SFJ with 10-[facility]. Physical Exam Musculoskeletal: Legs: Lei Fuentes MD, MHS, RPVI Agricultural Equipment Design Engineer, [employer] [facility] [employer] Director, Center for Comprehensive Venous Care, [facility] Co-Director, Vascular Laboratories, [facility] Division of Vascular Surgery and Endovascular Therapy [facility] documented in this [facility] Work Phone: [phone]) [phone] Instructions* Patient Instructions* Lei Fuentes MD - 11/30/2023 10:00 AM EDT Images from the original note were not included. Today you underwent: LEFT AGSV RFA AND 10-20 STAB PHLEBECTOMY Your follow ultrasound is on: 12/08/2023, 9 am, at [facility] Your Vein Center follow up is on: TBD SPECIAL INSTRUCTIONS: PLEASE START ELIQUIS 5MG TWICE DAILY TONIGHT FOR TOTAL OF TWO WEEKS. No Driving for 24 hours A responsible adult over 18 years of age should provide supervision for 12-24 hours Dressing: An regluo wrap has been placed on your leg. If it rolls down, reapply. If you are having trouble with the wrap, please apply your compression stockings. Under this wrap is white rolled gauze with gauze padding. Under the padding are Steri-Strips or skin glue. Do not remove these as they usually fall off on their own. Keep the dressing on, all the time, for 48 hours or until you present to y our ultrasound appointment. After 48 hours, remove, shower (see below), and apply your compression stockings. Wear knee / thigh high compression stockings 24-hours a day for the first week after wraps are removed. Bathing: Sponge bath during first 48 hours. You can shower after you remove the regulo wrap with mild soap and water. Pat dry. Do not scrub the incision sites or remove the Steri-Strips/skin glue. No swimming, tub soaking, or hot tub use for 2 weeks. Diet: Resume previous diet. No alcohol for 24 hours if sedation was used. Activity: Resume your normal activities. Avoid strenuous exercise (like weightlifting and squatting) for a few days after the procedure. Please walk a minimum of 1 hour a day, which may be divided upinto 10-20 minute intervals. We encourage you to walk as much as possible. Walking will reduce yourrisk of blood clots. Keep legs elevated whenever possible. Avoid standing still or sitting with legs down whenever possible. Travel: Do not ride in a car for more than 3 hours, or take any air travel for 30 days after your surgery. Medications: Resume all medications What to expect: Minimal staining of your dressing for the first 48 hours. Mild to moderate discomfort. This can be treated with leg elevation and/or acetaminophen (Tylenol) or ibuprofen (Advil/Motrin). You may also use an ice pack directly over the wound to reduce swelling, bruising, and pain over the first few days. Bruising is common and may take a couple of weeks to resolve. Hard lumpy areas. If you experience any of the follow problems, please call [phone]. Excessive redness or warmth of the leg or swelling of the leg. Drainage from incision site or an expanding bulge/hardness near those sites. Temperature greater than 101, with chills Shortness of breath, chest pain, rapid heart rate - Please seek immediate medical attention In the event of an emergency, please call 911. ROUTINE QUESTIONS THAT CAN BE ANSWERED WITHIN 48 HOURS CAN BE SENT TO: Lei Fuentes MD, MHS, RPVI Agricultural Equipment Design Engineer, [employer] [facility] [employer] Director, Center for Comprehensive Venous Care, [facility] Co-Director, Vascular Laboratories, [facility] Division of Vascular Surgery and Endovascular Therapy [facility] documented in this encounterUniversity [facility] Work Phone: [phone] History of Present illness Narrative* Lei Fuentes MD - 09/29/2023 9:00 AM EDT Images from the original note were not included. NPV REASON: chronic venous insufficiency CURRENT ENCOUNTER: Forest Luna is 58 y.o. male here for evaluation of his chronic venous insufficiency. Symptoms: pain, swelling, heaviness; worsening as he ages. Cramps overnight. Worse at end of the day, pain is described as a sting/ ache. HAS been on eliquis 5mg bid for about 6-8 wks now as he was told he was having recurrent phlebitis in the left below knee calf area - has most significant fibrosis and LDS changes in that side. States has not made him feel better. Has had varicose veins and phlebitis starting in his 20's. Two vein strippings on the right leg with SFJ ligation, Three vein strippins on the left leg with SFJ ligation, numerous sclerotherapy in both legs. Interventions took place largely from 33 to 40 years old, most recent stripping 5 years ago. Thinks he has had 20 episodes of phlebitis, 4 DVTs in history (last one 15-18 years ago) -- patientopted against lifelong AC unless he had one more DVT. - 1 DVT was associated with travel - 1 DVT occurred a month after a venous procedure - 2 DVTs were roughly 3 months after a venous procedure - Had rotator cuff surgery, and a wrist surgery with no DVTs after those Has had hypercoagulable testing performed 20 years ago, nothing was found at that time. Eliquis started 10 weeks ago for phlebitis, patients reports this has not made a discernible difference in his symptoms. Elevates legs at home, uses compression stockings daily 20-30 mmHg Has had venous ulcerations (5-6 years ago), these improved and healed after the last round of bilateral vein stripping. VCSS/CEAP RIGHT LEG C1 Telangiectasias or reticular veins, C2 Varicose Veins, C3 Edema, C4a Pigmentation or Eczema, C4b Lipodermatosclerosis or atrophie annette, and C4c Beatty Phlebectatica RIGHT LEG PAIN 2, VARICOSE VEINS 3, VENOUS EDEMA 1, SKIN PIGMENTATION 1, INFLAMMATION 2, INDURATION1, and USE OF COMPRESSION 3 RIGHT LEG CEAP: C4 RIGHT LEG VCSS SCORE: 13 LEFT LEG C1 Telangiectasias or reticular veins, C2r Recurrent Varicose Veins, C3 Edema, C4a Pigmentation or Eczema, C4b Lipodermatosclerosis or atrophie annette, C4c Beatty Phlebectatica, and C5 Healed ulcer LEFT LEG PAIN 2, VARICOSE VEINS 3, VENOUS EDEMA 2, SKIN PIGMENTATION 2, INFLAMMATION 1, INDURATION 1, and USE OF COMPRESSION 3 LEFT LEG CEAP: C5 LEFT LEG VCSS SCORE: 14 BIANCHI RIGHT LEG PAIN: 2, CRAMPS:1, HEAVINESS: 1, PARESTHESIAS: 1, PRURITUS: 1, PRETIBIAL EDEMA: 1, HYPERPIGMENTATION: 1, REDNESS: 1, VENOUS ECTASIA: 1, PAIN ON CALF COMPRESSION: 0, and ULCER: No RIGHT LEG Vilalta total score: 10 Right leg PTS severeity: moderate PTS LEFT LEG PAIN: 2, CRAMPS:1, HEAVINESS: 2, PARESTHESIAS: 1, PRURITUS: 1, PRETIBIAL EDEMA: 1, HYPERPIGMENTATION: 2, REDNESS: 1, VENOUS ECTASIA: 2, PAIN ON CALF COMPRESSION: 0, and ULCER: No LEFT LEG Vilalta total score: 12 Left leg PTS severity: Moderate PTS PastMedHX: DM2, HTN, GERD Meds: Current Outpatient Medications: apixaban (Eliquis) 5 mg tablet, Take 1 tablet (5 mg) by mouth 2 times a day., Disp: 60 tablet, Rfl:11 atorvastatin (Lipitor) 10 mg tablet, Take 1 tablet (10 mg) by mouth once daily., Disp: , Rfl: glimepiride (Amaryl) 4 mg tablet, Take 1 tablet (4 mg) by mouth 2 times a day., Disp: , Rfl: lisinopril 5 mg tablet, Take 1 tablet (5 mg) by mouth once daily., Disp: , Rfl: metFORMIN (Glucophage) 500 mg tablet, Take 2 tablets (1,000 mg) by mouth 2 times daily (morning andlate afternoon)., Disp: , Rfl: omeprazole (PriLOSEC) [address] capsule, Take 1 capsule (40 mg) by mouth once daily in the morning. Take before meals., Disp: , Rfl: Allergies: Allergies Allergen Reactions Erythromycin Anaphylaxis Penicillins Anaphylaxis ROS: Review of Systems OTHERWISE UNREMARKABLE Objective: Vitals: Vitals: 09/29/23 0910 BP: 127/78 Pulse: SpO2: Exam: Physical Exam Musculoskeletal: Legs: TO DEFINE ANATOMY BETTER, I DID POCUS TO VERIFY PLAN BELOW. Labs: No results found for: WBC, HGB, HCT, MCV, PLT Lab Results Component Value Date CREATININE 0.91 08/19/2023 Imaging: Venous reflux study performed 09/26: notable reflux in BL GSVs, LLE with AAGSV with reflux, reflux noted in L SSV CT abd/pelvis performed 08/24: No significant compression of left CIV Assessment & Plan: Forest Luna is 58 y.o. male with history of significant venous disease who is presents with bilateral chronic venous insufficiency. Multiple procedures in the past, has incisions and patient-reported history consistent with SFJ, however the SFJ bilaterally remain open. Compliant with compression; recurrent phlebitis with more severe disease on left leg; pain, works standing and very active. VCSS/CEAP RIGHT LEG CEAP: C4c RIGHT LEG VCSS SCORE: 13 LEFT LEG CEAP: C5 LEFT LEG VCSS SCORE: 14 BIANCHI RIGHT LEG Vilalta total score: 10 Right leg PTS severeity: moderate PTS LEFT LEG Vilalta total score: 12 Left leg PTS severity: Moderate PTS GOOD CANDIDATE FOR VENOUS PROCEDURES/SURGERY PLAN: Left leg: left AAGSV RFA with phlebectomy +/- varithena x2-3; left SSV venaseal / rfa with varithena Right leg: varithena/phlebectomy in thigh; varithena x2 in calf; possible division and ligation down the road if the groin part does not close. Increase compression to 30-40mmHg Can come off Eliquis for now as he does not believe it has helped his phlebitis, plan for patient to hold onto his remaining 2 weeks to use charlie procedurally for mitigation of DVT risk. WILL START ELIQUIS AGAIN AROUND TIME OF INTERVENTIONS Pablo Reynoso MD Vascular Surgery Fellow Forest Luna seen and examined with above student/resident/fellow. Sol portions of history and physical exam personally reviewed and verified. I reviewed most updated imaging and objective data related to this patient's CLINIC VISIT. Agree with assessment and plan. Lei Fuentes MD, CANDACE, CEFERINO Agricultural Equipment Design Engineer, [employer] [facility] [employer] Director, Center for Comprehensive Venous Care, [facility] Co-Director, Vascular Laboratories, [facility] Division of Vascular Surgery and Endovascular Therapy [facility] documented in this [facility] Work Phone: [phone]) 298-887506-12-2024 Instructions* Patient Instructions* Lei Fuentes MD - 09/29/2023 9:00 AM EDT Images from the original note were not included. It was a pleasure taking care of you today and appreciate your seeing us at our [facility] Vascular - [facility] Comprehensive Venous [facility] Based on your leg symptoms, venous insufficiency studies and potential for clinical improvement, I am recommeding the followin) I would recommend the following: Left leg: left AAGSV RFA with phlebectomy +/- varithena x2-3; left SSV venaseal / rfa with varithena Right leg: varithena/phlebectomy in thigh; varithan x2 in calf; possible division and ligation downthe road if the groin part does not close. Please increase compression to 30-40mmHg 2) Please bring your compression socks to the day of the procedure. 3) We will proceed with insurance approval and call you once we can proceed with scheduling your procedures. Please call the office with any questions at [phone]. For Vein Center specific questions, particularly insurance related questions of booking your [place] intervention, you can call [phone] or email at You can speak directly to my Vein Center Nurse Coordinator, nAgela Hi, for specific questions. Lei Fuentes MD, CANDACE, CEFERINO Agricultural Equipment Design Engineer, [employer] [facility] [employer] Director, Center for Comprehensive Venous Care, [facility] Co-Director, Vascular Laboratories, [facility] Division of Vascular Surgery and Endovascular Therapy [facility] documented in this [facility] Work Phone: [phone] 801-168205-16-2024 History of Present illness Narrative* Nell Blanca, RESIDENT ENGINEER-THREADER - 09/02/2023 9:00 AM EDT Forest Luna is a 58 y.o. male History Of Present Illness Mr Luna is a 58 year old male with T2DM, significant varicose veins, H/O multiple venous proceduresand surgeries, multiple DVTs, and multiple episodes of phlebitis, here as a for follow up for worsening varicosities. Patient states he has had over 20 clots in his legs. He has never been evaluated for a bleeding or clotting disorder. He has had multiple venous procedures over the years, howeverhis legs are becoming more edematous with venous stasis ulcers and color changes. Prior to this appt, he underwent a CTA to assess for left iliac vein occlusion. He continues to have two areas of phlebitis that is not improving with the eliquis Social HX Social History Tobacco Use Smoking status: Never Smokeless tobacco: Never Family HX No family history on file. Review Of Systems +pain, edema, itching and discoloration to the bilateral lower legs with worsening varicose veins. + hard red and painful lump to the left medial leg Left leg is larger than the right Allergies Allergies Allergen Reactions Erythromycin Anaphylaxis Penicillins Anaphylaxis Vitals There were no vitals taken for this visit. Physical Exam +thrombophlebitis with chord to the left medial lower leg + bilateral varicose veins Superficial small ulcers to the bilateral medial feet + spider veins to the bilateral feet + hemosiderin staining to the left ankle area Current/Home Meds Current Outpatient Medications: apixaban (Eliquis) 5 mg tablet, Take 1 tablet (5 mg) by mouth 2 times a day., Disp: 60 tablet, Rfl:11 aspirin 81 mg EC tablet, Take 1 tablet (81 mg) by mouth 2 times a day., Disp: , Rfl: atorvastatin (Lipitor) 10 mg tablet, Take 1 tablet (10 mg) by mouth once daily., Disp: , Rfl: glimepiride (Amaryl) 4 mg tablet, Take 1 tablet (4 mg) by mouth 2 times a day., Disp: , Rfl: lisinopril 5 mg tablet, Take 1 tablet (5 mg) by mouth once daily., Disp: , Rfl: metFORMIN (Glucophage) 500 mg tablet, Take 2 tablets (1,000 mg) by mouth 2 times a day with meals.,Disp: , Rfl: omeprazole (PriLOSEC) [address] capsule, Take 1 capsule (40 mg) by mouth once daily in the morning. Take before meals., Disp: , Rfl: Cardiac Service Results: 1. The CTA demonstrates minimal atherosclerotic change with widely patent bilateral aorto iliac inflow and femoropopliteal outflow. A three-vessel runoff is identified bilaterally. 2. This is an arterial directed study with limited evaluation of the venous structures. Prominent varicose veins including dilated greater saphenous veins and tributaries extending down the extent of the legs with skin thickening and soft tissue swelling and calcification involving the medial greater than lateral lower leg. These findings are slightly more prominent on the right than left. For further evaluation of the venous structures of the legs, ultrasound is the study of choice. 3. No acute process in the abdomen or pelvis. 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 No evidence of May Thurner, however he does have significant venous issues with Prominent varicose veins including dilated greater saphenous veins and tributaries extending down the extent of the legs with skin thickening and soft tissue swelling and calcification involving the medial greater than lateral lower leg. These findings are slightly more prominent on the right than left. For further evaluation of the venous structures of the legs, ultrasound is the study of choice. Will place a consult to Dr Fuentes for consideration of a venous ablation or a stab phlebectomy. He is to continue eliquis for an additional month for his phlebitis. He is to continue compression, elevation and exercises. He will follow up with me at the direction of Dr Fuentes. documented in this [facility] Work Phone: [phone] History of Present illness Narrative* MAJO Persaud - 07/19/2023 9:30 AM EDT Forest Luna is a 58 y.o. male History Of Present Illness Mr Luna is a 58 year old male with T2DM, varicose veins, H/O multiple venous procedures and surgeries, multiple DVTs, and multiple episodes of phlebitis, here as a new consult for worsening varicosities. Patient states he has had over 20 clots in his legs. He has never been evaluated for a bleeding or clotting disorder. He has had multiple venous procedures over the years, however his legs are becoming more edematous with venous stasis ulcers and color changes. Today, he has a very large areaof phlebitis to the medial left lower leg with redness, pain and tenderness. He states he is takingseveral aspirins a day to relieve the pain to the left lower leg Social HX Social History Tobacco Use Smoking status: Never Smokeless tobacco: Never Family HX No family history on file. Review Of Systems +pain, edema, itching and discoloration to the bilateral lower legs with worsening varicose veins. + hard red and painful lump to the left medial leg Left leg is larger than the right Allergies Allergies Allergen Reactions Erythromycin Anaphylaxis Penicillins Anaphylaxis Vitals Visit Vitals BP 146/84 (BP Location: Right arm, Patient Position: Sitting) Pulse 98 Physical Exam +thrombophlebitis with chord to the left medial lower leg + bilateral varicose veins Superficial small ulcers to the bilateral medial feet + spider veins to the bilateral feet + hemosiderin staining to the left ankle area Current/Home Meds Current Outpatient Medications: aspirin 81 mg EC tablet, Take 1 tablet (81 mg) by mouth 2 times a day., Disp: , Rfl: atorvastatin (Lipitor) 10 mg tablet, Take 1 tablet (10 mg) by mouth once daily., Disp: , Rfl: glimepiride (Amaryl) 4 mg tablet, Take 1 tablet (4 mg) by mouth 2 times a day., Disp: , Rfl: lisinopril 5 mg tablet, Take 1 tablet (5 mg) by mouth once daily., Disp: , Rfl: metFORMIN (Glucophage) 500 mg tablet, Take 2 tablets (1,000 mg) by mouth 2 times a day with meals.,Disp: , Rfl: omeprazole (PriLOSEC) [address] capsule, Take 1 capsule (40 mg) by mouth once daily in the morning. Take before meals., Disp: , Rfl: apixaban (Eliquis) 5 mg tablet, Take 1 tablet (5 mg) by mouth 2 times a day., Disp: 60 tablet, Rfl:11 Assessment/Plan VARICOSE VEINS WITH THROMBOPHLEBITIS OF THE LEFT LOWER MEDIAL LEG: +thrombophlebitis with chord to the left medial lower leg + bilateral varicose veins Superficial small ulcers to the bilateral medial feet + spider veins to the bilateral feet + hemosiderin staining to the left ankle area Patient is being seen for Varicose veins today. The patient is complaining of pain, itching and discoloration of his lower extremities I would like the patient to under go a venous duplex with reflux scan I would like the patient to elevate his/her legs for 20-30 minutes 2-3 times a day Continue compression stockings (20-30 mmHG) to be applied in the morning and removed in the evening. I have instructed the patient to exercise for 150 mins a week There is a very large hard area of phlebitis to the left medial lower leg. Aspirin has not improvedhis symptoms. Will place an order for eliquis 5mg BID for one month. I have a strong suspicion for May Thurner syndrome. Will consider a CTA of his abdomen, pelvis withrunoffs in the future. I would also like him to under go coagulation panel to assess for Factor V. Follow up in one month or sooner for any questions, concerns or complaints. [facility] Work Phone: [phone] Miscellaneous Notes* Telephone Encounter - Ruth Jacobs - 07/05/2023 11:33 AM EDT Check on referral for Dr. Simon documented [facility] Nurse Note* Marissa Galdamez MA - 02/16/2023 11:48 AM EDT Immunizations were given as ordered. Vaccination information sheet(s) given. Marissa Galdamez MA documented in this encounterK[facility]-2023 Miscellaneous Notes* Telephone Encounter - Elizabeth Connell MA - 02/16/2023 8:26 AM EDT pharm requesting refills: Last office visit today . Last refill 11/10/22. Requested Prescriptions Pending Prescriptions Disp Refills glimepiride (AMARYL) 4 mg tablet [Pharmacy Med Name: GLIMEPIRIDE TABS 4MG] 180 tablet 3 Sig: TAKE 1 TABLET TWICE A DAY WITH MEALS Please review and advise. Elizabeth Connell MA documented in this encounterK[facility]10-31-2023 History of Present illness Narrative* Emmanuel, Candida Steele DO - 02/16/2023 8:19 AM EDT Subjective The history is provided by the patient. Diabetes He presents for his follow-up diabetic visit. He has type 2 diabetes mellitus. Pertinent negatives for hypoglycemia include no dizziness or headaches. Pertinent negatives for diabetes include no blurred vision, no chest pain, no weakness and no weight loss. He was on Rebelsus in the past, his insurance no longer covered it, so it was replaced with glimepiride On Rebelsus, his weight and blood sugars were down He has taken trulicity in the past, does not want to give himself shots He was seen here for vertigo about one month ago. He did the Eppley maneuver which is working well He is physically active daily He is not doing as much cardio as he would like He is trying to follow a diabetic diet ALLERGIES Allergen Reactions Erythromycin Penicillins Current Outpatient Medications Medication Sig Dispense Refill aspirin 81 mg cap Take 1 capsule by mouth twice daily. meclizine (ANTIVERT) 25 mg tab Take 1 tablet by mouth every 6 hours as needed (for dizziness). 30 tablet 0 glimepiride (AMARYL) 4 mg tablet Take 1 tablet by mouth twice daily with meals. 180 tablet 0 metFORMIN (GLUCOPHAGE) 500 mg tablet TAKE 2 TABLETS 2 TIMES DAILY 360 tablet 3 sucralfate (CARAFATE) 1 gram tablet Take 1 tablet by mouth four times daily. 360 tablet 3 lisinopril (ZESTRIL) 5 mg tablet Take 1 tablet by mouth once daily. 90 tablet 3 omeprazole (PRILOSEC) 40 mg capsule Take 1 capsule by mouth once daily. 90 capsule 3 atorvastatin (LIPITOR) 10 mg tablet Take 1 tablet by mouth once daily. BEFORE BEDTIME 90 tablet 3 clobetasol (TEMOVATE) 0.05 % cream APPLY 1 APPLICATION TO AFFECTED AREA ONCE DAILY 60 g 3 Comp.Stocking,Thigh,Long,Large misc Use as directed 1 Package 0 Blood-Glucose Meter, Drum-type (ACCU-CHEK COMPACT PLUS CARE) kit Use as directed. 1 Kit 0 Lancets (ACCU-CHEK MULTICLIX LANCET) lancets Test blood sugar(s) 4 times daily. Dx: 250.02. Insulin: No 1 Each 11 blood sugar diagnostic (ACCU-CHEK ALIA) test strip Test blood sugar(s) 4 times daily. Dx: Diabetesmellitus. Insulin: No 100 Strip 11 No current facility-administered medications for this visit. 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 Type 2 Diabetes Mellitus Without Complication (Hcc) Diabetic Peripheral Neuropathy (Hcc) Incomplete Tear of Left Rotator Cuff Essential Hypertension Gerd (Gastroesophageal Reflux Disease) Thrombocytopenic (Hcc) Obesity, Class I, Bmi 30-34.9 Social History Tobacco Use Smoking status: Never Smokeless tobacco: Never Substance Use Topics Alcohol use: Yes Comment: 4 beers once a month Drug use: No Family History Problem Relation Age of Onset Lung Cancer Mother Stroke Father Lung Cancer Sister Lung Cancer Sister Emphysema Maternal Grandmother Reviewed past medical history, family history and surgeries. All medications and supplements were reviewed with the patient. Review of Systems Constitutional: Negative for chills, diaphoresis, fever, malaise/fatigue and weight loss. HENT: Negative for ear pain and hearing loss. Eyes: Negative for blurred vision and double vision. Respiratory: Negative for cough and shortness of breath. Cardiovascular: Negative for chest pain, palpitations and leg swelling. Gastrointestinal: Negative for constipation, diarrhea and heartburn. Genitourinary: Negative for dysuria and frequency. Musculoskeletal: Negative for back pain, falls, joint pain and myalgias. Skin: Negative for itching and rash. Neurological: Negative for dizziness, weakness and headaches. Endo/Heme/Allergies: Does not bruise/bleed easily. Psychiatric/Behavioral: Negative for depression and substance abuse. The patient does not have insomnia. Objective BP 126/78 Pulse 80 Temp 36.5 C (97.7 F) Ht 172.1 cm (5' 7.75) Wt 101.2 kg (223 lb) SpO2 98% BMI 34.16 kg/m Physical Exam Constitutional: Appearance: Normal appearance. He is obese. HENT: Head: Normocephalic and atraumatic. Nose: Nose normal. Mouth/Throat: Mouth: Mucous membranes are moist. Dentition: Normal dentition. Eyes: General: Lids are normal. Extraocular Movements: Extraocular movements intact. Conjunctiva/sclera: Conjunctivae normal. Pupils: Pupils are equal, round, and reactive to light. Neck: Thyroid: No thyroid mass or thyromegaly. Vascular: No carotid bruit. Trachea: Phonation normal. Cardiovascular: Rate and Rhythm: Normal rate and regular rhythm. Heart sounds: Normal heart sounds. No murmur heard. No friction rub. No gallop. Pulmonary: Effort: Pulmonary effort is normal. Breath sounds: Normal breath sounds. No wheezing or rales. Abdominal: General: Bowel sounds are normal. There is no distension. Palpations: Abdomen is soft. There is no mass. Tenderness: There is no abdominal tenderness. Musculoskeletal: General: No swelling or tenderness. Normal range of motion. Cervical back: Normal range of motion and neck supple. No edema. Lymphadenopathy: Cervical: No cervical adenopathy. Skin: General: Skin is warm and dry. Findings: No erythema or rash. Nails: There is no clubbing. Neurological: Mental Status: He is alert and oriented to person, place, and time. Cranial Nerves: No cranial nerve deficit. Motor: Motor function is intact. Coordination: Coordination normal. Gait: Gait is intact. Psychiatric: Attention and Perception: Attention normal. Mood and Affect: Mood and affect normal. Speech: Speech normal. Behavior: Behavior normal. Behavior is cooperative. Thought Content: Thought content normal. Cognition and Memory: Cognition and memory normal. Judgment: Judgment normal. Lab Results Component Value Date HBA1C 9.1 02/10/2023 HBA1C 8.1 11/04/2022 HBA1C 8.2 04/14/2022 HBA1C 10.5 09/04/2020 HBA1C 8.9 12/20/2019 HBA1C 7.4 02/23/2019 ASSESSMENT/PLAN: 1. Type 2 diabetes mellitus without complication, without long-term current use of insulin (HCC) - ICD9: 250.00, ICD10: E11.9 (primary diagnosis) - Worsening control Trial of farxiga - ALBUMIN/CREAT RATIO RND UR - DAPAGLIFLOZIN PROPANEDIOL 5 MG TABLET 2. Essential hypertension - ICD9: 401.9, ICD10: I10 - Controlled - Recommend home blood pressure monitoring, to bring results to next visit - Encouraged sodium restriction, DASH or Mediterranean diet - Recommend regular aerobic exercise 3. Encounter for immunization - ICD9: V03.89, ICD10: Z23 - INFLUENZA VACCINE, AGE 6 MO - 64 YR, QUADRIVALENT (AFLURIA, FLULAVAL, FLUZONE) 4. Obesity, Class I, BMI 30-34.9 - ICD9: 278.00, ICD10: E66.9 Lifestyle modification recommended Candida Soria DO documented in this [facility]23 Instructions* Patient Instructions* Candida Soria DO - 01/11/2023 10:04 AM EDT Bedside Cure for Benign Positional Vertigo Introduction: Benign positional vertigo is a condition in which patients report a brief episode of vertigo (<1minute) induced by changes in the head position. The symptoms of many patients with benign positional vertigo (BPPV) resolve spontaneously with in weeks to a few months;others may experience symptoms intermittently for years. The term benign is used because the condition is usually self-limited. Traditionally, treatment of BPPV has consisted of reassuring patients that their symptoms will subside in time. In 1979, positional exercises were introduced that eliminated symptoms in some patients. Furthermore, when the exercises were repeated over time, the symptoms resolved more quickly. Diagnosis of BPPV: The diagnosis of BPPV is often suggested by the patient's history. A patient typically reports brief episodes of spinning , dizziness induced by changes in head position, particularly lying down or getting out of bed, rolling over in bed, bending over, or looking up. Episodes can last for about 30 seconds and never exceed 1 minute. There may be a history of head trauma. There may be a history of viral infection. To Perform the Hallpike Maneuver: -The patient is seated on a flat table. The patient's head is turned at a 45 degree angle to one side, is then laid back to a head-hanging position as quickly as can be performed. -The patient's head is turned 45 degree to 60 degrees toward the opposite ear maintaining the head-hanging position, for about 20 seconds. -Then the patient turns toward his or her left shoulder. -The head is turned an additional 45 degrees until the head is parallel to the ground. -Finally, the patient's head is turned almost completely facing the ground for an additional 20 seconds, and then returned upright. If the patient is still experiencing vertigo the maneuver can be repeated several more times, as tolerated by the patient. -After the sequence of maneuvers please remain at least 45 degree upright for the next 24 hours, and AVOID the head-hanging position. documented in this [facility]09[facility]-2023 History of Present illness Narrative* Candida Soria DO - 01/11/2023 9:46 AM EDT Subjective Dizziness The patient's pertinent negatives include no weakness. Associated symptoms include dizziness. Pertinent negatives include no back pain, chest pain, diaphoresis, fever, headaches, palpitations or shortness of breath. Pt is here with his for acute visit He woke yesterday with dizziness, when he stepped down out of bed, he felt like there was a hole inthe floor He fell onto the carpeted floor, did not hit his head He is using rollator to remain stable He still is dizzy today, less than yesterday He was fine when he awoke to use the restroom at 4:30 yesterday, but at 6:30 he was dizzy and fell (as above) The room was spinning horizontally and vertically He was nauseated, did not vomit He took it easy yesterday after he fell He slept well last night, feels like he is drunk today Turning his head quickly makes the dizziness worse He denies slurred speech, numbness, tingling, weakness, blurred vision, chest pain, shortness of breath He is taking vitamin d and benadryl, which he started yesterday, to try to relieve the discomfort ALLERGIES Allergen Reactions Erythromycin Penicillins Current Outpatient Medications Medication Sig Dispense Refill aspirin 81 mg cap Take 1 capsule by mouth twice daily. glimepiride (AMARYL) 4 mg tablet Take 1 tablet by mouth twice daily with meals. 180 tablet 0 metFORMIN (GLUCOPHAGE) 500 mg tablet TAKE 2 TABLETS 2 TIMES DAILY 360 tablet 3 sucralfate (CARAFATE) 1 gram tablet Take 1 tablet by mouth four times daily. 360 tablet 3 lisinopril (ZESTRIL) 5 mg tablet Take 1 tablet by mouth once daily. 90 tablet 3 omeprazole (PRILOSEC) 40 mg capsule Take 1 capsule by mouth once daily. 90 capsule 3 atorvastatin (LIPITOR) 10 mg tablet Take 1 tablet by mouth once daily. BEFORE BEDTIME 90 tablet 3 clobetasol (TEMOVATE) 0.05 % cream APPLY 1 APPLICATION TO AFFECTED AREA ONCE DAILY 60 g 3 Comp.Stocking,Thigh,Long,Large misc Use as directed 1 Package 0 Blood-Glucose Meter, Drum-type (ACCU-CHEK COMPACT PLUS CARE) kit Use as directed. 1 Kit 0 Lancets (ACCU-CHEK MULTICLIX LANCET) lancets Test blood sugar(s) 4 times daily. Dx: 250.02. Insulin: No 1 Each 11 blood sugar diagnostic (ACCU-CHEK ALIA) test strip Test blood sugar(s) 4 times daily. Dx: Diabetesmellitus. Insulin: No 100 Strip 11 empagliflozin (JARDIANCE) 25 mg tablet Take 1 tablet by mouth daily with breakfast. (Patient not taking: Reported on 01/11/2023) 90 tablet 0 No current facility-administered medications for this visit. 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 Type 2 Diabetes Mellitus Without Complication (Hcc) Diabetic Peripheral Neuropathy (Hcc) Incomplete Tear of Left Rotator Cuff Essential Hypertension Gerd (Gastroesophageal Reflux Disease) Constitutional Obesity Thrombocytopenic (Hcc) Obesity, Class I, Bmi 30-34.9 Social History Tobacco Use Smoking status: Never Smokeless tobacco: Never Substance Use Topics Alcohol use: Yes Comment: 4 beers once a month Drug use: No Family History Problem Relation Age of Onset Lung Cancer Mother Stroke Father Lung Cancer Sister Lung Cancer Sister Emphysema Maternal Grandmother Reviewed past medical history, family history and surgeries. All medications and supplements were reviewed with the patient. Review of Systems Constitutional: Negative for chills, diaphoresis, fever, malaise/fatigue and weight loss. HENT: Negative for ear pain and hearing loss. Eyes: Negative for blurred vision and double vision. Respiratory: Negative for cough and shortness of breath. Cardiovascular: Negative for chest pain, palpitations and leg swelling. Gastrointestinal: Negative for constipation, diarrhea and heartburn. Genitourinary: Negative for dysuria and frequency. Musculoskeletal: Negative for back pain, falls, joint pain and myalgias. Skin: Negative for itching and rash. Neurological: Positive for dizziness. Negative for weakness and headaches. Endo/Heme/Allergies: Does not bruise/bleed easily. Psychiatric/Behavioral: Negative for depression and substance abuse. The patient does not have insomnia. Objective BP 150/80 Pulse 88 Temp 36.7 C (98 F) Resp 16 Ht 172.1 cm (5' 7.75) Wt 101.5 kg (223 lb 12.8 oz) SpO2 99% BMI 34.28 kg/m Physical Exam Constitutional: Appearance: Normal appearance. He is obese. HENT: Head: Normocephalic and atraumatic. Nose: Nose normal. Mouth/Throat: Mouth: Mucous membranes are moist. Dentition: Normal dentition. Eyes: General: Lids are normal. Extraocular Movements: Extraocular movements intact. Conjunctiva/sclera: Conjunctivae normal. Pupils: Pupils are equal, round, and reactive to light. Neck: Thyroid: No thyroid mass or thyromegaly. Vascular: No carotid bruit. Trachea: Phonation normal. Cardiovascular: Rate and Rhythm: Normal rate and regular rhythm. Heart sounds: Normal heart sounds. No murmur heard. No friction rub. No gallop. Pulmonary: Effort: Pulmonary effort is normal. Breath sounds: Normal breath sounds. No wheezing or rales. Abdominal: General: Bowel sounds are normal. There is no distension. Palpations: Abdomen is soft. There is no mass. Tenderness: There is no abdominal tenderness. Musculoskeletal: General: No swelling or tenderness. Normal range of motion. Cervical back: Normal range of motion and neck supple. No edema. Lymphadenopathy: Cervical: No cervical adenopathy. Skin: General: Skin is warm and dry. Findings: No erythema or rash. Nails: There is no clubbing. Neurological: Mental Status: He is alert and oriented to person, place, and time. Cranial Nerves: No cranial nerve deficit. Motor: Motor function is intact. Coordination: Coordination normal. Gait: Gait abnormal (using rollator). Comments: Herminio lorenzo's positive Psychiatric: Attention and Perception: Attention normal. Mood and Affect: Mood and affect normal. Speech: Speech normal. Behavior: Behavior normal. Behavior is cooperative. Thought Content: Thought content normal. Cognition and Memory: Cognition and memory normal. Judgment: Judgment normal. ASSESSMENT/PLAN: 1. BPPV (benign paroxysmal positional vertigo), unspecified laterality - ICD9: 386.11, ICD10: H81.10 (primary diagnosis) Trial of MECLIZINE 25 MG TABLET Handout on eppley maneuver 2. Obesity, Class I, BMI 30-34.9 - ICD9: 278.00, ICD10: E66.9 Lifestyle modification recommended Candida Soria DO documented in this [facility]-2023 Miscellaneous Notes* Telephone Encounter - Marissa Galdamez MA - 11/26/2022 1:14 PM EDT Left message requesting patient call office back for results, MyChart message sent also with results and recommendations. Marissa Galdamez MA * Telephone Encounter - Marissa Galdamez MA - 11/26/2022 1:13 PM EDT ----- Message from Patricia Lewis APRN.CNP sent at 11/26/2022 12:18 PM EDT ----- Please let patient know their results are WNL. Repeat in 3 years or sooner should he have symptoms.Thank you. documented in this encounterK[facility]03-31-2023 Miscellaneous Notes* Telephone Encounter - Lidya Sal PA-C - 07/17/2022 10:33 AM EDT This was already addressed via [employer]. Lidya Sal PA-C * Telephone Encounter - Azul Cochran Pss - 07/16/2022 4:13 PM EDT Forest is calling to speak to Rashmi about his scripts. He needs them to go to [facility]. He also questions about Jaridance or Rybelsus. He sent a MCmessage for Rashmi only and it not happy it was answered by Mady. He will be in meetings tomorrow, so he states best way to reach him will be via [employer] . He can try a phone call at [phone], but may not be able to answer. documented in this encounterK[facility]03-30-2023 Miscellaneous Notes* Telephone Encounter - Angela Cedeño RN - 07/16/2022 5:08 PM EDT Per telephone encounter today at 420pm: Forest is calling to speak to Rashmi about his scripts. He needs them to go to [facility]. He also questions about Jaridance or Rybelsus. He sent a MCmessage for Rashmi only and it not happy it was answered by Mady. He will be in meetings tomorrow, so he states best way to reach him will be via [employer] . He can try a phone call at [phone], but may not be able to answer. documented in this encounterK[facility]01-25-2023 Miscellaneous Notes* Telephone Encounter - Shantal Roque LPN - 05/13/2022 11:45 AM EST Called insurance still pending. Will call again tomorrow. Shantal Roque LPN * Telephone Encounter - Mishel Pate - 05/11/2022 10:41 AM EST Per other encounter, [facility] has been approved , waiting on Rybelsus documented [facility]23 Miscellaneous Notes* Telephone Encounter - Mady Mao Ma - 05/08/2022 12:28 PM EST Already started just waiting for a response * Telephone Encounter - Lidya Sal PA-C - 05/08/2022 11:52 AM EST Please start PA. Thanks Lidya Sal PA-C * Telephone Encounter - Chantell Gonzales LPN - 05/08/2022 10:02 AM EST Pharmacy called and states that insurance requires a PA for Rybelsus and Jardiance. No alternativeswere given for either medication. Insurance info: [place] Phone #: [phone] ID #: [id number] documented in this [facility]16-2023 Miscellaneous Notes* Telephone Encounter - Carolina Galindo - 05/04/2022 2:06 PM EST Called patient and left VM that medications were refilled and that patient was due for a follow up visit. Please assist with scheduling when patient calls back. Thank you * Telephone Encounter - Azul Duenas APRN.CNP - 05/04/2022 9:06 AM EST Patient overdue for follow up, please schedule for 40 minutes. Thanks, Azul Duenas APRN.GINA * Telephone Encounter - Connie Rose - 05/04/2022 8:22 AM EST Patient has been identified by name and date of : Yes Requested Prescriptions Pending Prescriptions Disp Refills semaglutide (RYBELSUS) 14 mg tablet 90 tablet 3 Sig: Take 1 tablet (14 mg) by mouth daily before breakfast. empagliflozin (JARDIANCE) 25 mg tablet 90 tablet 3 Sig: Take 1 tablet by mouth daily with breakfast. RX INSTRUCTIONS: Patient aware RX will be sent to pharmacy. No need to notify patient. Connie Rose documented in this encounterK[facility]12-01-2022 Miscellaneous Notes* Telephone Encounter - Tessie ROSE - 03/19/2022 8:29 AM EST Patients appt has been extended Thanks * Telephone Encounter - Lidya Sal PA-C - 03/18/2022 2:24 PM EST Please change pt's appt on 04/15 to 40 min. Thanks Lidya Sal PA-C documented in this encounterK[facility]11-11-2022 Miscellaneous Notes* Telephone Encounter - Jaqui Canela [facility] - 02/27/2022 1:59 PM EST Patient identified with A1c >9% (10.6% on 01/08/22) per PharmD panel management review. At provider visit in December, patient was referred to PharmD for DM mngt but patient did not return call to schedule appt after multiple contact attempts. Per med list patient is on max-dose metformin, Jardiance, and Rybelsus. Likely needs insulin but patient wants to avoid it. Since multiple contact attempts were made within the past few weeks, will plan to outreach patient after the holidays to encourage scheduling f/up with PharmD if he has not yet returned a call or MyCmsg. Jaqui Canela PharmD, [facility] Primary Care Clinical Pharmacist documented in this encounterK[facility]10-11-2022 Miscellaneous Notes* Telephone Encounter - Mady Mao Ma - 01/27/2022 12:50 PM EDT Please review and advise documented in this encounterK[facility]10-06-2022 Miscellaneous Notes* Telephone Encounter - Jazmin Craig MA - 01/22/2022 10:25 AM EDT Last appointment: 01/14/22 Next appointment: N/A Pharmacy verified in [facility]. Refill(s) requested: Requested Prescriptions Pending Prescriptions Disp Refills omeprazole (PRILOSEC) 40 mg capsule [Pharmacy Med Name: OMEPRAZOL RX CAP 40MG] 90 capsule 0 Sig: TAKE 1 CAPSULE DAILY lisinopril (ZESTRIL, PRINIVIL) 5 mg tablet [Pharmacy Med Name: LISINOPRIL TAB 5MG] 90 tablet 0 Sig: TAKE 1 TABLET ONCE DAILY Order(s) pended. Please advise. Jazmin Craig MA, HORTICULTURAL AGENT documented in this [facility]10-03-2022 Miscellaneous Notes* Telephone Encounter - Jaqui Canela RPh - 01/19/2022 3:01 PM EDT Patient recently referred by Malick to Michael for DM mngt Called patient to schedule initial appt Unable to reach patient - LMOM to return call to office. Will send MyC msg. Jaqui Canela, Michael, BCPS Primary Care Clinical Pharmacist Michael Blair [facility] documented in this encounterK[facility]09-30-2022 Miscellaneous Notes* Telephone Encounter - MILTON Camargo - 01/16/2022 2:15 PM EDT Telephoned the patient to schedule a new Primary Care pharmacy appt. Left a message. Made two attempts to contact the patient. Patient has not returned the call. If the patient returns a call, an appt will be scheduled. Encounter routed to the clinical pharmacist. * Telephone Encounter - MILTON Camargo - 01/15/2022 2:33 PM EDT Telephoned the patient to schedule a new Primary Care pharmacy appt. Left a message. documented in this encounterK[facility]09-28-2022 History of Present illness Narrative* Mady Mao Ma - 01/14/2022 3:22 PM EDT HEPATITIS B(1 of 3 - 3-dose series) Never done PNEUMOCOCCAL(2 - PCV) due on 03/25/2016 SHINGRIX VACCINE(1 of 2) Never done COVID-19 VACCINE(3 - Booster for Moderna series) due on 09/26/2020 DEPRESSION ASSESSMENT Never done URINE ALBUMIN:CREATININE RATIO due on 09/04/2021 BP CONTROLLED (<130/80) due on 09/04/2021 INFLUENZA(1) due on 12/18/2021 * Lidya Sal PA-C - 01/14/2022 3:19 PM EDT Forest Luna is a 56 year old male here today for routine follow up. DM:checks blood sugars around 2 pm, 270s-280s.taking medication as prescribed. Feels there isn't much more he can do with his diet. Is exercising more than recent years. Feels good, getting some muscle definition. Keeping his weight stable. HTN: taking medication as prescribed. LDL higher than previous. Has been eating about 3-4 eggs a day, sometimes up to 6. Gets occasional stomachache if he hasn't eaten. History of gerd. On omeprazole, sucralfate has previously helped. Requesting rx. REVIEW OF SYSTEMS See HPI, otherwise unremarkable. PAST MEDICAL HISTORY Diagnosis Date GERD (gastroesophageal reflux disease) HTN (hypertension) Obesity (BMI 30-39.9) Rotator cuff syndrome of shoulder and allied disorders 2004 Rotator cuff syndrome, [place] with PT Thrombocytopenia (HCC) Type 2 diabetes mellitus (HCC) Varicose veins PAST SURGICAL HISTORY Procedure Laterality Date EGD W/ REM POLYP-SNARE STOMACH 12/15/06 PAST SURGICAL HISTORY OF Bilateral 1975 surgery of the eyes ambliopea PAST SURGICAL HISTORY OF Bilateral surgeries on leg veins x 5 surgeries FAMILY HISTORY Problem Relation Age of Onset None Mother None Father Social History Tobacco Use Smoking status: Never Smokeless tobacco: Never Substance Use Topics Alcohol use: Yes Comment: 2 beers once a month Drug use: No PHYSICAL EXAMINATION: Vitals: BP 116/77 Pulse 111 Temp 36.7 C (98 F) Ht 175.3 cm (5' 9.02) Wt 93.7 kg (206 lb 9.6 oz) SpO2 98% BMI 30.50 kg/m General Appearance: Well appearing, alert, in no acute distress, well-hydrated, well nourished.. Neck: Supple, no adenopathy; thyroid symmetric, normal size, no bruits. Lungs: Lungs clear to auscultation. No wheezing, rhonchi, rales.. Heart: RRR without murmur, gallop, or rubs. No ectopy. Abdomen: soft, nontender The 10-year ASCVD risk score (Marisa FENTON, et al., 2019) is: 11.7% Values used to calculate the score: Age: 56 years Sex: Male Is Non- : No Diabetic: Yes Tobacco smoker: No Systolic Blood Pressure: 116 mmHg Is BP treated: Yes HDL Cholesterol: 40 mg/dL Total Cholesterol: 188 mg/dL Component Latest Ref Rng & Units 01/08/2022 Protein, Total 6.3 - 8.0 g/dL 7.2 Albumin 3.9 - 4.9 g/dL 4.8 Calcium 8.5 - 10.2 mg/dL 9.8 Bilirubin, Total 0.2 - 1.3 mg/dL 0.6 Alkaline Phosphatase 38 - 113 U/L 70 AST 14 - 40 U/L 12 (L) ALT 10 - 54 U/L 15 Glucose 74 - 99 mg/dL 195 (H) BUN 9 - 24 mg/dL 16 Creatinine 0.73 - 1.22 mg/dL 0.77 Sodium 136 - 144 mmol/L 136 Potassium 3.7 - 5.1 mmol/L 4.1 Chloride 97 - 105 mmol/L 100 CO2 22 - 30 mmol/L 24 Anion Gap 9 - 18 mmol/L 12 eGFR >=60 mL/min/1.73m 106 WBC 3.70 - 11.00 k/uL 7.07 RBC 4.20 - 6.00 m/uL 5.81 Hemoglobin 13.0 - 17.0 g/dL 15.5 Hematocrit 39.0 - 51.0 % 48.0 MCV 80.0 - 100.0 fL 82.6 MCH 26.0 - 34.0 pg 26.7 MCHC 30.5 - 36.0 g/dL 32.3 RDW-CV 11.5 - 15.0 % 13.4 Platelet Count 150 - 400 k/uL 162 MPV 9.0 - 12.7 fL 10.9 Absolute nRBC <0.01 k/uL <0.01 Cholesterol, Total <200 mg/dL 188 Triglyceride <150 mg/dL 84 HDL Cholesterol >39 mg/dL 40 Non HDL Cholesterol <130 mg/dL 148 (H) Fasting Time hrs 13 VLDL Cholesterol <30 mg/dL 17 TC:HDL Ratio <5.10 4.70 LDL Cholesterol <100 mg/dL 131 (H) LDL:HDL Ratio <2.54 3.28 (H) Hemoglobin A1C 4.3 - 5.6 % 10.6 (H) Estimated Average Glucose mg/dL 258 ASSESSMENT: DIAGNOSIS: (E11.9) Type 2 diabetes mellitus without complication, without long- term current use of insulin (HCC) (primary encounter diagnosis) (I10) Essential hypertension (E11.42) Diabetic peripheral neuropathy (HCC) (E78.2) Hyperlipidemia, mixed PLAN: ASSESSMENT/PLAN: 1. Type 2 diabetes mellitus without complication, without long-term current use of insulin (HCC) - ICD9: 250.00, ICD10: E11.9 (primary diagnosis) worsening control Recommend pharmacy eval, likely needs insulin. Pt would like to try everything he can before insulin. - CONSULT TO PHARMACY - ALBUMIN/CREAT RATIO RND UR - HGB A1C - COMP METABOLIC PANEL 2. Essential hypertension - ICD9: 401.9, ICD10: I10 - good control - Continue current medication(s) - Recommended regular aerobic exercise. - Recommend home blood pressure monitoring, to bring results in on next visit - Goal of BP <130/80 - COMP METABOLIC PANEL 3. Diabetic peripheral neuropathy (HCC) - ICD9: 250.60, 357.2, ICD10: E11.42 stable 4. Hyperlipidemia, mixed - ICD9: 272.2, ICD10: E78.2 - poor control 11% ten year cardiovascular risk. Recommend starting lipitor. Discussed risks vs benefits and potential side effects. - LIPID PANEL BASIC - COMP METABOLIC PANEL Follow up 3 months with labs prior. Return in the interim prn.. Pt in agreement with the plan and verbalized understanding. I spent a total of 30 minutes on the date of the service which included preparing to see the patient, [id number] patient care, completing clinical documentation, obtaining and/or reviewing separately obtained history, performing a medically appropriate examination, counseling and educating the pat ient/family/caregiver, and ordering medications, tests, or procedures. Lidya Sal PA-C documented in this encounterK[facility]04-21-2022 Miscellaneous Notes* Telephone Encounter - Adriana Kim MA - 08/07/2021 1:46 PM EDT Last appointment: 05-16-21 Next appointment: na Pharmacy verified in [employer]. Refill(s) requested: Pending Prescriptions Disp Refills OMEPRAZOLE 40 MG CAPSULE,DELAYED RELEASE 90 capsule 3 Sig: Take 1 capsule by mouth once daily. MERLYN: No Order(s) pended. Please advise. Adriana Kim MA, [facility]* Diagnosis Type 2 diabetes mellitus without complication, without long-term current use of insulin ([facility])- Primary Essential hypertension Unspecified essential hypertension Diabetic peripheral neuropathy (HCC) Type II or unspecified type diabetes mellitus with neurological manifestations, not stated as uncontrolled Hyperlipidemia, mixed Mixed hyperlipidemia documented [facility] this encounter [facility]* Diagnosis Type 2 diabetes mellitus without complication, without long-term current use of insulin ([facility])- Primary Thrombocytopenic (HCC) Thrombocytopenia, unspecified documented in this encounter [facility] note* Diagnosis BPPV (benign paroxysmal positional vertigo), unspecified laterality- Primary Obesity, Class I, BMI 30-34.9 Obesity, unspecified documented in this encounter [facility] note* Diagnosis Type 2 diabetes mellitus without complication, without long-term current use of insulin ([facility])- Primary Essential hypertension Unspecified essential hypertension Encounter for immunization Need for other specified prophylactic vaccination against single bacterial disease Obesity, Class I, BMI 30-34.9 Obesity, unspecified documented in this encounter [facility] note* Diagnosis Anticoagulation management encounter- Primary Encounter for therapeutic drug monitoring Varicose veins of lower extremities with ulcer and inflammation ([facility]/HCC) Varicose veins of lower extremities with ulcer and inflammation Phlebitis Phlebitis and thrombophlebitis of unspecified site Anticoagulation management encounter Encounter for therapeutic drug monitoring documented in this encounter [facility] Work Phone: Evaluation note* Diagnosis Occlusion of iliac vein (Multi) Peripheral venous insufficiency Unspecified venous (peripheral) insufficiency Postphlebitic syndrome Postphlebetic syndrome without complications Pain of lower extremity, unspecified laterality Swelling of lower extremity documented in this encounter [facility] Work Phone: Evaluation note* Diagnosis Chronic peripheral venous hypertension- Primary Peripheral venous insufficiency Unspecified venous (peripheral) insufficiency Phlebitis Phlebitis and thrombophlebitis of unspecified site documented in this encounter [facility] Work Phone: Evaluation note* Diagnosis Anticoagulation management encounter Encounter for therapeutic drug monitoring Phlebitis and thrombophlebitis of superficial vessels of left lower extremity documented in this encounter [facility] Work Phone: Evaluation note* Diagnosis Lipodermatosclerosis of both lower extremities- Primary Peripheral venous insufficiency Unspecified venous (peripheral) insufficiency Phlebitis Phlebitis and thrombophlebitis of unspecified site Postphlebitic syndrome Postphlebetic syndrome without complications documented in this encounter [facility] Work Phone: Evaluation note* Diagnosis Edema of right lower leg due to peripheral venous insufficiency- Primary Lipodermatosclerosis of both lower extremities Peripheral venous insufficiency Unspecified venous (peripheral) insufficiency Postphlebitic syndrome Postphlebetic syndrome without complications documented in this encounter [facility] Work Phone: Evaluation note* Diagnosis Edema of right lower leg due to peripheral venous insufficiency- Primary Postphlebitic syndrome Postphlebetic syndrome without complications Peripheral venous insufficiency Unspecified venous (peripheral) insufficiency Postphlebitic syndrome Postphlebetic syndrome without complications Edema of right lower leg due to peripheral venous insufficiency documented in this encounter [facility] Work Phone: Evaluation note* Diagnosis Edema of right lower leg due to peripheral venous insufficiency- Primary Postphlebitic syndrome Postphlebetic syndrome without complications Lipodermatosclerosis of left lower extremity- Primary Postphlebitic syndrome Postphlebetic syndrome without complications Edema of right lower leg due to peripheral venous insufficiency documented in this encounter [facility] Work Phone: Evaluation note* Diagnosis Edema of right lower leg due to peripheral venous insufficiency- Primary Surgery, elective Unspecified elective surgery for purposes other than remedying health states Type 2 diabetes mellitus without complication, without long-term current use of insulin (Multi) Peripheral venous insufficiency Unspecified venous (peripheral) insufficiency Essential hypertension Unspecified essential hypertension Postphlebitic syndrome Postphlebetic syndrome without complications Peripheral venous insufficiency Unspecified venous (peripheral) insufficiency Postphlebitic syndrome Postphlebetic syndrome without complications Edema of right lower leg due to peripheral venous insufficiency documented in this encounter [facility] Work Phone: Evaluation note* Diagnosis Type 2 diabetes mellitus with hyperglycemia, without long-term current use of insulin (Multi)- Primary Medication monitoring encounter Encounter for therapeutic drug monitoring Essential hypertension Unspecified essential hypertension Gastroesophageal reflux disease, unspecified whether esophagitis present Peripheral venous insufficiency Unspecified venous (peripheral) insufficiency Mixed hyperlipidemia documented in this encounter [facility] Work Phone: Evaluation note* Diagnosis Lipodermatosclerosis of left lower extremity- Primary documented in this encounter [facility] Work Phone: Evaluation note* Diagnosis Type 2 diabetes mellitus with hyperglycemia, without long-term current use of insulin documented in this encounter [facility] Work Phone: Evaluation note* Diagnosis Type 2 diabetes mellitus without complication, without long-term current use of insulin (HCC)- Primary Essential hypertension Unspecified essential hypertension Encounter for immunization Need for other specified prophylactic vaccination against single bacterial disease [facility]* Diagnosis Type 2 diabetes mellitus without complication, without long-term current use of insulin (HCC) [facility]* Diagnosis Type 2 diabetes mellitus without complication, without long-term current use of insulin (HCC) documented in [facility]* Diagnosis Type 2 diabetes mellitus without complication, without long-term current use of insulin (HCC) documented [facility]* Diagnosis Type 2 diabetes mellitus without complication, without long-term current use of insulin (HCC)- Primary Essential hypertension Unspecified essential hypertension documented in this encounter [facility] Discharge instructionsAmbulatory Orders* General Surgery Location: None [facility] Work Phone: Reason for referral (narrative)* Consultation (Routine) - Authorized Specialty Diagnoses / Procedures Referred By Grace t Referred To Contact Vascular Surgery Diagnoses Chronic peripheral venous hypertension Nell Blanca APRN-CNP [address] [place] [address] Lei Fuentes MD [address] [facility] [address] [place] [address] Referral ID Status Reason Start Date Expiration Date Visits Requested Visits Authorized [id number] Authorized Specialty Services Required 09/02/2023 09/01/2024 1 1 [facility] Work Phone: Reason for referral (narrative)* Consultation (Routine) - Authorized Specialty Diagnoses / Procedures Referred By Grace miller Referred To Contact Pharmacy / Primary Care Diagnoses Type 2 diabetes mellitus with hyperglycemia, without long-term current use of insulin (Multi) Procedures Follow Up In Advanced Primary Care - Pharmacy Brittany Crandall DO [address] [facility], [address] [address] Referral ID Status Reason Start Date Expiration Date V isits Requested Visits Authorized [id number] Authorized 12/28/2023 12/27/2024 1 1 [facility] Work Phone: Reglzy for referral (narrative)* Consultation (Routine) - Authorized Specialty Diagnoses / Procedures Referred By Grace miller Referred To Contact Pharmacy / Primary Care Diagnoses Type 2 diabetes mellitus with hyperglycemia, without long-term current use of insulin Procedures Follow Up In Advanced Primary Care - Pharmacy Brittany Crandall DO [address] [facility], [address] [address] Referral ID Status Reason Start Date Expiration Date V isits Requested Visits Authorized [id number] Authorized 01/17/2024 01/16/2025 1 1 [facility] Work Phone: Relbek for referral (narrative)No reason for referral information availableWPro[facility] Work Phone: Reason for visit Narrative* Procedure (Routine) - Authorized Specialty Diagnoses / Procedures Referred By Grace miller Referred To Contact Vascular Surgery Diagnoses Varicose veins of left lower extremity with both ulcer of unspecified site and inflammation (Multi) Postthrombotic syndrome without complications of unspecified extremity Procedures ID ENDOVEN ABLTJ INCMPTNT VEIN XTR RF 1ST VEIN ID STAB PHLEBT VARICOSE VEINS 1 XTR 10-20 [id number] [address] [place] [address] [place] [address] [address] [place] [address] Referral ID Status Reason Start Date Expiration Date V isits Requested Visits Authorized [id number] Authorized 11/30/2023 04/18/2024 2 2 [facility] Work Phone: Summary Purpose Family History No Family History Records Found Relationship Condition Age at Onset Recorded Date/T frida Unknown Family History?- Unknown August 21 7:38pm Family History?- Unknown December 262023 1:54pm Advance Directives No Advanced Directives Records FoundNo Advanced Directives Records FoundNo Advanced Directives Records FoundNo Advanced Directives Records FoundNo Advanced Directives Records FoundNo Advanced Directives Records FoundNo Advanced Directives Records Found Reason for Referral Specialty Diagnoses / Procedures Referred By Grace t Referred To Contact Azul Duenas, RESIDENT ENGINEER.THREADER [address] [place] [address] Referral ID Status Reason Start Date Expiration Date V isits Requested Visits Authorized [id number] Authorized 04/19/2022 05/09/2023 1 1 Referral ID Status Reason Start Date Expiration Date Visits Re quested Visits Authorized [id number] Closed 1 1 Specialty Diagnoses / Procedures Referred By Contac t Referred To Contact Diagnoses Type 2 diabetes mellitus without complication, without long-term current use of insulin (HCC) Candida Soria, DO [address] [place] [address] Referral ID Status Reason Start Date Expiration Date Visits Re quested Visits Authorized [id number] Closed 1 1 Specialty Diagnoses / Procedures Referred By Contac t Referred To Contact Cardiology Diagnoses Anticoagulation management encounter Procedures Vascular US lower extremity venous insufficiency bilateral Nell Blanca, RESIDENT ENGINEER-THREADER [address] [facility] [address] [place] [address] Referral ID Status Reason Start Date Expiration Date Visits Requested Visits Authorized [id number] Pending Review Perform Procedure 07/19/2023 07/18/2024 1 1 Specialty Diagnoses / Procedures Referred By Contac t Referred To Contact Radiology Diagnoses Occlusion of iliac vein (Multi) Peripheral venous insufficiency Postphlebitic syndrome Pain of lower extremity, unspecified laterality Swelling of lower extremity Procedures CT angio aorta and bilateral iliofemoral runoff w and or wo IV contrast Nell Blanca, RESIDENT ENGINEER-THREADER [address] [facility] [address] [place] [address] Referral ID Status Reason Start Date Expiration Date Visits Requested Visits Authorized [id number] Pending Review Perform Procedure 08/24/2023 08/23/2024 1 1 Referral ID Status Reason Start Date Expiration Date Visits Requested Visits Authorized [id number] Authorized Perform Procedure 07/19/2023 07/18/2024 1 1 Specialty Diagnoses / Procedures Referred By Contac t Referred To Contact Cardiology Diagnoses Peripheral venous insufficiency Procedures Vascular US Lower Extremity [place] [address] [address] [facility] Department [place] [address] Referral ID Status Reason Start Date Expiration Date Visits Requested Visits Authorized [id number] Authorized Perform Procedure 11/16/2023 11/15/2024 1 1 Referral ID Status Reason Start Date Expiration Date Visits Requested Visits Authorized [id number] Authorized Perform Procedure 11/16/2023 11/15/2024 1 1 Chief Complaint and Reason for Visit Chief Complaint Admit Date RIGHT SHOULDER July 18, 2024 8:30 am RIGHT SHOULDER PAIN September 07, 2024 7:10a m Reason for Visit Admit Date Impingement of right shoulder July 18, 2024 8:30am Right shoulder pain July 18, 2024 8:30 am Chief Complaint Admit Date RIGHT SHOULDER July 18, 2024 8:30 am RIGHT SHOULDER PAIN September 07, 2024 7:10a m RIGHT SHOULDER September 20, 2024 8:43a m Reason for Visit Admit Date Impingement of right shoulder July 18, 2024 8:30am Right shoulder pain July 18, 2024 8:30 am Arthrosis of right acromioclavicular rambo nt September 20, 2024 8:43am Impingement of right shoulder September 20, 2024 8:43am Right rotator cuff tear September 20, 2024 8 :43am Right shoulder pain September 20, 2024 8:43a m Additional Source Comments (unrecognized sect ion and content) No Status Records FoundNo Status Records FoundNo Status Records FoundNo Status Records FoundNo Status Records FoundNo Status Records FoundNo Status Records Found INFORMATION SOURCE (unrecogn ized section and content) DATE CREATED AUTHOR 11/30/2017 [facility] DATE CREATED AUTHOR AUTHOR'S ORGANIZ ATION 07/21/2023 [facility] DATE CREATED AUTHOR AUTHOR'S ORGANIZ ATION 08/30/2023 [facility] DATE CREATED AUTHOR AUTHOR'S ORGANIZ ATION 01/09/2024 [facility] DATE CREATED AUTHOR AUTHOR'S ORGANIZ ATION 01/22/2024 [facility] DATE CREATED AUTHOR AUTHOR'S ORGANIZ ATION 09/24/2024 [facility] DATE CREATED AUTHOR AUTHOR'S ORGANIZ ATION 10/04/2024 [facility] Source Comments (unrecognize d section and content) In the event this informatio n is protected by the Federal Confidentiality of Alcohol and Drug Abuse Patient Records regulations: The Federal rules restrict any use of the information to criminally investigate or prosecute any alcohol or drug abuse patient.[facility] the event this information is protected by the Federal Confidentiality of Alcohol and Drug Abuse Patient Records regulations: The Federal rules restrict any use of the information to criminally investigate or prosecute any alcohol or drug abuse patient.[facility] the event this information is protected by the Federal Confidentiality of Alcohol and Drug Abuse Patient Records regulations: The Federal rules restrict any use of the information to criminally investigate or prosecute any alcohol or drug abuse patient.[facility]In the event this information is protected by the Federal Confidentiality of Alcohol and Drug Abuse Patient Records regulations: The Federal rules restrict any use of the information to criminally investigate or prosecute any alcohol or drug abuse patient.[facility] the event this information is protected by the Federal Confidentiality of Alcohol and Drug Abuse Patient Records regulations: The Federal rules restrict any use of the information to criminally investigate or prosecute any alcohol or drug abuse patient.[facility]In the event this information is protected by the Federal Confidentiality of Alcohol and Drug Abuse Patient Records regulations: The Federal rules restrict any use of the information to criminally investigate or prosecute any alcohol or drug abuse patient.[facility]In the event this information is protected by the Federal Confidentiality of Alcohol and Drug Abuse Patient Records regulations: The Federal rules restrict any use of the information to criminally investigate or prosecute any alcohol or drug abuse patient.[facility]In the event this information is protected by the Federal Confidentiality of Alcohol and Drug Abuse Patient Records regulations: The Federal rules restrict any use of the information to criminally investigate or prosecute any alcohol or drug abuse patient.[facility]In the event this information is protected by the Federal Confidentiality of Alcohol and Drug Abuse Patient Records regulations: The Federal rules restrict any use of the information to criminally investigate or prosecute any alcohol or drug abuse patient.[facility]In the event this information is protected by the Federal Confidentiality of Alcohol and Drug Abuse Patient Records regulations: The Federal rules restrict any use of the information to criminally investigate or prosecute any alcohol or drug abuse patient.[facility] the event this information is protected by the Federal Confidentiality of Alcohol and Drug Abuse Patient Records regulations: The Federal rules restrict any use of the information to criminally investigate or prosecute any alcohol or drug abuse patient.[facility] the event this information is protected by the Federal Confidentiality of Alcohol and Drug Abuse Patient Records regulations: The Federal rules restrict any use of the information to criminally investigate or prosecute any alcohol or drug abuse patient.[facility] the event this information is protected by the Federal Confidentiality of Alcohol and Drug Abuse Patient Records regulations: The Federal rules restrict any use of the information to criminally investigate or prosecute any alcohol or drug abuse patient.[facility]In the event this information is protected by the Federal Confidentiality of Alcohol and Drug Abuse Patient Records regulations: The Federal rules restrict any use of the information to criminally investigate or prosecute any alcohol or drug abuse patient.[facility] the event this information is protected by the Federal Confidentiality of Alcohol and Drug Abuse Patient Records regulations: The Federal rules restrict any use of the information to criminally investigate or prosecute any alcohol or drug abuse patient.[facility] the event this information is protected by the Federal Confidentiality of Alcohol and Drug Abuse Patient Records regulations: The Federal rules restrict any use of the information to criminally investigate or prosecute any alcohol or drug abuse patient.[facility]In the event this information is protected by the Federal Confidentiality of Alcohol and Drug Abuse Patient Records regulations: The Federal rules restrict any use of the information to criminally investigate or prosecute any alcohol or drug abuse patient.[facility] the event this information is protected by the Federal Confidentiality of Alcohol and Drug Abuse Patient Records regulations: The Federal rules restrict any use of the information to criminally investigate or prosecute any alcohol or drug abuse patient.[facility]In the event this information is protected by the Federal Confidentiality of Alcohol and Drug Abuse Patient Records regulations: The Federal rules restrict any use of the information to criminally investigate or prosecute any alcohol or drug abuse patient.[facility] SpringfieldIn the event this information is protected by the Federal Confidentiality of Alcohol and Drug Abuse Patient Records regulations: The Federal rules restrict any use of the information to criminally investigate or prosecute any alcohol or drug abuse patient.[facility]In the event this information is protected by the Federal Confidentiality of Alcohol and Drug Abuse Patient Records regulations: The Federal rules restrict any use of the information to criminally investigate or prosecute any alcohol or drug abuse patient.[facility]In the event this information is protected by the Federal Confidentiality of Alcohol and Drug Abuse Patient Records regulations: The Federal rules restrict any use of the information to criminally investigate or prosecute any alcohol or drug abuse patient.[facility]In the event this information is protected by the Federal Confidentiality of Alcohol and Drug Abuse Patient Records regulations: The Federal rules restrict any use of the information to criminally investigate or prosecute any alcohol or drug abuse patient.[facility]In the event this information is protected by the Federal Confidentiality of Alcohol and Drug Abuse Patient Records regulations: The Federal rules restrict any use of the information to criminally investigate or prosecute any alcohol or drug abuse patient.[facility]In the event this information is protected by the Federal Confidentiality of Alcohol and Drug Abuse Patient Records regulations: The Federal rules restrict any use of the information to criminally investigate or prosecute any alcohol or drug abuse patient.[facility]In the event this information is protected by the Federal Confidentiality of Alcohol and Drug Abuse Patient Records regulations: The Federal rules restrict any use of the information to criminally investigate or prosecute any alcohol or drug abuse patient.[facility]In the event this information is protected by the Federal Confidentiality of Alcohol and Drug Abuse Patient Records regulations: The Federal rules restrict any use of the information to criminally investigate or prosecute any alcohol or drug abuse patient.[facility]In the event this information is protected by the Federal Confidentiality of Alcohol and Drug Abuse Patient Records regulations: The Federal rules restrict any use of the information to criminally investigate or prosecute any alcohol or drug abuse patient.[facility]In the event this information is protected by the Federal Confidentiality of Alcohol and Drug Abuse Patient Records regulations: The Federal rules restrict any use of the information to criminally investigate or prosecute any alcohol or drug abuse patient.[facility]In the event this information is protected by the Federal Confidentiality of Alcohol and Drug Abuse Patient Records regulations: The Federal rules restrict any use of the information to criminally investigate or prosecute any alcohol or drug abuse patient.[facility]In the event this information is protected by the Federal Confidentiality of Alcohol and Drug Abuse Patient Records regulations: The Federal rules restrict any use of the information to criminally investigate or prosecute any alcohol or drug abuse patient.[facility]In the event this information is protected by the Federal Confidentiality of Alcohol and Drug Abuse Patient Records regulations: The Federal rules restrict any use of the information to criminally investigate or prosecute any alcohol or drug abuse patient.[facility] Reason for Visit (unrecogniz ed section and content) Reason Comments Refill Request Reason Comments Physical Reason Comments NEW PRIMARY CARE PHARMACY APPT Reason Comments Appointment Reason Comments PHMA/Care Gap Outreach Reason Comments Insurance Authorization Reason Onset Date Comments Refill Request 07/16/2022 Reason Onset Date Comments Refill Request 05/04/2022 NEW PHARMACY Reason Comments Results cologuard Reason Comments Dizziness Woke up yesterday mo rning with the dizziness and fell straight down on the floor, did not hit his head, could not move or get up after he fell thought he was going to have to call squad because he could not move his head but could move his limbs after 25 minutes he crawled to the bathroom 45 minutes later he felt better, used a rollator the rest of the day around the house. Had a slight LAWSON.The room was spinning on an angle. Today he is still dizzy but not as bad states he just feels like he is drunk. Reason Comments Diabetes Reason Comments Establish Care History of DVT Specialty Diagnoses / Procedures Referred By Contac t Referred To Contact Radiology Diagnoses Occlusion of iliac vein (Multi) Peripheral venous insufficiency Postphlebitic syndrome Pain of lower extremity, unspecified laterality Swelling of lower extremity Procedures CT angio aorta and bilateral iliofemoral runoff w and or wo IV contrast Nell Blanca [email or web address] [id number], [place] [id number] Referral ID Status Reason Start Date Expiration Date Visits Requested Visits Authorized [id number] Pending Review Perform Procedure 08/24/2023 08/23/2024 1 1 Specialty Diagnoses / Procedures Referred By Contac t Referred To Contact Cardiology Diagnoses Anticoagulation management encounter Procedures Vascular US lower extremity venous insufficiency bilateral Nell Blanca RESIDENT ENGINEER-THREADER [address], [place] [id number] Referral ID Status Reason Start Date Expiration Date Visits Requested Visits Authorized [id number] Authorized Perform Procedure 07/19/2023 07/18/2024 1 1 Specialty Diagnoses / Procedures Referred By Contac t Referred To Contact Cardiology Diagnoses Peripheral venous insufficiency Procedures Vascular US Lower [place]rem[place] [address] [address] [place] [address] Referral ID Status Reason Start Date Expiration Date Visits Requested Visits Authorized [id number] Authorized Perform Procedure 11/16/2023 11/15/2024 1 1 Referral ID Status Reason Start Date Expiration Date Visits Requested Visits Authorized [id number] Authorized Perform Procedure 11/16/2023 11/15/2024 1 1 Reason Comments Establish Care Reason Comments Diabetes Specialty Diagnoses / Procedures Referred By Contac t Referred To Contact Pharmacy / Primary Care Diagnoses Type 2 diabetes mellitus with hyperglycemia, without long-term current use of insulin Procedures Follow Up In Advanced Primary Care - Pharmacy Brittany Crandall, [address] [facility], [facility] [address] [place] [address] Referral ID Status Reason Start Date Expiration Date V isits Requested Visits Authorized [id number] Authorized 12/28/2023 12/27/2024 1 1 Reason Comments Diabetes Follow up Specialty Diagnoses / Procedures Referred By Contac t Referred To Contact FAMILY MEDICINE Diagnoses Well adult exam Procedures WELLNESS EXAMS EST 40-64 YRS Candida Soria, DO [address] [place] [address] [facility] [address] [place] [address] Referral ID Status Reason Start Date Expiration Date Visits Requested Visits Authorized [id number] New Request OON/Self Pay Override 4 07/08/2025 5 5 Reason Onset Date Comments Refill Request 07/20/2024 Specialty Diagnoses / Procedures Referred By Contac t Referred To Contact FAMILY MEDICINE Diagnoses Well adult exam Procedures WELLNESS EXAMS EST 40-64 YRS Candida Soria, DO [address] [place] [address] Phone: tel: fax: [facility] [address] [place] [address] Phone: tel: fax: Referral ID Status Reason Start Date Expiration Date Visits Requested Visits Authorized [id number] New Request OON/Self Pay Override 4 07/08/2025 5 5 Care Teams (unrecognized sec tion and content) Administrative Support Specialist Relationship Specialty Start Date End Date Alex Macias MD [address] [place] [address] PCP - General Internal Medicine 07/14/17 Administrative Support Specialist Relationship Specialty Start Date End Date Dominic, Alex Perez MD [address] [place] [address] PCP - General Internal Medicine 07/14/17 Administrative Support Specialist Relationship Specialty Start Date End Date Dominic, Alex Perez MD [address] [place] [address] PCP - General Internal Medicine 07/14/17 Administrative Support Specialist Relationship Specialty Start Date End Date Dominic, Alex Perez MD [facility] [place] [place] [address] PCP - General Internal Medicine 07/14/17 Administrative Support Specialist Relationship Specialty Start Date End Date Edmond, Alex Perez MD [address] [place] [address] PCP - General Internal Medicine 07/14/17 Administrative Support Specialist Relationship Specialty Start Date End Date Edmond, Alex Perez MD [address] [place] [address] PCP - General Internal Medicine 07/14/17 Administrative Support Specialist Relationship Specialty Start Date End Date Edmond, Alex Perez MD [address] [place] [address] PCP - General Internal Medicine 07/14/17 Administrative Support Specialist Relationship Specialty Start Date End Date Edmond, Alex Perez MD [address] [place] [address] PCP - General Internal Medicine 07/14/17 Administrative Support Specialist Relationship Specialty Start Date End Date Edmond, Alex Perez MD [address] [place] [address] PCP - General Internal Medicine 07/14/17 Administrative Support Specialist Relationship Specialty Start Date End Date Edmond, Alex Perez MD [address] [place] [address] PCP - General Internal Medicine 07/14/17 Administrative Support Specialist Relationship Specialty Start Date End Date Dominic, Alex Perez MD [address] [place] [address] PCP - General Internal Medicine 07/14/17 Administrative Support Specialist Relationship Specialty Start Date End Date Candida Soria DO [address] [place] [address] PCP - General Family Medicine 11/10/22 Administrative Support Specialist Relationship Specialty Start Date End Date Candida Soria DO [address] [place] [address] PCP - General Family Medicine 11/10/22 Administrative Support Specialist Relationship Specialty Start Date End Date Candida Soria DO [address] [facility] [place] [address] PCP - General Family Medicine 11/10/22 Administrative Support Specialist Relationship Specialty Start Date End Date Candida Soria DO [address] [place] [address] PCP - General Family Medicine 11/10/22 Administrative Support Specialist Relationship Specialty Start Date End Date Candida Soria DO [address] [place] [place] [address] PCP - General Family Medicine 11/10/22 Administrative Support Specialist Relationship Specialty Start Date End Date Candida Soria DO [address] [place] [address] PCP - General Family Medicine 11/10/22 Administrative Support Specialist Relationship Specialty Start Date End Date Nell Blanca, RESIDENT ENGINEER-THREADER [address] [place] [address] PCP - General Cardiology 08/25/23 Administrative Support Specialist Relationship Specialty Start Date End Date Evangelist, Nell, RESIDENT ENGINEER-THREADER [address] [place] [address] PCP - General Cardiology 08/25/23 Administrative Support Specialist Relationship Specialty Start Date End Date Rocio Blancaa, RESIDENT ENGINEER-THREADER [address] [place] [address] PCP - General Cardiology 08/25/23 Administrative Support Specialist Relationship Specialty Start Date End Date Candida Soria DO [address] [place] [address] PCP - General Family Medicine 11/10/22 Administrative Support Specialist Relationship Specialty Start Date End Date Nell Blanca, RESIDENT ENGINEER-THREADER [address] [place] [address] PCP - General Cardiology 08/25/23 Rocio Blancaa, RESIDENT ENGINEER-THREADER [address] [place] [address] PCP - Vero MORA PCP 08/18/23 Administrative Support Specialist Relationship Specialty Start Date End Date Rocio Blancaa, RESIDENT ENGINEER-THREADER [address] [place] [address] PCP - General Cardiology 08/25/23 Rocio Blancaa, RESIDENT ENGINEER-THREADER [address], [facility] [address] [place] [address] PCP - [employer] PCP 08/18/23 Administrative Support Specialist Relationship Specialty Start Date End Date Evangelist, Nell, RESIDENT ENGINEER-THREADER [address] [facility] [address] [place] [address] PCP - General Cardiology 08/25/23 Evangelist, Nell, RESIDENT ENGINEER-THREADER [address], [address] [address] PCP - [employer] PCP 08/18/23 Administrative Support Specialist Relationship Specialty Start Date End Date Rocio Blancaa, RESIDENT ENGINEER-THREADER [address], [address] [address] PCP - [employer] PCP 08/18/23 Brittany Crandall DO [address] [facility], [facility] [address] [place] [address] PCP - General Internal Medicine 12/27/23 Administrative Support Specialist Relationship Specialty Start Date End Date Nell Blanca, RESIDENT ENGINEER-THREADER [address], [address] [address] PCP - [employer] PCP 08/18/23 Brittany Crandall DO [address] [facility], [facility] [address] [place] [address] PCP - General Internal Medicine 12/27/23 Administrative Support Specialist Relationship Specialty Start Date End Date Nell Blanca APRN-THREADER [address] [facility] [address] [place] [address] PCP - [employer] PCP 08/18/23 Brittany Crandall, [address] [facility], [address] [place] [address] PCP - General Internal Medicine 12/27/23 Administrative Support Specialist Relationship Specialty Start Date End Date Nell Blanca DWIGHT-THREADER [address] [place] [address] PCP - [employer] PCP 08/18/23 Brittany Crandall DO [address] [facility], [facility] [address] [place] [address] PCP - General Internal Medicine 12/27/23 Administrative Support Specialist Relationship Specialty Start Date End Date Candida Soria DO [address] [place] [address] PCP - General Family Medicine 11/10/22 Administrative Support Specialist Relationship Specialty Start Date End Date Candida Soria DO [address] [place], [place] [id number] PCP - General Family Medicine 11/10/22 Administrative Support Specialist Relationship Specialty Start Date End Date Candida Soria DO [address] [place] [address] PCP - General Family Medicine 11/10/22 Team Status: Active Member Role Status Dates [facility] Primary Care Provider Active Team Status: Inactive Member Role Status Dates [facility] Primary Care Provider Active Start: July 18, 2024 End: July 18, 2024 [facility] [facility] Referring Provider Active Start: July 18, 2024 End: July 18, 2024 Jc Rosales MD Attending Provider Active St art: July 18, 2024 End: July 18, 2024 Team Status: Inactive Member Role Status Dates [facility] Primary Care Provider Active Start: September 07, 2024 End: September 07, 2024 Jc Rosales MD Attending Provider Active St art: September 07, 2024 End: September 07, 2024 Jc Rosales MD Referring Provider Active St art: September 07, 2024 End: September 07, 2024 Administrative Support Specialist Relationship Specialty Start Date End Date Candida Soria DO [address] [place] [id number] PCP - General Family Medicine 11/10/22 Team Status: Inactive Member Role Status Dates [facility] Primary Care Provider Active Start: September 20, 2024 End: September 20, 2024 [employer] [facility] Referring Provider Active Start: September 20, 2024 End: September 20, 2024 Jc Rosales MD Attending Provider Active St art: September 20, 2024 End: September 20, 2024 Goals (unrecognized section and content) Goals may be documented in a n alternate sectionGoals may be documented in an alternate section FOR RECORDS PERTAINING TO PATIENTS WHO ARE OR HAVE BEEN ENROLLED IN A CHEMICAL DEPENDENCY/SUBSTANCEABUSE PROGRAM, SOME INFORMATION MAY BE OMITTED. This clinical summary was aggregated from multiple sources. Caution should be exercised in using it in the provision of clinical care. This summary normalizes information from multiple sources, and as a consequence, information in this document may materially change the coding, format and clinical context of patient data. In addition, data may be omitted in some cases. CLINICAL DECISIONS SHOULD BE BASED ON THE PRIMARY CLINICAL RECORDS. [facility] [employer] provides no warranty or guarantee of the accuracy or completeness of information in this document.
== END | disposition home or self-care (01) ==
PROVIDERS: PCP Family Medicine; Referring Provider Orthopaedic Surgery Sports Medicine; Visit Provider Orthopaedic Surgery Sports Medicine
DX: R59.0 Localized enlarged lymph nodes (principal)
CPT/HCPCS: 76882

== ENCOUNTER → 2024-10-18 | Outpatient (CLI) | payer OTHER, SELFPAY ==
--- NOTE | 2024-10-18 08:20 | AXNB_PTH ---
PATIENT: ORI LUNA LOC: [facility] U#:[id number] AGE/SX: 59/M ROOM: RE10/18/[address]: Dr. Colt Schmidt MD : 1965 BED: DIS: 10/18/2024 SPEC #: [id number] RECD: 10/18/24 08:39 STATUS: DOMENICO REPhuong #: [id number] MONA: 10/18/24 08:[address]: Colt Schmidt DEPT: SURGICAL PATHOLOGY RECD BY: Behzad To ENTERED: 10/18/24 09:58 SP TYPE: AX NODE BX OTHR DR: Dr. Candida Benitez, Tissues: A - Axillary lymph node, NOS Procedures: Immunohistochemical Stains Surgery Specimen Level IV IHC Stain ADDITIONAL HEADER OPERATION: Right axillary lymph node biopsy PRE-OP DIAGNOSIS: Enlarged lymph node - right axilla TISSUE SUBMITTED: A- Right axilla lymph node MICROSCOPIC DIAGNOSIS A. Lymph node, axillary, right, enlarged lymph node, core biopsy: -Small lymph node (0.2 cm) with benign adipose tissue - see note. Note: IHCs were performed to assess the lymphoid tissue, and reveal a mixture of CD3+CD5+BCL-2+ T-cells and CD20+ B-cells. CD23 highlights follicular dendritic cells. BCL-1 is negative. CD10 is negative. There are a few scattered cells positive for BCL-6. These findings support a reactive process. The biopsy cores were composed predominantly of adipose tissue. If part of a larger mass lesion, this biopsy may not be a technical service representative sampling. If clinical concern for a neoplastic process remains, suggest obtaining additional tissue for further testing. MICROSCOPIC DESCRIPTION Slides are reviewed. GROSS DESCRIPTION A. Received in saline labeled with the patient's name and date of . Designated as R axilla are 2 fragmented mcgarry-yellow tissue cores, 1.9 cm and 2.3 cm in length by 0.1 cm in diameter. Preparations are made. Entirely submitted in 2 cassettes, to include the touch prep core in cassette A1. [place] 10/18/2024 CPT:[id number]
--- NOTE | 2024-10-18 08:20 | AXNB_PTH ---
PATIENT: ORI LUNA LOC: [facility] U#:[id number] AGE/SX: 59/M ROOM: RE10/18/[address]: Dr. Colt Schmidt MD : 1965 BED: DIS: 10/18/2024 SPEC #: [id number] RECD: 10/18/24 08:39 STATUS: DOMENICO REPhuong #: [id number] MONA: 10/18/24 08:[address]: oClt Schmidt DEPT: SURGICAL PATHOLOGY RECD BY: Behzad To ENTERED: 10/18/24 09:58 SP TYPE: AX NODE BX OTHR DR: Dr. Candida Benitez, Tissues: A - Axillary lymph node, NOS Procedures: Immunohistochemical Stains Surgery Specimen Level IV IHC Stain ADDITIONAL HEADER OPERATION: Right axillary lymph node biopsy PRE-OP DIAGNOSIS: Enlarged lymph node - right axilla TISSUE SUBMITTED: A- Right axilla lymph node MICROSCOPIC DIAGNOSIS A. Lymph node, axillary, right, enlarged lymph node, core biopsy: -Small lymph node (0.2 cm) with benign adipose tissue - see note. Note: IHCs were performed to assess the lymphoid tissue, and reveal a mixture of CD3+CD5+BCL-2+ T-cells and CD20+ B-cells. CD23 highlights follicular dendritic cells. BCL-1 is negative. CD10 is negative. There are a few scattered cells positive for BCL-6. These findings support a reactive process. The biopsy cores were composed predominantly of adipose tissue. If part of a larger mass lesion, this biopsy may not be a international sales representative sampling. If clinical concern for a neoplastic process remains, suggest obtaining additional tissue for further testing. MICROSCOPIC DESCRIPTION Slides are reviewed. GROSS DESCRIPTION A. Received in saline labeled with the patient's name and date of . Designated as R axilla are 2 fragmented mcgarry-yellow tissue cores, 1.9 cm and 2.3 cm in length by 0.1 cm in diameter. Preparations are made. Entirely submitted in 2 cassettes, to include the touch prep core in cassette A1. [place] 10/18/2024 CPT:[id number]
== END | disposition home or self-care (01) ==
LOC: LABSPEC 09:37
PROVIDERS: PCP Family Medicine; Referring Provider Surgery; Visit Provider Surgery
DX: R59.0 Localized enlarged lymph nodes (principal)
CPT/HCPCS: 88305; 88341; 88342